=== PATIENT | male | born 1940 | race Asian ===

== ENCOUNTER 2017-01-04 17:59 | Inpatient (IN) | payer MEDICARE ==
[~2017-01-04] VITALS: Ht 162.6 cm; Wt 53.1 kg
[~2017-01-04 17:59] MED LIST: AMLODIPINE-ATO1 EAC8 ORAL; BACITRACIN1 APPLIC TOPIC; BYSTOLIC2.5 MG ORAL; DONEPEZIL HCL5 MG ORAL
[2017-01-04 18:20] VITALS: BP 171/88
[2017-01-04 18:35] LABS: ABG ALLEN TEST POSITIVE; ABG PCO2 127.7 mmHg (35.0-45.0)
[2017-01-04 18:59] LABS: ALANINE AMINOTRANSFERASE 10 U/L (3-41); ANION GAP 10 (5-15); ASPARTATE AMINO TRANSFERASE 18 U/L (5-40); CALCIUM 8.6 mg/dL (8.6-10.2); CARBON DIOXIDE 32 mEQ/L (20-30); CHLORIDE 108 mEQ/L (98-107); HEMOLYSIS 4; POTASSIUM 3.6 mEQ/L (3.4-4.9); SODIUM 150 mEQ/L (135-145); TOTAL PROTEIN 6.5 g/dL (6.6-8.7); TROPONIN I < 0.30 ng/mL (<=0.30)
[2017-01-04 19:23] LABS: APPEARANCE,URINE CLEAR; KETONES,URINE NEGATIVE (NEGATIVE); LEUKOCYTE ESTERASE ,URINE NEGATIVE (NEGATIVE); NITRITE,URINE NEGATIVE (NEGATIVE); PH,URINE 5 (4.5-8.0); PROTEIN,URINE 3+ (NEGATIVE); UROBILINOGEN,URINE 1 MG/DL (0.0-1.0)
[2017-01-04 19:23] LABS: BASOPHILS % (AUTO) 0.7 % (0.0-2.0); EOSINOPHILS % (AUTO) 1.2 % (0.0-3.0); LYMPHOCYTES % (AUTO) 31.4 % (20.0-45.0); MEAN CORPUSCULAR HEMOGLOBIN 33.9 PG (27.0-31.0); MEAN CORPUSCULAR HGB CONC 32.8 G/DL (32.0-36.0); MEAN CORPUSCULAR VOLUME 103 FL (80-99); MEAN PLATELET VOLUME 7.8 FL (6.5-10.1); NEUTROPHILS % (AUTO) 59.6 % (45.0-75.0); PLATELET COUNT 244 K/UL (150-450); RED BLOOD COUNT 3.66 M/UL (4.70-6.10); RED CELL DISTRIBUTION WIDTH 12.7 % (11.6-14.8); WHITE BLOOD COUNT 14.2 K/UL (4.8-10.8)
[2017-01-04 19:32] LABS: AMORPHOUS SEDIMENT,UR FEW /LPF; BACTERIA,URINE FEW /HPF; WBC,URINE 0-2 /HPF (0 - 0)
[2017-01-04] MEDS ORDERED: Zosyn 3.375gm inj ONE ×2 (19:40→23:23)
[2017-01-04 19:45] LABS: CKMB 2.5 ng/mL (< 6.7)
[2017-01-04] MEDS ORDERED: Piperacillin/Tazobactam 3.375 GM in NS 110 ML IV ONE (19:45)
[2017-01-04] MEDS ORDERED: Azithromycin 500 MG in NS 275 ML IV ONE (19:45)
[2017-01-04 19:56] VITALS: BP 135/91
[2017-01-04] MEDS ORDERED: NAMENDA10 MG ORAL (20:12)
[2017-01-04] MEDS ORDERED: Azithromycin Inj IV ONE (20:35)
[2017-01-04 20:41] LABS: ABG BASE EXCESS 3.4; ABG PCO2 37.9 mmHg (35.0-45.0)
[2017-01-04 20:42] LABS: ABG ALLEN TEST POSITIVE
[2017-01-04] MEDS ORDERED: Morphine Sulfate 4mg/ml Inj IVP PRN (21:00)
[2017-01-04] MEDS ORDERED: Nitroglycerin Subl 0.4mg tab (Bottle Of 25) SL PRN (21:00)
[2017-01-04] MEDS ORDERED: Miralax 17gm pkt ORAL PRN (21:00)
[2017-01-04] MEDS ORDERED: DuoNeb 0.5-3(2.5)mg/3ml neb HHN PRN (21:00)
[2017-01-04] MEDS ORDERED: LORazepam Inj 2mg/ml 1ml IV PRN (21:00)
[2017-01-04 21:30] VITALS: BP 105/59
[2017-01-04 22:00] VITALS: BP 126/72
[2017-01-04] MEDS ORDERED: Vancomycin 1 GM in D5W 275 ML IVPB SCH (22:00)
--- NOTE | 2017-01-04 22:13 | Emergency Room Report ---
History of Present Illness General Chief Complaint: Dyspnea/Respdistress Source: Patient, EMS Present Illness HPI 76-year-old male presents to ED for respiratory distress. Altered. at bedside states that today he while he was eating and he started choking. She attempted to clear the airway but saw no visible food. Since then patient has been altered more than usual and having trouble breathing. Patient has dementia. Patient is unable to provide any additional history at this time. No reported fevers or chills. No reported chest pain. No aggravating or relieving factors. No other associated symptoms Allergies: Coded Allergies: No Known Allergies (Verified , 01/26/12) Patient History Past Medical History: HTN, dementia Past Surgical History: none Pertinent Family History: none Social History: Denies: alcohol use, drug use, smoking Immunizations: UTD Reviewed Nursing Documentation: PMH: Agreed, PSxH: Agreed Nursing Documentation-PMH Past Medical History: No History, Except For Hx Cardiac Problems: Yes - high cholesterol Hx Hypertension: Yes Hx Cancer: No Hx Gastrointestinal Problems: No History Of Psychiatric Problem: Yes - alzheimers, dementia Hx Neurological Problems: No Review of Systems All Other Systems: negative except mentioned in HPI Physical Exam Vital Signs Date Time Temp Pulse Resp B/P Pulse Ox O2 Delivery O2 Flow Rate FiO2 01/04/17 17:53 81 20 171/88 98 Ambu-Bag 01/04/17 18:20 99.1 15.0 01/04/17 19:14 100 Sp02 EP Interpretation: abnormal General Appearance: mild distress, thin Head: normocephalic Eyes: bilateral eye PERRL, bilateral eye normal inspection ENT: normal ENT inspection Neck: normal inspection Respiratory: accessory muscle use, crackles Cardiovascular #1: regular rate, rhythm, no edema Gastrointestinal: normal inspection Rectal: deferred Genitourinary: no CVA tenderness Musculoskeletal: normal inspection Neurologic: other - altered Psychiatric: other Skin: normal inspection Lymphatic: normal inspection Procedures Critical Care Time Critical Care Time i. I feel this is a highly complex case requiring extensive working including EKG/Rhythm strip, Xray/CT/US, Blood/urine lab work, repeat exams while in ED, and administration of strong opiates/narcotics for pain control, admission to hospital or close patient follow up. Total time: 30 min bedside evaluation and treatment excludes procedures (EKG). Reason for critical care: Respiratory distress, acidotic, aspiration Possible complications: hypotension, hypertension, [place], shock, arrhythmias, metabolic acidosis, end organ damage, respiratory failure. Interventions: Labs, IV fluids, EKG, chest x-ray. ABG. Intubation. Antibiotics. Course: Patient brought in for respiratory distress, likely aspirated. Patient with agonal breathing. O2 saturations low. ABG shows acidosis with hypercapnia. Patient protecting airway. Patient intubated. Antibiotic given. Consultations: nursing staff, EMS, family Performed by: Dr Arboleda Tolerated well condition = critical j. because of unstable vital signs this patient had a condition that could potentially threaten life or limb. I feel this is a critical patient who required my full attention while patient was considered critical. Total Critical Care Time excluding procedures was greater than 35 minutes Intubation Intubation : Consent: Emergent Intubation Method: orotracheal Tube Size (cm): 7.5 Medications: Etomidate, Rocuronium Breath Sounds after Intubation: equal Intubation Complications: no complications Post Intubation Xray: Yes Attempts: One Patient Tolerated: Well Complications: None Medical Decision Making Diagnostic Impression: Primary Impression: Aspiration pneumonia Qualified Codes: J69.0 - Pneumonitis due to inhalation of food and vomit Additional Impression: Respiratory distress ER Course Hospital Course 76-year-old M presenting to ED with respiratory distress, hypoxic after choking episode Differential diagnoses include: Pneumonia, CHF exacerbation, pneumothorax, fluid overload Clinical course Patient placed on stretcher. On threat monitoring analyst with hypoxia on room air. After initial history and physical, I ordered labs, IV fluids, EKG, chest x-ray , blood cultures, UA. Patient placed on NRB Labs -leukocytosis noted, hemoglobin/hematocrit stable, electrolytes ok okay, lactate okay troponins negative CXR - ? infiltrate EKG - NSR, no acute ischemic changes ABG shows significant acidosis with hypercapnia. Patient protecting airway. Family agrees that patient requires intubation Patient intubated. Chest x-ray shows ET tube placement. Abx given. IVFs given. Case discussed with Dr. Johnson and he agreed to the patient to his service for further care and support I feel this is a highly complex case requiring extensive working including EKG/ Rhythm strip, Xray/CT/US, Blood/urine lab work, repeat exams while in ED, and administration of strong opiates/narcotics for pain control, admission to hospital or close patient follow up. Diagnosis - aspiration pneumonia, respiratory distress Patient admitted to ICU in critical condition Labs Test 01/04/17 18:00 01/04/17 18:22 01/04/17 18:25 01/04/17 19:31 White Blood Count 14.2 K/UL (4.8-10.8) Red Blood Count 3.66 M/UL (4.70-6.10) Hemoglobin 12.4 G/DL (14.2-18.0) Hematocrit 37.8 % (42.0-52.0) Mean Corpuscular Volume 103 FL (80-99) Mean Corpuscular Hemoglobin 33.9 PG (27.0-31.0) Mean Corpuscular Hemoglobin Concent 32.8 G/DL (32.0-36.0) Red Cell Distribution Width 12.7 % (11.6-14.8) Platelet Count 244 K/UL (150-450) Mean Platelet Volume 7.8 FL (6.5-10.1) Neutrophils (%) (Auto) 59.6 % (45.0-75.0) Lymphocytes (%) (Auto) 31.4 % (20.0-45.0) Monocytes (%) (Auto) 7.0 % (1.0-10.0) Eosinophils (%) (Auto) 1.2 % (0.0-3.0) Basophils (%) (Auto) 0.7 % (0.0-2.0) Sodium Level 150 mEQ/L (135-145) Potassium Level 3.6 mEQ/L (3.4-4.9) Chloride Level 108 mEQ/L (98-107) Carbon Dioxide Level 32 mEQ/L (20-30) Anion Gap 10 (5-15) Blood Urea Nitrogen 38 mg/dL (7-23) Creatinine 1.0 mg/dL (0.7-1.2) Estimat Glomerular Filtration Rate mL/min (>60) Glucose Level 133 mg/dL (74-106) Lactic Acid Level 1.10 mmol/L (0.66-2.22) Calcium Level 8.6 mg/dL (8.6-10.2) Total Bilirubin 0.2 mg/dL (0.0-1.2) Aspartate Amino Transf (AST/SGOT) 18 U/L (5-40) Alanine Aminotransferase (ALT/SGPT) 10 U/L (3-41) Alkaline Phosphatase 88 U/L (40-129) Total Creatine Kinase 137 U/L (38-174) Creatine Kinase MB 2.5 ng/mL (< 6.7) Creatine Kinase MB Relative Index 1.8 Troponin I < 0.30 ng/mL (<=0.30) Pro-B-Type Natriuretic Peptide 353 pg/mL (0-450) Total Protein 6.5 g/dL (6.6-8.7) Albumin 3.4 g/dL (3.5-5.2) Globulin 3.1 g/dL Albumin/Globulin Ratio 1.0 (1.0-2.7) Arterial Blood pH 7.101 (7.350-7.450) 7.472 (7.350-7.450) Arterial Blood Partial Pressure CO2 127.7 mmHg (35.0-45.0) 37.9 mmHg (35.0-45.0) Arterial Blood Partial Pressure O2 138.1 mmHg (75.0-100.0) 261.7 mmHg (75.0-100.0) Arterial Blood HCO3 38.8 mmol/L (22.0-26.0) 27.1 mmol/L (22.0-26.0) Arterial Blood Oxygen Saturation 97.6 % (92.0-98.0) 99.1 % (92.0-98.0) Arterial Blood Base Excess 5.0 3.4 Leo Test Positive Positive Urine Color Yellow Urine Appearance Clear Urine pH 5 (4.5-8.0) Urine Specific [place] 1.025 (1.005-1.035) Urine Protein 3+ (NEGATIVE) Urine Glucose (UA) Negative (NEGATIVE) Urine Ketones Negative (NEGATIVE) Urine Occult Blood 2+ (NEGATIVE) Urine Nitrite Negative (NEGATIVE) Urine Bilirubin Negative (NEGATIVE) Urine Urobilinogen 1 MG/DL (0.0-1.0) Urine Leukocyte Esterase Negative (NEGATIVE) Urine RBC 2-4 /HPF (0 - 0) Urine WBC 0-2 /HPF (0 - 0) Urine Squamous Epithelial Cells None /LPF (NONE/OCC) Urine Amorphous Sediment Few /LPF (NONE) Urine Bacteria Few /HPF (NONE) EKG Diagnostic Results Rate: normal Rhythm: NSR ST Segments: no acute changes ASA given to the pt in ED: No Rhythm Strip Diag. Results EP Interpretation: yes Rhythm: NSR, no PVC's, no ectopy Chest X-Ray Diagnostic Results EP Interpretation: Yes Findings: no pneumothorax, no acute cardiopulmonary disease, other - intubated. Number of Views: 1 Last Vital Signs Date Time Temp Pulse Resp B/P Pulse Ox O2 Delivery O2 Flow Rate FiO2 01/04/17 20:47 75 16 30 01/04/17 19:56 135/91 100 Endotracheal Tube 15.0 01/04/17 18:20 99.1 Status: improved Disposition: ADMITTED INPATIENT Condition: Critical Referrals: SANGEETHA JOHNSON (PCP) ALE ARBOLEDA M.D. Jan 04, 2017 22:13
[2017-01-04 23:00] VITALS: BP 91/56
[2017-01-04] MEDS ORDERED: Vancomycin 1gm inj IVPB ONE (23:22)
[2017-01-04] MEDS: Heparin 5000 units/ml inj SUBQ SCH (23:41)
[2017-01-04] MEDS: Vancomycin 1gm in D5W 275ml IVPB SCH (23:44)
[2017-01-05] VITALS (24 sets, daily range): BP systolic 96–152; BP diastolic 51–93
[2017-01-05] MEDS ORDERED: Vancomycin 1 GM in D5W 275 ML IV SCH (00:30)
[2017-01-05] MEDS: Piperacillin/Tazobactam 3.375 GM in D5W 110 ML IVPB SCH ×3 (04:38→20:26)
[2017-01-05 05:53] LABS: BASOPHILS % (AUTO) 0.8 % (0.0-2.0); EOSINOPHILS % (AUTO) 1.9 % (0.0-3.0); MEAN CORPUSCULAR HEMOGLOBIN 32.1 PG (27.0-31.0); MEAN CORPUSCULAR HGB CONC 31.7 G/DL (32.0-36.0); MEAN CORPUSCULAR VOLUME 101 FL (80-99); MEAN PLATELET VOLUME 9.3 FL (6.5-10.1); NEUTROPHILS % (AUTO) 72.3 % (45.0-75.0); PLATELET COUNT 196 K/UL (150-450); RED BLOOD COUNT 3.06 M/UL (4.70-6.10); RED CELL DISTRIBUTION WIDTH 12.5 % (11.6-14.8); WHITE BLOOD COUNT 9.7 K/UL (4.8-10.8)
[2017-01-05] MEDS: NovoLOG Insulin Flexpen SUBQ SCH ×4 (06:18→20:33)
[2017-01-05 06:21] LABS: ANION GAP 12 (5-15); CARBON DIOXIDE 26 mEQ/L (20-30); CHLORIDE 108 mEQ/L (98-107); CREATININE 0.8 mg/dL (0.7-1.2); HEMOLYSIS 5; POTASSIUM 3.2 mEQ/L (3.4-4.9); SODIUM 146 mEQ/L (135-145)
[2017-01-05] MEDS ORDERED: Etomidate 40mg/20ml Inj IV ONE (09:01)
[2017-01-05] MEDS ORDERED: Zemuron 50mg/5ml Inj IV ONE (09:03)
[2017-01-05 09:51] LABS: ABG BASE EXCESS 4.3; ABG PCO2 35.9 mmHg (35.0-45.0)
[2017-01-05 09:52] LABS: ABG ALLEN TEST POSITIVE
[2017-01-05] MEDS: Pantoprazole Inj IV SCH (09:54)
[2017-01-05] MEDS: Heparin 5000 units/ml inj SUBQ SCH ×2 (09:55→20:27)
--- NOTE | 2017-01-05 10:23 | Pulmonolgy Critical Care Note ---
Critical Care - Asmt/Plan Problems: (1) Respiratory distress (2) Aspiration pneumonia (3) Dementia Cardiac: continue to monitor HR/BP Renal: F/U I&O Infectious Disease: check cultures Gastrointestinal: continue feedings/current rate Endocrine: monitor blood sugar, continue sliding scale insulin Hematologic: monitor H/H, transfuse if hgb<8.5 Neurologic: PRN Ativan, PRN Morphine, keep patient comfortable Affect: PRN ativan Disposition: keep in ICU Discussed with: home health care case managermarket relationship manager - Objective Last 24 Hour Vital Signs Date Time Temp Pulse Resp B/P Pulse Ox O2 Delivery O2 Flow Rate FiO2 01/05/17 09:29 71 16 30 01/05/17 08:03 69 01/05/17 08:03 30 01/05/17 08:00 98.5 68 16 118/64 100 Mechanical Ventilator 30 01/05/17 07:29 72 16 30 01/05/17 07:00 68 16 117/64 100 Mechanical Ventilator 30 01/05/17 06:00 68 16 123/68 100 Mechanical Ventilator 30 01/05/17 05:00 69 16 110/63 100 Mechanical Ventilator 30 01/05/17 04:35 71 16 30 01/05/17 04:00 30 01/05/17 04:00 71 01/05/17 04:00 98.0 74 16 96/54 100 Mechanical Ventilator 30 01/05/17 03:25 62 18 30 01/05/17 03:00 70 16 112/62 100 Mechanical Ventilator 30 01/05/17 02:00 60 16 150/51 100 Mechanical Ventilator 30 01/05/17 01:05 67 17 30 01/05/17 01:00 60 16 152/51 100 Mechanical Ventilator 30 01/05/17 00:00 30 01/05/17 00:00 70 01/05/17 00:00 69 16 97/58 100 Mechanical Ventilator 30 01/04/17 23:09 66 16 30 01/04/17 23:00 67 16 91/56 100 Mechanical Ventilator 30 01/04/17 22:32 30 01/04/17 22:18 65 01/04/17 22:00 98.0 65 16 126/72 100 Mechanical Ventilator 30 01/04/17 21:49 99.1 94 16 105/59 100 Endotracheal Tube 15.0 30 01/04/17 21:30 99.1 94 105/59 Endotracheal Tube 15.0 30 01/04/17 20:47 75 16 30 01/04/17 20:47 30 01/04/17 19:56 90 17 135/91 100 Endotracheal Tube 15.0 100 01/04/17 19:32 100 01/04/17 19:14 106 16 100 01/04/17 18:20 81 20 Non-Rebreather 01/04/17 18:20 99.1 81 20 171/88 98 Non-Rebreather 15.0 01/04/17 17:53 81 20 171/88 98 Ambu-Bag Status: awake Condition: critical, grave HEENT: atraumatic Neck: full ROM Lungs: clear Heart: HR/BP stable, HR/BP unstable Abdomen: soft, non-tender, active bowel sounds Extremities: no C/C/E, edema Accucheck: 100 Critical Care - Subjective ROS Limited/Unobtainable: Yes ICU Day: 1 Intubation Day: 1 Interval Events: 76-year-old male with hx of Dementia, presented to ED for respiratory distress. Apparently he was eating and then he started choking. Pt's attempted to clear the airway but saw no visible food. Since then patient has been altered more than usual and having trouble breathing. He was intubated in ER and transferred to ICU. FI02: 30 Vent Support Breath Rate: 16 Vent Support Mode: AC Vent Tidal Volume: 600 Sputum Amount: Moderate PEEP: 5.0 PIP: 18 Fluids: d5w 75 cc.hour I&O: Intake and Output 01/04/17 01/05/17 19:00 07:00 Intake Total 1447.416 ml Output Total 100 ml 300 ml Balance -100 ml 1147.416 ml Intake Oral 0 ml IV Total 1447.416 ml Output Urine Total 100 ml 300 ml CXR: NAD ET-Tube: 7.5 ET Position: 23 Labs: Laboratory Tests Test 01/04/17 18:00 01/04/17 18:22 01/04/17 18:25 01/04/17 19:31 White Blood Count 14.2 K/UL (4.8-10.8) H Red Blood Count 3.66 M/UL (4.70-6.10) L Hemoglobin 12.4 G/DL (14.2-18.0) L Hematocrit 37.8 % (42.0-52.0) L Mean Corpuscular Volume 103 FL (80-99) H Mean Corpuscular Hemoglobin 33.9 PG (27.0-31.0) H Mean Corpuscular Hemoglobin Concent 32.8 G/DL (32.0-36.0) Red Cell Distribution Width 12.7 % (11.6-14.8) Platelet Count 244 K/UL (150-450) Mean Platelet Volume 7.8 FL (6.5-10.1) Neutrophils (%) (Auto) 59.6 % (45.0-75.0) Lymphocytes (%) (Auto) 31.4 % (20.0-45.0) Monocytes (%) (Auto) 7.0 % (1.0-10.0) Eosinophils (%) (Auto) 1.2 % (0.0-3.0) Basophils (%) (Auto) 0.7 % (0.0-2.0) Sodium Level 150 mEQ/L (135-145) H Potassium Level 3.6 mEQ/L (3.4-4.9) Chloride Level 108 mEQ/L (98-107) H Carbon Dioxide Level 32 mEQ/L (20-30) H Anion Gap 10 (5-15) Blood Urea Nitrogen 38 mg/dL (7-23) H Creatinine 1.0 mg/dL (0.7-1.2) Estimat Glomerular Filtration Rate mL/min (>60) Glucose Level 133 mg/dL (74-106) H Lactic Acid Level 1.10 mmol/L (0.66-2.22) Calcium Level 8.6 mg/dL (8.6-10.2) Total Bilirubin 0.2 mg/dL (0.0-1.2) Aspartate Amino Transf (AST/SGOT) 18 U/L (5-40) Alanine Aminotransferase (ALT/SGPT) 10 U/L (3-41) Alkaline Phosphatase 88 U/L (40-129) Total Creatine Kinase 137 U/L (38-174) Creatine Kinase MB 2.5 ng/mL (< 6.7) Creatine Kinase MB Relative Index 1.8 Troponin I < 0.30 ng/mL (<=0.30) Pro-B-Type Natriuretic Peptide 353 pg/mL (0-450) Total Protein 6.5 g/dL (6.6-8.7) L Albumin 3.4 g/dL (3.5-5.2) L Globulin 3.1 g/dL Albumin/Globulin Ratio 1.0 (1.0-2.7) Arterial Blood pH 7.101 (7.350-7.450) 7.472 (7.350-7.450) Arterial Blood Partial Pressure CO2 127.7 mmHg (35.0-45.0) *H 37.9 mmHg (35.0-45.0) Arterial Blood Partial Pressure O2 138.1 mmHg (75.0-100.0) H 261.7 mmHg (75.0-100.0) H Arterial Blood HCO3 38.8 mmol/L (22.0-26.0) H 27.1 mmol/L (22.0-26.0) H Arterial Blood Oxygen Saturation 97.6 % (92.0-98.0) 99.1 % (92.0-98.0) H Arterial Blood Base Excess 5.0 3.4 Leo Test Positive Positive Urine Color Yellow Urine Appearance Clear Urine pH 5 (4.5-8.0) Urine Specific [place] 1.025 (1.005-1.035) Urine Protein 3+ (NEGATIVE) H Urine Glucose (UA) Negative (NEGATIVE) Urine Ketones Negative (NEGATIVE) Urine Occult Blood 2+ (NEGATIVE) H Urine Nitrite Negative (NEGATIVE) Urine Bilirubin Negative (NEGATIVE) Urine Urobilinogen 1 MG/DL (0.0-1.0) H Urine Leukocyte Esterase Negative (NEGATIVE) Urine RBC 2-4 /HPF (0 - 0) H Urine WBC 0-2 /HPF (0 - 0) Urine Squamous Epithelial Cells None /LPF (NONE/OCC) Urine Amorphous Sediment Few /LPF (NONE) H Urine Bacteria Few /HPF (NONE) Test 01/05/17 05:13 01/05/17 09:00 White Blood Count 9.7 K/UL (4.8-10.8) Red Blood Count 3.06 M/UL (4.70-6.10) L Hemoglobin 9.8 G/DL (14.2-18.0) L Hematocrit 31.0 % (42.0-52.0) L Mean Corpuscular Volume 101 FL (80-99) H Mean Corpuscular Hemoglobin 32.1 PG (27.0-31.0) H Mean Corpuscular Hemoglobin Concent 31.7 G/DL (32.0-36.0) L Red Cell Distribution Width 12.5 % (11.6-14.8) Platelet Count 196 K/UL (150-450) Mean Platelet Volume 9.3 FL (6.5-10.1) Neutrophils (%) (Auto) 72.3 % (45.0-75.0) Lymphocytes (%) (Auto) 18.0 % (20.0-45.0) L Monocytes (%) (Auto) 7.0 % (1.0-10.0) Eosinophils (%) (Auto) 1.9 % (0.0-3.0) Basophils (%) (Auto) 0.8 % (0.0-2.0) Sodium Level 146 mEQ/L (135-145) H Potassium Level 3.2 mEQ/L (3.4-4.9) L Chloride Level 108 mEQ/L (98-107) H Carbon Dioxide Level 26 mEQ/L (20-30) Anion Gap 12 (5-15) Blood Urea Nitrogen 31 mg/dL (7-23) H Creatinine 0.8 mg/dL (0.7-1.2) Estimat Glomerular Filtration Rate mL/min (>60) Glucose Level 106 mg/dL (74-106) Calcium Level 8.0 mg/dL (8.6-10.2) L Arterial Blood pH 7.501 (7.350-7.450) Arterial Blood Partial Pressure CO2 35.9 mmHg (35.0-45.0) Arterial Blood Partial Pressure O2 89.1 mmHg (75.0-100.0) Arterial Blood HCO3 27.4 mmol/L (22.0-26.0) H Arterial Blood Oxygen Saturation 96.9 % (92.0-98.0) Arterial Blood Base Excess 4.3 Leo Test Positive RABIA BANGURA Jan 05, 2017 10:23
[2017-01-05] MEDS ORDERED: D5W 275ml ONE (10:25)
[2017-01-05] MEDS ORDERED: D5 1/2NS 1000ml IV ONE (10:25)
[2017-01-05] MEDS ORDERED: NS 275ml ONE (10:25)
[2017-01-05] MEDS ORDERED: Tubing IV Secondary IV ONE (10:25)
[2017-01-05 11:11] LABS: PROTHROMBIN TIME 10.2 SEC (9.30-11.50)
[2017-01-05 11:35] LABS: BAND NEUTROPHILS % (MANUAL) 0 % (0-8); BASOPHILS % (MANUAL) 0 % (0-2); EOSINOPHILS % (MANUAL) 1 % (0-3); HYPOCHROMASIA 1+; LYMPHOCYTES % (MANUAL) 19 % (20-45); MACROCYTES 1+; NEUTROPHILS % (MANUAL) 75 % (45-75); PLATELET ESTIMATE ADEQUATE; PLATELET MORPHOLOGY NORMAL; TOTAL CELLS COUNTED 100
[2017-01-05 11:56] LABS: PATH BLOOD SMEAR/OMC SENT TO PATHOLOGIST
[2017-01-05 11:57] LABS: RETICULOCYTE COUNT 0.4 % (0.0-2.0)
[2017-01-05 12:04] LABS: ERYTHROCYTE SEDIMENTATION RATE 33 MM/HR (0-20)
--- NOTE | 2017-01-05 12:34 | Consultation ---
Consult Note Consult Note ID Dic# [id number] HORACIO JOHN M.D. Jan 05, 2017 12:34
--- NOTE | 2017-01-05 13:52 | Diagnostic Imaging Report ---
Indication: TUBE PLCNJ Technique: One view of the chest Comparison: One hour earlier Findings: Interim endotracheal intubation, endotracheal tube tip projecting just beyond the thoracic inlet, approximately 7 cm above the deysi. Satisfactory nasogastric intubation, tip projected at the level gastric fundus. The lungs and pleural spaces remain largely clear, with calcified granulomata seen in the right lung apex. There is also calcified right hilar node The heart size is normal. Aorta is tortuous and calcified. Impression: Satisfactory endotracheal and nasogastric intubation No acute process Evidence of old granulomatous disease
--- NOTE | 2017-01-05 13:52 | Diagnostic Imaging Report ---
Indication: SOB Technique: One view of the chest Comparison: 09/05/2014 Findings: The heart is enlarged. Lungs and pleural spaces are clear. Aorta is tortuous and calcified. No significant interim change Impression: Cardiomegaly. No acute process
[2017-01-05] MEDS ORDERED: KCl 10% 20 mEq/15ml liquid NG ONE (16:00)
--- NOTE | 2017-01-05 16:05 | History & Physical ---
History and Physical History & Physicial Dictated Int Med no. [id number]. SANGEETHA JOHNSON Jan 05, 2017 16:05
--- NOTE | 2017-01-05 20:58 | Consultation ---
DATE OF CONSULTATION: 01/05/2017 INFECTIOUS DISEASE CONSULTATION CONSULTING PHYSICIAN: Kwasi Jo M.D REFERRING PHYSICIAN: Harriet Carballo M.D. REASON FOR CONSULTATION: Evaluation of the patient for possible aspiration pneumonia. HISTORY OF PRESENT ILLNESS: This is a 76-year-old male who was brought to the hospital due to respiratory distress after the patient was eating and started to choke. The patient had to be intubated and was found some food material. The patient has been started on IV antibiotics for possible aspiration pneumonia. Infectious Disease consultation has been requested for further evaluation and the patient's antibiotic management. PAST MEDICAL HISTORY: 1. History of fracture of femoral neck. 2. Dementia. 3. Hypertension. ALLERGIES: No known drug allergies. SOCIAL HISTORY: Unavailable. REVIEW OF SYSTEMS: Unobtainable. FAMILY HISTORY: Unavailable. MEDICATIONS: Zosyn and vancomycin. PHYSICAL EXAMINATION: VITAL SIGNS: Temperature 98.6, blood pressure 115/68, pulse 86, and respiratory rate 18. HEENT: Mild pale conjunctivae. No icterus. NECK: No lymphadenopathy. CHEST: Coarse breathing sounds. HEART: S1 and S2. ABDOMEN: Soft. EXTREMITIES: No cyanosis. sedated. LABORATORY DATA: White blood cell count on admission 14, platelets 196,000, and hemoglobin 9.8. UA unremarkable. BUN 31 and creatinine 0.8. ALT, AST, and alkaline phosphatase are unremarkable. ASSESSMENT: The patient is a 76-year-old male with multiple medical problems, who has been admitted to this medical center after the patient had aspiration. The patient will benefit from treatment of aspiration pneumonia. PLAN: 1. We will continue the patient on IV vancomycin and Zosyn. 2. Monitor CBC. 3. Monitor BMP. 4. Monitor cultures (blood and sputum). 5. Monitor the patient's clinical course. 6. Monitor chest x-ray. 7. Based on the patient's clinical course and labs, we will do further recommendations. Thank you, Dr. Carballo, for allowing me to participate in the care of this patient. I will follow the patient with you during this hospitalization. Kwasi Jo M.D. DR: MARK JOB#: [id number] CC:
[2017-01-05] MEDS ORDERED: Donepezil 10mg tab ORAL SCH (21:00)
--- NOTE | 2017-01-05 22:58 | History and Physical Report ---
DATE OF ADMISSION: 01/04/2017 CHIEF COMPLAINT: The patient is a 76-year-old male presents with complaint of respiratory failure. HISTORY OF PRESENT ILLNESS: The patient has a history of end-stage Alzheimer's dementia. According to the patient's , the patient was eating lunch yesterday afternoon. The patient began to choke. 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 The patient's extracted fluid from the patient's throat. The patient was started on mouth to mouth. The patient did not lose his pulse. The patient was transported to [facility] emergency room via EMS. The patient was intubated for airway protection. The patient is admitted for aspiration pneumonia and respiratory failure. PAST MEDICAL HISTORY: Significant for, 1. Alzheimer's dementia, end stage. 2. Hypertension. 3. Hypercholesterolemia. 4. Benign prostatic hypertrophy. 5. History of cataracts. PAST SURGICAL HISTORY: Significant for, 1. Cataract surgery of the left eye in 1999. 2. Cataract surgery of the left eye in 2011. 3. Right hip hemiarthroplasty secondary to femoral neck fracture in August 2014. CURRENT MEDICATIONS: 1. Aricept 10 mg one tablet p.o. at nightly. 2. Namenda 10 mg one tablet p.o. twice daily. 3. Aspirin 81 mg one tablet p.o. daily. 4. Vitamin D. ALLERGIES: No known drug allergies. SOCIAL HISTORY: The patient is . The patient is retired. The patient denies tobacco or alcohol use. REVIEW OF SYSTEMS: Constitutional: Unable to assess, secondary to the patient's mental status. PHYSICAL EXAMINATION: VITAL SIGNS: Temperature 98.6 degrees, respirations 16, pulse 72, and blood pressure 115/68. GENERAL: The patient is a well-developed and well-nourished male who is currently intubated and sedated. HEENT: Eyes, pupils are equal and responsive to light and accommodation. Extraocular movements are intact. NECK: Supple without lymphadenopathy. CHEST: Lungs are clear to auscultation bilaterally without wheezes or rales with coarse breath sounds bilaterally. The patient is currently intubated. ABDOMEN: Soft, nontender, and nondistended. Positive bowel sounds. No evidence of hepatosplenomegaly. Currently, no rebound or guarding. CARDIOVASCULAR: Regular rate. S1, S2. No murmurs, rubs, or gallops. EXTREMITIES: Negative for clubbing, cyanosis, or edema. RECTAL/GENITAL: Refused. NEUROLOGIC: The patient does open his eyes to verbal stimulation. LABORATORY STUDIES: WBC 14.2, hemoglobin 12.4, hematocrit 37.8, and platelets 244,000. Sodium 150, potassium 3.6, chloride 108, CO2 32, BUN 38, creatinine 1.0, and glucose 133. Arterial blood gas, pH 7.101, pCO2 127.7, pO2 138.1, bicarb positive 38.8, O2 saturation 97.6, and base excess positive 5.0. Chest x-ray was reported as no acute disease. ASSESSMENT: This is a 76-year-old male, 1. Respiratory failure. 2. Aspiration pneumonitis. 3. Aspiration pneumonia. 4. Hypertension. 5. Hypercholesterolemia. 6. Benign prostatic hypertrophy. 7. Alzheimer's dementia. TREATMENT: 1. Respiratory failure. Pulmonary consultation has been obtained with Dr. Carballo. The patient is currently intubated and sedated. We will follow recommendation of Pulmonary. 2. Aspiration pneumonitis/aspiration pneumonia. An Infectious Disease consultation obtained with Dr. Jo. The patient has been placed empirically on vancomycin and Zosyn. 3. Hypertension. The patient is currently hypotensive. 4. Hypercholesterolemia. 5. Benign prostatic hypertrophy. 6. Alzheimer's dementia. Continue Namenda and Aricept as above. Rosas Morris M.D. DR: Sarah JOB#: [id number] CC:
[2017-01-05] MEDS: Vancomycin 1gm in D5W 275ml IVPB SCH (23:37)
[2017-01-06] VITALS (24 sets, daily range): BP systolic 108–170; BP diastolic 60–83
[2017-01-06] MEDS: Piperacillin/Tazobactam 3.375 GM in D5W 110 ML IVPB SCH ×3 (04:58→20:02)
[2017-01-06 05:23] LABS: BASOPHILS % (AUTO) 0.9 % (0.0-2.0); EOSINOPHILS % (AUTO) 2.5 % (0.0-3.0); LYMPHOCYTES % (AUTO) 23.7 % (20.0-45.0); MEAN CORPUSCULAR HEMOGLOBIN 33.8 PG (27.0-31.0); MEAN CORPUSCULAR HGB CONC 33.5 G/DL (32.0-36.0); MEAN CORPUSCULAR VOLUME 101 FL (80-99); MEAN PLATELET VOLUME 8.1 FL (6.5-10.1); MONOCYTES % (AUTO) 6.4 % (1.0-10.0); NEUTROPHILS % (AUTO) 66.6 % (45.0-75.0); PLATELET COUNT 184 K/UL (150-450); RED BLOOD COUNT 2.83 M/UL (4.70-6.10); RED CELL DISTRIBUTION WIDTH 12.5 % (11.6-14.8); WHITE BLOOD COUNT 9.1 K/UL (4.8-10.8)
[2017-01-06] MEDS: NovoLOG Insulin Flexpen SUBQ SCH (05:36)
[2017-01-06 05:52] LABS: ALANINE AMINOTRANSFERASE 8 U/L (3-41); ALBUMIN/GLOBULIN RATIO 0.9 (1.0-2.7); ANION GAP 18 (5-15); ASPARTATE AMINO TRANSFERASE 14 U/L (5-40); CALCIUM 7.8 mg/dL (8.6-10.2); CARBON DIOXIDE 21 mEQ/L (20-30); CHLORIDE 106 mEQ/L (98-107); CREATININE 0.8 mg/dL (0.7-1.2); HEMOLYSIS 11; PHOSPHORUS 2.5 mg/dL (2.5-4.8); POTASSIUM 3.5 mEQ/L (3.4-4.9); SODIUM 145 mEQ/L (135-145); TOTAL PROTEIN 4.9 g/dL (6.6-8.7)
[2017-01-06] MEDS: Pantoprazole Inj IV SCH (08:38)
[2017-01-06] MEDS: Heparin 5000 units/ml inj SUBQ SCH ×2 (08:45→20:32)
[2017-01-06] MEDS ORDERED: NS 275ml ONE (08:51)
[2017-01-06] MEDS ORDERED: Memantine 10mg tab ORAL SCH (09:00)
[2017-01-06 09:42] LABS: ABG ALLEN TEST POSITIVE; ABG BASE EXCESS 3.2; ABG PCO2 38.5 mmHg (35.0-45.0)
--- NOTE | 2017-01-06 09:57 | Pulmonolgy Critical Care Note ---
Critical Care - Asmt/Plan Problems: (1) Respiratory distress (2) Aspiration pneumonia (3) Dementia Respiratory: monitor respiratory rate, adjust FIO2, CXR Cardiac: continue pressors, stop pressors Renal: F/U I&O Infectious Disease: check cultures Gastrointestinal: continue feedings/current rate Endocrine: monitor blood sugar, continue sliding scale insulin Hematologic: monitor H/H, transfuse if hgb<8.5 Neurologic: keep patient comfortable Prophylaxis: Protonix Notes Reviewed: cardio Discussed with: nurses, consultants, outpatient case managerflight operations manager - Objective Last 24 Hour Vital Signs Date Time Temp Pulse Resp B/P Pulse Ox O2 Delivery O2 Flow Rate FiO2 01/06/17 09:22 64 17 30 01/06/17 09:19 99 01/06/17 09:00 62 20 134/67 97 Mechanical Ventilator 30 01/06/17 08:00 97.4 60 20 127/76 99 Mechanical Ventilator 30 01/06/17 07:08 63 10 30 01/06/17 07:00 60 18 138/68 99 Mechanical Ventilator 30 01/06/17 06:00 60 18 118/71 99 Mechanical Ventilator 30 01/06/17 05:10 60 13 30 01/06/17 05:00 62 18 114/70 99 Mechanical Ventilator 30 01/06/17 04:00 30 01/06/17 04:00 98.0 60 18 115/77 99 Mechanical Ventilator 30 01/06/17 04:00 66 01/06/17 03:22 95 14 30 01/06/17 03:00 60 18 108/65 99 Mechanical Ventilator 30 01/06/17 02:00 61 18 117/67 99 Mechanical Ventilator 30 01/06/17 01:04 63 14 30 01/06/17 01:00 64 18 110/68 99 Mechanical Ventilator 30 01/06/17 00:00 30 01/06/17 00:00 63 01/06/17 00:00 98.7 62 18 137/68 99 Mechanical Ventilator 30 01/06/17 00:00 62 18 137/68 99 Mechanical Ventilator 30 01/05/17 23:08 62 19 30 01/05/17 23:00 65 18 148/93 99 Mechanical Ventilator 30 01/05/17 22:00 67 18 120/65 99 Mechanical Ventilator 30 01/05/17 21:00 67 18 147/81 99 Mechanical Ventilator 30 01/05/17 20:52 67 14 30 01/05/17 20:00 67 01/05/17 20:00 98.6 66 18 118/66 99 Mechanical Ventilator 30 01/05/17 20:00 30 01/05/17 19:18 69 18 30 01/05/17 19:00 68 18 132/75 99 Mechanical Ventilator 30 01/05/17 18:00 68 18 144/75 99 Mechanical Ventilator 30 01/05/17 17:10 70 19 30 01/05/17 17:00 71 19 130/80 100 Mechanical Ventilator 30 01/05/17 16:00 98.7 70 18 100/68 98 Mechanical Ventilator 30 01/05/17 16:00 70 01/05/17 15:29 70 15 30 01/05/17 15:00 88 18 131/68 100 Mechanical Ventilator 30 01/05/17 14:09 88 18 113/64 100 Mechanical Ventilator 30 01/05/17 13:20 30 01/05/17 13:10 68 18 30 01/05/17 13:00 70 19 116/65 100 Mechanical Ventilator 30 01/05/17 12:09 30 01/05/17 12:00 72 01/05/17 12:00 98.6 72 16 115/68 100 Mechanical Ventilator 30 01/05/17 11:00 69 19 113/64 100 Mechanical Ventilator 30 01/05/17 10:48 70 12 30 01/05/17 10:00 68 16 112/62 100 Mechanical Ventilator 30 01/05/17 10:00 30 Status: awake Condition: critical Neck: full ROM Lungs: clear Heart: HR/BP stable, HR/BP unstable Abdomen: soft, non-tender, active bowel sounds, feeding tube Extremities: no C/C/E, edema Decubiti: location Micro: Microbiology Date/Time Source Procedure Growth Status 01/04/17 18:05 Blood Blood Culture - Preliminary NO GROWTH AFTER 24 HOURS Resulted 01/04/17 18:00 Blood Blood Culture - Preliminary NO GROWTH AFTER 24 HOURS Resulted Accucheck: 120 Critical Care - Subjective ROS Limited/Unobtainable: No ICU Day: 2 Intubation Day: 2 Condition: critical EKG Rhythm: Sinus Rhythm FI02: 30 Vent Support Breath Rate: 4 Vent Support Mode: CPAP Vent Tidal Volume: 600 Sputum Amount: Moderate PEEP: 5.0 PIP: 25 Fluids: d5w 75 cc.hour I&O: Intake and Output 01/05/17 01/06/17 19:00 07:00 Intake Total 1037.5 ml 1367.500 ml Output Total 270 ml 150 ml Balance 767.5 ml 1217.500 ml IV Total 1037.5 ml 1367.500 ml Output Urine Total 270 ml 150 ml CXR: clear ET-Tube: 7.5 ET Position: 23 Labs: Laboratory Tests Test 01/05/17 10:30 01/06/17 04:20 01/06/17 09:30 Erythrocyte Sedimentation Rate 33 MM/HR (0-20) H Reticulocyte Count 0.4 % (0.0-2.0) Prothrombin Time 10.2 SEC (9.30-11.50) Prothromb Time International Ratio 1.0 (0.9-1.1) Activated Partial Thromboplast Time 33 SEC (23-33) Iron Level 39 ug/dL (59-158) L Total Iron Binding Capacity 198 ug/dL (250-400) L Percent Iron Saturation 20 % (15-50) Unsaturated Iron Binding 159 ug/dL (112-346) Lactate Dehydrogenase 164 U/L (135-230) Carcinoembryonic Antigen 2.7 ng/mL Vitamin B12 Level 742 pg/mL (211-946) Folate Pending White Blood Count 9.1 K/UL (4.8-10.8) Red Blood Count 2.83 M/UL (4.70-6.10) L Hemoglobin 9.6 G/DL (14.2-18.0) L Hematocrit 28.6 % (42.0-52.0) L Mean Corpuscular Volume 101 FL (80-99) H Mean Corpuscular Hemoglobin 33.8 PG (27.0-31.0) H Mean Corpuscular Hemoglobin Concent 33.5 G/DL (32.0-36.0) Red Cell Distribution Width 12.5 % (11.6-14.8) Platelet Count 184 K/UL (150-450) Mean Platelet Volume 8.1 FL (6.5-10.1) Neutrophils (%) (Auto) 66.6 % (45.0-75.0) Lymphocytes (%) (Auto) 23.7 % (20.0-45.0) Monocytes (%) (Auto) 6.4 % (1.0-10.0) Eosinophils (%) (Auto) 2.5 % (0.0-3.0) Basophils (%) (Auto) 0.9 % (0.0-2.0) Sodium Level 145 mEQ/L (135-145) Potassium Level 3.5 mEQ/L (3.4-4.9) Chloride Level 106 mEQ/L (98-107) Carbon Dioxide Level 21 mEQ/L (20-30) Anion Gap 18 (5-15) H Blood Urea Nitrogen 26 mg/dL (7-23) H Creatinine 0.8 mg/dL (0.7-1.2) Estimat Glomerular Filtration Rate mL/min (>60) Glucose Level 91 mg/dL (74-106) Calcium Level 7.8 mg/dL (8.6-10.2) L Phosphorus Level 2.5 mg/dL (2.5-4.8) Magnesium Level 2.0 mg/dL (1.7-2.5) Total Bilirubin 0.5 mg/dL (0.0-1.2) Aspartate Amino Transf (AST/SGOT) 14 U/L (5-40) Alanine Aminotransferase (ALT/SGPT) 8 U/L (3-41) Alkaline Phosphatase 58 U/L (40-129) Total Protein 4.9 g/dL (6.6-8.7) L Albumin 2.4 g/dL (3.5-5.2) L Globulin 2.5 g/dL Albumin/Globulin Ratio 0.9 (1.0-2.7) L Arterial Blood pH 7.465 (7.350-7.450) Arterial Blood Partial Pressure CO2 38.5 mmHg (35.0-45.0) Arterial Blood Partial Pressure O2 63.5 mmHg (75.0-100.0) L Arterial Blood HCO3 27.1 mmol/L (22.0-26.0) H Arterial Blood Oxygen Saturation 91.9 % (92.0-98.0) L Arterial Blood Base Excess 3.2 Leo Test Positive RABIA BANGURA Jan 06, 2017 09:57
--- NOTE | 2017-01-06 11:35 | Diagnostic Imaging Report ---
Indication: DYSPNEA Technique: One view of the chest Comparison: 01/04/2017 Findings: Nasogastric and endotracheal tubes are again demonstrated. Lungs and pleural spaces remain clear. Heart size is normal. The aorta is tortuous calcified and somewhat ectatic Impression: Unchanged, over 2 days, findings as above.
[2017-01-06] MEDS ORDERED: NovoLOG Insulin Flexpen SUBQ SCH (12:00)
[2017-01-06] MEDS ORDERED: NS 250 ML IVPB ONE (13:00)
--- NOTE | 2017-01-06 13:07 | Internal Med Progress Note ---
Subjective Date of Service: Jan 06, 2017 Physician Name Rosas Johnson Attending Physician Rosas Johnson Current Medications Medications (Trade) Dose Ordered Sig/Daina Route PRN Reason Start Time Stop Time Status Last Admin Dose Admin Acetaminophen (Tylenol) 650 mg Q4H PRN ORAL fever 01/04/17 21:00 02/03/17 20:59 Albuterol/ Ipratropium (DuoNeb 0.5-3(2.5)mg/3ml) 3 ml Q4H PRN HHN Shortness of Breath 01/04/17 21:00 01/09/17 20:59 Dextrose (D5W 1000ml) 1,000 ml @ 75 mls/hr [id number] IV 01/04/17 23:45 02/03/17 23:44 01/06/17 02:06 Dextrose STAT PRN IV Hypoglycemia 01/04/17 21:00 02/03/17 20:59 Donepezil HCl (Aricept) 10 mg QHS ORAL 01/05/17 21:00 02/04/17 20:59 01/05/17 20:32 Heparin Sodium (Porcine) (Heparin 5000 units/ml) 5,000 units EVERY 12 HOURS SUBQ 01/04/17 22:00 02/03/17 21:59 01/06/17 08:45 Insulin Aspart (NovoLOG) EVERY 6 HOURS SUBQ 01/06/17 12:00 02/05/17 11:59 01/06/17 12:12 Lorazepam (Ativan 2mg/ml 1ml) 2 mg Q4H PRN IV For Anxiety 01/04/17 21:00 01/11/17 20:59 Memantine (Namenda) 10 mg DAILY ORAL 01/06/17 09:00 02/05/17 08:59 01/06/17 08:52 Morphine Sulfate (Morphine Sulfate) 4 mg Q4H PRN IVP PAIN SCALE 4-10 01/04/17 21:00 01/11/17 20:59 Nitroglycerin (Ntg) 0.4 mg Every 5 Minutes PRN SL Prn Chest Pain 01/04/17 21:00 02/03/17 20:59 Ondansetron HCl (Zofran) 4 mg Q6H PRN IVP Nausea & Vomiting 01/04/17 21:00 02/03/17 20:59 Pantoprazole (Protonix) 40 mg DAILY IV 01/05/17 09:00 02/04/17 08:59 01/06/17 08:38 Piperacillin Sod/ Tazobactam Sod/ Dextrose (Zosyn/D5W) 110 ml @ 27.5 mls/hr Q8HR@0400,1200,2000 IVPB 01/05/17 04:00 01/12/17 03:59 01/06/17 12:08 Polyethylene Glycol (Miralax) 17 gm DAILYPRN PRN ORAL Constipation 01/04/17 21:00 02/03/17 20:59 Vancomycin HCl 1 ea 1 ea DAILY PRN MISC PRN RX PROTOCOL 01/04/17 21:30 02/03/17 21:29 Vancomycin HCl 1 gm/Dextrose 275 ml @ 183.708 mls/hr Q24H IVPB 01/04/17 23:00 01/09/17 22:59 01/05/17 23:37 Allergies: Coded Allergies: No Known Allergies (Verified , 01/06/17) ROS Limited/Unobtainable: Yes Subjective 76 YO M admitted with aspiration and respiratory failure. Extubated @ 10:30 am. Tolerating nasal canula. ICU. Objective Last Vital Signs Date Time Temp Pulse Resp B/P Pulse Ox O2 Delivery O2 Flow Rate FiO2 01/06/17 11:00 68 22 152/71 100 Nasal Cannula 4.0 01/06/17 10:00 30 01/06/17 08:00 97.4 General Appearance: WD/WN, moderate distress EENT: PERRL/EOMI, normal ENT inspection Neck: non-tender, normal alignment, supple Cardiovascular: normal peripheral pulses, normal rate, regular rhythm, no gallop/murmur, no JVD Respiratory/Chest: respiratory distress, crackles/rales, rhonchi - bilaterally , expiratory wheezing Abdomen: normal bowel sounds, non tender, soft, no organomegaly, no mass Extremities: normal range of motion, non-tender Neurologic: seam stayer II-XII grossly normal, no motor/sensory deficits Laboratory Tests Test 01/06/17 04:20 01/06/17 09:30 White Blood Count 9.1 K/UL (4.8-10.8) Red Blood Count 2.83 M/UL (4.70-6.10) L Hemoglobin 9.6 G/DL (14.2-18.0) L Hematocrit 28.6 % (42.0-52.0) L Mean Corpuscular Volume 101 FL (80-99) H Mean Corpuscular Hemoglobin 33.8 PG (27.0-31.0) H Mean Corpuscular Hemoglobin Concent 33.5 G/DL (32.0-36.0) Red Cell Distribution Width 12.5 % (11.6-14.8) Platelet Count 184 K/UL (150-450) Mean Platelet Volume 8.1 FL (6.5-10.1) Neutrophils (%) (Auto) 66.6 % (45.0-75.0) Lymphocytes (%) (Auto) 23.7 % (20.0-45.0) Monocytes (%) (Auto) 6.4 % (1.0-10.0) Eosinophils (%) (Auto) 2.5 % (0.0-3.0) Basophils (%) (Auto) 0.9 % (0.0-2.0) Sodium Level 145 mEQ/L (135-145) Potassium Level 3.5 mEQ/L (3.4-4.9) Chloride Level 106 mEQ/L (98-107) Carbon Dioxide Level 21 mEQ/L (20-30) Anion Gap 18 (5-15) H Blood Urea Nitrogen 26 mg/dL (7-23) H Creatinine 0.8 mg/dL (0.7-1.2) Estimat Glomerular Filtration Rate mL/min (>60) Glucose Level 91 mg/dL (74-106) Calcium Level 7.8 mg/dL (8.6-10.2) L Phosphorus Level 2.5 mg/dL (2.5-4.8) Magnesium Level 2.0 mg/dL (1.7-2.5) Total Bilirubin 0.5 mg/dL (0.0-1.2) Aspartate Amino Transf (AST/SGOT) 14 U/L (5-40) Alanine Aminotransferase (ALT/SGPT) 8 U/L (3-41) Alkaline Phosphatase 58 U/L (40-129) Total Protein 4.9 g/dL (6.6-8.7) L Albumin 2.4 g/dL (3.5-5.2) L Globulin 2.5 g/dL Albumin/Globulin Ratio 0.9 (1.0-2.7) L Arterial Blood pH 7.465 (7.350-7.450) Arterial Blood Partial Pressure CO2 38.5 mmHg (35.0-45.0) Arterial Blood Partial Pressure O2 63.5 mmHg (75.0-100.0) L Arterial Blood HCO3 27.1 mmol/L (22.0-26.0) H Arterial Blood Oxygen Saturation 91.9 % (92.0-98.0) L Arterial Blood Base Excess 3.2 Leo Test Positive Microbiology Date/Time Source Procedure Growth Status 01/04/17 18:05 Blood Blood Culture - Preliminary NO GROWTH AFTER 24 HOURS Resulted 01/04/17 18:00 Blood Blood Culture - Preliminary NO GROWTH AFTER 24 HOURS Resulted Intake and Output 01/05/17 01/06/17 19:00 07:00 Intake Total 1037.5 ml 1367.500 ml Output Total 270 ml 150 ml Balance 767.5 ml 1217.500 ml IV Total 1037.5 ml 1367.500 ml Output Urine Total 270 ml 150 ml Assessment/Plan Problem List: (1) Respiratory failure Assessment & Plan: S/P extubtion. See pulmonary note. (2) Hypertension Assessment & Plan: Uncontrolled. Await cardiology consult. (3) Hypercholesteremia (4) BPH (benign prostatic hyperplasia) (5) Alzheimer's dementia (6) Aspiration pneumonia Assessment & Plan: Continue vanco and zosyn. See pulmonary and ID note. (7) Hematuria Assessment & Plan: Send urine for cult and sens. D/C heparin if hemoglobin continues to decrease. Status: not improved ROSAS JOHNSON Jan 06, 2017 13:07
[2017-01-06 15:27] LABS: APPEARANCE,URINE CLEAR; KETONES,URINE NEGATIVE (NEGATIVE); LEUKOCYTE ESTERASE ,URINE 1+ (NEGATIVE); NITRITE,URINE NEGATIVE (NEGATIVE); PH,URINE 7 (4.5-8.0); PROTEIN,URINE 2+ (NEGATIVE); UROBILINOGEN,URINE NORMAL MG/DL (0.0-1.0)
[2017-01-06 15:42] LABS: RBC,URINE 20-30 /HPF (0 - 0)
[2017-01-06 15:43] LABS: BACTERIA,URINE MODERATE /HPF
--- NOTE | 2017-01-06 15:49 | Cardiac Electrophysiology PN ---
Subjective Subjective [id number] Objective Last 24 Hour Vital Signs Date Time Temp Pulse Resp B/P Pulse Ox O2 Delivery O2 Flow Rate FiO2 01/06/17 15:00 62 20 152/71 100 Nasal Cannula 3.0 01/06/17 14:00 64 18 152/74 98 Nasal Cannula 3.0 01/06/17 13:00 71 20 131/68 97 Nasal Cannula 3.0 01/06/17 12:00 68 01/06/17 12:00 97.6 60 21 152/71 100 Nasal Cannula 3.0 01/06/17 11:00 68 22 152/71 100 Nasal Cannula 4.0 01/06/17 10:30 100 Nasal Cannula 4.0 01/06/17 10:29 Nasal Cannula 4.0 01/06/17 10:15 Nasal Cannula 4.0 01/06/17 10:00 64 20 170/82 100 Mechanical Ventilator 30 01/06/17 09:22 64 17 30 01/06/17 09:19 99 01/06/17 09:00 62 20 134/67 97 Mechanical Ventilator 30 01/06/17 08:00 97.4 60 20 127/76 99 Mechanical Ventilator 30 01/06/17 07:08 63 10 30 01/06/17 07:00 60 18 138/68 99 Mechanical Ventilator 30 01/06/17 06:00 60 18 118/71 99 Mechanical Ventilator 30 01/06/17 05:10 60 13 30 01/06/17 05:00 62 18 114/70 99 Mechanical Ventilator 30 01/06/17 04:00 30 01/06/17 04:00 98.0 60 18 115/77 99 Mechanical Ventilator 30 01/06/17 04:00 66 01/06/17 03:22 95 14 30 01/06/17 03:00 60 18 108/65 99 Mechanical Ventilator 30 01/06/17 02:00 61 18 117/67 99 Mechanical Ventilator 30 01/06/17 01:04 63 14 30 01/06/17 01:00 64 18 110/68 99 Mechanical Ventilator 30 01/06/17 00:00 30 01/06/17 00:00 63 01/06/17 00:00 98.7 62 18 137/68 99 Mechanical Ventilator 30 01/06/17 00:00 62 18 137/68 99 Mechanical Ventilator 30 01/05/17 23:08 62 19 30 01/05/17 23:00 65 18 148/93 99 Mechanical Ventilator 30 01/05/17 22:00 67 18 120/65 99 Mechanical Ventilator 30 01/05/17 21:00 67 18 147/81 99 Mechanical Ventilator 30 01/05/17 20:52 67 14 30 01/05/17 20:00 67 01/05/17 20:00 98.6 66 18 118/66 99 Mechanical Ventilator 30 01/05/17 20:00 30 01/05/17 19:18 69 18 30 01/05/17 19:00 68 18 132/75 99 Mechanical Ventilator 30 01/05/17 18:00 68 18 144/75 99 Mechanical Ventilator 30 01/05/17 17:10 70 19 30 01/05/17 17:00 71 19 130/80 100 Mechanical Ventilator 30 01/05/17 16:00 98.7 70 18 100/68 98 Mechanical Ventilator 30 01/05/17 16:00 70 Intake and Output 01/05/17 01/06/17 19:00 07:00 Intake Total 1037.5 ml 1367.500 ml Output Total 270 ml 150 ml Balance 767.5 ml 1217.500 ml IV Total 1037.5 ml 1367.500 ml Output Urine Total 270 ml 150 ml Laboratory Tests Test 01/06/17 04:20 01/06/17 09:30 01/06/17 15:00 White Blood Count 9.1 K/UL (4.8-10.8) Red Blood Count 2.83 M/UL (4.70-6.10) L Hemoglobin 9.6 G/DL (14.2-18.0) L Hematocrit 28.6 % (42.0-52.0) L Mean Corpuscular Volume 101 FL (80-99) H Mean Corpuscular Hemoglobin 33.8 PG (27.0-31.0) H Mean Corpuscular Hemoglobin Concent 33.5 G/DL (32.0-36.0) Red Cell Distribution Width 12.5 % (11.6-14.8) Platelet Count 184 K/UL (150-450) Mean Platelet Volume 8.1 FL (6.5-10.1) Neutrophils (%) (Auto) 66.6 % (45.0-75.0) Lymphocytes (%) (Auto) 23.7 % (20.0-45.0) Monocytes (%) (Auto) 6.4 % (1.0-10.0) Eosinophils (%) (Auto) 2.5 % (0.0-3.0) Basophils (%) (Auto) 0.9 % (0.0-2.0) Sodium Level 145 mEQ/L (135-145) Potassium Level 3.5 mEQ/L (3.4-4.9) Chloride Level 106 mEQ/L (98-107) Carbon Dioxide Level 21 mEQ/L (20-30) Anion Gap 18 (5-15) H Blood Urea Nitrogen 26 mg/dL (7-23) H Creatinine 0.8 mg/dL (0.7-1.2) Estimat Glomerular Filtration Rate mL/min (>60) Glucose Level 91 mg/dL (74-106) Calcium Level 7.8 mg/dL (8.6-10.2) L Phosphorus Level 2.5 mg/dL (2.5-4.8) Magnesium Level 2.0 mg/dL (1.7-2.5) Total Bilirubin 0.5 mg/dL (0.0-1.2) Aspartate Amino Transf (AST/SGOT) 14 U/L (5-40) Alanine Aminotransferase (ALT/SGPT) 8 U/L (3-41) Alkaline Phosphatase 58 U/L (40-129) Total Protein 4.9 g/dL (6.6-8.7) L Albumin 2.4 g/dL (3.5-5.2) L Globulin 2.5 g/dL Albumin/Globulin Ratio 0.9 (1.0-2.7) L Arterial Blood pH 7.465 (7.350-7.450) Arterial Blood Partial Pressure CO2 38.5 mmHg (35.0-45.0) Arterial Blood Partial Pressure O2 63.5 mmHg (75.0-100.0) L Arterial Blood HCO3 27.1 mmol/L (22.0-26.0) H Arterial Blood Oxygen Saturation 91.9 % (92.0-98.0) L Arterial Blood Base Excess 3.2 Leo Test Positive Urine Color Pale yellow Urine Appearance Clear Urine pH 7 (4.5-8.0) Urine Specific [place] 1.010 (1.005-1.035) Urine Protein 2+ (NEGATIVE) H Urine Glucose (UA) Negative (NEGATIVE) Urine Ketones Negative (NEGATIVE) Urine Occult Blood 5+ (NEGATIVE) H Urine Nitrite Negative (NEGATIVE) Urine Bilirubin Negative (NEGATIVE) Urine Urobilinogen Normal MG/DL (0.0-1.0) Urine Leukocyte Esterase 1+ (NEGATIVE) H Urine RBC 20-30 /HPF (0 - 0) H Urine WBC 5-10 /HPF (0 - 0) H Urine Squamous Epithelial Cells None /LPF (NONE/OCC) Urine Bacteria Moderate /HPF (NONE) H Microbiology Date/Time Source Procedure Growth Status 01/04/17 18:05 Blood Blood Culture - Preliminary NO GROWTH AFTER 24 HOURS Resulted 01/04/17 18:00 Blood Blood Culture - Preliminary NO GROWTH AFTER 24 HOURS Resulted ARGELIA DUONG Jan 06, 2017 15:49
[2017-01-06 16:28] LABS: BASOPHILS % (AUTO) 1.5 % (0.0-2.0); EOSINOPHILS % (AUTO) 4.2 % (0.0-3.0); LYMPHOCYTES % (AUTO) 20.5 % (20.0-45.0); MEAN CORPUSCULAR HEMOGLOBIN 34.2 PG (27.0-31.0); MEAN CORPUSCULAR HGB CONC 35.5 G/DL (32.0-36.0); MEAN CORPUSCULAR VOLUME 96 FL (80-99); MEAN PLATELET VOLUME 7.8 FL (6.5-10.1); MONOCYTES % (AUTO) 6.3 % (1.0-10.0); NEUTROPHILS % (AUTO) 67.6 % (45.0-75.0); PLATELET COUNT 151 K/UL (150-450); RED BLOOD COUNT 3.28 M/UL (4.70-6.10); RED CELL DISTRIBUTION WIDTH 11.7 % (11.6-14.8)
--- NOTE | 2017-01-06 17:51 | Infectious Diseases Prog Note ---
Assessment/Plan Assessment/Plan A: This is a 76-year-old male Possible aspiration pneumonia ( Despite neg cxray ) pt has sign amount of [employer] SP Extubation 01/06 History of fracture of femoral neck. Dementia. Hypertension PLAN: continue the patient on IV vancomycin and Zosyn d# 2 Monitor CBC. Monitor BMP. Monitor cultures (blood and sputum). Monitor chest x-ray Subjective Allergies: Coded Allergies: No Known Allergies (Verified , 01/06/17) Subjective extubated Objective Vital Signs Last 24 Hour Vital Signs Date Time Temp Pulse Resp B/P Pulse Ox O2 Delivery O2 Flow Rate FiO2 01/06/17 17:00 65 22 150/73 100 Nasal Cannula 3.0 01/06/17 16:00 68 01/06/17 16:00 97.4 64 21 138/73 99 Nasal Cannula 3.0 01/06/17 15:00 62 20 152/71 100 Nasal Cannula 3.0 01/06/17 14:00 64 18 152/74 98 Nasal Cannula 3.0 01/06/17 13:00 71 20 131/68 97 Nasal Cannula 3.0 01/06/17 12:00 68 01/06/17 12:00 97.6 60 21 152/71 100 Nasal Cannula 3.0 01/06/17 11:00 68 22 152/71 100 Nasal Cannula 4.0 01/06/17 10:30 100 Nasal Cannula 4.0 01/06/17 10:29 Nasal Cannula 4.0 01/06/17 10:15 Nasal Cannula 4.0 01/06/17 10:00 64 20 170/82 100 Mechanical Ventilator 30 01/06/17 09:22 64 17 30 01/06/17 09:19 99 01/06/17 09:00 62 20 134/67 97 Mechanical Ventilator 30 01/06/17 08:00 97.4 60 20 127/76 99 Mechanical Ventilator 30 01/06/17 07:08 63 10 30 01/06/17 07:00 60 18 138/68 99 Mechanical Ventilator 30 01/06/17 06:00 60 18 118/71 99 Mechanical Ventilator 30 01/06/17 05:10 60 13 30 01/06/17 05:00 62 18 114/70 99 Mechanical Ventilator 30 01/06/17 04:00 30 01/06/17 04:00 98.0 60 18 115/77 99 Mechanical Ventilator 30 01/06/17 04:00 66 01/06/17 03:22 95 14 30 01/06/17 03:00 60 18 108/65 99 Mechanical Ventilator 30 01/06/17 02:00 61 18 117/67 99 Mechanical Ventilator 30 01/06/17 01:04 63 14 30 01/06/17 01:00 64 18 110/68 99 Mechanical Ventilator 30 01/06/17 00:00 30 01/06/17 00:00 63 01/06/17 00:00 98.7 62 18 137/68 99 Mechanical Ventilator 30 01/06/17 00:00 62 18 137/68 99 Mechanical Ventilator 30 01/05/17 23:08 62 19 30 01/05/17 23:00 65 18 148/93 99 Mechanical Ventilator 30 01/05/17 22:00 67 18 120/65 99 Mechanical Ventilator 30 01/05/17 21:00 67 18 147/81 99 Mechanical Ventilator 30 01/05/17 20:52 67 14 30 01/05/17 20:00 67 01/05/17 20:00 98.6 66 18 118/66 99 Mechanical Ventilator 30 01/05/17 20:00 30 01/05/17 19:18 69 18 30 01/05/17 19:00 68 18 132/75 99 Mechanical Ventilator 30 01/05/17 18:00 68 18 144/75 99 Mechanical Ventilator 30 Height (Feet): 5 Height (Inches): 5.00 Weight (Pounds): 120 HEENT: atraumatic Respiratory/Chest: no accessory muscle use Cardiovascular: no gallop/murmur Abdomen: no organomegaly Microbiology Date/Time Source Procedure Growth Status 01/04/17 18:05 Blood Blood Culture - Preliminary NO GROWTH AFTER 24 HOURS Resulted 01/04/17 18:00 Blood Blood Culture - Preliminary NO GROWTH AFTER 24 HOURS Resulted Laboratory Tests Test 01/06/17 04:20 01/06/17 09:30 01/06/17 14:17 01/06/17 15:00 White Blood Count 9.1 K/UL (4.8-10.8) 9.0 K/UL (4.8-10.8) Red Blood Count 2.83 M/UL (4.70-6.10) L 3.28 M/UL (4.70-6.10) L Hemoglobin 9.6 G/DL (14.2-18.0) L 11.2 G/DL (14.2-18.0) L Hematocrit 28.6 % (42.0-52.0) L 31.6 % (42.0-52.0) L Mean Corpuscular Volume 101 FL (80-99) H 96 FL (80-99) Mean Corpuscular Hemoglobin 33.8 PG (27.0-31.0) H 34.2 PG (27.0-31.0) H Mean Corpuscular Hemoglobin Concent 33.5 G/DL (32.0-36.0) 35.5 G/DL (32.0-36.0) Red Cell Distribution Width 12.5 % (11.6-14.8) 11.7 % (11.6-14.8) Platelet Count 184 K/UL (150-450) 151 K/UL (150-450) Mean Platelet Volume 8.1 FL (6.5-10.1) 7.8 FL (6.5-10.1) Neutrophils (%) (Auto) 66.6 % (45.0-75.0) 67.6 % (45.0-75.0) Lymphocytes (%) (Auto) 23.7 % (20.0-45.0) 20.5 % (20.0-45.0) Monocytes (%) (Auto) 6.4 % (1.0-10.0) 6.3 % (1.0-10.0) Eosinophils (%) (Auto) 2.5 % (0.0-3.0) 4.2 % (0.0-3.0) H Basophils (%) (Auto) 0.9 % (0.0-2.0) 1.5 % (0.0-2.0) Sodium Level 145 mEQ/L (135-145) Potassium Level 3.5 mEQ/L (3.4-4.9) Chloride Level 106 mEQ/L (98-107) Carbon Dioxide Level 21 mEQ/L (20-30) Anion Gap 18 (5-15) H Blood Urea Nitrogen 26 mg/dL (7-23) H Creatinine 0.8 mg/dL (0.7-1.2) Estimat Glomerular Filtration Rate mL/min (>60) Glucose Level 91 mg/dL (74-106) Calcium Level 7.8 mg/dL (8.6-10.2) L Phosphorus Level 2.5 mg/dL (2.5-4.8) Magnesium Level 2.0 mg/dL (1.7-2.5) Total Bilirubin 0.5 mg/dL (0.0-1.2) Aspartate Amino Transf (AST/SGOT) 14 U/L (5-40) Alanine Aminotransferase (ALT/SGPT) 8 U/L (3-41) Alkaline Phosphatase 58 U/L (40-129) Total Protein 4.9 g/dL (6.6-8.7) L Albumin 2.4 g/dL (3.5-5.2) L Globulin 2.5 g/dL Albumin/Globulin Ratio 0.9 (1.0-2.7) L Arterial Blood pH 7.465 (7.350-7.450) Arterial Blood Partial Pressure CO2 38.5 mmHg (35.0-45.0) Arterial Blood Partial Pressure O2 63.5 mmHg (75.0-100.0) L Arterial Blood HCO3 27.1 mmol/L (22.0-26.0) H Arterial Blood Oxygen Saturation 91.9 % (92.0-98.0) L Arterial Blood Base Excess 3.2 Leo Test Positive Urine Color Pale yellow Urine Appearance Clear Urine pH 7 (4.5-8.0) Urine Specific Dietrich 1.010 (1.005-1.035) Urine Protein 2+ (NEGATIVE) H Urine Glucose (UA) Negative (NEGATIVE) Urine Ketones Negative (NEGATIVE) Urine Occult Blood 5+ (NEGATIVE) H Urine Nitrite Negative (NEGATIVE) Urine Bilirubin Negative (NEGATIVE) Urine Urobilinogen Normal MG/DL (0.0-1.0) Urine Leukocyte Esterase 1+ (NEGATIVE) H Urine RBC 20-30 /HPF (0 - 0) H Urine WBC 5-10 /HPF (0 - 0) H Urine Squamous Epithelial Cells None /LPF (NONE/OCC) Urine Bacteria Moderate /HPF (NONE) H Current Medications Medications (Trade) Dose Ordered Sig/Daina Route PRN Reason Start Time Stop Time Status Last Admin Dose Admin Acetaminophen (Tylenol) 650 mg Q4H PRN ORAL fever 01/04/17 21:00 02/03/17 20:59 Albuterol/ Ipratropium (DuoNeb 0.5-3(2.5)mg/3ml) 3 ml Q4H PRN HHN Shortness of Breath 01/04/17 21:00 01/09/17 20:59 Clonidine HCl (Catapres) 0.1 mg Q6H PRN GT SBP > 170 01/06/17 16:00 02/05/17 15:59 Dextrose STAT PRN IV Hypoglycemia 01/04/17 21:00 02/03/17 20:59 Donepezil HCl (Aricept) 10 mg QHS GT 01/06/17 15:55 02/04/17 20:59 Heparin Sodium (Porcine) (Heparin 5000 units/ml) 5,000 units EVERY 12 HOURS SUBQ 01/04/17 22:00 02/03/17 21:59 01/06/17 08:45 Lorazepam (Ativan 2mg/ml 1ml) 2 mg Q4H PRN IV For Anxiety 01/04/17 21:00 01/11/17 20:59 Memantine (Namenda) 10 mg DAILY GT 01/06/17 15:55 02/05/17 08:59 Morphine Sulfate (Morphine Sulfate) 4 mg Q4H PRN IVP PAIN SCALE 4-10 01/04/17 21:00 01/11/17 20:59 Nitroglycerin (Ntg) 0.4 mg Every 5 Minutes PRN SL Prn Chest Pain 01/04/17 21:00 02/03/17 20:59 Ondansetron HCl (Zofran) 4 mg Q6H PRN IVP Nausea & Vomiting 01/04/17 21:00 02/03/17 20:59 Pantoprazole (Protonix) 40 mg DAILY IV 01/05/17 09:00 02/04/17 08:59 01/06/17 08:38 Piperacillin Sod/ Tazobactam Sod/ Dextrose (Zosyn/D5W) 110 ml @ 27.5 mls/hr Q8HR@0400,1200,2000 IVPB 01/05/17 04:00 01/12/17 03:59 01/06/17 12:08 Polyethylene Glycol (Miralax) 17 gm DAILYPRN PRN GT Constipation 01/06/17 15:55 02/03/17 20:59 Vancomycin HCl 1 ea 1 ea DAILY PRN MISC PRN RX PROTOCOL 01/04/17 21:30 02/03/17 21:29 Vancomycin HCl/ Dextrose (Vancomycin/D5W) 275 ml @ 183.708 mls/hr Q24H IVPB 01/04/17 23:00 01/09/17 22:59 01/05/17 23:37 HORACIO JOHN M.D. Jan 06, 2017 17:51
[2017-01-06] MEDS: Donepezil 10mg tab GT SCH (20:30)
--- NOTE | 2017-01-06 21:50 | Consultation ---
DATE OF CONSULTATION: 01/06/2017 CARDIOLOGY CONSULTATION REFERRING PHYSICIAN: Rosas Morris M.D. REASON FOR CONSULTATION: Management of hypertension. HISTORY OF PRESENT ILLNESS: The patient is a 76-year-old gentleman with a history of hypertension, hyperlipidemia, and dementia as well as gastritis with history of right due to femoral neck fracture in 2013 as well as bilateral cataract surgery, who was brought to the emergency room as she felt that he was choking. 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 The patient's was able to extract some food particles from his throat and did mouth to mouth breaths. The patient did not lose his pulse and was brought by paramedics to [facility]. The patient was intubated for airway protection. After two days of being in the intensive care unit, today the patient was extubated. At the time of my evaluation, the patient is , however, he is lethargic and is unable to provide any meaningful information with the at the bedside. Report still cannot be obtained. PAST MEDICAL HISTORY: 1. Hypertension. 2. Hyperlipidemia. 3. Benign prostatic hypertrophy. 4. Mild dementia. 5. History of bilateral cataract surgery. 6. Right arthroplasty in 2013. MEDICATIONS: At home include Aricept, Namenda and aspirin. He used to be taking Norvasc 10 mg and Bystolic 10 mg daily after he had weight loss that was stopped a few months ago. ALLERGIES: He has no known drug allergies. SOCIAL HISTORY: He is . He is retired. He does not smoke or drink alcohol. REVIEW OF SYSTEMS: Cannot be obtained. PHYSICAL EXAMINATION: VITAL SIGNS: Blood pressure is 152/71, pulse 62, and respirations 20. NECK: No JVD. He has an NG tube. LUNGS: Coarse rhonchi. CARDIOVASCULAR: Regular S1 and S2 with no gallop or murmur. ABDOMEN: Soft. EXTREMITIES: No pitting edema. LABORATORY AND DIAGNOSTIC DATA: His EKG showed normal sinus rhythm with nonspecific T-wave abnormality. His echocardiogram showed ejection fraction 60% to 65% with no evidence of pericardial effusion or left ventricular hypertrophy. He had moderate tricuspid regurgitation and pulmonary hypertension with PA pressure of 55. His laboratories show white count 9.1, hemoglobin 9.6, hematocrit 28.6, and platelet of 184,000. Sodium 144, potassium 3.5, BUN of 26 and creatinine 0.8, and glucose of 91. INR is 1. His troponin was negative. His INR is 1. ASSESSMENT AND PLAN: 1. Hypertension. Blood pressure has been running in the 150s. He used to be taking amlodipine 10 mg and Bystolic 10 mg. I discussed options with the patient's at the bedside. At this time, the patient prefers to keep him off of his antihypertensives. We will add p.r.n. clonidine to his medical regimen. Please see that the patient gets frequent p.r.n. clonidine, with a standing dose of antihypertensives. 2. Severe pulmonary hypertension, pressure 55, likely due to history of obstructive sleep apnea, that is there for many years. 3. Status post respiratory failure due to aspiration. The patient is on vancomycin and Zosyn. The patient already was extubated. 4. Dementia on Namenda and Aricept. Thank very much, Dr. Morris, for allowing me to participate in the care of this patient. Please do not hesitate to contact me for any questions regarding my evaluation. The case was discussed with the ICU nurse as well as the patient's at the bedside extensively. Mazin Nolen M.D. DR: BERNA JOB#: [id number] CC:
[2017-01-06] MEDS: Vancomycin 1gm in D5W 275ml IVPB SCH (22:56)
[2017-01-07] VITALS (24 sets, daily range): BP systolic 113–154; BP diastolic 60–78
[2017-01-07] MEDS: Piperacillin/Tazobactam 3.375 GM in D5W 110 ML IVPB SCH ×3 (03:55→22:04)
[2017-01-07 04:06] LABS: BASOPHILS % (AUTO) 0.8 % (0.0-2.0); EOSINOPHILS % (AUTO) 3.8 % (0.0-3.0); LYMPHOCYTES % (AUTO) 19.7 % (20.0-45.0); MEAN CORPUSCULAR HEMOGLOBIN 32.1 PG (27.0-31.0); MEAN CORPUSCULAR HGB CONC 32.6 G/DL (32.0-36.0); MEAN CORPUSCULAR VOLUME 98 FL (80-99); MONOCYTES % (AUTO) 6.6 % (1.0-10.0); NEUTROPHILS % (AUTO) 69.1 % (45.0-75.0); PLATELET COUNT 241 K/UL (150-450); RED BLOOD COUNT 3.43 M/UL (4.70-6.10); RED CELL DISTRIBUTION WIDTH 11.8 % (11.6-14.8)
[2017-01-07 04:19] LABS: TROPONIN I < 0.30 ng/mL (<=0.30)
[2017-01-07 04:27] LABS: ALANINE AMINOTRANSFERASE 7 U/L (3-41); ALBUMIN/GLOBULIN RATIO 0.7 (1.0-2.7); ANION GAP 9 (5-15); ASPARTATE AMINO TRANSFERASE 11 U/L (5-40); CALCIUM 8.2 mg/dL (8.6-10.2); CARBON DIOXIDE 28 mEQ/L (20-30); CHLORIDE 100 mEQ/L (98-107); CREATININE 0.6 mg/dL (0.7-1.2); HEMOLYSIS 4; MAGNESIUM 1.9 mg/dL (1.7-2.5); PHOSPHORUS 3.9 mg/dL (2.5-4.8); POTASSIUM 3.5 mEQ/L (3.4-4.9); SODIUM 137 mEQ/L (135-145); TOTAL PROTEIN 5.6 g/dL (6.6-8.7)
[2017-01-07] MEDS: Heparin 5000 units/ml inj SUBQ SCH ×2 (09:04→21:08)
[2017-01-07] MEDS: Memantine 10mg tab GT SCH (09:04)
[2017-01-07] MEDS: Pantoprazole Inj IV SCH (09:04)
[2017-01-07 09:34] LABS: ABG ALLEN TEST POSITIVE; ABG BASE EXCESS 3
[2017-01-07] MEDS ORDERED: Sterile Water Irrig 1000ml IRRIG ONE (09:38)
[2017-01-07] MEDS ORDERED: NS 275ml ONE (09:38)
--- NOTE | 2017-01-07 09:46 | Cardiology Report ---
APPROVED REPORT EXAM: Two-dimensional and M-mode echocardiogram with Doppler and color Doppler. INDICATION Hypertension M-Mode DIMENSIONS IVSd1.0 (0.7-1.1cm)Left Atrium (MM)3.7 (1.6-4.0cm) LVDd4.4 (3.5-5.6cm)Aortic Root3.0 (2.0-3.7cm) PWd0.8 (0.7-1.1cm)Aortic Cusp Exc.1.7 (1.5-2.0cm) LVDs3.0 (2.5-4.0cm) PWs1.1 cm Technically difficult study due to poor acoustic windows. Normal left ventricular chamber size, systolic function and wall motion. Left ventricular ejection fraction estimated to be 60-65%. No evidence of left ventricular hypertrophy. No evidence of pericardial fat or effusion. Mild bi-atrial enlargement by 2D. Focal aortic valve sclerosis with adequate cusp excursion Thickened mitral valve leaflets with normal excursion. Mitral annulus and aortic root calcification. Pulmonic valve not well visualized. Normal tricuspid valve structure. IVC is normal in size with physiologic collapse. A color flow and spectral Doppler study was performed and revealed: No aortic regurgitation. No mitral regurgitation. Left ventricular diastolic dysfunction grade 1. Moderate tricuspid regurgitation. Tricuspid systolic velocities suggests peak right ventricular systolic pressure of 55 mmHg Consistent with severe pulmonary hypertension. Pulmonic regurgitation present.
--- NOTE | 2017-01-07 10:09 | Pulmonolgy Critical Care Note ---
Critical Care - Asmt/Plan Problems: (1) Respiratory distress (2) Aspiration pneumonia (3) Dementia Respiratory: monitor respiratory rate, adjust FIO2 Renal: F/U I&O, check electrolytes Infectious Disease: check cultures, continue antibiotics Gastrointestinal: continue feedings/current rate, other - swallow study Endocrine: monitor blood sugar, continue sliding scale insulin Hematologic: monitor H/H, transfuse if hgb<8.5 Neurologic: PRN Ativan, PRN Morphine, keep patient comfortable Affect: PRN ativan Prophylaxis: Protonix Disposition: keep in ICU Notes Reviewed: watch electrician, cardio Discussed with: nurses, consultants, lead case managersports centre manager - Objective Last 24 Hour Vital Signs Date Time Temp Pulse Resp B/P Pulse Ox O2 Delivery O2 Flow Rate FiO2 01/07/17 09:23 100 Nasal Cannula 3.0 32 01/07/17 09:23 Nasal Cannula 3.0 32 01/07/17 09:00 62 18 120/62 96 Nasal Cannula 3.0 01/07/17 08:00 64 01/07/17 08:00 97.7 61 16 127/66 99 Simple Mask 6.0 01/07/17 07:00 63 18 118/68 100 Simple Mask 6.0 01/07/17 06:00 65 20 148/71 98 Simple Mask 6.0 01/07/17 05:00 63 20 140/65 94 Nasal Cannula 3.0 01/07/17 04:00 97.8 67 18 113/61 96 Nasal Cannula 3.0 01/07/17 04:00 68 01/07/17 03:00 67 22 152/70 98 Nasal Cannula 3.0 01/07/17 02:00 75 24 148/78 97 Nasal Cannula 3.0 01/07/17 01:00 63 21 131/68 100 Nasal Cannula 3.0 01/07/17 00:00 59 01/07/17 00:00 97.7 68 19 149/73 98 Nasal Cannula 3.0 01/06/17 23:00 64 18 136/72 94 Nasal Cannula 3.0 01/06/17 22:00 70 18 145/71 96 Nasal Cannula 3.0 01/06/17 21:00 64 18 143/70 97 Nasal Cannula 3.0 01/06/17 20:00 97.6 66 21 143/83 99 Nasal Cannula 3.0 01/06/17 20:00 72 01/06/17 19:00 69 20 128/74 100 Nasal Cannula 3.0 01/06/17 18:46 Nasal Cannula 4.0 01/06/17 18:45 100 Nasal Cannula 4.0 01/06/17 18:00 66 21 151/83 100 Nasal Cannula 3.0 01/06/17 17:00 65 22 150/73 100 Nasal Cannula 3.0 01/06/17 16:00 68 01/06/17 16:00 97.4 64 21 138/73 99 Nasal Cannula 3.0 01/06/17 15:00 62 20 152/71 100 Nasal Cannula 3.0 01/06/17 14:00 64 18 152/74 98 Nasal Cannula 3.0 01/06/17 13:00 71 20 131/68 97 Nasal Cannula 3.0 01/06/17 12:00 68 01/06/17 12:00 97.6 60 21 152/71 100 Nasal Cannula 3.0 01/06/17 11:00 68 22 152/71 100 Nasal Cannula 4.0 01/06/17 10:30 100 Nasal Cannula 4.0 01/06/17 10:29 Nasal Cannula 4.0 01/06/17 10:15 Nasal Cannula 4.0 Status: awake Condition: critical, grave HEENT: atraumatic Lungs: clear, chest wall tender Heart: HR/BP stable, regular Abdomen: soft Extremities: no C/C/E, edema Decubiti: location Micro: Microbiology Date/Time Source Procedure Growth Status 01/04/17 18:05 Blood Blood Culture - Preliminary NO GROWTH AFTER 48 HOURS Resulted 01/04/17 18:00 Blood Blood Culture - Preliminary NO GROWTH AFTER 48 HOURS Resulted 01/06/17 06:00 Sputum Gram Stain - Final Resulted 01/06/17 06:00 Sputum Sputum Culture Pending Resulted 01/04/17 20:10 Nasal Nares MRSA Culture - Final Staphylococcus Aureus - Mrsa Complete 01/06/17 15:00 Indwelling Cath Urine Culture - Preliminary NO GROWTH Resulted 01/04/17 20:10 Rectum VRE Culture - Final NO VANCOMYCIN RESISTANT ENTEROCOCCUS ... Complete Accucheck: 115 Critical Care - Subjective ROS Limited/Unobtainable: Yes ICU Day: 3 Intubation Day: extubated Condition: critical EKG Rhythm: Sinus Rhythm FI02: 32 Vent Support Breath Rate: 4 Vent Support Mode: CPAP Vent Tidal Volume: 600 Sputum Amount: Moderate PEEP: 5.0 PIP: 25 Fluids: KVO Tube Feeding Amount: 55 I&O: Intake and Output 01/06/17 01/07/17 19:00 07:00 Intake Total 620.0 ml 657.5 ml Output Total 385 ml 1135 ml Balance 235.0 ml -477.5 ml Free Water 120 ml IV Total 410.0 ml 192.5 ml Tube Feeding 90 ml 415 ml Other 50 ml Output Urine Total 385 ml 1135 ml CXR: no change ET-Tube: 7.5 ET Position: 23 Labs: Laboratory Tests Test 01/06/17 14:17 01/06/17 15:00 01/06/17 22:02 01/07/17 03:40 White Blood Count 9.0 K/UL (4.8-10.8) 8.0 K/UL (4.8-10.8) Red Blood Count 3.28 M/UL (4.70-6.10) L 3.43 M/UL (4.70-6.10) L Hemoglobin 11.2 G/DL (14.2-18.0) L 11.0 G/DL (14.2-18.0) L Hematocrit 31.6 % (42.0-52.0) L 33.8 % (42.0-52.0) L Mean Corpuscular Volume 96 FL (80-99) 98 FL (80-99) Mean Corpuscular Hemoglobin 34.2 PG (27.0-31.0) H 32.1 PG (27.0-31.0) H Mean Corpuscular Hemoglobin Concent 35.5 G/DL (32.0-36.0) 32.6 G/DL (32.0-36.0) Red Cell Distribution Width 11.7 % (11.6-14.8) 11.8 % (11.6-14.8) Platelet Count 151 K/UL (150-450) 241 K/UL (150-450) # Mean Platelet Volume 7.8 FL (6.5-10.1) 9.0 FL (6.5-10.1) Neutrophils (%) (Auto) 67.6 % (45.0-75.0) 69.1 % (45.0-75.0) Lymphocytes (%) (Auto) 20.5 % (20.0-45.0) 19.7 % (20.0-45.0) L Monocytes (%) (Auto) 6.3 % (1.0-10.0) 6.6 % (1.0-10.0) Eosinophils (%) (Auto) 4.2 % (0.0-3.0) H 3.8 % (0.0-3.0) H Basophils (%) (Auto) 1.5 % (0.0-2.0) 0.8 % (0.0-2.0) Urine Color Pale yellow Urine Appearance Clear Urine pH 7 (4.5-8.0) Urine Specific [place] 1.010 (1.005-1.035) Urine Protein 2+ (NEGATIVE) H Urine Glucose (UA) Negative (NEGATIVE) Urine Ketones Negative (NEGATIVE) Urine Occult Blood 5+ (NEGATIVE) H Urine Nitrite Negative (NEGATIVE) Urine Bilirubin Negative (NEGATIVE) Urine Urobilinogen Normal MG/DL (0.0-1.0) Urine Leukocyte Esterase 1+ (NEGATIVE) H Urine RBC 20-30 /HPF (0 - 0) H Urine WBC 5-10 /HPF (0 - 0) H Urine Squamous Epithelial Cells None /LPF (NONE/OCC) Urine Bacteria Moderate /HPF (NONE) H Vancomycin Level Trough 6.0 ug/mL (5.0-12.0) Sodium Level 137 mEQ/L (135-145) Potassium Level 3.5 mEQ/L (3.4-4.9) Chloride Level 100 mEQ/L (98-107) Carbon Dioxide Level 28 mEQ/L (20-30) Anion Gap 9 (5-15) Blood Urea Nitrogen 11 mg/dL (7-23) Creatinine 0.6 mg/dL (0.7-1.2) L Estimat Glomerular Filtration Rate mL/min (>60) Glucose Level 150 mg/dL (74-106) H Calcium Level 8.2 mg/dL (8.6-10.2) L Phosphorus Level 3.9 mg/dL (2.5-4.8) Magnesium Level 1.9 mg/dL (1.7-2.5) Total Bilirubin 0.4 mg/dL (0.0-1.2) Aspartate Amino Transf (AST/SGOT) 11 U/L (5-40) Alanine Aminotransferase (ALT/SGPT) 7 U/L (3-41) Alkaline Phosphatase 69 U/L (40-129) Troponin I < 0.30 ng/mL (<=0.30) Total Protein 5.6 g/dL (6.6-8.7) L Albumin 2.4 g/dL (3.5-5.2) L Globulin 3.2 g/dL Albumin/Globulin Ratio 0.7 (1.0-2.7) L Test 01/07/17 09:20 Arterial Blood pH 7.350 (7.350-7.450) Arterial Blood Partial Pressure CO2 55.0 mmHg (35.0-45.0) H Arterial Blood Partial Pressure O2 78.0 mmHg (75.0-100.0) Arterial Blood HCO3 30.0 mmol/L (22.0-26.0) H Arterial Blood Oxygen Saturation 95.0 % (92.0-98.0) Arterial Blood Base Excess 3 Leo Test Positive RABIA BANGURA Jan 07, 2017 10:09
[2017-01-07] MEDS: Vancomycin 750mg/D5W 275ml IVPB SCH ×2 (11:34)
--- NOTE | 2017-01-07 11:38 | Diagnostic Imaging Report ---
Indications: DYSPNEA Technique: Portable AP chest Findings: Comparison: 01/06/17 Endotracheal tube has been removed. Nasogastric tube remains in place within the stomach. Heart size, pulmonary vasculature remain within normal limits. Pulmonary inflation is mildly decreased. Linear densities have developed in the right lung base. Left lung remains clear. Slight blunting of the right costophrenic angle has developed; left remain sharp. Small calcified nodule again noted in right upper lobe. IMPRESSION: Endotracheal extubation Development of subsegmental atelectasis right lung base Small right pleural effusion not excludable
--- NOTE | 2017-01-07 11:40 | Infectious Diseases Prog Note ---
Assessment/Plan Assessment/Plan A: This is a 76-year-old male Possible aspiration pneumonia ( Despite neg cxray ) pt has sign amount of [employer] SP Extubation 01/06 History of fracture of femoral neck. Dementia. Hypertension PLAN: continue the patient on IV vancomycin and Zosyn d# 3 , january DC Vanco soon Monitor CBC. Monitor BMP. Monitor cultures (blood and sputum). Monitor chest x-ray Subjective Constitutional: Denies: anorexia, chills, drenching sweats, fatigue, fever, no symptoms, other Allergies: Coded Allergies: No Known Allergies (Verified , 01/06/17) Subjective lethargic Objective Vital Signs Last 24 Hour Vital Signs Date Time Temp Pulse Resp B/P Pulse Ox O2 Delivery O2 Flow Rate FiO2 01/07/17 11:00 76 17 142/60 100 Nasal Cannula 3.0 01/07/17 10:00 60 18 127/62 100 Nasal Cannula 3.0 01/07/17 09:23 100 Nasal Cannula 3.0 32 01/07/17 09:23 Nasal Cannula 3.0 32 01/07/17 09:00 62 18 120/62 96 Nasal Cannula 3.0 01/07/17 08:00 64 01/07/17 08:00 97.7 61 16 127/66 99 Simple Mask 6.0 01/07/17 07:00 63 18 118/68 100 Simple Mask 6.0 01/07/17 06:00 65 20 148/71 98 Simple Mask 6.0 01/07/17 05:00 63 20 140/65 94 Nasal Cannula 3.0 01/07/17 04:00 97.8 67 18 113/61 96 Nasal Cannula 3.0 01/07/17 04:00 68 01/07/17 03:00 67 22 152/70 98 Nasal Cannula 3.0 01/07/17 02:00 75 24 148/78 97 Nasal Cannula 3.0 01/07/17 01:00 63 21 131/68 100 Nasal Cannula 3.0 01/07/17 00:00 59 01/07/17 00:00 97.7 68 19 149/73 98 Nasal Cannula 3.0 01/06/17 23:00 64 18 136/72 94 Nasal Cannula 3.0 01/06/17 22:00 70 18 145/71 96 Nasal Cannula 3.0 01/06/17 21:00 64 18 143/70 97 Nasal Cannula 3.0 01/06/17 20:00 97.6 66 21 143/83 99 Nasal Cannula 3.0 01/06/17 20:00 72 01/06/17 19:00 69 20 128/74 100 Nasal Cannula 3.0 01/06/17 18:46 Nasal Cannula 4.0 01/06/17 18:45 100 Nasal Cannula 4.0 01/06/17 18:00 66 21 151/83 100 Nasal Cannula 3.0 01/06/17 17:00 65 22 150/73 100 Nasal Cannula 3.0 01/06/17 16:00 68 01/06/17 16:00 97.4 64 21 138/73 99 Nasal Cannula 3.0 01/06/17 15:00 62 20 152/71 100 Nasal Cannula 3.0 01/06/17 14:00 64 18 152/74 98 Nasal Cannula 3.0 01/06/17 13:00 71 20 131/68 97 Nasal Cannula 3.0 01/06/17 12:00 68 01/06/17 12:00 97.6 60 21 152/71 100 Nasal Cannula 3.0 Height (Feet): 5 Height (Inches): 5.00 Weight (Pounds): 120 HEENT: anicteric Respiratory/Chest: no respiratory distress Cardiovascular: regularly irregular Abdomen: non distended Microbiology Date/Time Source Procedure Growth Status 01/04/17 18:05 Blood Blood Culture - Preliminary NO GROWTH AFTER 48 HOURS Resulted 01/04/17 18:00 Blood Blood Culture - Preliminary NO GROWTH AFTER 48 HOURS Resulted 01/06/17 06:00 Sputum Gram Stain - Final Resulted 01/06/17 06:00 Sputum Sputum Culture Pending Resulted 01/04/17 20:10 Nasal Nares MRSA Culture - Final Staphylococcus Aureus - Mrsa Complete 01/06/17 15:00 Indwelling Cath Urine Culture - Preliminary NO GROWTH Resulted 01/04/17 20:10 Rectum VRE Culture - Final NO VANCOMYCIN RESISTANT ENTEROCOCCUS ... Complete Laboratory Tests Test 01/06/17 14:17 01/06/17 15:00 01/06/17 22:02 01/07/17 03:40 White Blood Count 9.0 K/UL (4.8-10.8) 8.0 K/UL (4.8-10.8) Red Blood Count 3.28 M/UL (4.70-6.10) L 3.43 M/UL (4.70-6.10) L Hemoglobin 11.2 G/DL (14.2-18.0) L 11.0 G/DL (14.2-18.0) L Hematocrit 31.6 % (42.0-52.0) L 33.8 % (42.0-52.0) L Mean Corpuscular Volume 96 FL (80-99) 98 FL (80-99) Mean Corpuscular Hemoglobin 34.2 PG (27.0-31.0) H 32.1 PG (27.0-31.0) H Mean Corpuscular Hemoglobin Concent 35.5 G/DL (32.0-36.0) 32.6 G/DL (32.0-36.0) Red Cell Distribution Width 11.7 % (11.6-14.8) 11.8 % (11.6-14.8) Platelet Count 151 K/UL (150-450) 241 K/UL (150-450) # Mean Platelet Volume 7.8 FL (6.5-10.1) 9.0 FL (6.5-10.1) Neutrophils (%) (Auto) 67.6 % (45.0-75.0) 69.1 % (45.0-75.0) Lymphocytes (%) (Auto) 20.5 % (20.0-45.0) 19.7 % (20.0-45.0) L Monocytes (%) (Auto) 6.3 % (1.0-10.0) 6.6 % (1.0-10.0) Eosinophils (%) (Auto) 4.2 % (0.0-3.0) H 3.8 % (0.0-3.0) H Basophils (%) (Auto) 1.5 % (0.0-2.0) 0.8 % (0.0-2.0) Urine Color Pale yellow Urine Appearance Clear Urine pH 7 (4.5-8.0) Urine Specific [place] 1.010 (1.005-1.035) Urine Protein 2+ (NEGATIVE) H Urine Glucose (UA) Negative (NEGATIVE) Urine Ketones Negative (NEGATIVE) Urine Occult Blood 5+ (NEGATIVE) H Urine Nitrite Negative (NEGATIVE) Urine Bilirubin Negative (NEGATIVE) Urine Urobilinogen Normal MG/DL (0.0-1.0) Urine Leukocyte Esterase 1+ (NEGATIVE) H Urine RBC 20-30 /HPF (0 - 0) H Urine WBC 5-10 /HPF (0 - 0) H Urine Squamous Epithelial Cells None /LPF (NONE/OCC) Urine Bacteria Moderate /HPF (NONE) H Vancomycin Level Trough 6.0 ug/mL (5.0-12.0) Sodium Level 137 mEQ/L (135-145) Potassium Level 3.5 mEQ/L (3.4-4.9) Chloride Level 100 mEQ/L (98-107) Carbon Dioxide Level 28 mEQ/L (20-30) Anion Gap 9 (5-15) Blood Urea Nitrogen 11 mg/dL (7-23) Creatinine 0.6 mg/dL (0.7-1.2) L Estimat Glomerular Filtration Rate mL/min (>60) Glucose Level 150 mg/dL (74-106) H Calcium Level 8.2 mg/dL (8.6-10.2) L Phosphorus Level 3.9 mg/dL (2.5-4.8) Magnesium Level 1.9 mg/dL (1.7-2.5) Total Bilirubin 0.4 mg/dL (0.0-1.2) Aspartate Amino Transf (AST/SGOT) 11 U/L (5-40) Alanine Aminotransferase (ALT/SGPT) 7 U/L (3-41) Alkaline Phosphatase 69 U/L (40-129) Troponin I < 0.30 ng/mL (<=0.30) Total Protein 5.6 g/dL (6.6-8.7) L Albumin 2.4 g/dL (3.5-5.2) L Globulin 3.2 g/dL Albumin/Globulin Ratio 0.7 (1.0-2.7) L Test 01/07/17 09:20 Arterial Blood pH 7.350 (7.350-7.450) Arterial Blood Partial Pressure CO2 55.0 mmHg (35.0-45.0) H Arterial Blood Partial Pressure O2 78.0 mmHg (75.0-100.0) Arterial Blood HCO3 30.0 mmol/L (22.0-26.0) H Arterial Blood Oxygen Saturation 95.0 % (92.0-98.0) Arterial Blood Base Excess 3 Leo Test Positive Current Medications Medications (Trade) Dose Ordered Sig/Daina Route PRN Reason Start Time Stop Time Status Last Admin Dose Admin Acetaminophen (Tylenol) 650 mg Q4H PRN ORAL fever 01/04/17 21:00 02/03/17 20:59 Albuterol/ Ipratropium (DuoNeb 0.5-3(2.5)mg/3ml) 3 ml Q4H PRN HHN Shortness of Breath 01/04/17 21:00 01/09/17 20:59 Clonidine HCl (Catapres) 0.1 mg Q6H PRN GT SBP > 170 01/06/17 16:00 02/05/17 15:59 Dextrose (Dextrose 50%) STAT PRN IV Hypoglycemia 01/04/17 21:00 02/03/17 20:59 Donepezil HCl (Aricept) 10 mg QHS GT 01/06/17 15:55 02/04/17 20:59 01/06/17 20:30 Heparin Sodium (Porcine) (Heparin 5000 units/ml) 5,000 units EVERY 12 HOURS SUBQ 01/04/17 22:00 02/03/17 21:59 01/07/17 09:04 Lorazepam (Ativan 2mg/ml 1ml) 2 mg Q4H PRN IV For Anxiety 01/04/17 21:00 01/11/17 20:59 Memantine (Namenda) 10 mg DAILY GT 01/06/17 15:55 02/05/17 08:59 01/07/17 09:04 Morphine Sulfate (Morphine Sulfate) 4 mg Q4H PRN IVP PAIN SCALE 4-10 01/04/17 21:00 01/11/17 20:59 Nitroglycerin (Ntg) 0.4 mg Every 5 Minutes PRN SL Prn Chest Pain 01/04/17 21:00 02/03/17 20:59 Ondansetron HCl (Zofran) 4 mg Q6H PRN IVP Nausea & Vomiting 01/04/17 21:00 02/03/17 20:59 Pantoprazole 40 mg 40 mg DAILY GT 01/08/17 09:00 02/07/17 08:59 Piperacillin Sod/ Tazobactam Sod/ Dextrose (Zosyn/D5W) 110 ml @ 27.5 mls/hr Q8HR IVPB 01/07/17 14:00 01/14/17 13:59 Polyethylene Glycol 17 gm 17 gm DAILYPRN PRN GT Constipation 01/06/17 15:55 02/03/17 20:59 Vancomycin HCl (Vanco rx to dose) 1 ea DAILY PRN MISC PRN RX PROTOCOL 01/04/17 21:30 02/03/17 21:29 Vancomycin HCl/ Dextrose (Vancomycin/D5W) 275 ml @ 183.708 mls/hr Q12H IVPB 01/07/17 12:00 01/12/17 11:59 HORACIO JOHN M.D. Jan 07, 2017 11:40
--- NOTE | 2017-01-07 15:24 | Cardiac Electrophysiology PN ---
Assessment/Plan Assessment/Plan 1. Hypertension. Blood pressure has been running in the 150s. He used to be taking amlodipine 10 mg and Bystolic 10 mg.Continue p.r.n. clonidine for now 2. Severe pulmonary hypertension, pressure 55, likely due to history of obstructive sleep apnea, that is there for many years. 3. Status post respiratory failure due to aspiration. On vancomycin and Zosyn. The patient already was extubated. 4. Dementia on Namenda and Aricept. 5. Dysphagia. Likely would need PEG DW and RN Subjective Subjective In ICU. Failed swallow eval. Did not need Clonidine prn over night. BP in 150s. and RN at bedside. Objective Last 24 Hour Vital Signs Date Time Temp Pulse Resp B/P Pulse Ox O2 Delivery O2 Flow Rate FiO2 01/07/17 14:00 68 18 154/64 100 Simple Mask 6.0 01/07/17 13:00 66 18 148/66 100 Nasal Cannula 3.0 01/07/17 12:00 98.0 67 16 131/69 100 Nasal Cannula 3.0 01/07/17 12:00 69 01/07/17 11:00 76 17 142/60 100 Nasal Cannula 3.0 01/07/17 10:00 60 18 127/62 100 Nasal Cannula 3.0 01/07/17 09:23 100 Nasal Cannula 3.0 32 01/07/17 09:23 Nasal Cannula 3.0 32 01/07/17 09:00 62 18 120/62 96 Nasal Cannula 3.0 01/07/17 08:00 64 01/07/17 08:00 97.7 61 16 127/66 99 Simple Mask 6.0 01/07/17 07:00 63 18 118/68 100 Simple Mask 6.0 01/07/17 06:00 65 20 148/71 98 Simple Mask 6.0 01/07/17 05:00 63 20 140/65 94 Nasal Cannula 3.0 01/07/17 04:00 97.8 67 18 113/61 96 Nasal Cannula 3.0 01/07/17 04:00 68 01/07/17 03:00 67 22 152/70 98 Nasal Cannula 3.0 01/07/17 02:00 75 24 148/78 97 Nasal Cannula 3.0 01/07/17 01:00 63 21 131/68 100 Nasal Cannula 3.0 01/07/17 00:00 59 01/07/17 00:00 97.7 68 19 149/73 98 Nasal Cannula 3.0 01/06/17 23:00 64 18 136/72 94 Nasal Cannula 3.0 01/06/17 22:00 70 18 145/71 96 Nasal Cannula 3.0 01/06/17 21:00 64 18 143/70 97 Nasal Cannula 3.0 01/06/17 20:00 97.6 66 21 143/83 99 Nasal Cannula 3.0 01/06/17 20:00 72 01/06/17 19:00 69 20 128/74 100 Nasal Cannula 3.0 01/06/17 18:46 Nasal Cannula 4.0 01/06/17 18:45 100 Nasal Cannula 4.0 01/06/17 18:00 66 21 151/83 100 Nasal Cannula 3.0 01/06/17 17:00 65 22 150/73 100 Nasal Cannula 3.0 01/06/17 16:00 68 01/06/17 16:00 97.4 64 21 138/73 99 Nasal Cannula 3.0 Intake and Output 01/06/17 01/07/17 19:00 07:00 Intake Total 620.0 ml 657.5 ml Output Total 385 ml 1135 ml Balance 235.0 ml -477.5 ml Free Water 120 ml IV Total 410.0 ml 192.5 ml Tube Feeding 90 ml 415 ml Other 50 ml Output Urine Total 385 ml 1135 ml Laboratory Tests Test 01/06/17 22:02 01/07/17 03:40 01/07/17 09:20 Vancomycin Level Trough 6.0 ug/mL (5.0-12.0) White Blood Count 8.0 K/UL (4.8-10.8) Red Blood Count 3.43 M/UL (4.70-6.10) L Hemoglobin 11.0 G/DL (14.2-18.0) L Hematocrit 33.8 % (42.0-52.0) L Mean Corpuscular Volume 98 FL (80-99) Mean Corpuscular Hemoglobin 32.1 PG (27.0-31.0) H Mean Corpuscular Hemoglobin Concent 32.6 G/DL (32.0-36.0) Red Cell Distribution Width 11.8 % (11.6-14.8) Platelet Count 241 K/UL (150-450) # Mean Platelet Volume 9.0 FL (6.5-10.1) Neutrophils (%) (Auto) 69.1 % (45.0-75.0) Lymphocytes (%) (Auto) 19.7 % (20.0-45.0) L Monocytes (%) (Auto) 6.6 % (1.0-10.0) Eosinophils (%) (Auto) 3.8 % (0.0-3.0) H Basophils (%) (Auto) 0.8 % (0.0-2.0) Sodium Level 137 mEQ/L (135-145) Potassium Level 3.5 mEQ/L (3.4-4.9) Chloride Level 100 mEQ/L (98-107) Carbon Dioxide Level 28 mEQ/L (20-30) Anion Gap 9 (5-15) Blood Urea Nitrogen 11 mg/dL (7-23) Creatinine 0.6 mg/dL (0.7-1.2) L Estimat Glomerular Filtration Rate mL/min (>60) Glucose Level 150 mg/dL (74-106) H Calcium Level 8.2 mg/dL (8.6-10.2) L Phosphorus Level 3.9 mg/dL (2.5-4.8) Magnesium Level 1.9 mg/dL (1.7-2.5) Total Bilirubin 0.4 mg/dL (0.0-1.2) Aspartate Amino Transf (AST/SGOT) 11 U/L (5-40) Alanine Aminotransferase (ALT/SGPT) 7 U/L (3-41) Alkaline Phosphatase 69 U/L (40-129) Troponin I < 0.30 ng/mL (<=0.30) Total Protein 5.6 g/dL (6.6-8.7) L Albumin 2.4 g/dL (3.5-5.2) L Globulin 3.2 g/dL Albumin/Globulin Ratio 0.7 (1.0-2.7) L Arterial Blood pH 7.350 (7.350-7.450) Arterial Blood Partial Pressure CO2 55.0 mmHg (35.0-45.0) H Arterial Blood Partial Pressure O2 78.0 mmHg (75.0-100.0) Arterial Blood HCO3 30.0 mmol/L (22.0-26.0) H Arterial Blood Oxygen Saturation 95.0 % (92.0-98.0) Arterial Blood Base Excess 3 Leo Test Positive Microbiology Date/Time Source Procedure Growth Status 01/04/17 18:05 Blood Blood Culture - Preliminary NO GROWTH AFTER 48 HOURS Resulted 01/04/17 18:00 Blood Blood Culture - Preliminary NO GROWTH AFTER 48 HOURS Resulted 01/06/17 06:00 Sputum Gram Stain - Final Resulted 01/06/17 06:00 Sputum Sputum Culture Pending Resulted 01/04/17 20:10 Nasal Nares MRSA Culture - Final Staphylococcus Aureus - Mrsa Complete 01/06/17 15:00 Indwelling Cath Urine Culture - Preliminary NO GROWTH Resulted 01/04/17 20:10 Rectum VRE Culture - Final NO VANCOMYCIN RESISTANT ENTEROCOCCUS ... Complete Objective NECK: No JVD. He has an NG tube. LUNGS: Coarse rhonchi. CARDIOVASCULAR: Regular S1 and S2 with no gallop or murmur. ABDOMEN: Soft. EXTREMITIES: No pitting edema. ARGELIA DUONG Jan 07, 2017 15:24
--- NOTE | 2017-01-07 18:08 | Internal Med Progress Note ---
Subjective Date of Service: Jan 07, 2017 Physician Name Rosas Johnson Attending Physician Rosas Johnson Current Medications Medications (Trade) Dose Ordered Sig/Daina Route PRN Reason Start Time Stop Time Status Last Admin Dose Admin Acetaminophen (Tylenol) 650 mg Q4H PRN ORAL fever 01/04/17 21:00 02/03/17 20:59 Albuterol/ Ipratropium (DuoNeb 0.5-3(2.5)mg/3ml) 3 ml Q4H PRN HHN Shortness of Breath 01/04/17 21:00 01/09/17 20:59 Clonidine HCl (Catapres) 0.1 mg Q6H PRN GT SBP > 170 01/06/17 16:00 02/05/17 15:59 Dextrose (Dextrose 50%) STAT PRN IV Hypoglycemia 01/04/17 21:00 02/03/17 20:59 Donepezil HCl (Aricept) 10 mg QHS GT 01/06/17 15:55 02/04/17 20:59 01/06/17 20:30 Heparin Sodium (Porcine) (Heparin 5000 units/ml) 5,000 units EVERY 12 HOURS SUBQ 01/04/17 22:00 02/03/17 21:59 01/07/17 09:04 Lorazepam (Ativan 2mg/ml 1ml) 2 mg Q4H PRN IV For Anxiety 01/04/17 21:00 01/11/17 20:59 Memantine (Namenda) 10 mg DAILY GT 01/06/17 15:55 02/05/17 08:59 01/07/17 09:04 Morphine Sulfate (Morphine Sulfate) 4 mg Q4H PRN IVP PAIN SCALE 4-10 01/04/17 21:00 01/11/17 20:59 Nitroglycerin (Ntg) 0.4 mg Every 5 Minutes PRN SL Prn Chest Pain 01/04/17 21:00 02/03/17 20:59 Ondansetron HCl (Zofran) 4 mg Q6H PRN IVP Nausea & Vomiting 01/04/17 21:00 02/03/17 20:59 Pantoprazole 40 mg 40 mg DAILY GT 01/08/17 09:00 02/07/17 08:59 Piperacillin Sod/ Tazobactam Sod/ Dextrose (Zosyn/D5W) 110 ml @ 27.5 mls/hr Q8HR IVPB 01/07/17 14:00 01/14/17 13:59 01/07/17 13:15 Polyethylene Glycol 17 gm 17 gm DAILYPRN PRN GT Constipation 01/06/17 15:55 02/03/17 20:59 Vancomycin HCl (Vanco rx to dose) 1 ea DAILY PRN MISC PRN RX PROTOCOL 01/04/17 21:30 02/03/17 21:29 Vancomycin HCl/ Dextrose (Vancomycin/D5W) 275 ml @ 183.708 mls/hr Q12H IVPB 01/07/17 12:00 01/12/17 11:59 01/07/17 11:34 Allergies: Coded Allergies: No Known Allergies (Verified , 01/06/17) ROS Limited/Unobtainable: No Constitutional: Reports: no symptoms HEENT: Reports: no symptoms Cardiovascular: Reports: no symptoms Respiratory: Reports: cough, shortness of breath Gastrointestinal/Abdominal: Reports: no symptoms Genitourinary: Reports: no symptoms Neurologic/Psychiatric: Reports: no symptoms Subjective 76 YO M admitted with aspiration and respiratory failure. Extubated 01/06/17. Tolerating simple mask. ICU. Objective Last Vital Signs Date Time Temp Pulse Resp B/P Pulse Ox O2 Delivery O2 Flow Rate FiO2 01/07/17 17:00 62 18 152/72 96 Simple Mask 6.0 01/07/17 16:00 98.1 01/07/17 09:23 32 Laboratory Tests Test 01/06/17 22:02 01/07/17 03:40 01/07/17 09:20 Vancomycin Level Trough 6.0 ug/mL (5.0-12.0) White Blood Count 8.0 K/UL (4.8-10.8) Red Blood Count 3.43 M/UL (4.70-6.10) L Hemoglobin 11.0 G/DL (14.2-18.0) L Hematocrit 33.8 % (42.0-52.0) L Mean Corpuscular Volume 98 FL (80-99) Mean Corpuscular Hemoglobin 32.1 PG (27.0-31.0) H Mean Corpuscular Hemoglobin Concent 32.6 G/DL (32.0-36.0) Red Cell Distribution Width 11.8 % (11.6-14.8) Platelet Count 241 K/UL (150-450) # Mean Platelet Volume 9.0 FL (6.5-10.1) Neutrophils (%) (Auto) 69.1 % (45.0-75.0) Lymphocytes (%) (Auto) 19.7 % (20.0-45.0) L Monocytes (%) (Auto) 6.6 % (1.0-10.0) Eosinophils (%) (Auto) 3.8 % (0.0-3.0) H Basophils (%) (Auto) 0.8 % (0.0-2.0) Sodium Level 137 mEQ/L (135-145) Potassium Level 3.5 mEQ/L (3.4-4.9) Chloride Level 100 mEQ/L (98-107) Carbon Dioxide Level 28 mEQ/L (20-30) Anion Gap 9 (5-15) Blood Urea Nitrogen 11 mg/dL (7-23) Creatinine 0.6 mg/dL (0.7-1.2) L Estimat Glomerular Filtration Rate mL/min (>60) Glucose Level 150 mg/dL (74-106) H Calcium Level 8.2 mg/dL (8.6-10.2) L Phosphorus Level 3.9 mg/dL (2.5-4.8) Magnesium Level 1.9 mg/dL (1.7-2.5) Total Bilirubin 0.4 mg/dL (0.0-1.2) Aspartate Amino Transf (AST/SGOT) 11 U/L (5-40) Alanine Aminotransferase (ALT/SGPT) 7 U/L (3-41) Alkaline Phosphatase 69 U/L (40-129) Troponin I < 0.30 ng/mL (<=0.30) Total Protein 5.6 g/dL (6.6-8.7) L Albumin 2.4 g/dL (3.5-5.2) L Globulin 3.2 g/dL Albumin/Globulin Ratio 0.7 (1.0-2.7) L Arterial Blood pH 7.350 (7.350-7.450) Arterial Blood Partial Pressure CO2 55.0 mmHg (35.0-45.0) H Arterial Blood Partial Pressure O2 78.0 mmHg (75.0-100.0) Arterial Blood HCO3 30.0 mmol/L (22.0-26.0) H Arterial Blood Oxygen Saturation 95.0 % (92.0-98.0) Arterial Blood Base Excess 3 Leo Test Positive Microbiology Date/Time Source Procedure Growth Status 01/06/17 06:00 Sputum Gram Stain - Final Resulted 01/06/17 06:00 Sputum Sputum Culture Pending Resulted 01/04/17 20:10 Nasal Nares MRSA Culture - Final Staphylococcus Aureus - Mrsa Complete 01/06/17 15:00 Indwelling Cath Urine Culture - Preliminary NO GROWTH Resulted 01/04/17 20:10 Rectum VRE Culture - Final NO VANCOMYCIN RESISTANT ENTEROCOCCUS ... Complete Intake and Output 01/06/17 01/07/17 19:00 07:00 Intake Total 620.0 ml 657.5 ml Output Total 385 ml 1135 ml Balance 235.0 ml -477.5 ml Free Water 120 ml IV Total 410.0 ml 192.5 ml Tube Feeding 90 ml 415 ml Other 50 ml Output Urine Total 385 ml 1135 ml Objective General Appearance: WD/WN, moderate distress EENT: PERRL/EOMI, normal ENT inspection Neck: non-tender, normal alignment, supple Cardiovascular: normal peripheral pulses, normal rate, regular rhythm, no gallop/murmur, no JVD Respiratory/Chest: Simple mask; respiratory distress, crackles/rales, rhonchi - bilaterally, expiratory wheezing Abdomen: normal bowel sounds, non tender, soft, no organomegaly, no mass Extremities: normal range of motion, non-tender Neurologic: case monitor II-XII grossly normal, no motor/sensory deficits Assessment/Plan Problem List: (1) Respiratory failure Assessment & Plan: S/P extubtion. See pulmonary note. (2) Hypertension Assessment & Plan: Uncontrolled. Await cardiology consult. (3) Hypercholesteremia (4) BPH (benign prostatic hyperplasia) (5) Alzheimer's dementia (6) Aspiration pneumonia Assessment & Plan: Continue vanco and zosyn. See pulmonary and ID note. (7) Hematuria Assessment & Plan: Send urine for cult and sens. D/C heparin if hemoglobin continues to decrease. Status: not improved ROSAS JOHNSON Jan 07, 2017 18:08
[2017-01-07] MEDS: Donepezil 10mg tab GT SCH (21:08)
[2017-01-08] VITALS (24 sets, daily range): BP systolic 101–159; BP diastolic 40–83
[2017-01-08] MEDS: Vancomycin 750mg/D5W 275ml IVPB SCH ×4 (00:10→12:30)
[2017-01-08] MEDS: DuoNeb 0.5-3(2.5)mg/3ml neb HHN SCH ×4 (01:14→19:10)
[2017-01-08 05:22] LABS: BASOPHILS % (AUTO) 0.6 % (0.0-2.0); EOSINOPHILS % (AUTO) 2.9 % (0.0-3.0); LYMPHOCYTES % (AUTO) 13.8 % (20.0-45.0); MEAN CORPUSCULAR HEMOGLOBIN 32.6 PG (27.0-31.0); MEAN CORPUSCULAR HGB CONC 32.7 G/DL (32.0-36.0); MEAN CORPUSCULAR VOLUME 100 FL (80-99); MEAN PLATELET VOLUME 8.7 FL (6.5-10.1); MONOCYTES % (AUTO) 6.4 % (1.0-10.0); NEUTROPHILS % (AUTO) 76.3 % (45.0-75.0); PLATELET COUNT 219 K/UL (150-450); RED BLOOD COUNT 3.52 M/UL (4.70-6.10); RED CELL DISTRIBUTION WIDTH 12.2 % (11.6-14.8)
[2017-01-08] MEDS: Piperacillin/Tazobactam 3.375 GM in D5W 110 ML IVPB SCH ×3 (05:25→21:53)
[2017-01-08 06:18] LABS: ALANINE AMINOTRANSFERASE 7 U/L (3-41); ALBUMIN/GLOBULIN RATIO 0.6 (1.0-2.7); ANION GAP 7 (5-15); ASPARTATE AMINO TRANSFERASE 11 U/L (5-40); CALCIUM 8.2 mg/dL (8.6-10.2); CARBON DIOXIDE 31 mEQ/L (20-30); CHLORIDE 99 mEQ/L (98-107); CREATININE 0.6 mg/dL (0.7-1.2); HEMOLYSIS 4; POTASSIUM 3.8 mEQ/L (3.4-4.9); SODIUM 137 mEQ/L (135-145); TOTAL PROTEIN 5.5 g/dL (6.6-8.7)
[2017-01-08] MEDS: Pantoprazole 40mg pkt GT SCH (08:02)
[2017-01-08] MEDS: Heparin 5000 units/ml inj SUBQ SCH ×2 (08:03→21:07)
[2017-01-08] MEDS: Memantine 10mg tab GT SCH (08:05)
--- NOTE | 2017-01-08 10:07 | Pulmonolgy Critical Care Note ---
Critical Care - Asmt/Plan Problems: (1) Respiratory distress (2) Aspiration pneumonia (3) Dementia Respiratory: monitor respiratory rate, adjust FIO2, CXR Cardiac: continue to monitor HR/BP Renal: F/U I&O, keep IV fluid Infectious Disease: continue antibiotics Gastrointestinal: continue feedings/current rate Endocrine: monitor blood sugar, check TSH Neurologic: PRN Ativan, PRN Morphine Affect: PRN ativan Prophylaxis: Heparin Notes Reviewed: supervisor malted milk, cardio, renal Discussed with: nurses, consultants, shelter case managerairfield manager - Objective Last 24 Hour Vital Signs Date Time Temp Pulse Resp B/P Pulse Ox O2 Delivery O2 Flow Rate FiO2 01/08/17 09:00 69 16 117/52 98 Simple Mask 6.0 01/08/17 08:00 64 01/08/17 08:00 98.1 68 15 158/67 94 Simple Mask 6.0 01/08/17 07:13 72 18 97 Venturi Mask 6.0 35 01/08/17 07:03 74 17 73 Venturi Mask 6.0 35 01/08/17 07:02 Venturi Mask 6.0 35 01/08/17 07:01 97 Venturi Mask 6.0 35 01/08/17 07:00 64 15 120/58 98 Simple Mask 6.0 01/08/17 06:00 63 16 129/66 98 Simple Mask 6.0 01/08/17 05:00 64 16 142/61 97 Simple Mask 6.0 01/08/17 04:00 67 01/08/17 04:00 98.3 65 17 111/49 99 Simple Mask 6.0 01/08/17 03:00 68 16 112/40 96 Simple Mask 6.0 01/08/17 02:00 63 16 110/50 96 Simple Mask 6.0 01/08/17 01:22 62 20 98 Venturi Mask 6.0 35 01/08/17 01:13 72 19 96 Venturi Mask 6.0 35 01/08/17 01:00 62 15 141/64 96 Simple Mask 6.0 01/08/17 00:00 98.6 70 17 116/62 99 Simple Mask 6.0 01/08/17 00:00 77 01/07/17 23:00 64 19 130/63 97 Simple Mask 6.0 01/07/17 22:00 66 18 122/63 97 Simple Mask 6.0 01/07/17 21:00 67 17 139/67 99 Simple Mask 6.0 01/07/17 20:00 64 01/07/17 20:00 98.6 65 17 150/69 99 Simple Mask 6.0 01/07/17 19:31 65 16 100 Simple Mask 6.0 01/07/17 19:22 60 18 100 Simple Mask 6.0 01/07/17 19:20 60 18 Simple Mask 6.0 01/07/17 19:19 100 Simple Mask 6.0 01/07/17 19:19 Simple Mask 6.0 01/07/17 19:00 62 18 138/64 100 Simple Mask 6.0 01/07/17 18:00 66 18 131/64 100 Simple Mask 6.0 01/07/17 17:00 62 18 152/72 96 Simple Mask 6.0 01/07/17 16:00 63 01/07/17 16:00 98.1 64 16 115/65 95 Simple Mask 6.0 01/07/17 15:00 66 18 129/63 99 Simple Mask 6.0 01/07/17 14:00 68 18 154/64 100 Simple Mask 6.0 01/07/17 13:00 66 18 148/66 100 Nasal Cannula 3.0 01/07/17 12:00 98.0 67 16 131/69 100 Nasal Cannula 3.0 01/07/17 12:00 69 01/07/17 11:00 76 17 142/60 100 Nasal Cannula 3.0 Status: awake Condition: critical, grave HEENT: atraumatic Neck: full ROM Lungs: clear Heart: HR/BP stable, HR/BP unstable Abdomen: soft, non-tender, active bowel sounds Extremities: no C/C/E, edema Micro: Microbiology Date/Time Source Procedure Growth Status 01/06/17 06:00 Sputum Gram Stain - Final Complete 01/06/17 06:00 Sputum Sputum Culture - Final NORMAL UPPER RESPIRATORY MINAL PRESENT Complete 01/06/17 15:00 Indwelling Cath Urine Culture - Preliminary NO GROWTH Resulted Accucheck: 115 Critical Care - Subjective ROS Limited/Unobtainable: Yes - 4 ICU Day: 4 Interval Events: not much improvement in mental status Condition: critical EKG Rhythm: Sinus Rhythm FI02: 35 Vent Support Breath Rate: 4 Vent Support Mode: CPAP Vent Tidal Volume: 600 Sputum Amount: Moderate PEEP: 5.0 PIP: 25 Fluids: none Tube Feeding Amount: 60 I&O: Intake and Output 01/07/17 01/08/17 19:00 07:00 Intake Total 1177.5 ml 1071.2 ml Output Total 635 ml 550 ml Balance 542.5 ml 521.2 ml Free Water 60 ml IV Total 412.5 ml 321.2 ml Tube Feeding 705 ml 720 ml Other 30 ml Output Urine Total 635 ml 550 ml CXR: volume loss at left lung ET-Tube: 7.5 ET Position: 23 Labs: Laboratory Tests Test 01/08/17 03:50 White Blood Count 8.0 K/UL (4.8-10.8) Red Blood Count 3.52 M/UL (4.70-6.10) L Hemoglobin 11.5 G/DL (14.2-18.0) L Hematocrit 35.1 % (42.0-52.0) L Mean Corpuscular Volume 100 FL (80-99) H Mean Corpuscular Hemoglobin 32.6 PG (27.0-31.0) H Mean Corpuscular Hemoglobin Concent 32.7 G/DL (32.0-36.0) Red Cell Distribution Width 12.2 % (11.6-14.8) Platelet Count 219 K/UL (150-450) Mean Platelet Volume 8.7 FL (6.5-10.1) Neutrophils (%) (Auto) 76.3 % (45.0-75.0) H Lymphocytes (%) (Auto) 13.8 % (20.0-45.0) L Monocytes (%) (Auto) 6.4 % (1.0-10.0) Eosinophils (%) (Auto) 2.9 % (0.0-3.0) Basophils (%) (Auto) 0.6 % (0.0-2.0) Sodium Level 137 mEQ/L (135-145) Potassium Level 3.8 mEQ/L (3.4-4.9) Chloride Level 99 mEQ/L (98-107) Carbon Dioxide Level 31 mEQ/L (20-30) H Anion Gap 7 (5-15) Blood Urea Nitrogen 9 mg/dL (7-23) Creatinine 0.6 mg/dL (0.7-1.2) L Estimat Glomerular Filtration Rate mL/min (>60) Glucose Level 188 mg/dL (74-106) H Calcium Level 8.2 mg/dL (8.6-10.2) L Total Bilirubin 0.2 mg/dL (0.0-1.2) Aspartate Amino Transf (AST/SGOT) 11 U/L (5-40) Alanine Aminotransferase (ALT/SGPT) 7 U/L (3-41) Alkaline Phosphatase 76 U/L (40-129) Total Protein 5.5 g/dL (6.6-8.7) L Albumin 2.2 g/dL (3.5-5.2) L Globulin 3.3 g/dL Albumin/Globulin Ratio 0.6 (1.0-2.7) L RABIA BANGURA Jan 08, 2017 10:06
--- NOTE | 2017-01-08 11:02 | Diagnostic Imaging Report ---
Indication: DYSPNEA Technique: One view of the chest Comparison: 01/10/17 Findings: Stable satisfactory position of nasogastric tube. The heart is borderline enlarged. There is increased infiltrate and possible pleural fluid at the left lung base. There is suggestion of increased leftward mediastinal shift which may indicate a significant component of volume loss There is decreased infiltrate at the right lung base. Impression: New or increased pleural fluid and parenchymal consolidation and likely atelectasis at the left lung base, over one day Improved right basilar parenchymal disease Other stable findings as described
--- NOTE | 2017-01-08 14:37 | Cardiac Electrophysiology PN ---
Assessment/Plan Assessment/Plan 1. Hypertension. Blood pressure better off BP meds.. He used to be taking amlodipine 10 mg and Bystolic 10 mg.Continue p.r.n. clonidine. 2. Severe pulmonary hypertension, pressure 55, likely due to history of obstructive sleep apnea. 3. Status post respiratory failure due to aspiration. On vancomycin and Zosyn. Already extubated. 4. Dementia on Namenda and Aricept. 5. Dysphagia. May need PEG DW and RN Subjective Subjective In ICU. Was able to stand up with assistance at bedside.Failed swallow eval. Did not need Clonidine prn over night. BP now 100s. RN and at bedside. Objective Last 24 Hour Vital Signs Date Time Temp Pulse Resp B/P Pulse Ox O2 Delivery O2 Flow Rate FiO2 01/08/17 14:00 71 18 101/51 100 Nasal Cannula 2.0 01/08/17 13:52 76 16 100 Nasal Cannula 3.0 01/08/17 13:37 71 18 98 Nasal Cannula 3.0 01/08/17 13:00 98.3 70 15 128/56 100 Nasal Cannula 2.0 01/08/17 12:00 70 01/08/17 12:00 71 18 122/50 100 Nasal Cannula 2.0 01/08/17 11:00 69 18 142/66 95 Simple Mask 6.0 01/08/17 10:00 70 17 106/74 95 Simple Mask 6.0 01/08/17 09:00 69 16 117/52 98 Simple Mask 6.0 01/08/17 08:00 64 01/08/17 08:00 98.1 68 15 158/67 94 Simple Mask 6.0 01/08/17 07:13 72 18 97 Venturi Mask 6.0 35 01/08/17 07:03 74 17 73 Venturi Mask 6.0 35 01/08/17 07:02 Venturi Mask 6.0 35 01/08/17 07:01 97 Venturi Mask 6.0 35 01/08/17 07:00 64 15 120/58 98 Simple Mask 6.0 01/08/17 06:00 63 16 129/66 98 Simple Mask 6.0 01/08/17 05:00 64 16 142/61 97 Simple Mask 6.0 01/08/17 04:00 67 01/08/17 04:00 98.3 65 17 111/49 99 Simple Mask 6.0 01/08/17 03:00 68 16 112/40 96 Simple Mask 6.0 01/08/17 02:00 63 16 110/50 96 Simple Mask 6.0 01/08/17 01:22 62 20 98 Venturi Mask 6.0 35 01/08/17 01:13 72 19 96 Venturi Mask 6.0 35 01/08/17 01:00 62 15 141/64 96 Simple Mask 6.0 01/08/17 00:00 98.6 70 17 116/62 99 Simple Mask 6.0 01/08/17 00:00 77 01/07/17 23:00 64 19 130/63 97 Simple Mask 6.0 01/07/17 22:00 66 18 122/63 97 Simple Mask 6.0 01/07/17 21:00 67 17 139/67 99 Simple Mask 6.0 01/07/17 20:00 64 01/07/17 20:00 98.6 65 17 150/69 99 Simple Mask 6.0 01/07/17 19:31 65 16 100 Simple Mask 6.0 01/07/17 19:22 60 18 100 Simple Mask 6.0 01/07/17 19:20 60 18 Simple Mask 6.0 01/07/17 19:19 100 Simple Mask 6.0 01/07/17 19:19 Simple Mask 6.0 01/07/17 19:00 62 18 138/64 100 Simple Mask 6.0 01/07/17 18:00 66 18 131/64 100 Simple Mask 6.0 01/07/17 17:00 62 18 152/72 96 Simple Mask 6.0 01/07/17 16:00 63 01/07/17 16:00 98.1 64 16 115/65 95 Simple Mask 6.0 01/07/17 15:00 66 18 129/63 99 Simple Mask 6.0 Intake and Output 01/07/17 01/08/17 19:00 07:00 Intake Total 1177.5 ml 1071.2 ml Output Total 635 ml 550 ml Balance 542.5 ml 521.2 ml Free Water 60 ml IV Total 412.5 ml 321.2 ml Tube Feeding 705 ml 720 ml Other 30 ml Output Urine Total 635 ml 550 ml Laboratory Tests Test 01/08/17 03:50 4/21/17 11:00 White Blood Count 8.0 K/UL (4.8-10.8) Red Blood Count 3.52 M/UL (4.70-6.10) L Hemoglobin 11.5 G/DL (14.2-18.0) L Hematocrit 35.1 % (42.0-52.0) L Mean Corpuscular Volume 100 FL (80-99) H Mean Corpuscular Hemoglobin 32.6 PG (27.0-31.0) H Mean Corpuscular Hemoglobin Concent 32.7 G/DL (32.0-36.0) Red Cell Distribution Width 12.2 % (11.6-14.8) Platelet Count 219 K/UL (150-450) Mean Platelet Volume 8.7 FL (6.5-10.1) Neutrophils (%) (Auto) 76.3 % (45.0-75.0) H Lymphocytes (%) (Auto) 13.8 % (20.0-45.0) L Monocytes (%) (Auto) 6.4 % (1.0-10.0) Eosinophils (%) (Auto) 2.9 % (0.0-3.0) Basophils (%) (Auto) 0.6 % (0.0-2.0) Sodium Level 137 mEQ/L (135-145) Potassium Level 3.8 mEQ/L (3.4-4.9) Chloride Level 99 mEQ/L (98-107) Carbon Dioxide Level 31 mEQ/L (20-30) H Anion Gap 7 (5-15) Blood Urea Nitrogen 9 mg/dL (7-23) Creatinine 0.6 mg/dL (0.7-1.2) L Estimat Glomerular Filtration Rate mL/min (>60) Glucose Level 188 mg/dL (74-106) H Calcium Level 8.2 mg/dL (8.6-10.2) L Total Bilirubin 0.2 mg/dL (0.0-1.2) Aspartate Amino Transf (AST/SGOT) 11 U/L (5-40) Alanine Aminotransferase (ALT/SGPT) 7 U/L (3-41) Alkaline Phosphatase 76 U/L (40-129) Total Protein 5.5 g/dL (6.6-8.7) L Albumin 2.2 g/dL (3.5-5.2) L Globulin 3.3 g/dL Albumin/Globulin Ratio 0.6 (1.0-2.7) L Vancomycin Level Trough 13.1 ug/mL (5.0-12.0) H Microbiology Date/Time Source Procedure Growth Status 01/06/17 06:00 Sputum Gram Stain - Final Complete 01/06/17 06:00 Sputum Sputum Culture - Final NORMAL UPPER RESPIRATORY MINAL PRESENT Complete 01/06/17 15:00 Indwelling Cath Urine Culture - Final NO GROWTH AFTER 48 HOURS Complete Objective NECK: No JVD. LUNGS: Coarse rhonchi. CARDIOVASCULAR: Regular S1 and S2 with no gallop or murmur. ABDOMEN: Soft. EXTREMITIES: No pitting edema. ARGELIA DUONG Jan 08, 2017 14:37
--- NOTE | 2017-01-08 19:00 | Internal Med Progress Note ---
Subjective Date of Service: Jan 08, 2017 Physician Name Sanegetha Johnson Attending Physician Sangeetha Johnson Current Medications Medications (Trade) Dose Ordered Sig/Daina Route PRN Reason Start Time Stop Time Status Last Admin Dose Admin Acetaminophen (Tylenol) 650 mg Q4H PRN ORAL fever 01/04/17 21:00 02/03/17 20:59 Albuterol/ Ipratropium (DuoNeb 0.5-3(2.5)mg/3ml) 3 ml Q4H PRN HHN Shortness of Breath 01/04/17 21:00 01/09/17 20:59 01/07/17 19:20 Albuterol/ Ipratropium (DuoNeb 0.5-3(2.5)mg/3ml) 3 ml Q6HRT HHN 01/08/17 01:00 01/13/17 00:59 01/08/17 13:43 Clonidine HCl (Catapres) 0.1 mg Q6H PRN GT SBP > 170 01/06/17 16:00 02/05/17 15:59 Dextrose (Dextrose 50%) STAT PRN IV Hypoglycemia 01/04/17 21:00 02/03/17 20:59 Donepezil HCl (Aricept) 10 mg QHS GT 01/06/17 15:55 02/04/17 20:59 01/07/17 21:08 Heparin Sodium (Porcine) (Heparin 5000 units/ml) 5,000 units EVERY 12 HOURS SUBQ 01/04/17 22:00 02/03/17 21:59 01/08/17 08:03 Lorazepam (Ativan 2mg/ml 1ml) 2 mg Q4H PRN IV For Anxiety 01/04/17 21:00 01/11/17 20:59 Memantine (Namenda) 10 mg DAILY GT 01/06/17 15:55 02/05/17 08:59 01/07/17 09:04 Morphine Sulfate (Morphine Sulfate) 4 mg Q4H PRN IVP PAIN SCALE 4-10 01/04/17 21:00 01/11/17 20:59 Nitroglycerin (Ntg) 0.4 mg Every 5 Minutes PRN SL Prn Chest Pain 01/04/17 21:00 02/03/17 20:59 Ondansetron HCl (Zofran) 4 mg Q6H PRN IVP Nausea & Vomiting 01/04/17 21:00 02/03/17 20:59 Pantoprazole 40 mg 40 mg DAILY GT 01/08/17 09:00 02/07/17 08:59 01/08/17 08:02 Piperacillin Sod/ Tazobactam Sod/ Dextrose (Zosyn/D5W) 110 ml @ 27.5 mls/hr Q8HR IVPB 01/07/17 14:00 01/14/17 13:59 01/08/17 14:20 Polyethylene Glycol 17 gm 17 gm DAILYPRN PRN GT Constipation 01/06/17 15:55 02/03/17 20:59 Vancomycin HCl (Vanco rx to dose) 1 ea DAILY PRN MISC PRN RX PROTOCOL 01/04/17 21:30 02/03/17 21:29 Vancomycin HCl/ Dextrose (Vancomycin/D5W) 275 ml @ 183.708 mls/hr Q12H IVPB 01/07/17 12:00 01/12/17 11:59 01/08/17 12:30 Allergies: Coded Allergies: No Known Allergies (Verified , 01/06/17) ROS Limited/Unobtainable: Yes Subjective 76 YO M admitted with aspiration and respiratory failure. Extubated 01/06/17. Tolerating venturi mask. ICU. Objective Last Vital Signs Date Time Temp Pulse Resp B/P Pulse Ox O2 Delivery O2 Flow Rate FiO2 01/08/17 18:00 72 19 142/68 100 Simple Mask 15.0 01/08/17 16:00 98.0 Laboratory Tests Test 01/08/17 03:50 01/08/17 11:00 White Blood Count 8.0 K/UL (4.8-10.8) Red Blood Count 3.52 M/UL (4.70-6.10) L Hemoglobin 11.5 G/DL (14.2-18.0) L Hematocrit 35.1 % (42.0-52.0) L Mean Corpuscular Volume 100 FL (80-99) H Mean Corpuscular Hemoglobin 32.6 PG (27.0-31.0) H Mean Corpuscular Hemoglobin Concent 32.7 G/DL (32.0-36.0) Red Cell Distribution Width 12.2 % (11.6-14.8) Platelet Count 219 K/UL (150-450) Mean Platelet Volume 8.7 FL (6.5-10.1) Neutrophils (%) (Auto) 76.3 % (45.0-75.0) H Lymphocytes (%) (Auto) 13.8 % (20.0-45.0) L Monocytes (%) (Auto) 6.4 % (1.0-10.0) Eosinophils (%) (Auto) 2.9 % (0.0-3.0) Basophils (%) (Auto) 0.6 % (0.0-2.0) Sodium Level 137 mEQ/L (135-145) Potassium Level 3.8 mEQ/L (3.4-4.9) Chloride Level 99 mEQ/L (98-107) Carbon Dioxide Level 31 mEQ/L (20-30) H Anion Gap 7 (5-15) Blood Urea Nitrogen 9 mg/dL (7-23) Creatinine 0.6 mg/dL (0.7-1.2) L Estimat Glomerular Filtration Rate mL/min (>60) Glucose Level 188 mg/dL (74-106) H Calcium Level 8.2 mg/dL (8.6-10.2) L Total Bilirubin 0.2 mg/dL (0.0-1.2) Aspartate Amino Transf (AST/SGOT) 11 U/L (5-40) Alanine Aminotransferase (ALT/SGPT) 7 U/L (3-41) Alkaline Phosphatase 76 U/L (40-129) Total Protein 5.5 g/dL (6.6-8.7) L Albumin 2.2 g/dL (3.5-5.2) L Globulin 3.3 g/dL Albumin/Globulin Ratio 0.6 (1.0-2.7) L Vancomycin Level Trough 13.1 ug/mL (5.0-12.0) H Microbiology Date/Time Source Procedure Growth Status 01/06/17 06:00 Sputum Gram Stain - Final Complete 01/06/17 06:00 Sputum Sputum Culture - Final NORMAL UPPER RESPIRATORY MINAL PRESENT Complete 01/06/17 15:00 Indwelling Cath Urine Culture - Final NO GROWTH AFTER 48 HOURS Complete Intake and Output 01/07/17 01/08/17 19:00 07:00 Intake Total 1177.5 ml 1071.2 ml Output Total 635 ml 550 ml Balance 542.5 ml 521.2 ml Free Water 60 ml IV Total 412.5 ml 321.2 ml Tube Feeding 705 ml 720 ml Other 30 ml Output Urine Total 635 ml 550 ml Objective General Appearance: WD/WN, moderate distress EENT: PERRL/EOMI, normal ENT inspection Neck: non-tender, normal alignment, supple Cardiovascular: normal peripheral pulses, normal rate, regular rhythm, no gallop/murmur, no JVD Respiratory/Chest: venturi mask; respiratory distress, crackles/rales, rhonchi - bilaterally, expiratory wheezing Abdomen: normal bowel sounds, non tender, soft, no organomegaly, no mass Extremities: normal range of motion, non-tender 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 See pulmonary note. (2) Hypertension Assessment & Plan: Better control-see cardiology consult. (3) Hypercholesteremia (4) BPH (benign prostatic hyperplasia) (5) Alzheimer's dementia (6) Aspiration pneumonia Assessment & Plan: Continue vanco and zosyn. See pulmonary and ID note. (7) Hematuria Assessment & Plan: Send urine for cult and sens. D/C heparin if hemoglobin continues to decrease. Status: not improved SANGEETHA JOHNSON Jan 08, 2017 19:00
--- NOTE | 2017-01-08 19:43 | Infectious Diseases Prog Note ---
Assessment/Plan Assessment/Plan A: This is a 76-year-old male Possible aspiration pneumonia ( Despite neg cxray ) SCx: neg pt has sign amount of Reps Secretions 01/05 Cxray : New or increased pleural fluid and parenchymal consolidation and likely atelectasis at the left lung base, SP Extubation 01/06 History of fracture of femoral neck. Dementia. Hypertension PLAN: continue the patient on Zosyn d# 4 / 7 , DC Vanco d# 4 Monitor CBC. Monitor BMP. Monitor cultures (blood Monitor chest x-ray Subjective Constitutional: Denies: anorexia, chills, drenching sweats, fatigue, fever, no symptoms, other Allergies: Coded Allergies: No Known Allergies (Verified , 01/06/17) Subjective lethargic Objective Vital Signs Last 24 Hour Vital Signs Date Time Temp Pulse Resp B/P Pulse Ox O2 Delivery O2 Flow Rate FiO2 01/08/17 19:20 79 19 97 Simple Mask 10.0 60 01/08/17 19:11 77 18 100 Simple Mask 10.0 60 01/08/17 19:10 Simple Mask 10.0 60 01/08/17 19:09 100 Simple Mask 10.0 60 01/08/17 19:00 80 20 159/68 100 Simple Mask 15.0 01/08/17 18:00 72 19 142/68 100 Simple Mask 15.0 01/08/17 17:00 77 20 153/71 100 Simple Mask 15.0 01/08/17 16:00 77 01/08/17 16:00 98.0 74 20 145/68 100 Nasal Cannula 2.0 01/08/17 15:00 80 19 138/61 100 Nasal Cannula 2.0 01/08/17 14:00 71 18 101/51 100 Nasal Cannula 2.0 01/08/17 13:52 76 16 100 Nasal Cannula 3.0 01/08/17 13:37 71 18 98 Nasal Cannula 3.0 01/08/17 13:00 98.3 70 15 128/56 100 Nasal Cannula 2.0 01/08/17 12:00 70 01/08/17 12:00 71 18 122/50 100 Nasal Cannula 2.0 01/08/17 11:00 69 18 142/66 95 Simple Mask 6.0 01/08/17 10:00 70 17 106/74 95 Simple Mask 6.0 01/08/17 09:00 69 16 117/52 98 Simple Mask 6.0 01/08/17 08:00 64 01/08/17 08:00 98.1 68 15 158/67 94 Simple Mask 6.0 01/08/17 07:13 72 18 97 Venturi Mask 6.0 35 01/08/17 07:03 74 17 73 Venturi Mask 6.0 35 01/08/17 07:02 Venturi Mask 6.0 35 01/08/17 07:01 97 Venturi Mask 6.0 35 01/08/17 07:00 64 15 120/58 98 Simple Mask 6.0 01/08/17 06:00 63 16 129/66 98 Simple Mask 6.0 01/08/17 05:00 64 16 142/61 97 Simple Mask 6.0 01/08/17 04:00 67 01/08/17 04:00 98.3 65 17 111/49 99 Simple Mask 6.0 01/08/17 03:00 68 16 112/40 96 Simple Mask 6.0 01/08/17 02:00 63 16 110/50 96 Simple Mask 6.0 01/08/17 01:22 62 20 98 Venturi Mask 6.0 35 01/08/17 01:13 72 19 96 Venturi Mask 6.0 35 01/08/17 01:00 62 15 141/64 96 Simple Mask 6.0 01/08/17 00:00 98.6 70 17 116/62 99 Simple Mask 6.0 01/08/17 00:00 77 01/07/17 23:00 64 19 130/63 97 Simple Mask 6.0 01/07/17 22:00 66 18 122/63 97 Simple Mask 6.0 01/07/17 21:00 67 17 139/67 99 Simple Mask 6.0 01/07/17 20:00 64 01/07/17 20:00 98.6 65 17 150/69 99 Simple Mask 6.0 Height (Feet): 5 Height (Inches): 5.00 Weight (Pounds): 120 HEENT: mucous membranes moist Breasts: no masses Cardiovascular: no gallop/murmur Abdomen: no scars Microbiology Date/Time Source Procedure Growth Status 01/06/17 06:00 Sputum Gram Stain - Final Complete 01/06/17 06:00 Sputum Sputum Culture - Final NORMAL UPPER RESPIRATORY MINAL PRESENT Complete 01/06/17 15:00 Indwelling Cath Urine Culture - Final NO GROWTH AFTER 48 HOURS Complete Laboratory Tests Test 01/08/17 03:50 01/08/17 11:00 White Blood Count 8.0 K/UL (4.8-10.8) Red Blood Count 3.52 M/UL (4.70-6.10) L Hemoglobin 11.5 G/DL (14.2-18.0) L Hematocrit 35.1 % (42.0-52.0) L Mean Corpuscular Volume 100 FL (80-99) H Mean Corpuscular Hemoglobin 32.6 PG (27.0-31.0) H Mean Corpuscular Hemoglobin Concent 32.7 G/DL (32.0-36.0) Red Cell Distribution Width 12.2 % (11.6-14.8) Platelet Count 219 K/UL (150-450) Mean Platelet Volume 8.7 FL (6.5-10.1) Neutrophils (%) (Auto) 76.3 % (45.0-75.0) H Lymphocytes (%) (Auto) 13.8 % (20.0-45.0) L Monocytes (%) (Auto) 6.4 % (1.0-10.0) Eosinophils (%) (Auto) 2.9 % (0.0-3.0) Basophils (%) (Auto) 0.6 % (0.0-2.0) Sodium Level 137 mEQ/L (135-145) Potassium Level 3.8 mEQ/L (3.4-4.9) Chloride Level 99 mEQ/L (98-107) Carbon Dioxide Level 31 mEQ/L (20-30) H Anion Gap 7 (5-15) Blood Urea Nitrogen 9 mg/dL (7-23) Creatinine 0.6 mg/dL (0.7-1.2) L Estimat Glomerular Filtration Rate mL/min (>60) Glucose Level 188 mg/dL (74-106) H Calcium Level 8.2 mg/dL (8.6-10.2) L Total Bilirubin 0.2 mg/dL (0.0-1.2) Aspartate Amino Transf (AST/SGOT) 11 U/L (5-40) Alanine Aminotransferase (ALT/SGPT) 7 U/L (3-41) Alkaline Phosphatase 76 U/L (40-129) Total Protein 5.5 g/dL (6.6-8.7) L Albumin 2.2 g/dL (3.5-5.2) L Globulin 3.3 g/dL Albumin/Globulin Ratio 0.6 (1.0-2.7) L Vancomycin Level Trough 13.1 ug/mL (5.0-12.0) H Current Medications Medications (Trade) Dose Ordered Sig/Daina Route PRN Reason Start Time Stop Time Status Last Admin Dose Admin Acetaminophen (Tylenol) 650 mg Q4H PRN ORAL fever 01/04/17 21:00 02/03/17 20:59 Albuterol/ Ipratropium (DuoNeb 0.5-3(2.5)mg/3ml) 3 ml Q4H PRN HHN Shortness of Breath 01/04/17 21:00 01/09/17 20:59 01/07/17 19:20 Albuterol/ Ipratropium (DuoNeb 0.5-3(2.5)mg/3ml) 3 ml Q6HRT HHN 01/08/17 01:00 01/13/17 00:59 01/08/17 19:10 Clonidine HCl (Catapres) 0.1 mg Q6H PRN GT SBP > 170 01/06/17 16:00 02/05/17 15:59 Dextrose (Dextrose 50%) STAT PRN IV Hypoglycemia 01/04/17 21:00 02/03/17 20:59 Donepezil HCl (Aricept) 10 mg QHS GT 01/06/17 15:55 02/04/17 20:59 01/07/17 21:08 Heparin Sodium (Porcine) (Heparin 5000 units/ml) 5,000 units EVERY 12 HOURS SUBQ 01/04/17 22:00 02/03/17 21:59 01/08/17 08:03 Lorazepam (Ativan 2mg/ml 1ml) 2 mg Q4H PRN IV For Anxiety 01/04/17 21:00 01/11/17 20:59 Memantine (Namenda) 10 mg DAILY GT 01/06/17 15:55 02/05/17 08:59 01/07/17 09:04 Morphine Sulfate (Morphine Sulfate) 4 mg Q4H PRN IVP PAIN SCALE 4-10 01/04/17 21:00 01/11/17 20:59 Nitroglycerin (Ntg) 0.4 mg Every 5 Minutes PRN SL Prn Chest Pain 01/04/17 21:00 02/03/17 20:59 Ondansetron HCl (Zofran) 4 mg Q6H PRN IVP Nausea & Vomiting 01/04/17 21:00 02/03/17 20:59 Pantoprazole 40 mg 40 mg DAILY GT 01/08/17 09:00 02/07/17 08:59 01/08/17 08:02 Piperacillin Sod/ Tazobactam Sod/ Dextrose (Zosyn/D5W) 110 ml @ 27.5 mls/hr Q8HR IVPB 01/07/17 14:00 01/14/17 13:59 01/08/17 14:20 Polyethylene Glycol 17 gm 17 gm DAILYPRN PRN GT Constipation 01/06/17 15:55 02/03/17 20:59 Vancomycin HCl (Vanco rx to dose) 1 ea DAILY PRN MISC PRN RX PROTOCOL 01/04/17 21:30 02/03/17 21:29 Vancomycin HCl/ Dextrose (Vancomycin/D5W) 275 ml @ 183.708 mls/hr Q12H IVPB 01/07/17 12:00 01/12/17 11:59 01/08/17 12:30 HORACIO JOHN M.D. Jan 08, 2017 19:43
[2017-01-08] MEDS: Donepezil 10mg tab GT SCH (21:06)
[2017-01-09] VITALS (28 sets, daily range): BP systolic 66–133; BP diastolic 40–78
[2017-01-09 00:53] LABS: ABG ALLEN TEST POSITIVE; ABG BASE EXCESS 7.8; ABG PCO2 173.9 mmHg (35.0-45.0)
[2017-01-09] MEDS: DuoNeb 0.5-3(2.5)mg/3ml neb HHN SCH ×4 (01:30→18:57)
[2017-01-09 02:16] LABS: ABG ALLEN TEST POSITIVE; ABG BASE EXCESS 6.1; ABG PCO2 58.1 mmHg (35.0-45.0)
[2017-01-09 05:42] LABS: BASOPHILS % (AUTO) 0.4 % (0.0-2.0); EOSINOPHILS % (AUTO) 0.3 % (0.0-3.0); LYMPHOCYTES % (AUTO) 9.5 % (20.0-45.0); MEAN CORPUSCULAR HEMOGLOBIN 32.4 PG (27.0-31.0); MEAN CORPUSCULAR HGB CONC 32.1 G/DL (32.0-36.0); MEAN CORPUSCULAR VOLUME 101 FL (80-99); MEAN PLATELET VOLUME 9.2 FL (6.5-10.1); MONOCYTES % (AUTO) 6.2 % (1.0-10.0); NEUTROPHILS % (AUTO) 83.6 % (45.0-75.0); PLATELET COUNT 273 K/UL (150-450); RED BLOOD COUNT 3.55 M/UL (4.70-6.10); RED CELL DISTRIBUTION WIDTH 12.3 % (11.6-14.8); WHITE BLOOD COUNT 13.5 K/UL (4.8-10.8)
[2017-01-09 06:29] LABS: ALANINE AMINOTRANSFERASE 8 U/L (3-41); ANION GAP 13 (5-15); ASPARTATE AMINO TRANSFERASE 12 U/L (5-40); CALCIUM 8.8 mg/dL (8.6-10.2); CARBON DIOXIDE 32 mEQ/L (20-30); CHLORIDE 99 mEQ/L (98-107); CREATININE 0.9 mg/dL (0.7-1.2); HEMOLYSIS 3; POTASSIUM 4.2 mEQ/L (3.4-4.9); SODIUM 144 mEQ/L (135-145); TOTAL PROTEIN 5.6 g/dL (6.6-8.7)
[2017-01-09] MEDS: Piperacillin/Tazobactam 3.375 GM in D5W 110 ML IVPB SCH ×3 (07:00→21:47)
--- NOTE | 2017-01-09 08:17 | Pulmonolgy Critical Care Note ---
Critical Care - Asmt/Plan Problems: (1) Respiratory distress (2) Aspiration pneumonia (3) Dementia Respiratory: adjust tidal volume, adjust FIO2, other - developed respiratory failure last night, needed to be intubated by ER physician Cardiac: continue to monitor HR/BP Renal: F/U I&O, keep IV fluid, check electrolytes Infectious Disease: check cultures Gastrointestinal: continue feedings/current rate Endocrine: monitor blood sugar, continue sliding scale insulin Hematologic: monitor H/H, transfuse if hgb<8.5 Neurologic: PRN Ativan, PRN Morphine, keep patient comfortable Prophylaxis: Protonix, Heparin Disposition: keep in ICU 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, 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 Discussed with: nurses, consultants, 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 hardware - Objective Last 24 Hour Vital Signs Date Time Temp Pulse Resp B/P Pulse Ox O2 Delivery O2 Flow Rate FiO2 01/09/17 08:00 95 01/09/17 08:00 90 01/09/17 08:00 98.0 104 18 81/41 100 Endotracheal Tube 90 01/09/17 07:32 85 16 100 Mechanical Ventilator 90 01/09/17 07:20 87 16 100 Mechanical Ventilator 90 01/09/17 07:00 86 16 90 01/09/17 07:00 80 21 79/51 100 Endotracheal Tube 100 01/09/17 06:00 80 21 73/41 100 Endotracheal Tube 100 01/09/17 05:30 88 21 73/48 100 Endotracheal Tube 100 01/09/17 05:00 85 21 66/42 100 Endotracheal Tube 100 01/09/17 04:50 97 16 100 01/09/17 04:30 89 21 74/40 100 Endotracheal Tube 100 01/09/17 04:00 89 01/09/17 04:00 98.0 97 21 90/51 100 Endotracheal Tube 100 01/09/17 03:30 97 21 90/51 100 Endotracheal Tube 100 01/09/17 03:13 92 16 100 01/09/17 03:13 102 16 Mechanical Ventilator 100 01/09/17 03:00 103 21 92/54 95 Endotracheal Tube 01/09/17 02:30 108 21 68/55 100 Endotracheal Tube 100 01/09/17 02:00 113 21 79/47 95 Endotracheal Tube 01/09/17 01:43 143 133/67 01/09/17 01:30 Mechanical Ventilator 01/09/17 01:30 Mechanical Ventilator 01/09/17 01:25 100 01/09/17 01:00 131 16 133/67 95 Simple Mask 15.0 01/09/17 00:00 124 01/09/17 00:00 98.5 130 20 130/65 97 Simple Mask 15.0 01/08/17 23:00 112 16 131/83 95 Simple Mask 15.0 01/08/17 22:00 75 16 125/54 95 Simple Mask 15.0 01/08/17 21:00 74 17 125/54 98 Simple Mask 15.0 01/08/17 20:00 74 01/08/17 20:00 98.1 74 16 133/62 96 Simple Mask 15.0 01/08/17 19:20 79 19 97 Simple Mask 10.0 60 01/08/17 19:11 77 18 100 Simple Mask 10.0 60 01/08/17 19:10 Simple Mask 10.0 60 01/08/17 19:09 100 Simple Mask 10.0 60 01/08/17 19:00 80 20 159/68 100 Simple Mask 15.0 01/08/17 18:00 72 19 142/68 100 Simple Mask 15.0 01/08/17 17:00 77 20 153/71 100 Simple Mask 15.0 01/08/17 16:00 77 01/08/17 16:00 98.0 74 20 145/68 100 Nasal Cannula 2.0 01/08/17 15:00 80 19 138/61 100 Nasal Cannula 2.0 01/08/17 14:00 71 18 101/51 100 Nasal Cannula 2.0 01/08/17 13:52 76 16 100 Nasal Cannula 3.0 01/08/17 13:37 71 18 98 Nasal Cannula 3.0 01/08/17 13:00 98.3 70 15 128/56 100 Nasal Cannula 2.0 01/08/17 12:00 70 01/08/17 12:00 71 18 122/50 100 Nasal Cannula 2.0 01/08/17 11:00 69 18 142/66 95 Simple Mask 6.0 01/08/17 10:00 70 17 106/74 95 Simple Mask 6.0 01/08/17 09:00 69 16 117/52 98 Simple Mask 6.0 Status: sedated Condition: critical HEENT: atraumatic Neck: full ROM Lungs: clear Heart: HR/BP stable, HR/BP unstable Abdomen: non-tender, active bowel sounds, feeding tube Extremities: edema Decubiti: location Micro: Microbiology Date/Time Source Procedure Growth Status 01/06/17 15:00 Indwelling Cath Urine Culture - Final NO GROWTH AFTER 48 HOURS Complete Accucheck: 115 Critical Care - Subjective ROS Limited/Unobtainable: No ICU Day: 5 Intubation Day: 5 Condition: critical EKG Rhythm: Sinus Rhythm FI02: 90 Vent Support Breath Rate: 16 Vent Support Mode: AC Vent Tidal Volume: 600 Sputum Amount: Moderate PEEP: 5.0 PIP: 24 Secretions: small I&O: Intake and Output 01/08/17 01/09/17 19:00 07:00 Intake Total 1230.000 ml 490.0 ml Output Total 440 ml 230 ml Balance 790.000 ml 260.0 ml Free Water 90 ml IV Total 440.000 ml 130.0 ml Tube Feeding 720 ml 240 ml Other 70 ml 30 ml Output Urine Total 440 ml 230 ml CXR: left lung volume loss ET-Tube: 7.5 ET Position: 24 Labs: Laboratory Tests Test 01/08/17 11:00 01/09/17 00:42 01/09/17 02:10 01/09/17 04:55 Vancomycin Level Trough 13.1 ug/mL (5.0-12.0) H Arterial Blood pH 7.020 (7.350-7.450) 7.371 (7.350-7.450) Arterial Blood Partial Pressure CO2 173.9 mmHg (35.0-45.0) *H 58.1 mmHg (35.0-45.0) *H Arterial Blood Partial Pressure O2 89.8 mmHg (75.0-100.0) 58.1 mmHg (75.0-100.0) L Arterial Blood HCO3 44.5 mmol/L (22.0-26.0) H 32.9 mmol/L (22.0-26.0) H Arterial Blood Oxygen Saturation 91.9 % (92.0-98.0) L 88.5 % (92.0-98.0) L Arterial Blood Base Excess 7.8 6.1 Leo Test Positive Positive White Blood Count 13.5 K/UL (4.8-10.8) #H Red Blood Count 3.55 M/UL (4.70-6.10) L Hemoglobin 11.5 G/DL (14.2-18.0) L Hematocrit 35.8 % (42.0-52.0) L Mean Corpuscular Volume 101 FL (80-99) H Mean Corpuscular Hemoglobin 32.4 PG (27.0-31.0) H Mean Corpuscular Hemoglobin Concent 32.1 G/DL (32.0-36.0) Red Cell Distribution Width 12.3 % (11.6-14.8) Platelet Count 273 K/UL (150-450) Mean Platelet Volume 9.2 FL (6.5-10.1) Neutrophils (%) (Auto) 83.6 % (45.0-75.0) H Lymphocytes (%) (Auto) 9.5 % (20.0-45.0) L Monocytes (%) (Auto) 6.2 % (1.0-10.0) Eosinophils (%) (Auto) 0.3 % (0.0-3.0) Basophils (%) (Auto) 0.4 % (0.0-2.0) Sodium Level 144 mEQ/L (135-145) Potassium Level 4.2 mEQ/L (3.4-4.9) Chloride Level 99 mEQ/L (98-107) Carbon Dioxide Level 32 mEQ/L (20-30) H Anion Gap 13 (5-15) Blood Urea Nitrogen 14 mg/dL (7-23) Creatinine 0.9 mg/dL (0.7-1.2) Estimat Glomerular Filtration Rate mL/min (>60) Glucose Level 149 mg/dL (74-106) H Calcium Level 8.8 mg/dL (8.6-10.2) Total Bilirubin 0.2 mg/dL (0.0-1.2) Aspartate Amino Transf (AST/SGOT) 12 U/L (5-40) Alanine Aminotransferase (ALT/SGPT) 8 U/L (3-41) Alkaline Phosphatase 71 U/L (40-129) Pro-B-Type Natriuretic Peptide 1152 pg/mL (0-450) H Total Protein 5.6 g/dL (6.6-8.7) L Albumin 2.8 g/dL (3.5-5.2) L Globulin 2.8 g/dL Albumin/Globulin Ratio 1.0 (1.0-2.7) RABIA BANGURA Jan 09, 2017 08:17
[2017-01-09] MEDS: Pantoprazole 40mg pkt GT SCH (09:19)
[2017-01-09] MEDS: Memantine 10mg tab GT SCH (09:19)
[2017-01-09] MEDS: Heparin 5000 units/ml inj SUBQ SCH ×2 (09:20→20:55)
[2017-01-09 10:34] LABS: ABG BASE EXCESS 7.8; ABG PCO2 40.5 mmHg (35.0-45.0)
[2017-01-09 10:35] LABS: ABG ALLEN TEST POSITIVE
--- NOTE | 2017-01-09 16:51 | Cardiac Electrophysiology PN ---
Assessment/Plan Assessment/Plan 1. Atrial fib with RVR could be due to respiratory acidosis. Happened before he was intubated. Will change Cardizem drip to NG 30 q 6 hors. Hold off on heparin drip unless atrial fib recurs. 2. Hypertension.On Cardizem now. 3. Severe pulmonary hypertension, pressure 55, likely due to history of obstructive sleep apnea. 4. Respiratory failure due to aspiration. Was Reintubated again. On vancomycin and Zosyn. 5. Dementia on Namenda and Aricept. 6. Dysphagia. May need PEG DW and RN Subjective Subjective In ICU, coded last night for respiratory failure and was intubated. Also I started him on Cardizem drip for atrial fib with RVR. RN and at bedside.Converted to SR an hour ago. Objective Last 24 Hour Vital Signs Date Time Temp Pulse Resp B/P Pulse Ox O2 Delivery O2 Flow Rate FiO2 01/09/17 16:00 98.2 91 19 125/58 100 Endotracheal Tube 90 01/09/17 16:00 90 01/09/17 16:00 91 01/09/17 15:48 92 99/52 01/09/17 15:34 92 16 90 01/09/17 15:00 93 20 99/52 100 Endotracheal Tube 90 01/09/17 14:00 99 19 97/48 98 Endotracheal Tube 90 01/09/17 13:40 103 17 90 01/09/17 13:32 95 16 98 Mechanical Ventilator 60 01/09/17 13:27 90 16 100 Mechanical Ventilator 60 01/09/17 13:00 95 19 118/78 99 Endotracheal Tube 90 01/09/17 12:11 90 01/09/17 12:00 106 01/09/17 12:00 98.4 103 20 101/50 100 Endotracheal Tube 90 01/09/17 11:07 107 16 90 01/09/17 11:00 104 20 98/51 100 Endotracheal Tube 90 01/09/17 10:00 113 19 99/51 97 Endotracheal Tube 90 01/09/17 09:03 88 16 80 01/09/17 09:00 91 25 102/58 91 Endotracheal Tube 90 01/09/17 08:00 95 01/09/17 08:00 90 01/09/17 08:00 98.0 104 18 81/41 100 Endotracheal Tube 90 01/09/17 07:32 85 16 100 Mechanical Ventilator 90 01/09/17 07:20 87 16 100 Mechanical Ventilator 90 01/09/17 07:00 86 16 90 01/09/17 07:00 80 21 79/51 100 Endotracheal Tube 100 01/09/17 06:00 80 21 73/41 100 Endotracheal Tube 100 01/09/17 05:30 88 21 73/48 100 Endotracheal Tube 100 01/09/17 05:00 85 21 66/42 100 Endotracheal Tube 100 01/09/17 04:50 97 16 100 01/09/17 04:30 89 21 74/40 100 Endotracheal Tube 100 01/09/17 04:00 89 01/09/17 04:00 98.0 97 21 90/51 100 Endotracheal Tube 100 01/09/17 03:30 97 21 90/51 100 Endotracheal Tube 100 01/09/17 03:13 92 16 100 01/09/17 03:13 102 16 Mechanical Ventilator 100 01/09/17 03:00 103 21 92/54 95 Endotracheal Tube 01/09/17 02:30 108 21 68/55 100 Endotracheal Tube 100 01/09/17 02:00 113 21 79/47 95 Endotracheal Tube 01/09/17 01:43 143 133/67 01/09/17 01:30 Mechanical Ventilator 01/09/17 01:30 Mechanical Ventilator 01/09/17 01:25 100 01/09/17 01:00 131 16 133/67 95 Simple Mask 15.0 01/09/17 00:00 124 01/09/17 00:00 98.5 130 20 130/65 97 Simple Mask 15.0 01/08/17 23:00 112 16 131/83 95 Simple Mask 15.0 01/08/17 22:00 75 16 125/54 95 Simple Mask 15.0 01/08/17 21:00 74 17 125/54 98 Simple Mask 15.0 01/08/17 20:00 74 01/08/17 20:00 98.1 74 16 133/62 96 Simple Mask 15.0 01/08/17 19:20 79 19 97 Simple Mask 10.0 60 01/08/17 19:11 77 18 100 Simple Mask 10.0 60 01/08/17 19:10 Simple Mask 10.0 60 01/08/17 19:09 100 Simple Mask 10.0 60 01/08/17 19:00 80 20 159/68 100 Simple Mask 15.0 01/08/17 18:00 72 19 142/68 100 Simple Mask 15.0 01/08/17 17:00 77 20 153/71 100 Simple Mask 15.0 Intake and Output 01/08/17 01/09/17 19:00 07:00 Intake Total 1230.000 ml 490.0 ml Output Total 440 ml 230 ml Balance 790.000 ml 260.0 ml Free Water 90 ml IV Total 440.000 ml 130.0 ml Tube Feeding 720 ml 240 ml Other 70 ml 30 ml Output Urine Total 440 ml 230 ml Laboratory Tests Test 01/09/17 00:42 01/09/17 02:10 01/09/17 04:55 01/09/17 10:30 Arterial Blood pH 7.020 (7.350-7.450) 7.371 (7.350-7.450) 7.500 (7.350-7.450) Arterial Blood Partial Pressure CO2 173.9 mmHg (35.0-45.0) *H 58.1 mmHg (35.0-45.0) *H 40.5 mmHg (35.0-45.0) Arterial Blood Partial Pressure O2 89.8 mmHg (75.0-100.0) 58.1 mmHg (75.0-100.0) L 73.1 mmHg (75.0-100.0) L Arterial Blood HCO3 44.5 mmol/L (22.0-26.0) H 32.9 mmol/L (22.0-26.0) H 31.4 mmol/L (22.0-26.0) H Arterial Blood Oxygen Saturation 91.9 % (92.0-98.0) L 88.5 % (92.0-98.0) L 94.9 % (92.0-98.0) Arterial Blood Base Excess 7.8 6.1 7.8 Leo Test Positive Positive Positive White Blood Count 13.5 K/UL (4.8-10.8) #H Red Blood Count 3.55 M/UL (4.70-6.10) L Hemoglobin 11.5 G/DL (14.2-18.0) L Hematocrit 35.8 % (42.0-52.0) L Mean Corpuscular Volume 101 FL (80-99) H Mean Corpuscular Hemoglobin 32.4 PG (27.0-31.0) H Mean Corpuscular Hemoglobin Concent 32.1 G/DL (32.0-36.0) Red Cell Distribution Width 12.3 % (11.6-14.8) Platelet Count 273 K/UL (150-450) Mean Platelet Volume 9.2 FL (6.5-10.1) Neutrophils (%) (Auto) 83.6 % (45.0-75.0) H Lymphocytes (%) (Auto) 9.5 % (20.0-45.0) L Monocytes (%) (Auto) 6.2 % (1.0-10.0) Eosinophils (%) (Auto) 0.3 % (0.0-3.0) Basophils (%) (Auto) 0.4 % (0.0-2.0) Sodium Level 144 mEQ/L (135-145) Potassium Level 4.2 mEQ/L (3.4-4.9) Chloride Level 99 mEQ/L (98-107) Carbon Dioxide Level 32 mEQ/L (20-30) H Anion Gap 13 (5-15) Blood Urea Nitrogen 14 mg/dL (7-23) Creatinine 0.9 mg/dL (0.7-1.2) Estimat Glomerular Filtration Rate mL/min (>60) Glucose Level 149 mg/dL (74-106) H Calcium Level 8.8 mg/dL (8.6-10.2) Total Bilirubin 0.2 mg/dL (0.0-1.2) Aspartate Amino Transf (AST/SGOT) 12 U/L (5-40) Alanine Aminotransferase (ALT/SGPT) 8 U/L (3-41) Alkaline Phosphatase 71 U/L (40-129) Pro-B-Type Natriuretic Peptide 1152 pg/mL (0-450) H Total Protein 5.6 g/dL (6.6-8.7) L Albumin 2.8 g/dL (3.5-5.2) L Globulin 2.8 g/dL Albumin/Globulin Ratio 1.0 (1.0-2.7) Objective NECK: No JVD. Orally intubated with NG tube in. LUNGS: Coarse rhonchi. CARDIOVASCULAR: Regular S1 and S2 with no gallop or murmur. ABDOMEN: Soft. EXTREMITIES: No pitting edema. ARGELIA DUONG Jan 09, 2017 16:51
--- NOTE | 2017-01-09 18:36 | Internal Med Progress Note ---
Subjective Date of Service: Jan 09, 2017 Physician Name Rosas Johnson Attending Physician Rosas Johnson Current Medications Medications (Trade) Dose Ordered Sig/Daina Route PRN Reason Start Time Stop Time Status Last Admin Dose Admin Acetaminophen (Tylenol) 650 mg Q4H PRN ORAL fever 01/04/17 21:00 02/03/17 20:59 Albuterol/ Ipratropium (DuoNeb 0.5-3(2.5)mg/3ml) 3 ml Q4H PRN HHN Shortness of Breath 01/04/17 21:00 01/09/17 20:59 01/07/17 19:20 Albuterol/ Ipratropium 3 ml 3 ml Q6HRT HHN 01/08/17 01:00 01/13/17 00:59 01/09/17 13:26 Clonidine HCl (Catapres) 0.1 mg Q6H PRN GT SBP > 170 01/06/17 16:00 02/05/17 15:59 Dextrose (Dextrose 50%) STAT PRN IV Hypoglycemia 01/04/17 21:00 02/03/17 20:59 Diltiazem HCl (Cardizem) 30 mg EVERY 6 HOURS NG 01/09/17 18:00 02/08/17 17:59 01/09/17 17:42 Donepezil HCl (Aricept) 10 mg QHS GT 01/06/17 15:55 02/04/17 20:59 01/08/17 21:06 Heparin Sodium (Porcine) (Heparin 5000 units/ml) 5,000 units EVERY 12 HOURS SUBQ 01/04/17 22:00 02/03/17 21:59 01/09/17 09:20 Lorazepam (Ativan 2mg/ml 1ml) 2 mg Q4H PRN IV For Anxiety 01/04/17 21:00 01/11/17 20:59 Memantine (Namenda) 10 mg DAILY GT 01/06/17 15:55 02/05/17 08:59 01/09/17 09:19 Morphine Sulfate (Morphine Sulfate) 4 mg Q4H PRN IVP PAIN SCALE 4-10 01/04/17 21:00 01/11/17 20:59 Nitroglycerin (Ntg) 0.4 mg Every 5 Minutes PRN SL Prn Chest Pain 01/04/17 21:00 02/03/17 20:59 Ondansetron HCl (Zofran) 4 mg Q6H PRN IVP Nausea & Vomiting 01/04/17 21:00 02/03/17 20:59 Pantoprazole 40 mg 40 mg DAILY GT 01/08/17 09:00 02/07/17 08:59 01/09/17 09:19 Piperacillin Sod/ Tazobactam Sod/ Dextrose (Zosyn/D5W) 110 ml @ 27.5 mls/hr Q8HR IVPB 01/07/17 14:00 01/14/17 13:59 01/09/17 14:14 Polyethylene Glycol (Miralax) 17 gm DAILYPRN PRN GT Constipation 01/06/17 15:55 02/03/17 20:59 Sodium Chloride (Sodium Chloride 1000ml bag) 1,000 ml @ 60 mls/hr [id number] IV 01/09/17 04:00 02/08/17 03:59 01/09/17 03:46 Allergies: Coded Allergies: No Known Allergies (Verified , 01/06/17) ROS Limited/Unobtainable: Yes Subjective 76 YO M admitted with aspiration and respiratory failure. Atrial fibrillation overnight and respiratory failure. Reintubated 01/09/17. Intubated and sedated. ICU. Objective Last Vital Signs Date Time Temp Pulse Resp B/P Pulse Ox O2 Delivery O2 Flow Rate FiO2 01/09/17 18:00 87 18 99/49 100 Endotracheal Tube 90 01/09/17 16:00 98.2 01/09/17 01:00 15.0 Laboratory Tests Test 01/09/17 00:42 01/09/17 02:10 01/09/17 04:55 01/09/17 10:30 Arterial Blood pH 7.020 (7.350-7.450) 7.371 (7.350-7.450) 7.500 (7.350-7.450) Arterial Blood Partial Pressure CO2 173.9 mmHg (35.0-45.0) *H 58.1 mmHg (35.0-45.0) *H 40.5 mmHg (35.0-45.0) Arterial Blood Partial Pressure O2 89.8 mmHg (75.0-100.0) 58.1 mmHg (75.0-100.0) L 73.1 mmHg (75.0-100.0) L Arterial Blood HCO3 44.5 mmol/L (22.0-26.0) H 32.9 mmol/L (22.0-26.0) H 31.4 mmol/L (22.0-26.0) H Arterial Blood Oxygen Saturation 91.9 % (92.0-98.0) L 88.5 % (92.0-98.0) L 94.9 % (92.0-98.0) Arterial Blood Base Excess 7.8 6.1 7.8 Leo Test Positive Positive Positive White Blood Count 13.5 K/UL (4.8-10.8) #H Red Blood Count 3.55 M/UL (4.70-6.10) L Hemoglobin 11.5 G/DL (14.2-18.0) L Hematocrit 35.8 % (42.0-52.0) L Mean Corpuscular Volume 101 FL (80-99) H Mean Corpuscular Hemoglobin 32.4 PG (27.0-31.0) H Mean Corpuscular Hemoglobin Concent 32.1 G/DL (32.0-36.0) Red Cell Distribution Width 12.3 % (11.6-14.8) Platelet Count 273 K/UL (150-450) Mean Platelet Volume 9.2 FL (6.5-10.1) Neutrophils (%) (Auto) 83.6 % (45.0-75.0) H Lymphocytes (%) (Auto) 9.5 % (20.0-45.0) L Monocytes (%) (Auto) 6.2 % (1.0-10.0) Eosinophils (%) (Auto) 0.3 % (0.0-3.0) Basophils (%) (Auto) 0.4 % (0.0-2.0) Sodium Level 144 mEQ/L (135-145) Potassium Level 4.2 mEQ/L (3.4-4.9) Chloride Level 99 mEQ/L (98-107) Carbon Dioxide Level 32 mEQ/L (20-30) H Anion Gap 13 (5-15) Blood Urea Nitrogen 14 mg/dL (7-23) Creatinine 0.9 mg/dL (0.7-1.2) Estimat Glomerular Filtration Rate mL/min (>60) Glucose Level 149 mg/dL (74-106) H Calcium Level 8.8 mg/dL (8.6-10.2) Total Bilirubin 0.2 mg/dL (0.0-1.2) Aspartate Amino Transf (AST/SGOT) 12 U/L (5-40) Alanine Aminotransferase (ALT/SGPT) 8 U/L (3-41) Alkaline Phosphatase 71 U/L (40-129) Pro-B-Type Natriuretic Peptide 1152 pg/mL (0-450) H Total Protein 5.6 g/dL (6.6-8.7) L Albumin 2.8 g/dL (3.5-5.2) L Globulin 2.8 g/dL Albumin/Globulin Ratio 1.0 (1.0-2.7) Intake and Output 01/08/17 01/09/17 18:59 06:59 Intake Total 1257.500 ml 550.0 ml Output Total 430 ml 260 ml Balance 827.500 ml 290.0 ml Free Water 90 ml IV Total 467.500 ml 130.0 ml Tube Feeding 720 ml 300 ml Other 70 ml 30 ml Output Urine Total 430 ml 260 ml Objective General Appearance: WD/WN, moderate distress EENT: PERRL/EOMI, normal ENT inspection Neck: non-tender, normal alignment, supple Cardiovascular: normal peripheral pulses, normal rate, regular rhythm, no gallop/murmur, no JVD Respiratory/Chest: Intubated and sedated; respiratory distress, crackles/rales , rhonchi - bilaterally, expiratory wheezing Abdomen: normal bowel sounds, non tender, soft, no organomegaly, no mass Extremities: normal range of motion, non-tender 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 See pulmonary note. (2) Hypertension Assessment & Plan: Better control-see cardiology consult. (3) Hypercholesteremia (4) BPH (benign prostatic hyperplasia) (5) Alzheimer's dementia (6) Aspiration pneumonia Assessment & Plan: Continue vanco and zosyn. See pulmonary and ID note. (7) Hematuria Assessment & Plan: Send urine for cult and sens. D/C heparin if hemoglobin continues to decrease. (8) Atrial fibrillation with RVR Assessment & Plan: S/P Cardizem drip; see cardiology note. Status: deteriorating ROSAS JOHNSON Jan 09, 2017 18:36
[2017-01-09] MEDS ORDERED: Sodium Polystyrene Sulfonate 15gm Powder NG ONE (20:15)
[2017-01-09] MEDS: Donepezil 10mg tab GT SCH (20:54)
[2017-01-10] VITALS (24 sets, daily range): BP systolic 114–156; BP diastolic 49–86
[2017-01-10] MEDS: DuoNeb 0.5-3(2.5)mg/3ml neb HHN SCH ×4 (00:53→19:03)
[2017-01-10 05:23] LABS: BASOPHILS % (AUTO) 0.5 % (0.0-2.0); EOSINOPHILS % (AUTO) 0.8 % (0.0-3.0); LYMPHOCYTES % (AUTO) 16.8 % (20.0-45.0); MEAN CORPUSCULAR HEMOGLOBIN 32.5 PG (27.0-31.0); MEAN CORPUSCULAR VOLUME 99 FL (80-99); MEAN PLATELET VOLUME 9.9 FL (6.5-10.1); MONOCYTES % (AUTO) 7.7 % (1.0-10.0); NEUTROPHILS % (AUTO) 74.3 % (45.0-75.0); PLATELET COUNT 222 K/UL (150-450); RED BLOOD COUNT 2.94 M/UL (4.70-6.10); RED CELL DISTRIBUTION WIDTH 12.8 % (11.6-14.8); WHITE BLOOD COUNT 11.4 K/UL (4.8-10.8)
[2017-01-10 05:40] LABS: ALANINE AMINOTRANSFERASE 9 U/L (3-41); ANION GAP 11 (5-15); ASPARTATE AMINO TRANSFERASE 18 U/L (5-40); CALCIUM 7.8 mg/dL (8.6-10.2); CARBON DIOXIDE 28 mEQ/L (20-30); CHLORIDE 101 mEQ/L (98-107); CREATININE 0.8 mg/dL (0.7-1.2); HEMOLYSIS 1; MAGNESIUM 2.1 mg/dL (1.7-2.5); POTASSIUM 3.4 mEQ/L (3.4-4.9); SODIUM 140 mEQ/L (135-145); TOTAL PROTEIN 4.8 g/dL (6.6-8.7)
[2017-01-10] MEDS: Piperacillin/Tazobactam 3.375 GM in D5W 110 ML IVPB SCH ×3 (05:52→21:54)
--- NOTE | 2017-01-10 07:59 | Diagnostic Imaging Report ---
Indications: Intubation Technique: Portable AP chest Findings: Comparison: 01/08/2017 Endotracheal tube has been placed, tip 4 cm above deysi. Nasogastric tube remains in place, tip in the region of the proximal aspect of stomach, proximal port in the region of esophagogastric junction. Left lung volume loss and basal consolidation have increased. Increased interstitial markings persist in the non-consolidated portions of left lung. Left costophrenic angle remains indistinct. Right lung and pleura remain relatively clear aside from small calcified nodule right upper lobe. Cardiac silhouette obscured. Left pulmonary vasculature largely obscured. Right pulmonary vasculature within normal limits. IMPRESSION: Endotracheal tube in good position Persistent proximal position of nasogastric tube, recommend advancement 5 to 10 cm Increased consolidation and volume loss left lower lung, most likely atelectasis. Consider central bronchial obstruction. Underlying pneumonia or other pathology not excludable. Nonspecific increased interstitial markings left upper lung Calcified granuloma right upper lung
[2017-01-10 08:44] LABS: ABG ALLEN TEST POSITIVE; ABG BASE EXCESS 7.2
[2017-01-10] MEDS: Memantine 10mg tab GT SCH (08:54)
[2017-01-10] MEDS: Pantoprazole 40mg pkt GT SCH (08:54)
[2017-01-10] MEDS: Heparin 5000 units/ml inj SUBQ SCH ×2 (08:55→21:02)
--- NOTE | 2017-01-10 10:57 | Pulmonolgy Critical Care Note ---
Critical Care - Asmt/Plan Problems: (1) Respiratory distress (2) Aspiration pneumonia (3) Dementia Respiratory: monitor respiratory rate, adjust FIO2, CXR, ABG, other - change vent setting to SIMV becasue of the respiratory alkalosis Cardiac: continue to monitor HR/BP Renal: F/U I&O, decrease IV fluid, check electrolytes Infectious Disease: check cultures, continue antibiotics Gastrointestinal: continue feedings/current rate Endocrine: monitor blood sugar, check HgA1C, continue sliding scale insulin Hematologic: transfuse if hgb<8.5 Neurologic: PRN Ativan, PRN Morphine, keep patient comfortable Affect: PRN ativan Prophylaxis: Protonix Disposition: keep in ICU Time Spent (Minutes): 40 Notes Reviewed: shoe cleaner, cardio, renal Discussed with: nurses, consultants, bilingual patient support caseworkeradvertising traffic manager - Objective Last 24 Hour Vital Signs Date Time Temp Pulse Resp B/P Pulse Ox O2 Delivery O2 Flow Rate FiO2 01/10/17 09:00 72 21 119/67 100 Endotracheal Tube 40 01/10/17 09:00 40 01/10/17 08:55 100 19 40 01/10/17 08:00 60 01/10/17 08:00 98.4 76 20 119/56 100 Endotracheal Tube 60 01/10/17 08:00 76 01/10/17 07:00 77 21 130/51 100 Endotracheal Tube 60 01/10/17 06:58 79 16 98 Mechanical Ventilator 60 01/10/17 06:49 73 21 60 01/10/17 06:40 73 21 100 Mechanical Ventilator 60 01/10/17 06:00 73 20 134/63 100 Endotracheal Tube 60 01/10/17 05:52 76 115/54 01/10/17 05:00 76 26 115/54 100 Endotracheal Tube 60 01/10/17 04:41 76 16 60 01/10/17 04:00 98.3 77 17 124/59 100 Endotracheal Tube 70 01/10/17 04:00 77 01/10/17 04:00 100 01/10/17 03:00 75 14 114/49 100 Endotracheal Tube 70 01/10/17 02:44 78 19 80 01/10/17 02:00 78 15 123/66 100 Endotracheal Tube 80 01/10/17 01:05 80 17 98 Mechanical Ventilator 80 01/10/17 01:00 76 16 124/81 100 Endotracheal Tube 80 01/10/17 00:54 75 17 80 01/10/17 00:53 75 18 100 Mechanical Ventilator 80 01/10/17 00:00 100 01/10/17 00:00 78 01/10/17 00:00 98.8 76 16 122/73 100 Endotracheal Tube 100 01/09/17 23:50 87 108/53 01/09/17 23:00 87 14 108/53 99 Endotracheal Tube 100 01/09/17 22:53 80 16 100 01/09/17 22:00 82 18 122/61 94 Endotracheal Tube 60 01/09/17 21:00 84 16 98/47 100 Endotracheal Tube 60 01/09/17 20:49 87 16 60 01/09/17 20:00 98.5 88 19 98/52 96 Endotracheal Tube 60 01/09/17 20:00 87 01/09/17 20:00 60 01/09/17 19:20 92 16 98 Mechanical Ventilator 60 01/09/17 19:00 87 20 98/52 100 Endotracheal Tube 90 01/09/17 18:57 86 16 98 Mechanical Ventilator 60 01/09/17 18:52 86 16 60 01/09/17 18:00 87 18 99/49 100 Endotracheal Tube 90 01/09/17 17:42 88 98/47 01/09/17 17:33 89 16 90 01/09/17 17:00 90 18 89/47 100 Endotracheal Tube 90 01/09/17 16:00 98.2 91 19 125/58 100 Endotracheal Tube 90 01/09/17 16:00 90 01/09/17 16:00 91 01/09/17 15:48 92 99/52 01/09/17 15:34 92 16 90 01/09/17 15:00 93 20 99/52 100 Endotracheal Tube 90 01/09/17 14:00 99 19 97/48 98 Endotracheal Tube 90 01/09/17 13:40 103 17 90 01/09/17 13:32 95 16 98 Mechanical Ventilator 60 01/09/17 13:27 90 16 100 Mechanical Ventilator 60 01/09/17 13:00 95 19 118/78 99 Endotracheal Tube 90 01/09/17 12:11 90 01/09/17 12:00 106 01/09/17 12:00 98.4 103 20 101/50 100 Endotracheal Tube 90 01/09/17 11:07 107 16 90 01/09/17 11:00 104 20 98/51 100 Endotracheal Tube 90 Status: sedated Condition: grave HEENT: atraumatic Neck: full ROM Lungs: chest wall tender Heart: HR/BP stable, HR/BP unstable, regular Abdomen: soft, active bowel sounds, feeding tube Extremities: no C/C/E, edema Decubiti: location, stage Accucheck: 115 Critical Care - Subjective ROS Limited/Unobtainable: No ICU Day: 4 Intubation Day: 4 EKG Rhythm: Sinus Rhythm FI02: 40 Vent Support Breath Rate: 16 Vent Support Mode: AC Vent Tidal Volume: 600 Sputum Amount: Large PEEP: 5.0 PIP: 25 Tube Feeding Amount: 50 I&O: Intake and Output 01/09/17 01/10/17 19:00 07:00 Intake Total 975.0 ml 1487.5 ml Output Total 135 ml 238 ml Balance 840.0 ml 1249.5 ml IV Total 795.0 ml 857.5 ml Tube Feeding 120 ml 480 ml Other 60 ml 150 ml Output Urine Total 135 ml 238 ml # Bowel Movements 3 CXR: LLL infiltrate improved ET-Tube: 7.5 ET Position: 24 Labs: Laboratory Tests Test 01/10/17 04:30 01/10/17 08:15 White Blood Count 11.4 K/UL (4.8-10.8) H Red Blood Count 2.94 M/UL (4.70-6.10) L Hemoglobin 9.6 G/DL (14.2-18.0) L Hematocrit 29.0 % (42.0-52.0) L Mean Corpuscular Volume 99 FL (80-99) Mean Corpuscular Hemoglobin 32.5 PG (27.0-31.0) H Mean Corpuscular Hemoglobin Concent 33.0 G/DL (32.0-36.0) Red Cell Distribution Width 12.8 % (11.6-14.8) Platelet Count 222 K/UL (150-450) Mean Platelet Volume 9.9 FL (6.5-10.1) Neutrophils (%) (Auto) 74.3 % (45.0-75.0) Lymphocytes (%) (Auto) 16.8 % (20.0-45.0) L Monocytes (%) (Auto) 7.7 % (1.0-10.0) Eosinophils (%) (Auto) 0.8 % (0.0-3.0) Basophils (%) (Auto) 0.5 % (0.0-2.0) Sodium Level 140 mEQ/L (135-145) Potassium Level 3.4 mEQ/L (3.4-4.9) Chloride Level 101 mEQ/L (98-107) Carbon Dioxide Level 28 mEQ/L (20-30) Anion Gap 11 (5-15) Blood Urea Nitrogen 19 mg/dL (7-23) Creatinine 0.8 mg/dL (0.7-1.2) Estimat Glomerular Filtration Rate mL/min (>60) Glucose Level 143 mg/dL (74-106) H Calcium Level 7.8 mg/dL (8.6-10.2) L Phosphorus Level 2.0 mg/dL (2.5-4.8) L Magnesium Level 2.1 mg/dL (1.7-2.5) Total Bilirubin 0.3 mg/dL (0.0-1.2) Aspartate Amino Transf (AST/SGOT) 18 U/L (5-40) Alanine Aminotransferase (ALT/SGPT) 9 U/L (3-41) Alkaline Phosphatase 59 U/L (40-129) Total Protein 4.8 g/dL (6.6-8.7) L Albumin 2.4 g/dL (3.5-5.2) L Globulin 2.4 g/dL Albumin/Globulin Ratio 1.0 (1.0-2.7) Arterial Blood pH 7.531 (7.350-7.450) Arterial Blood Partial Pressure CO2 37.0 mmHg (35.0-45.0) Arterial Blood Partial Pressure O2 130.9 mmHg (75.0-100.0) H Arterial Blood HCO3 30.3 mmol/L (22.0-26.0) H Arterial Blood Oxygen Saturation 97.8 % (92.0-98.0) Arterial Blood Base Excess 7.2 Leo Test Positive RABIA BANGURA Jan 10, 2017 10:56
[2017-01-10] MEDS ORDERED: LORazepam Inj 2mg/ml 1ml IV PRN (13:00)
[2017-01-10] MEDS ORDERED: NS 275ml ONE (13:55)
[2017-01-10] MEDS ORDERED: Tubing IV Secondary IV ONE (13:55)
[2017-01-10] MEDS ORDERED: Sterile Water Irrig 1000ml IRRIG ONE (14:01)
--- NOTE | 2017-01-10 17:30 | Internal Med Progress Note ---
Subjective Date of Service: Jan 10, 2017 Physician Name Rosas Johnson Attending Physician Rosas Johnson Current Medications Medications (Trade) Dose Ordered Sig/Daina Route PRN Reason Start Time Stop Time Status Last Admin Dose Admin Acetaminophen (Tylenol) 650 mg Q4H PRN ORAL fever 01/04/17 21:00 02/03/17 20:59 Albuterol/ Ipratropium (DuoNeb 0.5-3(2.5)mg/3ml) 3 ml Q6HRT HHN 01/08/17 01:00 01/13/17 00:59 01/10/17 12:45 Clonidine HCl (Catapres) 0.1 mg Q6H PRN GT SBP > 170 01/06/17 16:00 02/05/17 15:59 Dextrose (Dextrose 50%) STAT PRN IV Hypoglycemia 01/04/17 21:00 02/03/17 20:59 Diltiazem HCl (Cardizem) 30 mg EVERY 6 HOURS NG 01/09/17 18:00 02/08/17 17:59 01/10/17 12:12 Donepezil HCl (Aricept) 10 mg QHS GT 01/06/17 15:55 02/04/17 20:59 01/09/17 20:54 Heparin Sodium (Porcine) (Heparin 5000 units/ml) 5,000 units EVERY 12 HOURS SUBQ 01/04/17 22:00 02/03/17 21:59 01/10/17 08:55 Lorazepam (Ativan 2mg/ml 1ml) 1 mg Q4H PRN IV For Anxiety 01/10/17 13:00 01/17/17 12:59 Memantine (Namenda) 10 mg DAILY GT 01/06/17 15:55 02/05/17 08:59 01/10/17 08:54 Morphine Sulfate (Morphine Sulfate) 4 mg Q4H PRN IVP PAIN SCALE 4-10 01/04/17 21:00 01/11/17 20:59 Nitroglycerin (Ntg) 0.4 mg Every 5 Minutes PRN SL Prn Chest Pain 01/04/17 21:00 02/03/17 20:59 Ondansetron HCl (Zofran) 4 mg Q6H PRN IVP Nausea & Vomiting 01/04/17 21:00 02/03/17 20:59 Pantoprazole 40 mg 40 mg DAILY GT 01/08/17 09:00 02/07/17 08:59 01/10/17 08:54 Piperacillin Sod/ Tazobactam Sod/ Dextrose (Zosyn/D5W) 110 ml @ 27.5 mls/hr Q8HR IVPB 01/07/17 14:00 01/14/17 13:59 01/10/17 14:15 Polyethylene Glycol (Miralax) 17 gm DAILYPRN PRN GT Constipation 01/06/17 15:55 02/03/17 20:59 Allergies: Coded Allergies: No Known Allergies (Verified , 01/06/17) ROS Limited/Unobtainable: Yes Subjective 76 YO M admitted with aspiration and respiratory failure. Reintubated 01/09/17. Intubated and sedated. ICU. Objective Last Vital Signs Date Time Temp Pulse Resp B/P Pulse Ox O2 Delivery O2 Flow Rate FiO2 01/10/17 17:00 72 20 130/72 99 Endotracheal Tube 35 01/10/17 16:00 98.1 01/09/17 01:00 15.0 Laboratory Tests Test 01/10/17 04:30 01/10/17 08:15 White Blood Count 11.4 K/UL (4.8-10.8) H Red Blood Count 2.94 M/UL (4.70-6.10) L Hemoglobin 9.6 G/DL (14.2-18.0) L Hematocrit 29.0 % (42.0-52.0) L Mean Corpuscular Volume 99 FL (80-99) Mean Corpuscular Hemoglobin 32.5 PG (27.0-31.0) H Mean Corpuscular Hemoglobin Concent 33.0 G/DL (32.0-36.0) Red Cell Distribution Width 12.8 % (11.6-14.8) Platelet Count 222 K/UL (150-450) Mean Platelet Volume 9.9 FL (6.5-10.1) Neutrophils (%) (Auto) 74.3 % (45.0-75.0) Lymphocytes (%) (Auto) 16.8 % (20.0-45.0) L Monocytes (%) (Auto) 7.7 % (1.0-10.0) Eosinophils (%) (Auto) 0.8 % (0.0-3.0) Basophils (%) (Auto) 0.5 % (0.0-2.0) Sodium Level 140 mEQ/L (135-145) Potassium Level 3.4 mEQ/L (3.4-4.9) Chloride Level 101 mEQ/L (98-107) Carbon Dioxide Level 28 mEQ/L (20-30) Anion Gap 11 (5-15) Blood Urea Nitrogen 19 mg/dL (7-23) Creatinine 0.8 mg/dL (0.7-1.2) Estimat Glomerular Filtration Rate mL/min (>60) Glucose Level 143 mg/dL (74-106) H Calcium Level 7.8 mg/dL (8.6-10.2) L Phosphorus Level 2.0 mg/dL (2.5-4.8) L Magnesium Level 2.1 mg/dL (1.7-2.5) Total Bilirubin 0.3 mg/dL (0.0-1.2) Aspartate Amino Transf (AST/SGOT) 18 U/L (5-40) Alanine Aminotransferase (ALT/SGPT) 9 U/L (3-41) Alkaline Phosphatase 59 U/L (40-129) Total Protein 4.8 g/dL (6.6-8.7) L Albumin 2.4 g/dL (3.5-5.2) L Globulin 2.4 g/dL Albumin/Globulin Ratio 1.0 (1.0-2.7) Arterial Blood pH 7.531 (7.350-7.450) Arterial Blood Partial Pressure CO2 37.0 mmHg (35.0-45.0) Arterial Blood Partial Pressure O2 130.9 mmHg (75.0-100.0) H Arterial Blood HCO3 30.3 mmol/L (22.0-26.0) H Arterial Blood Oxygen Saturation 97.8 % (92.0-98.0) Arterial Blood Base Excess 7.2 Leo Test Positive Intake and Output 01/09/17 01/10/17 19:00 07:00 Intake Total 975.0 ml 1487.5 ml Output Total 135 ml 238 ml Balance 840.0 ml 1249.5 ml IV Total 795.0 ml 857.5 ml Tube Feeding 120 ml 480 ml Other 60 ml 150 ml Output Urine Total 135 ml 238 ml # Bowel Movements 3 Objective General Appearance: WD/WN, moderate distress EENT: PERRL/EOMI, normal ENT inspection Neck: non-tender, normal alignment, supple Cardiovascular: normal peripheral pulses, normal rate, regular rhythm, no gallop/murmur, no JVD Respiratory/Chest: Mech vent; respiratory distress, crackles/rales, rhonchi - bilaterally, expiratory wheezing Abdomen: normal bowel sounds, non tender, soft, no organomegaly, no mass Extremities: normal range of motion, non-tender 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 See pulmonary note. (2) Hypertension Assessment & Plan: Better control-see cardiology consult. (3) Hypercholesteremia (4) BPH (benign prostatic hyperplasia) (5) Alzheimer's dementia (6) Aspiration pneumonia Assessment & Plan: Continue vanco and zosyn. See pulmonary and ID note. (7) Hematuria Assessment & Plan: Resolved (8) Atrial fibrillation with RVR Assessment & Plan: S/P Cardizem drip; see cardiology note. Status: not improved ROSAS JOHNSON Jan 10, 2017 17:30
[2017-01-10] MEDS: Donepezil 10mg tab GT SCH (21:00)
[2017-01-11] VITALS (24 sets, daily range): BP systolic 67–149; BP diastolic 56–83
[2017-01-11] MEDS: DuoNeb 0.5-3(2.5)mg/3ml neb HHN SCH ×4 (01:10→19:42)
[2017-01-11 05:50] LABS: BASOPHILS % (AUTO) 0.9 % (0.0-2.0); EOSINOPHILS % (AUTO) 4.5 % (0.0-3.0); LYMPHOCYTES % (AUTO) 19.7 % (20.0-45.0); MEAN CORPUSCULAR HEMOGLOBIN 32.3 PG (27.0-31.0); MEAN CORPUSCULAR HGB CONC 32.6 G/DL (32.0-36.0); MEAN CORPUSCULAR VOLUME 99 FL (80-99); MEAN PLATELET VOLUME 8.7 FL (6.5-10.1); MONOCYTES % (AUTO) 7.7 % (1.0-10.0); NEUTROPHILS % (AUTO) 67.3 % (45.0-75.0); PLATELET COUNT 234 K/UL (150-450); RED BLOOD COUNT 2.88 M/UL (4.70-6.10); RED CELL DISTRIBUTION WIDTH 12.6 % (11.6-14.8); WHITE BLOOD COUNT 9.1 K/UL (4.8-10.8)
[2017-01-11] MEDS: Piperacillin/Tazobactam 3.375 GM in D5W 110 ML IVPB SCH ×3 (05:52→21:29)
[2017-01-11 06:18] LABS: ALANINE AMINOTRANSFERASE 12 U/L (3-41); ALBUMIN/GLOBULIN RATIO 0.9 (1.0-2.7); ANION GAP 11 (5-15); ASPARTATE AMINO TRANSFERASE 19 U/L (5-40); CALCIUM 7.9 mg/dL (8.6-10.2); CARBON DIOXIDE 29 mEQ/L (20-30); CHLORIDE 101 mEQ/L (98-107); CREATININE 0.7 mg/dL (0.7-1.2); HEMOLYSIS 3; MAGNESIUM 2.1 mg/dL (1.7-2.5); POTASSIUM 3.3 mEQ/L (3.4-4.9); SODIUM 141 mEQ/L (135-145); TOTAL PROTEIN 4.9 g/dL (6.6-8.7)
[2017-01-11] MEDS: Pantoprazole 40mg pkt GT SCH (08:27)
[2017-01-11] MEDS: Heparin 5000 units/ml inj SUBQ SCH ×2 (08:29→21:17)
[2017-01-11] MEDS ORDERED: NS 275ml ONE (08:38)
[2017-01-11] MEDS ORDERED: Sterile Water Irrig 1000ml IRRIG ONE (08:38)
--- NOTE | 2017-01-11 09:42 | Diagnostic Imaging Report ---
Indications: DYSPNEA Technique: Portable AP chest Findings: Comparison: None There has been significant reexpansion of the left lung with marked decrease in interstitial and patchy consolidative opacities, Leopard cardiac region remaining opacified. Left costophrenic angle blunted. Right lung and pleura clear. Heart size, pulmonary vasculature within normal limits. Lines and tubes remain in place. IMPRESSION: Substantial, though incomplete reexpansion of left lung with residual left lower lobe atelectasis versus pneumonia Suggestion of small left pleural effusion No new abnormality
--- NOTE | 2017-01-11 10:39 | Pulmonolgy Critical Care Note ---
Critical Care - Asmt/Plan Problems: (1) Respiratory distress (2) Aspiration pneumonia (3) Dementia Respiratory: monitor respiratory rate, adjust FIO2, CXR Cardiac: continue to monitor HR/BP Renal: F/U I&O, keep IV fluid, increase IV fluid, check electrolytes Infectious Disease: check cultures, continue antibiotics, add antibiotics Gastrointestinal: continue feedings/current rate Endocrine: monitor blood sugar, check TSH, continue sliding scale insulin Hematologic: monitor H/H, transfuse if hgb<8.5 Neurologic: PRN Ativan, PRN Morphine, keep patient comfortable Prophylaxis: Protonix, Heparin Time Spent (Minutes): 40 Notes Reviewed: renal Discussed with: nurses, consultants, embedded case manageradmitting manager - Objective Last 24 Hour Vital Signs Date Time Temp Pulse Resp B/P Pulse Ox O2 Delivery O2 Flow Rate FiO2 01/11/17 10:00 65 24 67/60 100 Mechanical Ventilator 35 01/11/17 09:29 66 14 35 01/11/17 09:00 67 22 127/60 100 Mechanical Ventilator 35 01/11/17 08:00 35 01/11/17 08:00 68 01/11/17 08:00 98.3 70 18 130/83 100 Mechanical Ventilator 35 01/11/17 07:00 67 25 137/66 100 Endotracheal Tube 35 01/11/17 06:50 66 20 35 01/11/17 06:50 67 19 100 Mechanical Ventilator 35 01/11/17 06:50 70 23 100 Mechanical Ventilator 35 01/11/17 06:00 65 25 133/64 100 Endotracheal Tube 35 01/11/17 05:52 69 133/68 01/11/17 05:22 69 18 35 01/11/17 05:00 66 20 133/68 100 Endotracheal Tube 35 01/11/17 04:00 70 01/11/17 04:00 98.4 68 18 115/56 100 Endotracheal Tube 35 01/11/17 04:00 35 01/11/17 03:00 68 17 134/60 100 Endotracheal Tube 35 01/11/17 02:40 72 15 35 01/11/17 02:00 68 15 121/60 100 Endotracheal Tube 35 01/11/17 01:26 71 16 99 Mechanical Ventilator 35 01/11/17 01:08 70 27 100 Mechanical Ventilator 35 01/11/17 01:08 71 20 35 01/11/17 01:00 70 25 128/62 100 Endotracheal Tube 35 01/11/17 00:00 70 01/11/17 00:00 98.2 71 18 130/56 100 Endotracheal Tube 35 01/11/17 00:00 35 01/10/17 23:50 80 151/66 01/10/17 23:00 70 16 35 01/10/17 23:00 68 18 151/66 100 Endotracheal Tube 35 01/10/17 22:00 74 22 156/67 100 Endotracheal Tube 35 01/10/17 21:15 75 16 35 01/10/17 21:00 71 23 145/71 100 Endotracheal Tube 35 01/10/17 20:00 35 01/10/17 20:00 98.1 78 21 136/66 100 Endotracheal Tube 35 01/10/17 20:00 75 01/10/17 19:36 72 16 99 Mechanical Ventilator 35 01/10/17 19:03 73 16 100 Mechanical Ventilator 35 01/10/17 19:02 70 17 35 01/10/17 19:00 72 20 123/60 100 Endotracheal Tube 35 01/10/17 18:00 73 19 125/64 100 Endotracheal Tube 35 01/10/17 17:57 74 130/72 01/10/17 17:29 75 19 35 01/10/17 17:00 72 20 130/72 99 Endotracheal Tube 35 01/10/17 16:00 75 01/10/17 16:00 98.1 76 19 123/61 100 Endotracheal Tube 35 01/10/17 16:00 35 01/10/17 15:26 75 16 35 01/10/17 15:00 74 20 120/65 100 Endotracheal Tube 35 01/10/17 14:00 76 20 145/76 100 Endotracheal Tube 35 01/10/17 13:00 74 20 130/65 100 Endotracheal Tube 35 01/10/17 12:49 72 22 98 Mechanical Ventilator 35 01/10/17 12:47 72 12 35 01/10/17 12:40 72 12 100 Mechanical Ventilator 35 01/10/17 12:12 73 144/72 01/10/17 12:00 98.3 73 19 144/72 100 Endotracheal Tube 35 01/10/17 12:00 74 01/10/17 11:06 76 10 35 01/10/17 11:00 72 20 143/86 100 Endotracheal Tube 35 Status: awake Condition: critical HEENT: atraumatic, normocephalic Neck: full ROM Lungs: clear Heart: HR/BP stable, HR/BP unstable Abdomen: soft, non-tender, active bowel sounds Extremities: no C/C/E, edema Decubiti: location Accucheck: 115 Critical Care - Subjective ROS Limited/Unobtainable: Yes - 7 ICU Day: 7 Intubation Day: 7 Interval Events: awake, comfortable Condition: critical EKG Rhythm: Sinus Rhythm FI02: 35 Vent Support Breath Rate: 10 Vent Support Mode: IMV/SIMV Vent Tidal Volume: 600 Sputum Amount: Large PEEP: 5.0 PIP: 19 Tube Feeding Amount: 55 I&O: Intake and Output 01/10/17 01/11/17 19:00 07:00 Intake Total 1042.5 ml 772.5 ml Output Total 220 ml 700 ml Balance 822.5 ml 72.5 ml IV Total 312.5 ml 137.5 ml Tube Feeding 640 ml 605 ml Other 90 ml 30 ml Output Urine Total 220 ml 700 ml CXR: clear, et tube in good position ET-Tube: 7.5 ET Position: 25 Labs: Laboratory Tests Test 01/11/17 04:35 White Blood Count 9.1 K/UL (4.8-10.8) Red Blood Count 2.88 M/UL (4.70-6.10) L Hemoglobin 9.3 G/DL (14.2-18.0) L Hematocrit 28.6 % (42.0-52.0) L Mean Corpuscular Volume 99 FL (80-99) Mean Corpuscular Hemoglobin 32.3 PG (27.0-31.0) H Mean Corpuscular Hemoglobin Concent 32.6 G/DL (32.0-36.0) Red Cell Distribution Width 12.6 % (11.6-14.8) Platelet Count 234 K/UL (150-450) Mean Platelet Volume 8.7 FL (6.5-10.1) Neutrophils (%) (Auto) 67.3 % (45.0-75.0) Lymphocytes (%) (Auto) 19.7 % (20.0-45.0) L Monocytes (%) (Auto) 7.7 % (1.0-10.0) Eosinophils (%) (Auto) 4.5 % (0.0-3.0) H Basophils (%) (Auto) 0.9 % (0.0-2.0) Sodium Level 141 mEQ/L (135-145) Potassium Level 3.3 mEQ/L (3.4-4.9) L Chloride Level 101 mEQ/L (98-107) Carbon Dioxide Level 29 mEQ/L (20-30) Anion Gap 11 (5-15) Blood Urea Nitrogen 16 mg/dL (7-23) Creatinine 0.7 mg/dL (0.7-1.2) Estimat Glomerular Filtration Rate mL/min (>60) Glucose Level 140 mg/dL (74-106) H Calcium Level 7.9 mg/dL (8.6-10.2) L Phosphorus Level 3.0 mg/dL (2.5-4.8) Magnesium Level 2.1 mg/dL (1.7-2.5) Total Bilirubin 0.3 mg/dL (0.0-1.2) Aspartate Amino Transf (AST/SGOT) 19 U/L (5-40) Alanine Aminotransferase (ALT/SGPT) 12 U/L (3-41) Alkaline Phosphatase 65 U/L (40-129) Total Protein 4.9 g/dL (6.6-8.7) L Albumin 2.4 g/dL (3.5-5.2) L Globulin 2.5 g/dL Albumin/Globulin Ratio 0.9 (1.0-2.7) L RABIA BANGURA Jan 11, 2017 10:39
[2017-01-11] MEDS ORDERED: KCl 10% 40mEq/30ml liquid GT ONE (11:00)
--- NOTE | 2017-01-11 11:28 | Diagnostic Imaging Report ---
Indication: Dyspnea Technique: One view of the chest Comparison: 01/10/2017 Findings: Minimal residual patchy opacity persists in the retrocardiac region. Lungs pleural spaces are clear otherwise. Stable satisfactory positions of endotracheal and nasogastric tubes. Heart size is normal. Aorta is tortuous and calcified. Impression: Minimal retrocardiac opacity, improved since previous day. Otherwise clear lungs and pleural spaces Stable tube positions as described.
--- NOTE | 2017-01-11 11:53 | Diagnostic Imaging Report ---
Indication: Post NG tube placement Technique: One view of the chest Comparison: 12-1/2 hours earlier Findings: Stable position of nasogastric tube, tip in the gastric fundus, proximal port probably at the gastroesophageal the since earlier the same day junction. Retrocardiac consolidation persists. Chronic appearing interstitial changes bilaterally persists Impression: Somewhat high position of nasogastric tube, proximal port at the level gastroesophageal junction. Note that subsequent images indicate that this was corrected Other stable findings as described, since earlier the same day
--- NOTE | 2017-01-11 12:48 | Infectious Diseases Prog Note ---
Assessment/Plan Assessment/Plan A: This is a 76-year-old male Possible aspiration pneumonia ( Despite neg cxray ) SCx: neg pt has sign amount of [employer] Secret[employer] 01/08 Cxray : Minimal retrocardiac opacity, improved since previous day. SP Extubation 01/06 , reintubated 01/09 History of fracture of femoral neck. Dementia. Hypertension PLAN: cont Zosyn d# 7 / 10 ( 01/08 SP Vanco d# 4 ) Monitor CBC. Monitor BMP Monitor chest x-ray cont vent support Subjective Allergies: Coded Allergies: No Known Allergies (Verified , 01/06/17) Subjective intubated again on Wednesday Objective Vital Signs Last 24 Hour Vital Signs Date Time Temp Pulse Resp B/P Pulse Ox O2 Delivery O2 Flow Rate FiO2 01/11/17 12:00 35 01/11/17 12:00 97.8 66 20 134/72 100 Mechanical Ventilator 35 01/11/17 12:00 67 01/11/17 11:23 66 146/76 01/11/17 11:19 64 12 35 01/11/17 11:00 64 24 146/76 100 Mechanical Ventilator 35 01/11/17 10:00 65 24 149/60 100 Mechanical Ventilator 35 01/11/17 09:29 66 14 35 01/11/17 09:00 67 22 127/60 100 Mechanical Ventilator 35 01/11/17 08:00 35 01/11/17 08:00 68 01/11/17 08:00 98.3 70 18 130/83 100 Mechanical Ventilator 35 01/11/17 07:00 67 25 137/66 100 Endotracheal Tube 35 01/11/17 06:50 66 20 35 01/11/17 06:50 67 19 100 Mechanical Ventilator 35 01/11/17 06:50 70 23 100 Mechanical Ventilator 35 01/11/17 06:00 65 25 133/64 100 Endotracheal Tube 35 01/11/17 05:52 69 133/68 01/11/17 05:22 69 18 35 01/11/17 05:00 66 20 133/68 100 Endotracheal Tube 35 01/11/17 04:00 70 01/11/17 04:00 98.4 68 18 115/56 100 Endotracheal Tube 35 01/11/17 04:00 35 01/11/17 03:00 68 17 134/60 100 Endotracheal Tube 35 01/11/17 02:40 72 15 35 01/11/17 02:00 68 15 121/60 100 Endotracheal Tube 35 01/11/17 01:26 71 16 99 Mechanical Ventilator 35 01/11/17 01:08 70 27 100 Mechanical Ventilator 35 01/11/17 01:08 71 20 35 01/11/17 01:00 70 25 128/62 100 Endotracheal Tube 35 01/11/17 00:00 70 01/11/17 00:00 98.2 71 18 130/56 100 Endotracheal Tube 35 01/11/17 00:00 35 01/10/17 23:50 80 151/66 01/10/17 23:00 70 16 35 01/10/17 23:00 68 18 151/66 100 Endotracheal Tube 35 01/10/17 22:00 74 22 156/67 100 Endotracheal Tube 35 01/10/17 21:15 75 16 35 01/10/17 21:00 71 23 145/71 100 Endotracheal Tube 35 01/10/17 20:00 35 01/10/17 20:00 98.1 78 21 136/66 100 Endotracheal Tube 35 01/10/17 20:00 75 01/10/17 19:36 72 16 99 Mechanical Ventilator 35 01/10/17 19:03 73 16 100 Mechanical Ventilator 35 01/10/17 19:02 70 17 35 01/10/17 19:00 72 20 123/60 100 Endotracheal Tube 35 01/10/17 18:00 73 19 125/64 100 Endotracheal Tube 35 01/10/17 17:57 74 130/72 01/10/17 17:29 75 19 35 01/10/17 17:00 72 20 130/72 99 Endotracheal Tube 35 01/10/17 16:00 75 01/10/17 16:00 98.1 76 19 123/61 100 Endotracheal Tube 35 01/10/17 16:00 35 01/10/17 15:26 75 16 35 01/10/17 15:00 74 20 120/65 100 Endotracheal Tube 35 01/10/17 14:00 76 20 145/76 100 Endotracheal Tube 35 01/10/17 13:00 74 20 130/65 100 Endotracheal Tube 35 01/10/17 12:49 72 22 98 Mechanical Ventilator 35 01/10/17 12:47 72 12 35 Height (Feet): 5 Height (Inches): 5.00 Weight (Pounds): 120 HEENT: anicteric Respiratory/Chest: normal breath sounds Cardiovascular: normal rate Abdomen: no organomegaly Laboratory Tests Test 01/11/17 04:35 White Blood Count 9.1 K/UL (4.8-10.8) Red Blood Count 2.88 M/UL (4.70-6.10) L Hemoglobin 9.3 G/DL (14.2-18.0) L Hematocrit 28.6 % (42.0-52.0) L Mean Corpuscular Volume 99 FL (80-99) Mean Corpuscular Hemoglobin 32.3 PG (27.0-31.0) H Mean Corpuscular Hemoglobin Concent 32.6 G/DL (32.0-36.0) Red Cell Distribution Width 12.6 % (11.6-14.8) Platelet Count 234 K/UL (150-450) Mean Platelet Volume 8.7 FL (6.5-10.1) Neutrophils (%) (Auto) 67.3 % (45.0-75.0) Lymphocytes (%) (Auto) 19.7 % (20.0-45.0) L Monocytes (%) (Auto) 7.7 % (1.0-10.0) Eosinophils (%) (Auto) 4.5 % (0.0-3.0) H Basophils (%) (Auto) 0.9 % (0.0-2.0) Sodium Level 141 mEQ/L (135-145) Potassium Level 3.3 mEQ/L (3.4-4.9) L Chloride Level 101 mEQ/L (98-107) Carbon Dioxide Level 29 mEQ/L (20-30) Anion Gap 11 (5-15) Blood Urea Nitrogen 16 mg/dL (7-23) Creatinine 0.7 mg/dL (0.7-1.2) Estimat Glomerular Filtration Rate mL/min (>60) Glucose Level 140 mg/dL (74-106) H Calcium Level 7.9 mg/dL (8.6-10.2) L Phosphorus Level 3.0 mg/dL (2.5-4.8) Magnesium Level 2.1 mg/dL (1.7-2.5) Total Bilirubin 0.3 mg/dL (0.0-1.2) Aspartate Amino Transf (AST/SGOT) 19 U/L (5-40) Alanine Aminotransferase (ALT/SGPT) 12 U/L (3-41) Alkaline Phosphatase 65 U/L (40-129) Total Protein 4.9 g/dL (6.6-8.7) L Albumin 2.4 g/dL (3.5-5.2) L Globulin 2.5 g/dL Albumin/Globulin Ratio 0.9 (1.0-2.7) L Current Medications Medications (Trade) Dose Ordered Sig/Daina Route PRN Reason Start Time Stop Time Status Last Admin Dose Admin Acetaminophen (Tylenol) 650 mg Q4H PRN ORAL fever 01/04/17 21:00 02/03/17 20:59 Albuterol/ Ipratropium (DuoNeb 0.5-3(2.5)mg/3ml) 3 ml Q6HRT HHN 01/08/17 01:00 01/13/17 00:59 01/11/17 07:08 Clonidine HCl (Catapres) 0.1 mg Q6H PRN GT SBP > 170 01/06/17 16:00 02/05/17 15:59 Dextrose (Dextrose 50%) STAT PRN IV Hypoglycemia 01/04/17 21:00 02/03/17 20:59 Diltiazem HCl (Cardizem) 30 mg EVERY 6 HOURS NG 01/09/17 18:00 02/08/17 17:59 01/11/17 11:23 Heparin Sodium (Porcine) (Heparin 5000 units/ml) 5,000 units EVERY 12 HOURS SUBQ 01/04/17 22:00 02/03/17 21:59 01/11/17 08:29 Lorazepam (Ativan 2mg/ml 1ml) 1 mg Q4H PRN IV For Anxiety 01/10/17 13:00 01/17/17 12:59 Morphine Sulfate (Morphine Sulfate) 4 mg Q4H PRN IVP PAIN SCALE 4-10 01/04/17 21:00 01/11/17 20:59 Nitroglycerin (Ntg) 0.4 mg Every 5 Minutes PRN SL Prn Chest Pain 01/04/17 21:00 02/03/17 20:59 Ondansetron HCl (Zofran) 4 mg Q6H PRN IVP Nausea & Vomiting 01/04/17 21:00 02/03/17 20:59 Pantoprazole 40 mg 40 mg DAILY GT 4/21/17 09:00 02/07/17 08:59 01/11/17 08:27 Piperacillin Sod/ Tazobactam Sod/ Dextrose (Zosyn/D5W) 110 ml @ 27.5 mls/hr Q8HR IVPB 01/07/17 14:00 01/14/17 13:59 01/11/17 05:52 Polyethylene Glycol (Miralax) 17 gm DAILYPRN PRN GT Constipation 01/06/17 15:55 02/03/17 20:59 HORACIO JOHN M.D. Jan 11, 2017 12:48
--- NOTE | 2017-01-11 15:38 | Cardiac Electrophysiology PN ---
Assessment/Plan Assessment/Plan 1. Atrial fib with RVR could be due to respiratory acidosis. Happened before he was intubated. On Cardizem 30 q 6 hors. Hold off on heparin drip unless atrial fib recurs.Remained in SR. 2. Hypertension.Continue Cardizem now. 3. Severe pulmonary hypertension, pressure 55, likely due to history of obstructive sleep apnea. 4. Recurrent Respiratory failure due to aspiration. Was Reintubated 01/08/17. On vancomycin and Zosyn. 5. Dementia. DCed Namenda and Aricept. 6. Dysphagia. May need PEG DW and RN Subjective Subjective In ICU on vent. Remained in SR since conversion from atrial fib. RN and at bedside. More alert. Objective Last 24 Hour Vital Signs Date Time Temp Pulse Resp B/P Pulse Ox O2 Delivery O2 Flow Rate FiO2 01/11/17 15:00 70 13 129/66 100 Mechanical Ventilator 35 01/11/17 14:00 72 15 130/62 100 Mechanical Ventilator 35 01/11/17 13:25 68 14 100 Mechanical Ventilator 35 01/11/17 13:20 65 14 35 01/11/17 13:20 73 14 100 Mechanical Ventilator 35 01/11/17 13:00 66 22 138/69 100 Mechanical Ventilator 35 01/11/17 12:00 35 01/11/17 12:00 97.8 66 20 134/72 100 Mechanical Ventilator 35 01/11/17 12:00 67 01/11/17 11:23 66 146/76 01/11/17 11:19 64 12 35 01/11/17 11:00 64 24 146/76 100 Mechanical Ventilator 35 01/11/17 10:00 65 24 149/60 100 Mechanical Ventilator 35 01/11/17 09:29 66 14 35 01/11/17 09:00 67 22 127/60 100 Mechanical Ventilator 35 01/11/17 08:00 35 01/11/17 08:00 68 01/11/17 08:00 98.3 70 18 130/83 100 Mechanical Ventilator 35 01/11/17 07:00 67 25 137/66 100 Endotracheal Tube 35 01/11/17 06:50 66 20 35 01/11/17 06:50 67 19 100 Mechanical Ventilator 35 01/11/17 06:50 70 23 100 Mechanical Ventilator 35 01/11/17 06:00 65 25 133/64 100 Endotracheal Tube 35 01/11/17 05:52 69 133/68 01/11/17 05:22 69 18 35 01/11/17 05:00 66 20 133/68 100 Endotracheal Tube 35 01/11/17 04:00 70 01/11/17 04:00 98.4 68 18 115/56 100 Endotracheal Tube 35 01/11/17 04:00 35 01/11/17 03:00 68 17 134/60 100 Endotracheal Tube 35 01/11/17 02:40 72 15 35 01/11/17 02:00 68 15 121/60 100 Endotracheal Tube 35 01/11/17 01:26 71 16 99 Mechanical Ventilator 35 01/11/17 01:08 70 27 100 Mechanical Ventilator 35 01/11/17 01:08 71 20 35 01/11/17 01:00 70 25 128/62 100 Endotracheal Tube 35 01/11/17 00:00 70 01/11/17 00:00 98.2 71 18 130/56 100 Endotracheal Tube 35 01/11/17 00:00 35 01/10/17 23:50 80 151/66 01/10/17 23:00 70 16 35 01/10/17 23:00 68 18 151/66 100 Endotracheal Tube 35 01/10/17 22:00 74 22 156/67 100 Endotracheal Tube 35 01/10/17 21:15 75 16 35 01/10/17 21:00 71 23 145/71 100 Endotracheal Tube 35 01/10/17 20:00 35 01/10/17 20:00 98.1 78 21 136/66 100 Endotracheal Tube 35 01/10/17 20:00 75 01/10/17 19:36 72 16 99 Mechanical Ventilator 35 01/10/17 19:03 73 16 100 Mechanical Ventilator 35 01/10/17 19:02 70 17 35 01/10/17 19:00 72 20 123/60 100 Endotracheal Tube 35 01/10/17 18:00 73 19 125/64 100 Endotracheal Tube 35 01/10/17 17:57 74 130/72 01/10/17 17:29 75 19 35 01/10/17 17:00 72 20 130/72 99 Endotracheal Tube 35 01/10/17 16:00 75 01/10/17 16:00 98.1 76 19 123/61 100 Endotracheal Tube 35 01/10/17 16:00 35 Intake and Output 01/10/17 01/11/17 19:00 07:00 Intake Total 1042.5 ml 772.5 ml Output Total 220 ml 700 ml Balance 822.5 ml 72.5 ml IV Total 312.5 ml 137.5 ml Tube Feeding 640 ml 605 ml Other 90 ml 30 ml Output Urine Total 220 ml 700 ml Laboratory Tests Test 01/11/17 04:35 White Blood Count 9.1 K/UL (4.8-10.8) Red Blood Count 2.88 M/UL (4.70-6.10) L Hemoglobin 9.3 G/DL (14.2-18.0) L Hematocrit 28.6 % (42.0-52.0) L Mean Corpuscular Volume 99 FL (80-99) Mean Corpuscular Hemoglobin 32.3 PG (27.0-31.0) H Mean Corpuscular Hemoglobin Concent 32.6 G/DL (32.0-36.0) Red Cell Distribution Width 12.6 % (11.6-14.8) Platelet Count 234 K/UL (150-450) Mean Platelet Volume 8.7 FL (6.5-10.1) Neutrophils (%) (Auto) 67.3 % (45.0-75.0) Lymphocytes (%) (Auto) 19.7 % (20.0-45.0) L Monocytes (%) (Auto) 7.7 % (1.0-10.0) Eosinophils (%) (Auto) 4.5 % (0.0-3.0) H Basophils (%) (Auto) 0.9 % (0.0-2.0) Sodium Level 141 mEQ/L (135-145) Potassium Level 3.3 mEQ/L (3.4-4.9) L Chloride Level 101 mEQ/L (98-107) Carbon Dioxide Level 29 mEQ/L (20-30) Anion Gap 11 (5-15) Blood Urea Nitrogen 16 mg/dL (7-23) Creatinine 0.7 mg/dL (0.7-1.2) Estimat Glomerular Filtration Rate mL/min (>60) Glucose Level 140 mg/dL (74-106) H Calcium Level 7.9 mg/dL (8.6-10.2) L Phosphorus Level 3.0 mg/dL (2.5-4.8) Magnesium Level 2.1 mg/dL (1.7-2.5) Total Bilirubin 0.3 mg/dL (0.0-1.2) Aspartate Amino Transf (AST/SGOT) 19 U/L (5-40) Alanine Aminotransferase (ALT/SGPT) 12 U/L (3-41) Alkaline Phosphatase 65 U/L (40-129) Total Protein 4.9 g/dL (6.6-8.7) L Albumin 2.4 g/dL (3.5-5.2) L Globulin 2.5 g/dL Albumin/Globulin Ratio 0.9 (1.0-2.7) L Objective NECK: No JVD. Orally intubated with NG tube in. LUNGS: Coarse rhonchi. CARDIOVASCULAR: Regular S1 and S2 with no gallop or murmur. ABDOMEN: Soft. EXTREMITIES: No pitting edema. ARGELIA DUONG Jan 11, 2017 15:38
--- NOTE | 2017-01-11 19:36 | Internal Med Progress Note ---
Subjective Date of Service: Jan 11, 2017 Physician Name Rosas Johnson Attending Physician Rosas Johnson Current Medications Medications (Trade) Dose Ordered Sig/Daina Route PRN Reason Start Time Stop Time Status Last Admin Dose Admin Acetaminophen (Tylenol) 650 mg Q4H PRN ORAL fever 01/04/17 21:00 02/03/17 20:59 Albuterol/ Ipratropium (DuoNeb 0.5-3(2.5)mg/3ml) 3 ml Q6HRT HHN 01/08/17 01:00 01/13/17 00:59 01/11/17 13:33 Clonidine HCl (Catapres) 0.1 mg Q6H PRN GT SBP > 170 01/06/17 16:00 02/05/17 15:59 Dextrose (Dextrose 50%) STAT PRN IV Hypoglycemia 01/04/17 21:00 02/03/17 20:59 Diltiazem HCl (Cardizem) 30 mg EVERY 6 HOURS NG 01/09/17 18:00 02/08/17 17:59 01/11/17 18:04 Heparin Sodium (Porcine) (Heparin 5000 units/ml) 5,000 units EVERY 12 HOURS SUBQ 01/04/17 22:00 02/03/17 21:59 01/11/17 08:29 Lorazepam 1 mg 1 mg Q4H PRN IV For Anxiety 01/10/17 13:00 01/17/17 12:59 Morphine Sulfate (Morphine Sulfate) 4 mg Q4H PRN IVP PAIN SCALE 4-10 01/04/17 21:00 01/11/17 20:59 Nitroglycerin (Ntg) 0.4 mg Every 5 Minutes PRN SL Prn Chest Pain 01/04/17 21:00 02/03/17 20:59 Ondansetron HCl (Zofran) 4 mg Q6H PRN IVP Nausea & Vomiting 01/04/17 21:00 02/03/17 20:59 Pantoprazole (Protonix) 40 mg DAILY GT 01/08/17 09:00 02/07/17 08:59 01/11/17 08:27 Piperacillin Sod/ Tazobactam Sod/ Dextrose (Zosyn/D5W) 110 ml @ 27.5 mls/hr Q8HR IVPB 01/11/17 14:00 01/15/17 13:59 01/11/17 14:01 Polyethylene Glycol (Miralax) 17 gm DAILYPRN PRN GT Constipation 01/06/17 15:55 02/03/17 20:59 Allergies: Coded Allergies: No Known Allergies (Verified , 01/06/17) ROS Limited/Unobtainable: Yes Subjective 76 YO M admitted with aspiration and respiratory failure. Reintubated 01/09/17. Intubated and sedated. ICU. Objective Last Vital Signs Date Time Temp Pulse Resp B/P Pulse Ox O2 Delivery O2 Flow Rate FiO2 01/11/17 19:00 69 16 130/70 100 Mechanical Ventilator 35 01/11/17 16:00 98.3 01/09/17 01:00 15.0 Laboratory Tests Test 01/11/17 04:35 White Blood Count 9.1 K/UL (4.8-10.8) Red Blood Count 2.88 M/UL (4.70-6.10) L Hemoglobin 9.3 G/DL (14.2-18.0) L Hematocrit 28.6 % (42.0-52.0) L Mean Corpuscular Volume 99 FL (80-99) Mean Corpuscular Hemoglobin 32.3 PG (27.0-31.0) H Mean Corpuscular Hemoglobin Concent 32.6 G/DL (32.0-36.0) Red Cell Distribution Width 12.6 % (11.6-14.8) Platelet Count 234 K/UL (150-450) Mean Platelet Volume 8.7 FL (6.5-10.1) Neutrophils (%) (Auto) 67.3 % (45.0-75.0) Lymphocytes (%) (Auto) 19.7 % (20.0-45.0) L Monocytes (%) (Auto) 7.7 % (1.0-10.0) Eosinophils (%) (Auto) 4.5 % (0.0-3.0) H Basophils (%) (Auto) 0.9 % (0.0-2.0) Sodium Level 141 mEQ/L (135-145) Potassium Level 3.3 mEQ/L (3.4-4.9) L Chloride Level 101 mEQ/L (98-107) Carbon Dioxide Level 29 mEQ/L (20-30) Anion Gap 11 (5-15) Blood Urea Nitrogen 16 mg/dL (7-23) Creatinine 0.7 mg/dL (0.7-1.2) Estimat Glomerular Filtration Rate mL/min (>60) Glucose Level 140 mg/dL (74-106) H Calcium Level 7.9 mg/dL (8.6-10.2) L Phosphorus Level 3.0 mg/dL (2.5-4.8) Magnesium Level 2.1 mg/dL (1.7-2.5) Total Bilirubin 0.3 mg/dL (0.0-1.2) Aspartate Amino Transf (AST/SGOT) 19 U/L (5-40) Alanine Aminotransferase (ALT/SGPT) 12 U/L (3-41) Alkaline Phosphatase 65 U/L (40-129) Total Protein 4.9 g/dL (6.6-8.7) L Albumin 2.4 g/dL (3.5-5.2) L Globulin 2.5 g/dL Albumin/Globulin Ratio 0.9 (1.0-2.7) L Intake and Output 01/10/17 01/11/17 19:00 07:00 Intake Total 1042.5 ml 772.5 ml Output Total 220 ml 700 ml Balance 822.5 ml 72.5 ml IV Total 312.5 ml 137.5 ml Tube Feeding 640 ml 605 ml Other 90 ml 30 ml Output Urine Total 220 ml 700 ml Objective General Appearance: WD/WN, moderate distress EENT: PERRL/EOMI, normal ENT inspection Neck: non-tender, normal alignment, supple Cardiovascular: normal peripheral pulses, normal rate, regular rhythm, no gallop/murmur, no JVD Respiratory/Chest: Mech vent; respiratory distress, crackles/rales, rhonchi - bilaterally, expiratory wheezing Abdomen: normal bowel sounds, non tender, soft, no organomegaly, no mass Extremities: normal range of motion, non-tender 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 See pulmonary note. (2) Hypertension Assessment & Plan: Better control-see cardiology consult. (3) Hypercholesteremia (4) BPH (benign prostatic hyperplasia) (5) Alzheimer's dementia (6) Aspiration pneumonia Assessment & Plan: Continue vanco and zosyn. See pulmonary and ID note. (7) Hematuria Assessment & Plan: Resolved (8) Atrial fibrillation with RVR Assessment & Plan: S/P Cardizem drip; see cardiology note. Status: not improved Assessment/Plan Discussed with ROSAS JOHNSON Jan 11, 2017 19:36
[2017-01-12] VITALS (24 sets, daily range): BP systolic 111–167; BP diastolic 53–99
[2017-01-12] MEDS: DuoNeb 0.5-3(2.5)mg/3ml neb HHN SCH ×4 (01:28→19:05)
[2017-01-12 05:08] LABS: BASOPHILS % (AUTO) 1.3 % (0.0-2.0); EOSINOPHILS % (AUTO) 8.2 % (0.0-3.0); LYMPHOCYTES % (AUTO) 22.7 % (20.0-45.0); MEAN CORPUSCULAR HEMOGLOBIN 32.6 PG (27.0-31.0); MEAN CORPUSCULAR HGB CONC 32.5 G/DL (32.0-36.0); MEAN CORPUSCULAR VOLUME 100 FL (80-99); MEAN PLATELET VOLUME 8.5 FL (6.5-10.1); MONOCYTES % (AUTO) 8.2 % (1.0-10.0); NEUTROPHILS % (AUTO) 59.7 % (45.0-75.0); PLATELET COUNT 259 K/UL (150-450); RED BLOOD COUNT 2.91 M/UL (4.70-6.10); WHITE BLOOD COUNT 6.6 K/UL (4.8-10.8)
[2017-01-12 05:33] LABS: ALANINE AMINOTRANSFERASE 13 U/L (3-41); ALBUMIN/GLOBULIN RATIO 0.8 (1.0-2.7); ANION GAP 9 (5-15); ASPARTATE AMINO TRANSFERASE 16 U/L (5-40); CALCIUM 8.4 mg/dL (8.6-10.2); CARBON DIOXIDE 28 mEQ/L (20-30); CHLORIDE 105 mEQ/L (98-107); CREATININE 0.6 mg/dL (0.7-1.2); HEMOLYSIS 18; PHOSPHORUS 3.7 mg/dL (2.5-4.8); POTASSIUM 4.3 mEQ/L (3.4-4.9); SODIUM 142 mEQ/L (135-145); TOTAL PROTEIN 5.1 g/dL (6.6-8.7)
[2017-01-12] MEDS: Piperacillin/Tazobactam 3.375 GM in D5W 110 ML IVPB SCH ×3 (05:55→21:04)
[2017-01-12] MEDS: Pantoprazole 40mg pkt GT SCH (08:31)
[2017-01-12] MEDS: Heparin 5000 units/ml inj SUBQ SCH ×2 (08:35→21:07)
[2017-01-12 09:28] LABS: ABG PCO2 43.6 mmHg (35.0-45.0)
[2017-01-12 09:29] LABS: ABG ALLEN TEST POSITIVE
--- NOTE | 2017-01-12 11:06 | Pulmonolgy Critical Care Note ---
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 - Objective Last 24 Hour Vital Signs Date Time Temp Pulse Resp B/P Pulse Ox O2 Delivery O2 Flow Rate FiO2 01/12/17 10:00 65 18 125/68 100 Mechanical Ventilator 35 01/12/17 09:15 67 13 35 01/12/17 09:14 100 01/12/17 09:00 63 16 135/60 100 Mechanical Ventilator 35 01/12/17 08:00 67 01/12/17 08:00 97.7 65 20 115/60 100 Mechanical Ventilator 35 01/12/17 08:00 35 01/12/17 07:19 67 10 100 Mechanical Ventilator 35 01/12/17 07:17 74 16 35 01/12/17 07:10 73 20 100 Mechanical Ventilator 35 01/12/17 07:00 67 20 123/71 100 Mechanical Ventilator 35 01/12/17 06:00 65 17 148/66 100 Mechanical Ventilator 35 01/12/17 05:55 70 150/79 01/12/17 05:26 68 24 35 01/12/17 05:00 67 20 150/79 100 Mechanical Ventilator 35 01/12/17 04:00 68 01/12/17 04:00 35 01/12/17 04:00 97.2 68 16 155/88 100 Mechanical Ventilator 35 01/12/17 03:00 69 20 148/80 100 Mechanical Ventilator 35 01/12/17 03:00 69 19 35 01/12/17 02:00 71 18 133/79 100 Mechanical Ventilator 35 01/12/17 01:35 72 19 100 Mechanical Ventilator 35 01/12/17 01:27 71 22 100 Mechanical Ventilator 35 01/12/17 01:26 72 22 35 01/12/17 01:00 69 16 143/68 100 Mechanical Ventilator 35 01/12/17 00:06 69 149/73 01/12/17 00:00 98.5 69 20 149/73 100 Mechanical Ventilator 35 01/12/17 00:00 35 01/12/17 00:00 67 01/11/17 23:00 69 18 141/66 100 Mechanical Ventilator 35 01/11/17 22:43 71 19 35 01/11/17 22:00 70 22 135/67 100 Mechanical Ventilator 35 01/11/17 21:05 74 18 35 01/11/17 21:00 71 25 140/72 100 Mechanical Ventilator 35 01/11/17 20:00 73 01/11/17 20:00 98.1 74 20 128/67 100 Mechanical Ventilator 35 01/11/17 20:00 35 01/11/17 19:47 69 15 100 Mechanical Ventilator 35 01/11/17 19:37 70 16 100 Mechanical Ventilator 35 01/11/17 19:30 70 16 35 01/11/17 19:00 69 16 130/70 100 Mechanical Ventilator 35 01/11/17 18:04 69 131/72 01/11/17 18:00 71 16 131/72 100 Mechanical Ventilator 35 01/11/17 17:18 69 14 35 01/11/17 17:00 68 16 143/70 100 Mechanical Ventilator 35 01/11/17 16:00 98.3 68 14 139/72 100 Mechanical Ventilator 35 01/11/17 16:00 35 01/11/17 16:00 69 01/11/17 15:29 68 16 35 01/11/17 15:00 70 13 129/66 100 Mechanical Ventilator 35 01/11/17 14:00 72 15 130/62 100 Mechanical Ventilator 35 01/11/17 13:25 68 14 100 Mechanical Ventilator 35 01/11/17 13:20 65 14 35 01/11/17 13:20 73 14 100 Mechanical Ventilator 35 01/11/17 13:00 66 22 138/69 100 Mechanical Ventilator 35 01/11/17 12:00 35 01/11/17 12:00 97.8 66 20 134/72 100 Mechanical Ventilator 35 01/11/17 12:00 67 01/11/17 11:23 66 146/76 01/11/17 11:19 64 12 35 Status: awake Condition: critical HEENT: atraumatic Lungs: clear, chest wall tender Heart: HR/BP stable, regular Abdomen: soft, active bowel sounds, feeding tube Extremities: no C/C/E, edema Decubiti: location, stage Micro: Microbiology Date/Time Source Procedure Growth Status 01/11/17 13:15 Sputum Gram Stain Pending Resulted 01/11/17 13:15 Sputum Sputum Culture - Preliminary NO GROWTH AFTER 24 HOURS Resulted Accucheck: 115 Critical Care - Subjective ROS Limited/Unobtainable: No ICU Day: 8 Intubation Day: 8 Condition: critical EKG Rhythm: Sinus Rhythm FI02: 35 Vent Support Breath Rate: 10 Vent Support Mode: IMV/SIMV Vent Tidal Volume: 600 Sputum Amount: Large PEEP: 5.0 PIP: 20 Tube Feeding Amount: 55 I&O: Intake and Output 01/11/17 01/12/17 19:00 07:00 Intake Total 972.5 ml 777.5 ml Output Total 765 ml 400 ml Balance 207.5 ml 377.5 ml Free Water 30 ml IV Total 192.5 ml 27.5 ml Tube Feeding 660 ml 660 ml Other 90 ml 90 ml Output Urine Total 765 ml 400 ml CXR: clear, ET in good position ET-Tube: 7.5 ET Position: 25 Labs: Laboratory Tests Test 01/12/17 04:20 01/12/17 09:15 White Blood Count 6.6 K/UL (4.8-10.8) Red Blood Count 2.91 M/UL (4.70-6.10) L Hemoglobin 9.5 G/DL (14.2-18.0) L Hematocrit 29.2 % (42.0-52.0) L Mean Corpuscular Volume 100 FL (80-99) H Mean Corpuscular Hemoglobin 32.6 PG (27.0-31.0) H Mean Corpuscular Hemoglobin Concent 32.5 G/DL (32.0-36.0) Red Cell Distribution Width 13.0 % (11.6-14.8) Platelet Count 259 K/UL (150-450) Mean Platelet Volume 8.5 FL (6.5-10.1) Neutrophils (%) (Auto) 59.7 % (45.0-75.0) Lymphocytes (%) (Auto) 22.7 % (20.0-45.0) Monocytes (%) (Auto) 8.2 % (1.0-10.0) Eosinophils (%) (Auto) 8.2 % (0.0-3.0) H Basophils (%) (Auto) 1.3 % (0.0-2.0) Sodium Level 142 mEQ/L (135-145) Potassium Level 4.3 mEQ/L (3.4-4.9) Chloride Level 105 mEQ/L (98-107) Carbon Dioxide Level 28 mEQ/L (20-30) Anion Gap 9 (5-15) Blood Urea Nitrogen 16 mg/dL (7-23) Creatinine 0.6 mg/dL (0.7-1.2) L Estimat Glomerular Filtration Rate mL/min (>60) Glucose Level 130 mg/dL (74-106) H Calcium Level 8.4 mg/dL (8.6-10.2) L Phosphorus Level 3.7 mg/dL (2.5-4.8) Magnesium Level 2.0 mg/dL (1.7-2.5) Total Bilirubin 0.3 mg/dL (0.0-1.2) Aspartate Amino Transf (AST/SGOT) 16 U/L (5-40) Alanine Aminotransferase (ALT/SGPT) 13 U/L (3-41) Alkaline Phosphatase 63 U/L (40-129) Total Protein 5.1 g/dL (6.6-8.7) L Albumin 2.3 g/dL (3.5-5.2) L Globulin 2.8 g/dL Albumin/Globulin Ratio 0.8 (1.0-2.7) L Arterial Blood pH 7.474 (7.350-7.450) Arterial Blood Partial Pressure CO2 43.6 mmHg (35.0-45.0) Arterial Blood Partial Pressure O2 119.9 mmHg (75.0-100.0) H Arterial Blood HCO3 31.3 mmol/L (22.0-26.0) H Arterial Blood Oxygen Saturation 98.1 % (92.0-98.0) H Arterial Blood Base Excess 7.0 Leo Test Positive RABIA BANGURA Jan 12, 2017 11:06
--- NOTE | 2017-01-12 11:26 | Infectious Diseases Prog Note ---
Assessment/Plan Assessment/Plan A: This is a 76-year-old male Possible aspiration pneumonia ( Despite neg cxray ) SCx: neg pt has sign amount of [employer] Secretions 01/08 Cxray : Minimal retrocardiac opacity, improved since previous day. SP Extubation 01/06 , reintubated 01/09 History of fracture of femoral neck. Dementia. Hypertension PLAN: cont Zosyn d# 8 / 10 ( 01/08 SP Vanco d# 4 ) Monitor CBC. Monitor BMP Monitor chest x-ray cont vent support sputum CX Subjective Allergies: Coded Allergies: No Known Allergies (Verified , 01/06/17) Subjective intubated on vent Objective Vital Signs Last 24 Hour Vital Signs Date Time Temp Pulse Resp B/P Pulse Ox O2 Delivery O2 Flow Rate FiO2 01/12/17 11:13 72 17 30 01/12/17 11:00 72 16 163/85 98 Mechanical Ventilator 35 01/12/17 10:00 65 18 125/68 100 Mechanical Ventilator 35 01/12/17 09:15 67 13 35 01/12/17 09:14 100 01/12/17 09:00 63 16 135/60 100 Mechanical Ventilator 35 01/12/17 08:00 67 01/12/17 08:00 97.7 65 20 115/60 100 Mechanical Ventilator 35 01/12/17 08:00 35 01/12/17 07:19 67 10 100 Mechanical Ventilator 35 01/12/17 07:17 74 16 35 01/12/17 07:10 73 20 100 Mechanical Ventilator 35 01/12/17 07:00 67 20 123/71 100 Mechanical Ventilator 35 01/12/17 06:00 65 17 148/66 100 Mechanical Ventilator 35 01/12/17 05:55 70 150/79 01/12/17 05:26 68 24 35 01/12/17 05:00 67 20 150/79 100 Mechanical Ventilator 35 01/12/17 04:00 68 01/12/17 04:00 35 01/12/17 04:00 97.2 68 16 155/88 100 Mechanical Ventilator 35 01/12/17 03:00 69 20 148/80 100 Mechanical Ventilator 35 01/12/17 03:00 69 19 35 01/12/17 02:00 71 18 133/79 100 Mechanical Ventilator 35 01/12/17 01:35 72 19 100 Mechanical Ventilator 35 4/25/17 01:27 71 22 100 Mechanical Ventilator 35 01/12/17 01:26 72 22 35 01/12/17 01:00 69 16 143/68 100 Mechanical Ventilator 35 01/12/17 00:06 69 149/73 01/12/17 00:00 98.5 69 20 149/73 100 Mechanical Ventilator 35 01/12/17 00:00 35 01/12/17 00:00 67 01/11/17 23:00 69 18 141/66 100 Mechanical Ventilator 35 01/11/17 22:43 71 19 35 01/11/17 22:00 70 22 135/67 100 Mechanical Ventilator 35 01/11/17 21:05 74 18 35 01/11/17 21:00 71 25 140/72 100 Mechanical Ventilator 35 01/11/17 20:00 73 01/11/17 20:00 98.1 74 20 128/67 100 Mechanical Ventilator 35 01/11/17 20:00 35 01/11/17 19:47 69 15 100 Mechanical Ventilator 35 01/11/17 19:37 70 16 100 Mechanical Ventilator 35 01/11/17 19:30 70 16 35 01/11/17 19:00 69 16 130/70 100 Mechanical Ventilator 35 01/11/17 18:04 69 131/72 01/11/17 18:00 71 16 131/72 100 Mechanical Ventilator 35 01/11/17 17:18 69 14 35 01/11/17 17:00 68 16 143/70 100 Mechanical Ventilator 35 01/11/17 16:00 98.3 68 14 139/72 100 Mechanical Ventilator 35 01/11/17 16:00 35 01/11/17 16:00 69 01/11/17 15:29 68 16 35 01/11/17 15:00 70 13 129/66 100 Mechanical Ventilator 35 01/11/17 14:00 72 15 130/62 100 Mechanical Ventilator 35 01/11/17 13:25 68 14 100 Mechanical Ventilator 35 01/11/17 13:20 65 14 35 01/11/17 13:20 73 14 100 Mechanical Ventilator 35 01/11/17 13:00 66 22 138/69 100 Mechanical Ventilator 35 01/11/17 12:00 35 01/11/17 12:00 97.8 66 20 134/72 100 Mechanical Ventilator 35 01/11/17 12:00 67 Height (Feet): 5 Height (Inches): 5.00 Weight (Pounds): 120 HEENT: mucous membranes moist Respiratory/Chest: respiratory distress Cardiovascular: no gallop/murmur Abdomen: soft, non tender Microbiology Date/Time Source Procedure Growth Status 01/11/17 13:15 Sputum Gram Stain Pending Resulted 01/11/17 13:15 Sputum Sputum Culture - Preliminary NO GROWTH AFTER 24 HOURS Resulted Laboratory Tests Test 01/12/17 04:20 01/12/17 09:15 White Blood Count 6.6 K/UL (4.8-10.8) Red Blood Count 2.91 M/UL (4.70-6.10) L Hemoglobin 9.5 G/DL (14.2-18.0) L Hematocrit 29.2 % (42.0-52.0) L Mean Corpuscular Volume 100 FL (80-99) H Mean Corpuscular Hemoglobin 32.6 PG (27.0-31.0) H Mean Corpuscular Hemoglobin Concent 32.5 G/DL (32.0-36.0) Red Cell Distribution Width 13.0 % (11.6-14.8) Platelet Count 259 K/UL (150-450) Mean Platelet Volume 8.5 FL (6.5-10.1) Neutrophils (%) (Auto) 59.7 % (45.0-75.0) Lymphocytes (%) (Auto) 22.7 % (20.0-45.0) Monocytes (%) (Auto) 8.2 % (1.0-10.0) Eosinophils (%) (Auto) 8.2 % (0.0-3.0) H Basophils (%) (Auto) 1.3 % (0.0-2.0) Sodium Level 142 mEQ/L (135-145) Potassium Level 4.3 mEQ/L (3.4-4.9) Chloride Level 105 mEQ/L (98-107) Carbon Dioxide Level 28 mEQ/L (20-30) Anion Gap 9 (5-15) Blood Urea Nitrogen 16 mg/dL (7-23) Creatinine 0.6 mg/dL (0.7-1.2) L Estimat Glomerular Filtration Rate mL/min (>60) Glucose Level 130 mg/dL (74-106) H Calcium Level 8.4 mg/dL (8.6-10.2) L Phosphorus Level 3.7 mg/dL (2.5-4.8) Magnesium Level 2.0 mg/dL (1.7-2.5) Total Bilirubin 0.3 mg/dL (0.0-1.2) Aspartate Amino Transf (AST/SGOT) 16 U/L (5-40) Alanine Aminotransferase (ALT/SGPT) 13 U/L (3-41) Alkaline Phosphatase 63 U/L (40-129) Total Protein 5.1 g/dL (6.6-8.7) L Albumin 2.3 g/dL (3.5-5.2) L Globulin 2.8 g/dL Albumin/Globulin Ratio 0.8 (1.0-2.7) L Arterial Blood pH 7.474 (7.350-7.450) Arterial Blood Partial Pressure CO2 43.6 mmHg (35.0-45.0) Arterial Blood Partial Pressure O2 119.9 mmHg (75.0-100.0) H Arterial Blood HCO3 31.3 mmol/L (22.0-26.0) H Arterial Blood Oxygen Saturation 98.1 % (92.0-98.0) H Arterial Blood Base Excess 7.0 Leo Test Positive Current Medications Medications (Trade) Dose Ordered Sig/Daina Route PRN Reason Start Time Stop Time Status Last Admin Dose Admin Acetaminophen (Tylenol) 650 mg Q4H PRN ORAL fever 01/04/17 21:00 02/03/17 20:59 Albuterol/ Ipratropium (DuoNeb 0.5-3(2.5)mg/3ml) 3 ml Q6HRT HHN 01/08/17 01:00 01/13/17 00:59 01/12/17 07:13 Betamethasone/ Clotrimazole (Lotrisone) 1 applic TWICE A DAY TOPIC 01/12/17 12:30 02/11/17 12:29 Clonidine HCl (Catapres) 0.1 mg Q6H PRN GT SBP > 170 01/06/17 16:00 02/05/17 15:59 Dextrose (Dextrose 50%) STAT PRN IV Hypoglycemia 01/04/17 21:00 02/03/17 20:59 Diltiazem HCl (Cardizem) 30 mg EVERY 6 HOURS NG 01/09/17 18:00 02/08/17 17:59 01/12/17 05:55 Docusate Sodium (Colace) 100 mg DAILY ORAL 01/12/17 11:15 02/11/17 11:14 Heparin Sodium (Porcine) (Heparin 5000 units/ml) 5,000 units EVERY 12 HOURS SUBQ 01/04/17 22:00 02/03/17 21:59 01/12/17 08:35 Lorazepam 1 mg 1 mg Q4H PRN IV For Anxiety 01/10/17 13:00 01/17/17 12:59 01/11/17 22:08 Nitroglycerin (Ntg) 0.4 mg Every 5 Minutes PRN SL Prn Chest Pain 01/04/17 21:00 02/03/17 20:59 Ondansetron HCl (Zofran) 4 mg Q6H PRN IVP Nausea & Vomiting 01/04/17 21:00 02/03/17 20:59 Pantoprazole (Protonix) 40 mg DAILY GT 01/08/17 09:00 02/07/17 08:59 01/12/17 08:31 Piperacillin Sod/ Tazobactam Sod/ Dextrose (Zosyn/D5W) 110 ml @ 27.5 mls/hr Q8HR IVPB 01/11/17 14:00 01/15/17 13:59 01/12/17 05:55 Polyethylene Glycol (Miralax) 17 gm DAILYPRN PRN GT Constipation 01/06/17 15:55 02/03/17 20:59 HORACIO JOHN M.D. Jan 12, 2017 11:26
[2017-01-12] MEDS: Docusate 100mg tablet ORAL SCH (12:02)
[2017-01-12] MEDS: Lotrisone Cream 15gm TOPIC SCH ×2 (12:02→17:58)
--- NOTE | 2017-01-12 16:06 | Diagnostic Imaging Report ---
Indications: DYSPNEA Technique: Portable AP chest Findings: Comparison: 01/11/17 1 cm nodular density has appeared over the right lung base. 3 mm calcified nodule again noted in right upper lobe. Linear density persists in left lower lung. Air bronchograms are again suggested in the left retrocardiac region. Mild blunting of both costophrenic angles persists. Heart size, pulmonary vasculature remain within normal limits. Lines and tubes remain in place. IMPRESSION: Appearance of small nodular density over right lung base in one day likely represents summation artifact, overlying nipple shadow or costochondral calcification No other change from one day prior
--- NOTE | 2017-01-12 16:41 | Cardiac Electrophysiology PN ---
Assessment/Plan Assessment/Plan 1. Atrial fib with RVR could be due to respiratory acidosis. Happened before he was intubated. On Cardizem 30mg NG q 6 hrs. Hold off on heparin drip unless atrial fib recurs. Remained in SR. 2. Hypertension.Continue Cardizem. 3. Severe pulmonary hypertension, pressure 55, likely due to history of obstructive sleep apnea. 4. Recurrent Respiratory failure due to aspiration, Reintubated 01/08/17. On Zosyn. 5. Dementia. 6. Dysphagia. May need PEG DW and RN Subjective Subjective In ICU on vent. Remained in SR. RN and at bedside. On 30% Fio2 Objective Last 24 Hour Vital Signs Date Time Temp Pulse Resp B/P Pulse Ox O2 Delivery O2 Flow Rate FiO2 01/12/17 16:00 97.5 69 22 148/62 99 Mechanical Ventilator 30 01/12/17 16:00 30 01/12/17 16:00 66 01/12/17 15:00 70 23 149/99 100 Mechanical Ventilator 30 01/12/17 14:46 77 19 30 01/12/17 14:00 69 20 136/63 100 Mechanical Ventilator 30 01/12/17 13:00 66 22 150/74 100 Mechanical Ventilator 30 01/12/17 12:31 71 18 30 01/12/17 12:26 67 21 100 Mechanical Ventilator 30 01/12/17 12:17 66 15 100 Mechanical Ventilator 30 01/12/17 12:05 73 181/78 01/12/17 12:00 97.7 69 15 167/78 100 Mechanical Ventilator 35 01/12/17 12:00 63 01/12/17 12:00 30 01/12/17 11:13 72 17 30 01/12/17 11:00 72 16 163/85 98 Mechanical Ventilator 35 01/12/17 10:00 65 18 125/68 100 Mechanical Ventilator 35 01/12/17 09:15 67 13 35 01/12/17 09:14 100 01/12/17 09:00 63 16 135/60 100 Mechanical Ventilator 35 01/12/17 08:00 67 01/12/17 08:00 97.7 65 20 115/60 100 Mechanical Ventilator 35 01/12/17 08:00 35 01/12/17 07:19 67 10 100 Mechanical Ventilator 35 01/12/17 07:17 74 16 35 01/12/17 07:10 73 20 100 Mechanical Ventilator 35 01/12/17 07:00 67 20 123/71 100 Mechanical Ventilator 35 01/12/17 06:00 65 17 148/66 100 Mechanical Ventilator 35 01/12/17 05:55 70 150/79 01/12/17 05:26 68 24 35 01/12/17 05:00 67 20 150/79 100 Mechanical Ventilator 35 01/12/17 04:00 68 01/12/17 04:00 35 01/12/17 04:00 97.2 68 16 155/88 100 Mechanical Ventilator 35 01/12/17 03:00 69 20 148/80 100 Mechanical Ventilator 35 01/12/17 03:00 69 19 35 01/12/17 02:00 71 18 133/79 100 Mechanical Ventilator 35 01/12/17 01:35 72 19 100 Mechanical Ventilator 35 01/12/17 01:27 71 22 100 Mechanical Ventilator 35 01/12/17 01:26 72 22 35 01/12/17 01:00 69 16 143/68 100 Mechanical Ventilator 35 01/12/17 00:06 69 149/73 01/12/17 00:00 98.5 69 20 149/73 100 Mechanical Ventilator 35 01/12/17 00:00 35 01/12/17 00:00 67 01/11/17 23:00 69 18 141/66 100 Mechanical Ventilator 35 01/11/17 22:43 71 19 35 01/11/17 22:00 70 22 135/67 100 Mechanical Ventilator 35 01/11/17 21:05 74 18 35 01/11/17 21:00 71 25 140/72 100 Mechanical Ventilator 35 01/11/17 20:00 73 01/11/17 20:00 98.1 74 20 128/67 100 Mechanical Ventilator 35 01/11/17 20:00 35 01/11/17 19:47 69 15 100 Mechanical Ventilator 35 01/11/17 19:37 70 16 100 Mechanical Ventilator 35 01/11/17 19:30 70 16 35 01/11/17 19:00 69 16 130/70 100 Mechanical Ventilator 35 01/11/17 18:04 69 131/72 01/11/17 18:00 71 16 131/72 100 Mechanical Ventilator 35 01/11/17 17:18 69 14 35 01/11/17 17:00 68 16 143/70 100 Mechanical Ventilator 35 Intake and Output 01/11/17 01/12/17 19:00 07:00 Intake Total 972.5 ml 777.5 ml Output Total 765 ml 400 ml Balance 207.5 ml 377.5 ml Free Water 30 ml IV Total 192.5 ml 27.5 ml Tube Feeding 660 ml 660 ml Other 90 ml 90 ml Output Urine Total 765 ml 400 ml Laboratory Tests Test 01/12/17 04:20 01/12/17 09:15 White Blood Count 6.6 K/UL (4.8-10.8) Red Blood Count 2.91 M/UL (4.70-6.10) L Hemoglobin 9.5 G/DL (14.2-18.0) L Hematocrit 29.2 % (42.0-52.0) L Mean Corpuscular Volume 100 FL (80-99) H Mean Corpuscular Hemoglobin 32.6 PG (27.0-31.0) H Mean Corpuscular Hemoglobin Concent 32.5 G/DL (32.0-36.0) Red Cell Distribution Width 13.0 % (11.6-14.8) Platelet Count 259 K/UL (150-450) Mean Platelet Volume 8.5 FL (6.5-10.1) Neutrophils (%) (Auto) 59.7 % (45.0-75.0) Lymphocytes (%) (Auto) 22.7 % (20.0-45.0) Monocytes (%) (Auto) 8.2 % (1.0-10.0) Eosinophils (%) (Auto) 8.2 % (0.0-3.0) H Basophils (%) (Auto) 1.3 % (0.0-2.0) Sodium Level 142 mEQ/L (135-145) Potassium Level 4.3 mEQ/L (3.4-4.9) Chloride Level 105 mEQ/L (98-107) Carbon Dioxide Level 28 mEQ/L (20-30) Anion Gap 9 (5-15) Blood Urea Nitrogen 16 mg/dL (7-23) Creatinine 0.6 mg/dL (0.7-1.2) L Estimat Glomerular Filtration Rate mL/min (>60) Glucose Level 130 mg/dL (74-106) H Calcium Level 8.4 mg/dL (8.6-10.2) L Phosphorus Level 3.7 mg/dL (2.5-4.8) Magnesium Level 2.0 mg/dL (1.7-2.5) Total Bilirubin 0.3 mg/dL (0.0-1.2) Aspartate Amino Transf (AST/SGOT) 16 U/L (5-40) Alanine Aminotransferase (ALT/SGPT) 13 U/L (3-41) Alkaline Phosphatase 63 U/L (40-129) Total Protein 5.1 g/dL (6.6-8.7) L Albumin 2.3 g/dL (3.5-5.2) L Globulin 2.8 g/dL Albumin/Globulin Ratio 0.8 (1.0-2.7) L Arterial Blood pH 7.474 (7.350-7.450) Arterial Blood Partial Pressure CO2 43.6 mmHg (35.0-45.0) Arterial Blood Partial Pressure O2 119.9 mmHg (75.0-100.0) H Arterial Blood HCO3 31.3 mmol/L (22.0-26.0) H Arterial Blood Oxygen Saturation 98.1 % (92.0-98.0) H Arterial Blood Base Excess 7.0 Leo Test Positive Microbiology Date/Time Source Procedure Growth Status 01/11/17 13:15 Sputum Gram Stain - Final Resulted 01/11/17 13:15 Sputum Sputum Culture - Preliminary NO GROWTH AFTER 24 HOURS Resulted Objective NECK: No JVD. Orally intubated with NG tube in. LUNGS: Coarse rhonchi. CARDIOVASCULAR: Regular S1 and S2 with no gallop or murmur. ABDOMEN: Soft. EXTREMITIES: No pitting edema. ARGELIA DUONG Jan 12, 2017 16:41
--- NOTE | 2017-01-12 20:07 | Internal Med Progress Note ---
Subjective Date of Service: Jan 12, 2017 Physician Name Rosas Johnson Attending Physician Rosas Johnson Current Medications Medications (Trade) Dose Ordered Sig/Daina Route PRN Reason Start Time Stop Time Status Last Admin Dose Admin Acetaminophen (Tylenol) 650 mg Q4H PRN ORAL fever 01/04/17 21:00 02/03/17 20:59 Albuterol/ Ipratropium (DuoNeb 0.5-3(2.5)mg/3ml) 3 ml Q6HRT HHN 01/08/17 01:00 01/13/17 00:59 01/12/17 19:05 Betamethasone/ Clotrimazole (Lotrisone) 1 applic TWICE A DAY TOPIC 01/12/17 12:30 02/11/17 12:29 01/12/17 17:58 Clonidine HCl (Catapres) 0.1 mg Q6H PRN GT SBP > 170 01/06/17 16:00 02/05/17 15:59 Dextrose (Dextrose 50%) STAT PRN IV Hypoglycemia 01/04/17 21:00 02/03/17 20:59 Diltiazem HCl (Cardizem) 30 mg EVERY 6 HOURS NG 01/09/17 18:00 02/08/17 17:59 01/12/17 17:58 Docusate Sodium (Colace) 100 mg DAILY ORAL 01/12/17 11:15 02/11/17 11:14 01/12/17 12:02 Heparin Sodium (Porcine) (Heparin 5000 units/ml) 5,000 units EVERY 12 HOURS SUBQ 01/04/17 22:00 02/03/17 21:59 01/12/17 08:35 Lansoprazole (Prevacid) 30 mg DAILY GT 01/13/17 09:00 02/12/17 08:59 Lorazepam 1 mg 1 mg Q4H PRN IV For Anxiety 01/10/17 13:00 01/17/17 12:59 01/11/17 22:08 Nitroglycerin (Ntg) 0.4 mg Every 5 Minutes PRN SL Prn Chest Pain 01/04/17 21:00 02/03/17 20:59 Ondansetron HCl (Zofran) 4 mg Q6H PRN IVP Nausea & Vomiting 01/04/17 21:00 02/03/17 20:59 Piperacillin Sod/ Tazobactam Sod/ Dextrose (Zosyn/D5W) 110 ml @ 27.5 mls/hr Q8HR IVPB 01/11/17 14:00 01/15/17 13:59 01/12/17 13:43 Polyethylene Glycol (Miralax) 17 gm DAILYPRN PRN GT Constipation 01/06/17 15:55 02/03/17 20:59 Allergies: Coded Allergies: No Known Allergies (Verified , 01/06/17) ROS Limited/Unobtainable: Yes Subjective 76 YO M admitted with aspiration and respiratory failure. Reintubated 01/09/17. Intubated and sedated. ICU. Objective Last Vital Signs Date Time Temp Pulse Resp B/P Pulse Ox O2 Delivery O2 Flow Rate FiO2 01/12/17 19:18 70 15 100 Mechanical Ventilator 30 01/12/17 19:00 111/65 01/12/17 16:00 97.5 01/09/17 01:00 15.0 Laboratory Tests Test 01/12/17 04:20 01/12/17 09:15 White Blood Count 6.6 K/UL (4.8-10.8) Red Blood Count 2.91 M/UL (4.70-6.10) L Hemoglobin 9.5 G/DL (14.2-18.0) L Hematocrit 29.2 % (42.0-52.0) L Mean Corpuscular Volume 100 FL (80-99) H Mean Corpuscular Hemoglobin 32.6 PG (27.0-31.0) H Mean Corpuscular Hemoglobin Concent 32.5 G/DL (32.0-36.0) Red Cell Distribution Width 13.0 % (11.6-14.8) Platelet Count 259 K/UL (150-450) Mean Platelet Volume 8.5 FL (6.5-10.1) Neutrophils (%) (Auto) 59.7 % (45.0-75.0) Lymphocytes (%) (Auto) 22.7 % (20.0-45.0) Monocytes (%) (Auto) 8.2 % (1.0-10.0) Eosinophils (%) (Auto) 8.2 % (0.0-3.0) H Basophils (%) (Auto) 1.3 % (0.0-2.0) Sodium Level 142 mEQ/L (135-145) Potassium Level 4.3 mEQ/L (3.4-4.9) Chloride Level 105 mEQ/L (98-107) Carbon Dioxide Level 28 mEQ/L (20-30) Anion Gap 9 (5-15) Blood Urea Nitrogen 16 mg/dL (7-23) Creatinine 0.6 mg/dL (0.7-1.2) L Estimat Glomerular Filtration Rate mL/min (>60) Glucose Level 130 mg/dL (74-106) H Calcium Level 8.4 mg/dL (8.6-10.2) L Phosphorus Level 3.7 mg/dL (2.5-4.8) Magnesium Level 2.0 mg/dL (1.7-2.5) Total Bilirubin 0.3 mg/dL (0.0-1.2) Aspartate Amino Transf (AST/SGOT) 16 U/L (5-40) Alanine Aminotransferase (ALT/SGPT) 13 U/L (3-41) Alkaline Phosphatase 63 U/L (40-129) Total Protein 5.1 g/dL (6.6-8.7) L Albumin 2.3 g/dL (3.5-5.2) L Globulin 2.8 g/dL Albumin/Globulin Ratio 0.8 (1.0-2.7) L Arterial Blood pH 7.474 (7.350-7.450) Arterial Blood Partial Pressure CO2 43.6 mmHg (35.0-45.0) Arterial Blood Partial Pressure O2 119.9 mmHg (75.0-100.0) H Arterial Blood HCO3 31.3 mmol/L (22.0-26.0) H Arterial Blood Oxygen Saturation 98.1 % (92.0-98.0) H Arterial Blood Base Excess 7.0 Leo Test Positive Microbiology Date/Time Source Procedure Growth Status 01/11/17 13:15 Sputum Gram Stain - Final Resulted 01/11/17 13:15 Sputum Sputum Culture - Preliminary NO GROWTH AFTER 24 HOURS Resulted Intake and Output 01/11/17 01/12/17 19:00 07:00 Intake Total 972.5 ml 777.5 ml Output Total 765 ml 400 ml Balance 207.5 ml 377.5 ml Free Water 30 ml IV Total 192.5 ml 27.5 ml Tube Feeding 660 ml 660 ml Other 90 ml 90 ml Output Urine Total 765 ml 400 ml Objective General Appearance: WD/WN, moderate distress EENT: PERRL/EOMI, normal ENT inspection Neck: non-tender, normal alignment, supple Cardiovascular: normal peripheral pulses, normal rate, regular rhythm, no gallop/murmur, no JVD Respiratory/Chest: Mech vent; respiratory distress, crackles/rales, rhonchi - bilaterally, expiratory wheezing Abdomen: normal bowel sounds, non tender, soft, no organomegaly, no mass Extremities: normal range of motion, non-tender 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 Weaning protocol. See pulmonary note. (2) Hypertension Assessment & Plan: Better control-see cardiology consult. (3) Hypercholesteremia (4) BPH (benign prostatic hyperplasia) (5) Alzheimer's dementia (6) Aspiration pneumonia Assessment & Plan: Continue vanco and zosyn. See pulmonary and ID note. (7) Hematuria Assessment & Plan: Resolved (8) Atrial fibrillation with RVR Assessment & Plan: S/P Cardizem drip; see cardiology note. Status: not improved Assessment/Plan Discussed with ROSAS JOHNSON Jan 12, 2017 20:07
[2017-01-13] VITALS (24 sets, daily range): BP systolic 59–159; BP diastolic 52–96
[2017-01-13] MEDS: DuoNeb 0.5-3(2.5)mg/3ml neb HHN SCH ×4 (01:51→19:23)
[2017-01-13 05:27] LABS: BASOPHILS % (AUTO) 1.2 % (0.0-2.0); EOSINOPHILS % (AUTO) 6.9 % (0.0-3.0); LYMPHOCYTES % (AUTO) 25.2 % (20.0-45.0); MEAN CORPUSCULAR HEMOGLOBIN 32.1 PG (27.0-31.0); MEAN CORPUSCULAR HGB CONC 32.3 G/DL (32.0-36.0); MEAN CORPUSCULAR VOLUME 99 FL (80-99); MEAN PLATELET VOLUME 8.1 FL (6.5-10.1); MONOCYTES % (AUTO) 8.1 % (1.0-10.0); NEUTROPHILS % (AUTO) 58.6 % (45.0-75.0); PLATELET COUNT 286 K/UL (150-450); RED BLOOD COUNT 2.93 M/UL (4.70-6.10); RED CELL DISTRIBUTION WIDTH 13.4 % (11.6-14.8); WHITE BLOOD COUNT 7.2 K/UL (4.8-10.8)
[2017-01-13] MEDS: Piperacillin/Tazobactam 3.375 GM in D5W 110 ML IVPB SCH ×3 (05:35→22:02)
[2017-01-13 05:45] LABS: ALANINE AMINOTRANSFERASE 10 U/L (3-41); ALBUMIN/GLOBULIN RATIO 0.8 (1.0-2.7); ANION GAP 8 (5-15); ASPARTATE AMINO TRANSFERASE 9 U/L (5-40); CALCIUM 8.3 mg/dL (8.6-10.2); CARBON DIOXIDE 30 mEQ/L (20-30); CHLORIDE 102 mEQ/L (98-107); CREATININE 0.7 mg/dL (0.7-1.2); HEMOLYSIS 0; MAGNESIUM 1.9 mg/dL (1.7-2.5); PHOSPHORUS 3.8 mg/dL (2.5-4.8); SODIUM 140 mEQ/L (135-145); TOTAL PROTEIN 5.1 g/dL (6.6-8.7)
[2017-01-13 08:26] LABS: ABG ALLEN TEST POSITIVE; ABG BASE EXCESS 5.8; ABG PCO2 41.8 mmHg (35.0-45.0)
[2017-01-13] MEDS: Docusate 100mg tablet ORAL SCH (09:13)
[2017-01-13] MEDS: Lotrisone Cream 15gm TOPIC SCH ×2 (09:13→17:35)
[2017-01-13] MEDS: Heparin 5000 units/ml inj SUBQ SCH ×2 (09:14→21:01)
--- NOTE | 2017-01-13 09:56 | Pulmonolgy Critical Care Note ---
Critical Care - Asmt/Plan Problems: (1) Respiratory distress (2) Aspiration pneumonia (3) Dementia Respiratory: monitor respiratory rate, adjust FIO2, CXR Cardiac: continue to monitor HR/BP Renal: F/U I&O, check electrolytes Infectious Disease: check cultures, continue antibiotics Gastrointestinal: continue feedings/current rate Endocrine: monitor blood sugar, check TSH, continue sliding scale insulin Hematologic: monitor H/H, transfuse if hgb<8.5 Neurologic: keep patient comfortable Affect: PRN ativan Disposition: keep in ICU Notes Reviewed: preschool adviser, renal Discussed with: nurses, consultants, behavioral health case managerbiofuels product development manager - Objective Last 24 Hour Vital Signs Date Time Temp Pulse Resp B/P Pulse Ox O2 Delivery O2 Flow Rate FiO2 01/13/17 09:12 30 01/13/17 09:06 68 18 30 01/13/17 09:06 100 01/13/17 08:00 80 01/13/17 08:00 98.1 71 18 123/77 100 Mechanical Ventilator 30 01/13/17 07:49 30 01/13/17 07:00 73 18 105/52 100 Mechanical Ventilator 30 01/13/17 06:50 71 15 100 Mechanical Ventilator 30 01/13/17 06:47 66 10 30 01/13/17 06:39 68 10 100 Mechanical Ventilator 30 01/13/17 06:00 65 18 119/69 100 Mechanical Ventilator 30 01/13/17 05:36 67 127/61 01/13/17 05:28 70 24 30 01/13/17 05:00 65 18 127/61 100 Mechanical Ventilator 30 01/13/17 04:00 30 01/13/17 04:00 67 01/13/17 04:00 98.6 68 17 119/55 100 Mechanical Ventilator 30 01/13/17 03:20 71 12 30 01/13/17 03:00 70 18 100/58 100 Mechanical Ventilator 30 01/13/17 02:00 89 17 121/60 100 Mechanical Ventilator 30 01/13/17 01:59 72 19 100 Mechanical Ventilator 30 01/13/17 01:50 70 16 100 Mechanical Ventilator 30 01/13/17 01:15 64 12 30 01/13/17 01:00 63 27 109/56 100 Mechanical Ventilator 30 01/13/17 00:00 98.5 65 20 109/56 100 Mechanical Ventilator 30 01/13/17 00:00 30 01/13/17 00:00 67 01/12/17 23:48 66 126/63 01/12/17 23:32 66 18 30 01/12/17 23:00 67 15 126/63 100 Mechanical Ventilator 30 01/12/17 22:00 66 13 119/61 100 Mechanical Ventilator 30 01/12/17 21:06 70 18 30 01/12/17 21:00 69 15 111/53 100 Mechanical Ventilator 30 01/12/17 20:00 98.0 72 22 131/60 100 Mechanical Ventilator 30 01/12/17 20:00 69 01/12/17 20:00 30 01/12/17 19:18 70 15 100 Mechanical Ventilator 30 01/12/17 19:07 66 13 100 Mechanical Ventilator 30 01/12/17 19:05 65 13 30 01/12/17 19:00 66 22 111/65 100 Mechanical Ventilator 30 01/12/17 18:00 69 26 141/81 100 Mechanical Ventilator 30 01/12/17 17:58 65 140/77 01/12/17 17:00 66 24 140/77 100 Mechanical Ventilator 30 01/12/17 16:43 67 19 30 01/12/17 16:00 97.5 69 22 148/62 99 Mechanical Ventilator 30 01/12/17 16:00 30 01/12/17 16:00 66 01/12/17 15:00 70 23 149/99 100 Mechanical Ventilator 30 01/12/17 14:46 77 19 30 01/12/17 14:00 69 20 136/63 100 Mechanical Ventilator 30 01/12/17 13:00 66 22 150/74 100 Mechanical Ventilator 30 01/12/17 12:31 71 18 30 01/12/17 12:26 67 21 100 Mechanical Ventilator 30 01/12/17 12:17 66 15 100 Mechanical Ventilator 30 01/12/17 12:05 73 181/78 01/12/17 12:00 97.7 69 15 167/78 100 Mechanical Ventilator 35 01/12/17 12:00 63 01/12/17 12:00 30 01/12/17 11:13 72 17 30 01/12/17 11:00 72 16 163/85 98 Mechanical Ventilator 35 01/12/17 10:00 65 18 125/68 100 Mechanical Ventilator 35 Status: awake Condition: critical HEENT: atraumatic, normocephalic Lungs: clear, chest wall tender Heart: HR/BP stable Abdomen: soft, active bowel sounds Extremities: no C/C/E, edema Decubiti: location Micro: Microbiology Date/Time Source Procedure Growth Status 01/11/17 13:15 Sputum Gram Stain - Final Complete 01/11/17 13:15 Sputum Culture - Final Ada Albicans Complete Accucheck: 115 Critical Care - Subjective ROS Limited/Unobtainable: No ICU Day: 9 Intubation Day: 9 Condition: critical EKG Rhythm: Sinus Rhythm FI02: 30 Vent Support Breath Rate: 6 Vent Support Mode: CPAP Vent Tidal Volume: 600 Sputum Amount: Large PEEP: 5.0 PIP: 16 Fluids: kvo Tube Feeding Amount: 55 I&O: Intake and Output 01/12/17 01/13/17 19:00 07:00 Intake Total 992.5 ml 880.0 ml Output Total 645 ml 535 ml Balance 347.5 ml 345.0 ml Free Water 30 ml 80 ml IV Total 192.5 ml 110.0 ml Tube Feeding 660 ml 660 ml Other 110 ml 30 ml Output Urine Total 645 ml 535 ml CXR: clear ET-Tube: 7.5 ET Position: 24 Labs: Laboratory Tests Test 01/13/17 04:40 01/13/17 08:10 White Blood Count 7.2 K/UL (4.8-10.8) Red Blood Count 2.93 M/UL (4.70-6.10) L Hemoglobin 9.4 G/DL (14.2-18.0) L Hematocrit 29.1 % (42.0-52.0) L Mean Corpuscular Volume 99 FL (80-99) Mean Corpuscular Hemoglobin 32.1 PG (27.0-31.0) H Mean Corpuscular Hemoglobin Concent 32.3 G/DL (32.0-36.0) Red Cell Distribution Width 13.4 % (11.6-14.8) Platelet Count 286 K/UL (150-450) Mean Platelet Volume 8.1 FL (6.5-10.1) Neutrophils (%) (Auto) 58.6 % (45.0-75.0) Lymphocytes (%) (Auto) 25.2 % (20.0-45.0) Monocytes (%) (Auto) 8.1 % (1.0-10.0) Eosinophils (%) (Auto) 6.9 % (0.0-3.0) H Basophils (%) (Auto) 1.2 % (0.0-2.0) Sodium Level 140 mEQ/L (135-145) Potassium Level 4.0 mEQ/L (3.4-4.9) Chloride Level 102 mEQ/L (98-107) Carbon Dioxide Level 30 mEQ/L (20-30) Anion Gap 8 (5-15) Blood Urea Nitrogen 17 mg/dL (7-23) Creatinine 0.7 mg/dL (0.7-1.2) Estimat Glomerular Filtration Rate mL/min (>60) Glucose Level 131 mg/dL (74-106) H Calcium Level 8.3 mg/dL (8.6-10.2) L Phosphorus Level 3.8 mg/dL (2.5-4.8) Magnesium Level 1.9 mg/dL (1.7-2.5) Total Bilirubin 0.3 mg/dL (0.0-1.2) Aspartate Amino Transf (AST/SGOT) 9 U/L (5-40) Alanine Aminotransferase (ALT/SGPT) 10 U/L (3-41) Alkaline Phosphatase 60 U/L (40-129) Total Protein 5.1 g/dL (6.6-8.7) L Albumin 2.4 g/dL (3.5-5.2) L Globulin 2.7 g/dL Albumin/Globulin Ratio 0.8 (1.0-2.7) L Arterial Blood pH 7.473 (7.350-7.450) Arterial Blood Partial Pressure CO2 41.8 mmHg (35.0-45.0) Arterial Blood Partial Pressure O2 95.5 mmHg (75.0-100.0) Arterial Blood HCO3 29.9 mmol/L (22.0-26.0) H Arterial Blood Oxygen Saturation 97.3 % (92.0-98.0) Arterial Blood Base Excess 5.8 Leo Test Positive RABIA BANGURA Jan 13, 2017 09:56
--- NOTE | 2017-01-13 10:54 | Diagnostic Imaging Report ---
Indication: DYSPNEA Technique: One view of the chest Comparison: 01/12/2017 Findings: Slightly better inspiration on the current exam. Interim clearing of previously demonstrated retrocardiac opacity. Previously demonstrated right basilar nodular opacity is no longer evident. Calcified upper lobe granuloma is again demonstrated Lungs and pleural spaces currently clear otherwise. Heart size is normal. Stable satisfactory positions of endotracheal and nasogastric tubes. There are degenerative changes of the thoracic spine Impression: Stable tube positions as described Interim resolution of previously demonstrated retrocardiac consolidation and right basilar opacity. Lungs are currently clear
[2017-01-13] MEDS: Theophylline 80mg/15ml ORAL SCH ×3 (11:49→23:45)
--- NOTE | 2017-01-13 14:22 | Cardiac Electrophysiology PN ---
Assessment/Plan Assessment/Plan 1. Atrial fib with RVR could be due to respiratory acidosis. Happened before he was intubated. On Cardizem 30mg NG q 6 hrs. Hold off on heparin drip unless atrial fib recurs. Remained in SR. 2. Hypertension.Continue Cardizem. 3. Severe pulmonary hypertension, pressure 55, likely due to history of obstructive sleep apnea. 4. Recurrent Respiratory failure due to aspiration, Reintubated 01/08/17. On Zosyn. Being weaned again.? extubation tomorrow. 5. Dementia. 6. Dysphagia. May need PEG DW and RN Subjective Subjective In ICU on vent in CPAP mode. Remained in SR. RN and at bedside. No recurrence of atrial fib. Objective Last 24 Hour Vital Signs Date Time Temp Pulse Resp B/P Pulse Ox O2 Delivery O2 Flow Rate FiO2 01/13/17 14:00 76 20 125/60 100 Mechanical Ventilator 30 01/13/17 13:00 79 19 133/53 100 Mechanical Ventilator 30 01/13/17 12:51 63 17 100 Mechanical Ventilator 30 01/13/17 12:50 61 15 30 01/13/17 12:40 61 16 100 Mechanical Ventilator 30 01/13/17 12:00 98.2 65 18 112/52 100 Mechanical Ventilator 30 01/13/17 12:00 66 01/13/17 11:49 69 121/58 01/13/17 11:07 30 01/13/17 11:00 67 20 121/58 100 Mechanical Ventilator 30 01/13/17 10:58 69 19 30 01/13/17 10:00 72 19 154/68 100 Mechanical Ventilator 30 01/13/17 09:12 30 01/13/17 09:06 68 18 30 01/13/17 09:06 100 01/13/17 09:00 70 18 131/52 100 Mechanical Ventilator 30 01/13/17 08:00 80 01/13/17 08:00 98.1 71 18 123/77 100 Mechanical Ventilator 30 01/13/17 07:49 30 01/13/17 07:00 73 18 105/52 100 Mechanical Ventilator 30 01/13/17 06:50 71 15 100 Mechanical Ventilator 30 01/13/17 06:47 66 10 30 01/13/17 06:39 68 10 100 Mechanical Ventilator 30 01/13/17 06:00 65 18 119/69 100 Mechanical Ventilator 30 01/13/17 05:36 67 127/61 01/13/17 05:28 70 24 30 01/13/17 05:00 65 18 127/61 100 Mechanical Ventilator 30 01/13/17 04:00 30 01/13/17 04:00 67 01/13/17 04:00 98.6 68 17 119/55 100 Mechanical Ventilator 30 01/13/17 03:20 71 12 30 01/13/17 03:00 70 18 100/58 100 Mechanical Ventilator 30 01/13/17 02:00 89 17 121/60 100 Mechanical Ventilator 30 01/13/17 01:59 72 19 100 Mechanical Ventilator 30 01/13/17 01:50 70 16 100 Mechanical Ventilator 30 01/13/17 01:15 64 12 30 01/13/17 01:00 63 27 109/56 100 Mechanical Ventilator 30 01/13/17 00:00 98.5 65 20 109/56 100 Mechanical Ventilator 30 01/13/17 00:00 30 01/13/17 00:00 67 01/12/17 23:48 66 126/63 01/12/17 23:32 66 18 30 01/12/17 23:00 67 15 126/63 100 Mechanical Ventilator 30 01/12/17 22:00 66 13 119/61 100 Mechanical Ventilator 30 01/12/17 21:06 70 18 30 01/12/17 21:00 69 15 111/53 100 Mechanical Ventilator 30 01/12/17 20:00 98.0 72 22 131/60 100 Mechanical Ventilator 30 01/12/17 20:00 69 01/12/17 20:00 30 01/12/17 19:18 70 15 100 Mechanical Ventilator 30 01/12/17 19:07 66 13 100 Mechanical Ventilator 30 01/12/17 19:05 65 13 30 01/12/17 19:00 66 22 111/65 100 Mechanical Ventilator 30 01/12/17 18:00 69 26 141/81 100 Mechanical Ventilator 30 01/12/17 17:58 65 140/77 01/12/17 17:00 66 24 140/77 100 Mechanical Ventilator 30 01/12/17 16:43 67 19 30 01/12/17 16:00 97.5 69 22 148/62 99 Mechanical Ventilator 30 01/12/17 16:00 30 01/12/17 16:00 66 01/12/17 15:00 70 23 149/99 100 Mechanical Ventilator 30 01/12/17 14:46 77 19 30 Intake and Output 01/12/17 01/13/17 19:00 07:00 Intake Total 992.5 ml 880.0 ml Output Total 645 ml 535 ml Balance 347.5 ml 345.0 ml Free Water 30 ml 80 ml IV Total 192.5 ml 110.0 ml Tube Feeding 660 ml 660 ml Other 110 ml 30 ml Output Urine Total 645 ml 535 ml Laboratory Tests Test 01/13/17 04:40 01/13/17 08:10 White Blood Count 7.2 K/UL (4.8-10.8) Red Blood Count 2.93 M/UL (4.70-6.10) L Hemoglobin 9.4 G/DL (14.2-18.0) L Hematocrit 29.1 % (42.0-52.0) L Mean Corpuscular Volume 99 FL (80-99) Mean Corpuscular Hemoglobin 32.1 PG (27.0-31.0) H Mean Corpuscular Hemoglobin Concent 32.3 G/DL (32.0-36.0) Red Cell Distribution Width 13.4 % (11.6-14.8) Platelet Count 286 K/UL (150-450) Mean Platelet Volume 8.1 FL (6.5-10.1) Neutrophils (%) (Auto) 58.6 % (45.0-75.0) Lymphocytes (%) (Auto) 25.2 % (20.0-45.0) Monocytes (%) (Auto) 8.1 % (1.0-10.0) Eosinophils (%) (Auto) 6.9 % (0.0-3.0) H Basophils (%) (Auto) 1.2 % (0.0-2.0) Sodium Level 140 mEQ/L (135-145) Potassium Level 4.0 mEQ/L (3.4-4.9) Chloride Level 102 mEQ/L (98-107) Carbon Dioxide Level 30 mEQ/L (20-30) Anion Gap 8 (5-15) Blood Urea Nitrogen 17 mg/dL (7-23) Creatinine 0.7 mg/dL (0.7-1.2) Estimat Glomerular Filtration Rate mL/min (>60) Glucose Level 131 mg/dL (74-106) H Calcium Level 8.3 mg/dL (8.6-10.2) L Phosphorus Level 3.8 mg/dL (2.5-4.8) Magnesium Level 1.9 mg/dL (1.7-2.5) Total Bilirubin 0.3 mg/dL (0.0-1.2) Aspartate Amino Transf (AST/SGOT) 9 U/L (5-40) Alanine Aminotransferase (ALT/SGPT) 10 U/L (3-41) Alkaline Phosphatase 60 U/L (40-129) Total Protein 5.1 g/dL (6.6-8.7) L Albumin 2.4 g/dL (3.5-5.2) L Globulin 2.7 g/dL Albumin/Globulin Ratio 0.8 (1.0-2.7) L Arterial Blood pH 7.473 (7.350-7.450) Arterial Blood Partial Pressure CO2 41.8 mmHg (35.0-45.0) Arterial Blood Partial Pressure O2 95.5 mmHg (75.0-100.0) Arterial Blood HCO3 29.9 mmol/L (22.0-26.0) H Arterial Blood Oxygen Saturation 97.3 % (92.0-98.0) Arterial Blood Base Excess 5.8 Leo Test Positive Microbiology Date/Time Source Procedure Growth Status 01/11/17 13:15 Sputum Gram Stain - Final Complete 01/11/17 13:15 Sputum Culture - Final Ada Albicans Complete Objective NECK: No JVD. Orally intubated with NG tube in. LUNGS: Coarse rhonchi. CARDIOVASCULAR: Regular S1 and S2 with no gallop or murmur. ABDOMEN: Soft. EXTREMITIES: No pitting edema. ARGELIA DUONG Jan 13, 2017 14:22
--- NOTE | 2017-01-13 15:14 | Infectious Diseases Prog Note ---
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 SP Extubation 01/06 , reintubated 01/09 History of fracture of femoral neck. Dementia. Hypertension PLAN: cont Zosyn d# 9 / 10 ( 01/08 SP Vanco d# 4 ) Monitor CBC. Monitor BMP Monitor chest x-ray cont vent support Subjective Allergies: Coded Allergies: No Known Allergies (Verified , 01/06/17) Subjective intubated on vent Objective Vital Signs Last 24 Hour Vital Signs Date Time Temp Pulse Resp B/P Pulse Ox O2 Delivery O2 Flow Rate FiO2 01/13/17 15:11 71 17 30 01/13/17 15:00 73 19 132/69 100 Mechanical Ventilator 30 01/13/17 14:00 76 20 125/60 100 Mechanical Ventilator 30 01/13/17 13:00 79 19 133/53 100 Mechanical Ventilator 30 01/13/17 12:51 63 17 100 Mechanical Ventilator 30 01/13/17 12:50 61 15 30 01/13/17 12:40 61 16 100 Mechanical Ventilator 30 01/13/17 12:00 98.2 65 18 112/52 100 Mechanical Ventilator 30 01/13/17 12:00 66 01/13/17 11:49 69 121/58 01/13/17 11:07 30 01/13/17 11:00 67 20 121/58 100 Mechanical Ventilator 30 01/13/17 10:58 69 19 30 01/13/17 10:00 72 19 154/68 100 Mechanical Ventilator 30 01/13/17 09:12 30 01/13/17 09:06 68 18 30 01/13/17 09:06 100 01/13/17 09:00 70 18 131/52 100 Mechanical Ventilator 30 01/13/17 08:00 80 01/13/17 08:00 98.1 71 18 123/77 100 Mechanical Ventilator 30 01/13/17 07:49 30 01/13/17 07:00 73 18 105/52 100 Mechanical Ventilator 30 01/13/17 06:50 71 15 100 Mechanical Ventilator 30 01/13/17 06:47 66 10 30 01/13/17 06:39 68 10 100 Mechanical Ventilator 30 01/13/17 06:00 65 18 119/69 100 Mechanical Ventilator 30 01/13/17 05:36 67 127/61 01/13/17 05:28 70 24 30 01/13/17 05:00 65 18 127/61 100 Mechanical Ventilator 30 01/13/17 04:00 30 01/13/17 04:00 67 01/13/17 04:00 98.6 68 17 119/55 100 Mechanical Ventilator 30 01/13/17 03:20 71 12 30 01/13/17 03:00 70 18 100/58 100 Mechanical Ventilator 30 01/13/17 02:00 89 17 121/60 100 Mechanical Ventilator 30 01/13/17 01:59 72 19 100 Mechanical Ventilator 30 01/13/17 01:50 70 16 100 Mechanical Ventilator 30 01/13/17 01:15 64 12 30 01/13/17 01:00 63 27 109/56 100 Mechanical Ventilator 30 01/13/17 00:00 98.5 65 20 109/56 100 Mechanical Ventilator 30 01/13/17 00:00 30 01/13/17 00:00 67 01/12/17 23:48 66 126/63 01/12/17 23:32 66 18 30 01/12/17 23:00 67 15 126/63 100 Mechanical Ventilator 30 01/12/17 22:00 66 13 119/61 100 Mechanical Ventilator 30 01/12/17 21:06 70 18 30 01/12/17 21:00 69 15 111/53 100 Mechanical Ventilator 30 01/12/17 20:00 98.0 72 22 131/60 100 Mechanical Ventilator 30 01/12/17 20:00 69 01/12/17 20:00 30 01/12/17 19:18 70 15 100 Mechanical Ventilator 30 01/12/17 19:07 66 13 100 Mechanical Ventilator 30 01/12/17 19:05 65 13 30 01/12/17 19:00 66 22 111/65 100 Mechanical Ventilator 30 01/12/17 18:00 69 26 141/81 100 Mechanical Ventilator 30 01/12/17 17:58 65 140/77 01/12/17 17:00 66 24 140/77 100 Mechanical Ventilator 30 01/12/17 16:43 67 19 30 01/12/17 16:00 97.5 69 22 148/62 99 Mechanical Ventilator 30 01/12/17 16:00 30 01/12/17 16:00 66 Height (Feet): 5 Height (Inches): 5.00 Weight (Pounds): 120 HEENT: anicteric Respiratory/Chest: decreased breath sounds Cardiovascular: normal peripheral pulses Abdomen: no mass Microbiology Date/Time Source Procedure Growth Status 01/11/17 13:15 Sputum Gram Stain - Final Complete 01/11/17 13:15 Sputum Culture - Final Gina Albicans Complete Laboratory Tests Test 01/13/17 04:40 01/13/17 08:10 White Blood Count 7.2 K/UL (4.8-10.8) Red Blood Count 2.93 M/UL (4.70-6.10) L Hemoglobin 9.4 G/DL (14.2-18.0) L Hematocrit 29.1 % (42.0-52.0) L Mean Corpuscular Volume 99 FL (80-99) Mean Corpuscular Hemoglobin 32.1 PG (27.0-31.0) H Mean Corpuscular Hemoglobin Concent 32.3 G/DL (32.0-36.0) Red Cell Distribution Width 13.4 % (11.6-14.8) Platelet Count 286 K/UL (150-450) Mean Platelet Volume 8.1 FL (6.5-10.1) Neutrophils (%) (Auto) 58.6 % (45.0-75.0) Lymphocytes (%) (Auto) 25.2 % (20.0-45.0) Monocytes (%) (Auto) 8.1 % (1.0-10.0) Eosinophils (%) (Auto) 6.9 % (0.0-3.0) H Basophils (%) (Auto) 1.2 % (0.0-2.0) Sodium Level 140 mEQ/L (135-145) Potassium Level 4.0 mEQ/L (3.4-4.9) Chloride Level 102 mEQ/L (98-107) Carbon Dioxide Level 30 mEQ/L (20-30) Anion Gap 8 (5-15) Blood Urea Nitrogen 17 mg/dL (7-23) Creatinine 0.7 mg/dL (0.7-1.2) Estimat Glomerular Filtration Rate mL/min (>60) Glucose Level 131 mg/dL (74-106) H Calcium Level 8.3 mg/dL (8.6-10.2) L Phosphorus Level 3.8 mg/dL (2.5-4.8) Magnesium Level 1.9 mg/dL (1.7-2.5) Total Bilirubin 0.3 mg/dL (0.0-1.2) Aspartate Amino Transf (AST/SGOT) 9 U/L (5-40) Alanine Aminotransferase (ALT/SGPT) 10 U/L (3-41) Alkaline Phosphatase 60 U/L (40-129) Total Protein 5.1 g/dL (6.6-8.7) L Albumin 2.4 g/dL (3.5-5.2) L Globulin 2.7 g/dL Albumin/Globulin Ratio 0.8 (1.0-2.7) L Arterial Blood pH 7.473 (7.350-7.450) Arterial Blood Partial Pressure CO2 41.8 mmHg (35.0-45.0) Arterial Blood Partial Pressure O2 95.5 mmHg (75.0-100.0) Arterial Blood HCO3 29.9 mmol/L (22.0-26.0) H Arterial Blood Oxygen Saturation 97.3 % (92.0-98.0) Arterial Blood Base Excess 5.8 Leo Test Positive Current Medications Medications (Trade) Dose Ordered Sig/Daina Route PRN Reason Start Time Stop Time Status Last Admin Dose Admin Acetaminophen (Tylenol) 650 mg Q4H PRN ORAL fever 01/04/17 21:00 02/03/17 20:59 Albuterol/ Ipratropium (DuoNeb 0.5-3(2.5)mg/3ml) 3 ml Q6HRT HHN 01/13/17 01:15 01/18/17 01:14 01/13/17 12:49 Betamethasone/ Clotrimazole (Lotrisone) 1 applic TWICE A DAY TOPIC 01/12/17 12:30 02/11/17 12:29 01/13/17 09:13 Clonidine HCl (Catapres) 0.1 mg Q6H PRN GT SBP > 170 01/06/17 16:00 02/05/17 15:59 Dextrose (Dextrose 50%) STAT PRN IV Hypoglycemia 01/04/17 21:00 02/03/17 20:59 Diltiazem HCl (Cardizem) 30 mg EVERY 6 HOURS NG 01/09/17 18:00 5/22/17 17:59 01/13/17 11:49 Docusate Sodium (Colace) 100 mg DAILY ORAL 01/12/17 11:15 02/11/17 11:14 01/13/17 09:13 Heparin Sodium (Porcine) (Heparin 5000 units/ml) 5,000 units EVERY 12 HOURS SUBQ 01/04/17 22:00 02/03/17 21:59 01/13/17 09:14 Lansoprazole (Prevacid) 30 mg DAILY GT 01/13/17 09:00 02/12/17 08:59 01/13/17 09:13 Lorazepam 1 mg 1 mg Q4H PRN IV For Anxiety 01/10/17 13:00 01/17/17 12:59 01/11/17 22:08 Nitroglycerin (Ntg) 0.4 mg Every 5 Minutes PRN SL Prn Chest Pain 01/04/17 21:00 02/03/17 20:59 Ondansetron HCl (Zofran) 4 mg Q6H PRN IVP Nausea & Vomiting 01/04/17 21:00 02/03/17 20:59 Piperacillin Sod/ Tazobactam Sod/ Dextrose (Zosyn/D5W) 110 ml @ 27.5 mls/hr Q8HR IVPB 01/11/17 14:00 01/15/17 13:59 01/13/17 14:07 Polyethylene Glycol (Miralax) 17 gm DAILYPRN PRN GT Constipation 01/06/17 15:55 02/03/17 20:59 Theophylline (Theophylline) 80 mg Q6HR ORAL 01/13/17 12:00 02/12/17 11:59 01/13/17 11:49 HORACIO JOHN M.D. Jan 13, 2017 15:14
[2017-01-13] MEDS ORDERED: Sterile Water Irrig 1000ml IRRIG ONE (16:31)
--- NOTE | 2017-01-13 19:54 | Internal Med Progress Note ---
Subjective Date of Service: Jan 13, 2017 Physician Name Sangeetha Johnson Attending Physician Sangeetha Johnson Current Medications Medications (Trade) Dose Ordered Sig/Daina Route PRN Reason Start Time Stop Time Status Last Admin Dose Admin Acetaminophen (Tylenol) 650 mg Q4H PRN ORAL fever 01/04/17 21:00 02/03/17 20:59 Albuterol/ Ipratropium (DuoNeb 0.5-3(2.5)mg/3ml) 3 ml Q6HRT HHN 01/13/17 01:15 01/18/17 01:14 01/13/17 19:23 Betamethasone/ Clotrimazole (Lotrisone) 1 applic TWICE A DAY TOPIC 01/12/17 12:30 02/11/17 12:29 01/13/17 17:35 Clonidine HCl (Catapres) 0.1 mg Q6H PRN GT SBP > 170 01/06/17 16:00 02/05/17 15:59 Dextrose (Dextrose 50%) STAT PRN IV Hypoglycemia 01/04/17 21:00 02/03/17 20:59 Diltiazem HCl (Cardizem) 30 mg EVERY 6 HOURS NG 01/09/17 18:00 02/08/17 17:59 01/13/17 17:35 Docusate Sodium (Colace) 100 mg DAILY ORAL 01/12/17 11:15 02/11/17 11:14 01/13/17 09:13 Heparin Sodium (Porcine) (Heparin 5000 units/ml) 5,000 units EVERY 12 HOURS SUBQ 01/04/17 22:00 02/03/17 21:59 01/13/17 09:14 Lansoprazole (Prevacid) 30 mg DAILY GT 01/13/17 09:00 02/12/17 08:59 01/13/17 09:13 Lorazepam 1 mg 1 mg Q4H PRN IV For Anxiety 01/10/17 13:00 01/17/17 12:59 01/11/17 22:08 Nitroglycerin (Ntg) 0.4 mg Every 5 Minutes PRN SL Prn Chest Pain 01/04/17 21:00 02/03/17 20:59 Ondansetron HCl (Zofran) 4 mg Q6H PRN IVP Nausea & Vomiting 01/04/17 21:00 02/03/17 20:59 Piperacillin Sod/ Tazobactam Sod/ Dextrose (Zosyn/D5W) 110 ml @ 27.5 mls/hr Q8HR IVPB 01/11/17 14:00 01/15/17 13:59 01/13/17 14:07 Polyethylene Glycol (Miralax) 17 gm DAILYPRN PRN GT Constipation 01/06/17 15:55 02/03/17 20:59 Theophylline (Theophylline) 80 mg Q6HR ORAL 01/13/17 12:00 02/12/17 11:59 01/13/17 17:36 Allergies: Coded Allergies: No Known Allergies (Verified , 01/06/17) ROS Limited/Unobtainable: Yes Subjective 76 YO M admitted with aspiration and respiratory failure. Reintubated 01/09/17. Intubated and sedated. ICU. Objective Last Vital Signs Date Time Temp Pulse Resp B/P Pulse Ox O2 Delivery O2 Flow Rate FiO2 01/13/17 19:23 69 16 100 Mechanical Ventilator 30 01/13/17 19:00 130/64 01/13/17 16:00 98.0 01/09/17 01:00 15.0 Laboratory Tests Test 01/13/17 04:40 01/13/17 08:10 White Blood Count 7.2 K/UL (4.8-10.8) Red Blood Count 2.93 M/UL (4.70-6.10) L Hemoglobin 9.4 G/DL (14.2-18.0) L Hematocrit 29.1 % (42.0-52.0) L Mean Corpuscular Volume 99 FL (80-99) Mean Corpuscular Hemoglobin 32.1 PG (27.0-31.0) H Mean Corpuscular Hemoglobin Concent 32.3 G/DL (32.0-36.0) Red Cell Distribution Width 13.4 % (11.6-14.8) Platelet Count 286 K/UL (150-450) Mean Platelet Volume 8.1 FL (6.5-10.1) Neutrophils (%) (Auto) 58.6 % (45.0-75.0) Lymphocytes (%) (Auto) 25.2 % (20.0-45.0) Monocytes (%) (Auto) 8.1 % (1.0-10.0) Eosinophils (%) (Auto) 6.9 % (0.0-3.0) H Basophils (%) (Auto) 1.2 % (0.0-2.0) Sodium Level 140 mEQ/L (135-145) Potassium Level 4.0 mEQ/L (3.4-4.9) Chloride Level 102 mEQ/L (98-107) Carbon Dioxide Level 30 mEQ/L (20-30) Anion Gap 8 (5-15) Blood Urea Nitrogen 17 mg/dL (7-23) Creatinine 0.7 mg/dL (0.7-1.2) Estimat Glomerular Filtration Rate mL/min (>60) Glucose Level 131 mg/dL (74-106) H Calcium Level 8.3 mg/dL (8.6-10.2) L Phosphorus Level 3.8 mg/dL (2.5-4.8) Magnesium Level 1.9 mg/dL (1.7-2.5) Total Bilirubin 0.3 mg/dL (0.0-1.2) Aspartate Amino Transf (AST/SGOT) 9 U/L (5-40) Alanine Aminotransferase (ALT/SGPT) 10 U/L (3-41) Alkaline Phosphatase 60 U/L (40-129) Total Protein 5.1 g/dL (6.6-8.7) L Albumin 2.4 g/dL (3.5-5.2) L Globulin 2.7 g/dL Albumin/Globulin Ratio 0.8 (1.0-2.7) L Arterial Blood pH 7.473 (7.350-7.450) Arterial Blood Partial Pressure CO2 41.8 mmHg (35.0-45.0) Arterial Blood Partial Pressure O2 95.5 mmHg (75.0-100.0) Arterial Blood HCO3 29.9 mmol/L (22.0-26.0) H Arterial Blood Oxygen Saturation 97.3 % (92.0-98.0) Arterial Blood Base Excess 5.8 Leo Test Positive Microbiology Date/Time Source Procedure Growth Status 01/11/17 13:15 Sputum Gram Stain - Final Complete 01/11/17 13:15 Sputum Culture - Final Ada Albicans Complete Intake and Output 01/12/17 01/13/17 19:00 07:00 Intake Total 992.5 ml 880.0 ml Output Total 645 ml 535 ml Balance 347.5 ml 345.0 ml Free Water 30 ml 80 ml IV Total 192.5 ml 110.0 ml Tube Feeding 660 ml 660 ml Other 110 ml 30 ml Output Urine Total 645 ml 535 ml Objective General Appearance: WD/WN, moderate distress EENT: PERRL/EOMI, normal ENT inspection Neck: non-tender, normal alignment, supple Cardiovascular: normal peripheral pulses, normal rate, regular rhythm, no gallop/murmur, no JVD Respiratory/Chest: Mech vent; respiratory distress, crackles/rales, rhonchi - bilaterally, expiratory wheezing Abdomen: normal bowel sounds, non tender, soft, no organomegaly, no mass Extremities: normal range of motion, non-tender Neurologic: smoking 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 Weaning protocol. See pulmonary note. (2) Hypertension Assessment & Plan: Better control-see cardiology consult. (3) Hypercholesteremia (4) BPH (benign prostatic hyperplasia) (5) Alzheimer's dementia (6) Aspiration pneumonia Assessment & Plan: Continue zosyn. See pulmonary and ID note. (7) Hematuria Assessment & Plan: Resolved (8) Atrial fibrillation with RVR Assessment & Plan: S/P Cardizem drip; see cardiology note. Status: not improved Assessment/Plan Discussed with SANGEETHA JOHNSON Jan 13, 2017 19:54
[2017-01-14] VITALS (24 sets, daily range): BP systolic 117–159; BP diastolic 52–87
[2017-01-14] MEDS: DuoNeb 0.5-3(2.5)mg/3ml neb HHN SCH ×4 (00:54→18:40)
[2017-01-14 05:37] LABS: BASOPHILS % (AUTO) 1.2 % (0.0-2.0); EOSINOPHILS % (AUTO) 3.3 % (0.0-3.0); LYMPHOCYTES % (AUTO) 18.1 % (20.0-45.0); MEAN CORPUSCULAR HEMOGLOBIN 32.2 PG (27.0-31.0); MEAN CORPUSCULAR HGB CONC 32.3 G/DL (32.0-36.0); MEAN CORPUSCULAR VOLUME 100 FL (80-99); MONOCYTES % (AUTO) 6.7 % (1.0-10.0); NEUTROPHILS % (AUTO) 70.7 % (45.0-75.0); PLATELET COUNT 282 K/UL (150-450); RED BLOOD COUNT 3.05 M/UL (4.70-6.10); WHITE BLOOD COUNT 7.1 K/UL (4.8-10.8)
[2017-01-14] MEDS: Theophylline 80mg/15ml ORAL SCH ×4 (05:50→23:34)
[2017-01-14] MEDS: Piperacillin/Tazobactam 3.375 GM in D5W 110 ML IVPB SCH (05:50)
[2017-01-14 06:03] LABS: ALANINE AMINOTRANSFERASE 10 U/L (3-41); ALBUMIN/GLOBULIN RATIO 0.8 (1.0-2.7); ANION GAP 11 (5-15); ASPARTATE AMINO TRANSFERASE 13 U/L (5-40); CALCIUM 8.6 mg/dL (8.6-10.2); CARBON DIOXIDE 27 mEQ/L (20-30); CHLORIDE 102 mEQ/L (98-107); CREATININE 0.7 mg/dL (0.7-1.2); HEMOLYSIS 7; MAGNESIUM 1.9 mg/dL (1.7-2.5); PHOSPHORUS 3.8 mg/dL (2.5-4.8); POTASSIUM 4.2 mEQ/L (3.4-4.9); SODIUM 140 mEQ/L (135-145); TOTAL PROTEIN 5.7 g/dL (6.6-8.7)
[2017-01-14] MEDS: Miralax 17gm pkt GT PRN (08:25)
[2017-01-14] MEDS: Docusate 100mg tablet ORAL SCH (08:26)
[2017-01-14] MEDS: Heparin 5000 units/ml inj SUBQ SCH ×2 (08:26→21:50)
[2017-01-14] MEDS: Lotrisone Cream 15gm TOPIC SCH ×2 (08:26→17:59)
[2017-01-14 09:01] LABS: ABG ALLEN TEST POSITIVE; ABG BASE EXCESS 5.1; ABG PCO2 41.4 mmHg (35.0-45.0)
--- NOTE | 2017-01-14 10:03 | Pulmonolgy Critical Care Note ---
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 Discussed with: nurses, consultants, family member Critical Care - Objective Last 24 Hour Vital Signs Date Time Temp Pulse Resp B/P Pulse Ox O2 Delivery O2 Flow Rate FiO2 01/14/17 09:47 100 01/14/17 09:00 75 20 128/73 100 Mechanical Ventilator 30 01/14/17 08:40 70 15 30 01/14/17 08:36 71 17 100 Mechanical Ventilator 30 01/14/17 08:00 98.0 72 19 130/65 100 Mechanical Ventilator 30 01/14/17 08:00 72 01/14/17 07:46 30 01/14/17 07:40 83 16 30 01/14/17 07:00 68 18 127/62 100 Mechanical Ventilator 30 01/14/17 06:00 73 20 124/87 100 Mechanical Ventilator 30 01/14/17 05:49 74 131/73 01/14/17 05:00 74 19 131/73 100 Mechanical Ventilator 30 01/14/17 04:36 85 19 30 01/14/17 04:00 98.1 82 19 131/73 100 Mechanical Ventilator 30 01/14/17 04:00 82 01/14/17 04:00 30 01/14/17 03:21 76 19 Mechanical Ventilator 01/14/17 03:00 82 18 127/74 99 Mechanical Ventilator 30 01/14/17 02:50 82 19 30 01/14/17 02:00 85 24 138/77 100 Mechanical Ventilator 30 01/14/17 01:00 83 17 143/71 100 Mechanical Ventilator 30 01/14/17 00:57 76 19 100 Mechanical Ventilator 30 01/14/17 00:57 77 19 100 Mechanical Ventilator 30 01/14/17 00:55 78 20 30 01/14/17 00:00 30 01/14/17 00:00 98.4 82 19 145/74 100 Mechanical Ventilator 30 01/14/17 00:00 80 01/13/17 23:45 80 131/63 01/13/17 23:00 80 17 131/63 100 Mechanical Ventilator 30 01/13/17 22:40 83 20 30 01/13/17 22:00 81 17 143/71 99 Mechanical Ventilator 30 01/13/17 21:00 81 22 125/65 99 Mechanical Ventilator 30 01/13/17 20:46 80 17 30 01/13/17 20:00 77 01/13/17 20:00 98.7 82 17 126/66 100 Mechanical Ventilator 30 01/13/17 20:00 30 01/13/17 19:23 69 16 100 Mechanical Ventilator 30 01/13/17 19:17 67 17 100 Mechanical Ventilator 30 01/13/17 19:15 68 15 30 01/13/17 19:00 70 22 130/64 100 Mechanical Ventilator 30 01/13/17 18:00 71 22 132/64 100 Mechanical Ventilator 30 01/13/17 17:35 71 134/59 01/13/17 17:18 73 20 30 01/13/17 17:00 71 22 159/69 100 Mechanical Ventilator 30 01/13/17 16:00 30 01/13/17 16:00 74 01/13/17 16:00 98.0 72 17 123/96 100 Mechanical Ventilator 30 01/13/17 15:11 71 17 30 01/13/17 15:00 73 19 132/69 100 Mechanical Ventilator 30 01/13/17 14:00 76 20 125/60 100 Mechanical Ventilator 30 01/13/17 13:00 79 19 133/53 100 Mechanical Ventilator 30 01/13/17 12:51 63 17 100 Mechanical Ventilator 30 01/13/17 12:50 61 15 30 01/13/17 12:40 61 16 100 Mechanical Ventilator 30 01/13/17 12:00 98.2 65 18 112/52 100 Mechanical Ventilator 30 01/13/17 12:00 66 01/13/17 11:49 69 121/58 01/13/17 11:07 30 01/13/17 11:00 67 20 121/58 100 Mechanical Ventilator 30 01/13/17 10:58 69 19 30 Status: awake Condition: critical, grave Neck: full ROM Lungs: clear Heart: HR/BP stable, HR/BP unstable Abdomen: soft, non-tender, active bowel sounds Extremities: no C/C/E, edema Decubiti: location, stage Micro: Microbiology Date/Time Source Procedure Growth Status 01/11/17 13:15 Sputum Gram Stain - Final Complete 01/11/17 13:15 Sputum Culture - Final Ada Albicans Complete Accucheck: 115 Critical Care - Subjective ROS Limited/Unobtainable: No ICU Day: 10 Intubation Day: 10 Condition: critical EKG Rhythm: Sinus Rhythm FI02: 30 Vent Support Breath Rate: 6 Vent Support Mode: CPAP Vent Tidal Volume: 600 Sputum Amount: Moderate PEEP: 5.0 PIP: 11 Tube Feeding Amount: 55 I&O: Intake and Output 01/13/17 01/14/17 19:00 07:00 Intake Total 1010.0 ml 827.5 ml Output Total 770 ml 990 ml Balance 240.0 ml -162.5 ml Free Water 40 ml IV Total 220.0 ml 137.5 ml Tube Feeding 660 ml 660 ml Other 90 ml 30 ml Output Urine Total 770 ml 990 ml CXR: clear, ET in good position ET-Tube: 7.5 ET Position: 25 Labs: Laboratory Tests Test 01/14/17 04:45 01/14/17 08:50 White Blood Count 7.1 K/UL (4.8-10.8) Red Blood Count 3.05 M/UL (4.70-6.10) L Hemoglobin 9.8 G/DL (14.2-18.0) L Hematocrit 30.4 % (42.0-52.0) L Mean Corpuscular Volume 100 FL (80-99) H Mean Corpuscular Hemoglobin 32.2 PG (27.0-31.0) H Mean Corpuscular Hemoglobin Concent 32.3 G/DL (32.0-36.0) Red Cell Distribution Width 13.0 % (11.6-14.8) Platelet Count 282 K/UL (150-450) Mean Platelet Volume 7.0 FL (6.5-10.1) Neutrophils (%) (Auto) 70.7 % (45.0-75.0) Lymphocytes (%) (Auto) 18.1 % (20.0-45.0) L Monocytes (%) (Auto) 6.7 % (1.0-10.0) Eosinophils (%) (Auto) 3.3 % (0.0-3.0) H Basophils (%) (Auto) 1.2 % (0.0-2.0) Sodium Level 140 mEQ/L (135-145) Potassium Level 4.2 mEQ/L (3.4-4.9) Chloride Level 102 mEQ/L (98-107) Carbon Dioxide Level 27 mEQ/L (20-30) Anion Gap 11 (5-15) Blood Urea Nitrogen 18 mg/dL (7-23) Creatinine 0.7 mg/dL (0.7-1.2) Estimat Glomerular Filtration Rate mL/min (>60) Glucose Level 135 mg/dL (74-106) H Calcium Level 8.6 mg/dL (8.6-10.2) Phosphorus Level 3.8 mg/dL (2.5-4.8) Magnesium Level 1.9 mg/dL (1.7-2.5) Total Bilirubin 0.3 mg/dL (0.0-1.2) Aspartate Amino Transf (AST/SGOT) 13 U/L (5-40) Alanine Aminotransferase (ALT/SGPT) 10 U/L (3-41) Alkaline Phosphatase 64 U/L (40-129) Total Protein 5.7 g/dL (6.6-8.7) L Albumin 2.6 g/dL (3.5-5.2) L Globulin 3.1 g/dL Albumin/Globulin Ratio 0.8 (1.0-2.7) L Arterial Blood pH 7.460 (7.350-7.450) Arterial Blood Partial Pressure CO2 41.4 mmHg (35.0-45.0) Arterial Blood Partial Pressure O2 112.6 mmHg (75.0-100.0) H Arterial Blood HCO3 29.3 mmol/L (22.0-26.0) H Arterial Blood Oxygen Saturation 97.6 % (92.0-98.0) Arterial Blood Base Excess 5.1 Leo Test Positive RABIA BANGURA Jan 14, 2017 10:03
--- NOTE | 2017-01-14 10:36 | Cardiac Electrophysiology PN ---
Assessment/Plan Assessment/Plan 1. Atrial fib with RVR could be due to respiratory acidosis. Change Cardizem to 60mg NG q 8 hrs. Hold off on heparin drip unless atrial fib recurs. Remained in SR. 2. Hypertension.Continue Cardizem. 3. Severe pulmonary hypertension, pressure 55, likely due to history of obstructive sleep apnea. 4. Recurrent Respiratory failure due to aspiration, Reintubated 01/08/17. On Zosyn. Plan is extubation today. 5. Dementia. 6. Dysphagia. May need PEG DW and RN Subjective Subjective In ICU on vent. Remained in SR. RN and at bedside. No recurrence of atrial fib. Expecting extubation today. Objective Last 24 Hour Vital Signs Date Time Temp Pulse Resp B/P Pulse Ox O2 Delivery O2 Flow Rate FiO2 01/14/17 10:00 72 19 159/72 100 Mechanical Ventilator 30 01/14/17 09:47 100 01/14/17 09:00 75 20 128/73 100 Mechanical Ventilator 30 01/14/17 08:40 70 15 30 01/14/17 08:36 71 17 100 Mechanical Ventilator 30 01/14/17 08:00 98.0 72 19 130/65 100 Mechanical Ventilator 30 01/14/17 08:00 72 01/14/17 07:46 30 01/14/17 07:40 83 16 30 01/14/17 07:00 68 18 127/62 100 Mechanical Ventilator 30 01/14/17 06:00 73 20 124/87 100 Mechanical Ventilator 30 01/14/17 05:49 74 131/73 01/14/17 05:00 74 19 131/73 100 Mechanical Ventilator 30 01/14/17 04:36 85 19 30 01/14/17 04:00 98.1 82 19 131/73 100 Mechanical Ventilator 30 01/14/17 04:00 82 01/14/17 04:00 30 01/14/17 03:21 76 19 Mechanical Ventilator 01/14/17 03:00 82 18 127/74 99 Mechanical Ventilator 30 01/14/17 02:50 82 19 30 01/14/17 02:00 85 24 138/77 100 Mechanical Ventilator 30 01/14/17 01:00 83 17 143/71 100 Mechanical Ventilator 30 01/14/17 00:57 76 19 100 Mechanical Ventilator 30 01/14/17 00:57 77 19 100 Mechanical Ventilator 30 01/14/17 00:55 78 20 30 4/27/17 00:00 30 01/14/17 00:00 98.4 82 19 145/74 100 Mechanical Ventilator 30 01/14/17 00:00 80 01/13/17 23:45 80 131/63 01/13/17 23:00 80 17 131/63 100 Mechanical Ventilator 30 01/13/17 22:40 83 20 30 01/13/17 22:00 81 17 143/71 99 Mechanical Ventilator 30 01/13/17 21:00 81 22 125/65 99 Mechanical Ventilator 30 01/13/17 20:46 80 17 30 01/13/17 20:00 77 01/13/17 20:00 98.7 82 17 126/66 100 Mechanical Ventilator 30 01/13/17 20:00 30 01/13/17 19:23 69 16 100 Mechanical Ventilator 30 01/13/17 19:17 67 17 100 Mechanical Ventilator 30 01/13/17 19:15 68 15 30 01/13/17 19:00 70 22 130/64 100 Mechanical Ventilator 30 01/13/17 18:00 71 22 132/64 100 Mechanical Ventilator 30 01/13/17 17:35 71 134/59 01/13/17 17:18 73 20 30 01/13/17 17:00 71 22 159/69 100 Mechanical Ventilator 30 01/13/17 16:00 30 01/13/17 16:00 74 01/13/17 16:00 98.0 72 17 123/96 100 Mechanical Ventilator 30 01/13/17 15:11 71 17 30 01/13/17 15:00 73 19 132/69 100 Mechanical Ventilator 30 01/13/17 14:00 76 20 125/60 100 Mechanical Ventilator 30 01/13/17 13:00 79 19 133/53 100 Mechanical Ventilator 30 01/13/17 12:51 63 17 100 Mechanical Ventilator 30 01/13/17 12:50 61 15 30 01/13/17 12:40 61 16 100 Mechanical Ventilator 30 01/13/17 12:00 98.2 65 18 112/52 100 Mechanical Ventilator 30 01/13/17 12:00 66 01/13/17 11:49 69 121/58 01/13/17 11:07 30 01/13/17 11:00 67 20 121/58 100 Mechanical Ventilator 30 01/13/17 10:58 69 19 30 Intake and Output 01/13/17 01/14/17 19:00 07:00 Intake Total 1010.0 ml 827.5 ml Output Total 770 ml 990 ml Balance 240.0 ml -162.5 ml Free Water 40 ml IV Total 220.0 ml 137.5 ml Tube Feeding 660 ml 660 ml Other 90 ml 30 ml Output Urine Total 770 ml 990 ml Laboratory Tests Test 01/14/17 04:45 01/14/17 08:50 White Blood Count 7.1 K/UL (4.8-10.8) Red Blood Count 3.05 M/UL (4.70-6.10) L Hemoglobin 9.8 G/DL (14.2-18.0) L Hematocrit 30.4 % (42.0-52.0) L Mean Corpuscular Volume 100 FL (80-99) H Mean Corpuscular Hemoglobin 32.2 PG (27.0-31.0) H Mean Corpuscular Hemoglobin Concent 32.3 G/DL (32.0-36.0) Red Cell Distribution Width 13.0 % (11.6-14.8) Platelet Count 282 K/UL (150-450) Mean Platelet Volume 7.0 FL (6.5-10.1) Neutrophils (%) (Auto) 70.7 % (45.0-75.0) Lymphocytes (%) (Auto) 18.1 % (20.0-45.0) L Monocytes (%) (Auto) 6.7 % (1.0-10.0) Eosinophils (%) (Auto) 3.3 % (0.0-3.0) H Basophils (%) (Auto) 1.2 % (0.0-2.0) Sodium Level 140 mEQ/L (135-145) Potassium Level 4.2 mEQ/L (3.4-4.9) Chloride Level 102 mEQ/L (98-107) Carbon Dioxide Level 27 mEQ/L (20-30) Anion Gap 11 (5-15) Blood Urea Nitrogen 18 mg/dL (7-23) Creatinine 0.7 mg/dL (0.7-1.2) Estimat Glomerular Filtration Rate mL/min (>60) Glucose Level 135 mg/dL (74-106) H Calcium Level 8.6 mg/dL (8.6-10.2) Phosphorus Level 3.8 mg/dL (2.5-4.8) Magnesium Level 1.9 mg/dL (1.7-2.5) Total Bilirubin 0.3 mg/dL (0.0-1.2) Aspartate Amino Transf (AST/SGOT) 13 U/L (5-40) Alanine Aminotransferase (ALT/SGPT) 10 U/L (3-41) Alkaline Phosphatase 64 U/L (40-129) Total Protein 5.7 g/dL (6.6-8.7) L Albumin 2.6 g/dL (3.5-5.2) L Globulin 3.1 g/dL Albumin/Globulin Ratio 0.8 (1.0-2.7) L Arterial Blood pH 7.460 (7.350-7.450) Arterial Blood Partial Pressure CO2 41.4 mmHg (35.0-45.0) Arterial Blood Partial Pressure O2 112.6 mmHg (75.0-100.0) H Arterial Blood HCO3 29.3 mmol/L (22.0-26.0) H Arterial Blood Oxygen Saturation 97.6 % (92.0-98.0) Arterial Blood Base Excess 5.1 Leo Test Positive Microbiology Date/Time Source Procedure Growth Status 01/11/17 13:15 Sputum Gram Stain - Final Complete 01/11/17 13:15 Sputum Culture - Final Ada Albicans Complete Objective NECK: No JVD. Orally intubated with NG tube in. LUNGS: Clear CARDIOVASCULAR: Regular S1 and S2 with no gallop or murmur. ABDOMEN: Soft. EXTREMITIES: No pitting edema. ARGELIA DUONG Jan 14, 2017 10:36
[2017-01-14] MEDS: Gentamicin 0.3% Opth Soln 5ml LEFT EYE SCH ×3 (12:06→21:45)
--- NOTE | 2017-01-14 12:45 | Infectious Diseases Prog Note ---
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 SP Extubation 01/06 , reintubated 01/09 , Extubation 01/14 History of fracture of femoral neck. Dementia. Hypertension PLAN: DC Zosyn d# 10 / 10 and monitor pt off of AB Rx ( 01/08 SP Vanco d# 4 ) Monitor CBC. Monitor BMP Monitor chest x-ray cont vent support Subjective Allergies: Coded Allergies: No Known Allergies (Verified , 01/06/17) Subjective extubated on vent Objective Vital Signs Last 24 Hour Vital Signs Date Time Temp Pulse Resp B/P Pulse Ox O2 Delivery O2 Flow Rate FiO2 01/14/17 12:00 98.1 77 20 159/85 97 Venturi Mask 55 01/14/17 12:00 78 01/14/17 11:06 80 17 01/14/17 11:00 84 26 149/75 98 Venturi Mask 55 01/14/17 10:00 72 19 159/72 100 Mechanical Ventilator 30 01/14/17 09:47 100 01/14/17 09:00 75 20 128/73 100 Mechanical Ventilator 30 01/14/17 08:40 70 15 30 01/14/17 08:36 71 17 100 Mechanical Ventilator 30 01/14/17 08:00 98.0 72 19 130/65 100 Mechanical Ventilator 30 01/14/17 08:00 72 01/14/17 07:46 30 01/14/17 07:40 83 16 30 01/14/17 07:00 68 18 127/62 100 Mechanical Ventilator 30 01/14/17 06:00 73 20 124/87 100 Mechanical Ventilator 30 01/14/17 05:49 74 131/73 01/14/17 05:00 74 19 131/73 100 Mechanical Ventilator 30 01/14/17 04:36 85 19 30 01/14/17 04:00 98.1 82 19 131/73 100 Mechanical Ventilator 30 01/14/17 04:00 82 01/14/17 04:00 30 01/14/17 03:21 76 19 Mechanical Ventilator 01/14/17 03:00 82 18 127/74 99 Mechanical Ventilator 30 01/14/17 02:50 82 19 30 01/14/17 02:00 85 24 138/77 100 Mechanical Ventilator 30 01/14/17 01:00 83 17 143/71 100 Mechanical Ventilator 30 01/14/17 00:57 76 19 100 Mechanical Ventilator 30 01/14/17 00:57 77 19 100 Mechanical Ventilator 30 01/14/17 00:55 78 20 30 01/14/17 00:00 30 01/14/17 00:00 98.4 82 19 145/74 100 Mechanical Ventilator 30 01/14/17 00:00 80 01/13/17 23:45 80 131/63 01/13/17 23:00 80 17 131/63 100 Mechanical Ventilator 30 01/13/17 22:40 83 20 30 01/13/17 22:00 81 17 143/71 99 Mechanical Ventilator 30 01/13/17 21:00 81 22 125/65 99 Mechanical Ventilator 30 01/13/17 20:46 80 17 30 01/13/17 20:00 77 01/13/17 20:00 98.7 82 17 126/66 100 Mechanical Ventilator 30 01/13/17 20:00 30 01/13/17 19:23 69 16 100 Mechanical Ventilator 30 01/13/17 19:17 67 17 100 Mechanical Ventilator 30 01/13/17 19:15 68 15 30 01/13/17 19:00 70 22 130/64 100 Mechanical Ventilator 30 01/13/17 18:00 71 22 132/64 100 Mechanical Ventilator 30 01/13/17 17:35 71 134/59 01/13/17 17:18 73 20 30 01/13/17 17:00 71 22 159/69 100 Mechanical Ventilator 30 01/13/17 16:00 30 01/13/17 16:00 74 01/13/17 16:00 98.0 72 17 123/96 100 Mechanical Ventilator 30 01/13/17 15:11 71 17 30 01/13/17 15:00 73 19 132/69 100 Mechanical Ventilator 30 01/13/17 14:00 76 20 125/60 100 Mechanical Ventilator 30 01/13/17 13:00 79 19 133/53 100 Mechanical Ventilator 30 01/13/17 12:51 63 17 100 Mechanical Ventilator 30 01/13/17 12:50 61 15 30 Height (Feet): 5 Height (Inches): 5.00 Weight (Pounds): 120 HEENT: anicteric Respiratory/Chest: lungs clear Cardiovascular: normal rate Abdomen: normal bowel sounds, non distended Microbiology Date/Time Source Procedure Growth Status 01/11/17 13:15 Sputum Gram Stain - Final Complete 01/11/17 13:15 Sputum Culture - Final Gina Albicans Complete Laboratory Tests Test 01/14/17 04:45 01/14/17 08:50 White Blood Count 7.1 K/UL (4.8-10.8) Red Blood Count 3.05 M/UL (4.70-6.10) L Hemoglobin 9.8 G/DL (14.2-18.0) L Hematocrit 30.4 % (42.0-52.0) L Mean Corpuscular Volume 100 FL (80-99) H Mean Corpuscular Hemoglobin 32.2 PG (27.0-31.0) H Mean Corpuscular Hemoglobin Concent 32.3 G/DL (32.0-36.0) Red Cell Distribution Width 13.0 % (11.6-14.8) Platelet Count 282 K/UL (150-450) Mean Platelet Volume 7.0 FL (6.5-10.1) Neutrophils (%) (Auto) 70.7 % (45.0-75.0) Lymphocytes (%) (Auto) 18.1 % (20.0-45.0) L Monocytes (%) (Auto) 6.7 % (1.0-10.0) Eosinophils (%) (Auto) 3.3 % (0.0-3.0) H Basophils (%) (Auto) 1.2 % (0.0-2.0) Sodium Level 140 mEQ/L (135-145) Potassium Level 4.2 mEQ/L (3.4-4.9) Chloride Level 102 mEQ/L (98-107) Carbon Dioxide Level 27 mEQ/L (20-30) Anion Gap 11 (5-15) Blood Urea Nitrogen 18 mg/dL (7-23) Creatinine 0.7 mg/dL (0.7-1.2) Estimat Glomerular Filtration Rate mL/min (>60) Glucose Level 135 mg/dL (74-106) H Calcium Level 8.6 mg/dL (8.6-10.2) Phosphorus Level 3.8 mg/dL (2.5-4.8) Magnesium Level 1.9 mg/dL (1.7-2.5) Total Bilirubin 0.3 mg/dL (0.0-1.2) Aspartate Amino Transf (AST/SGOT) 13 U/L (5-40) Alanine Aminotransferase (ALT/SGPT) 10 U/L (3-41) Alkaline Phosphatase 64 U/L (40-129) Total Protein 5.7 g/dL (6.6-8.7) L Albumin 2.6 g/dL (3.5-5.2) L Globulin 3.1 g/dL Albumin/Globulin Ratio 0.8 (1.0-2.7) L Arterial Blood pH 7.460 (7.350-7.450) Arterial Blood Partial Pressure CO2 41.4 mmHg (35.0-45.0) Arterial Blood Partial Pressure O2 112.6 mmHg (75.0-100.0) H Arterial Blood HCO3 29.3 mmol/L (22.0-26.0) H Arterial Blood Oxygen Saturation 97.6 % (92.0-98.0) Arterial Blood Base Excess 5.1 Leo Test Positive Current Medications Medications (Trade) Dose Ordered Sig/Daina Route PRN Reason Start Time Stop Time Status Last Admin Dose Admin Acetaminophen (Tylenol) 650 mg Q4H PRN ORAL fever 01/04/17 21:00 02/03/17 20:59 Albuterol/ Ipratropium (DuoNeb 0.5-3(2.5)mg/3ml) 3 ml Q6HRT HHN 01/13/17 01:15 01/18/17 01:14 01/14/17 08:37 Betamethasone/ Clotrimazole (Lotrisone) 1 applic TWICE A DAY TOPIC 01/12/17 12:30 02/11/17 12:29 01/14/17 08:26 Clonidine HCl (Catapres) 0.1 mg Q6H PRN GT SBP > 170 01/06/17 16:00 02/05/17 15:59 Dextrose (Dextrose 50%) STAT PRN IV Hypoglycemia 01/04/17 21:00 02/03/17 20:59 Diltiazem HCl (Cardizem) 60 mg EVERY 8 HOURS NG 01/14/17 14:00 02/13/17 13:59 Docusate Sodium (Colace) 100 mg DAILY ORAL 01/12/17 11:15 02/11/17 11:14 01/14/17 08:26 Gentamicin Sulfate (Garamycin 0.3% Opth Soln) 1 drop Q4HR LEFT EYE 01/14/17 12:00 01/21/17 11:59 01/14/17 12:06 Heparin Sodium (Porcine) (Heparin 5000 units/ml) 5,000 units EVERY 12 HOURS SUBQ 01/04/17 22:00 02/03/17 21:59 01/14/17 08:26 Lansoprazole (Prevacid) 30 mg DAILY GT 01/13/17 09:00 02/12/17 08:59 01/14/17 08:26 Lorazepam 1 mg 1 mg Q4H PRN IV For Anxiety 01/10/17 13:00 01/17/17 12:59 01/11/17 22:08 Nitroglycerin (Ntg) 0.4 mg Every 5 Minutes PRN SL Prn Chest Pain 01/04/17 21:00 02/03/17 20:59 Ondansetron HCl (Zofran) 4 mg Q6H PRN IVP Nausea & Vomiting 01/04/17 21:00 02/03/17 20:59 Piperacillin Sod/ Tazobactam Sod/ Dextrose (Zosyn/D5W) 110 ml @ 27.5 mls/hr Q8HR IVPB 01/11/17 14:00 01/15/17 13:59 01/14/17 05:50 Polyethylene Glycol (Miralax) 17 gm DAILYPRN PRN GT Constipation 01/06/17 15:55 02/03/17 20:59 01/14/17 08:25 Theophylline (Theophylline) 80 mg Q6HR ORAL 01/13/17 12:00 02/12/17 11:59 01/14/17 12:06 HORACIO JOHN M.D. Jan 14, 2017 12:45
--- NOTE | 2017-01-14 12:51 | Diagnostic Imaging Report ---
Indication: DYSPNEA Technique: One view of the chest Comparison: 01/13/2017 Findings: Lungs and pleural spaces are clear. Heart size is normal. Aorta is calcified. Endotracheal and nasogastric tubes remain. Impression: Unchanged, over one day, findings as above.
[2017-01-14] MEDS ORDERED: NS 275ml ONE (14:11)
[2017-01-14] MEDS ORDERED: Sterile Water Irrig 1000ml IRRIG ONE (14:11)
--- NOTE | 2017-01-14 15:06 | Internal Med Progress Note ---
Subjective Date of Service: Jan 14, 2017 Physician Name Rosas Johnson Attending Physician Rosas Johnson Current Medications Medications (Trade) Dose Ordered Sig/Daina Route PRN Reason Start Time Stop Time Status Last Admin Dose Admin Acetaminophen (Tylenol) 650 mg Q4H PRN ORAL fever 01/04/17 21:00 02/03/17 20:59 Albuterol/ Ipratropium (DuoNeb 0.5-3(2.5)mg/3ml) 3 ml Q6HRT HHN 01/13/17 01:15 01/18/17 01:14 01/14/17 14:08 Betamethasone/ Clotrimazole (Lotrisone) 1 applic TWICE A DAY TOPIC 01/12/17 12:30 02/11/17 12:29 01/14/17 08:26 Clonidine HCl (Catapres) 0.1 mg Q6H PRN GT SBP > 170 01/06/17 16:00 02/05/17 15:59 Dextrose (Dextrose 50%) STAT PRN IV Hypoglycemia 01/04/17 21:00 02/03/17 20:59 Diltiazem HCl (Cardizem) 60 mg EVERY 8 HOURS NG 01/14/17 14:00 02/13/17 13:59 01/14/17 14:29 Docusate Sodium (Colace) 100 mg DAILY ORAL 01/12/17 11:15 02/11/17 11:14 01/14/17 08:26 Gentamicin Sulfate (Garamycin 0.3% Opt Soln) 1 drop Q4HR LEFT EYE 01/14/17 12:00 01/21/17 11:59 01/14/17 12:06 Heparin Sodium (Porcine) (Heparin 5000 units/ml) 5,000 units EVERY 12 HOURS SUBQ 01/04/17 22:00 02/03/17 21:59 01/14/17 08:26 Lansoprazole (Prevacid) 30 mg DAILY GT 01/13/17 09:00 02/12/17 08:59 01/14/17 08:26 Lorazepam (Ativan 2mg/ml 1ml) 1 mg Q4H PRN IV For Anxiety 01/10/17 13:00 01/17/17 12:59 01/11/17 22:08 Nitroglycerin (Ntg) 0.4 mg Every 5 Minutes PRN SL Prn Chest Pain 01/04/17 21:00 02/03/17 20:59 Ondansetron HCl (Zofran) 4 mg Q6H PRN IVP Nausea & Vomiting 01/04/17 21:00 02/03/17 20:59 Polyethylene Glycol (Miralax) 17 gm DAILYPRN PRN GT Constipation 01/06/17 15:55 02/03/17 20:59 01/14/17 08:25 Theophylline (Theophylline) 80 mg Q6HR ORAL 01/13/17 12:00 02/12/17 11:59 01/14/17 12:06 Allergies: Coded Allergies: No Known Allergies (Verified , 01/06/17) ROS Limited/Unobtainable: Yes Subjective 76 YO M admitted with aspiration and respiratory failure. Reintubated 01/09/17; extubated 01/14/17. Sedated. ICU. Objective Last Vital Signs Date Time Temp Pulse Resp B/P Pulse Ox O2 Delivery O2 Flow Rate FiO2 01/14/17 14:29 86 156/86 01/14/17 14:20 16 99 Mechanical Ventilator 55 01/14/17 12:00 98.1 01/09/17 01:00 15.0 Laboratory Tests Test 01/14/17 04:45 01/14/17 08:50 White Blood Count 7.1 K/UL (4.8-10.8) Red Blood Count 3.05 M/UL (4.70-6.10) L Hemoglobin 9.8 G/DL (14.2-18.0) L Hematocrit 30.4 % (42.0-52.0) L Mean Corpuscular Volume 100 FL (80-99) H Mean Corpuscular Hemoglobin 32.2 PG (27.0-31.0) H Mean Corpuscular Hemoglobin Concent 32.3 G/DL (32.0-36.0) Red Cell Distribution Width 13.0 % (11.6-14.8) Platelet Count 282 K/UL (150-450) Mean Platelet Volume 7.0 FL (6.5-10.1) Neutrophils (%) (Auto) 70.7 % (45.0-75.0) Lymphocytes (%) (Auto) 18.1 % (20.0-45.0) L Monocytes (%) (Auto) 6.7 % (1.0-10.0) Eosinophils (%) (Auto) 3.3 % (0.0-3.0) H Basophils (%) (Auto) 1.2 % (0.0-2.0) Sodium Level 140 mEQ/L (135-145) Potassium Level 4.2 mEQ/L (3.4-4.9) Chloride Level 102 mEQ/L (98-107) Carbon Dioxide Level 27 mEQ/L (20-30) Anion Gap 11 (5-15) Blood Urea Nitrogen 18 mg/dL (7-23) Creatinine 0.7 mg/dL (0.7-1.2) Estimat Glomerular Filtration Rate mL/min (>60) Glucose Level 135 mg/dL (74-106) H Calcium Level 8.6 mg/dL (8.6-10.2) Phosphorus Level 3.8 mg/dL (2.5-4.8) Magnesium Level 1.9 mg/dL (1.7-2.5) Total Bilirubin 0.3 mg/dL (0.0-1.2) Aspartate Amino Transf (AST/SGOT) 13 U/L (5-40) Alanine Aminotransferase (ALT/SGPT) 10 U/L (3-41) Alkaline Phosphatase 64 U/L (40-129) Total Protein 5.7 g/dL (6.6-8.7) L Albumin 2.6 g/dL (3.5-5.2) L Globulin 3.1 g/dL Albumin/Globulin Ratio 0.8 (1.0-2.7) L Arterial Blood pH 7.460 (7.350-7.450) Arterial Blood Partial Pressure CO2 41.4 mmHg (35.0-45.0) Arterial Blood Partial Pressure O2 112.6 mmHg (75.0-100.0) H Arterial Blood HCO3 29.3 mmol/L (22.0-26.0) H Arterial Blood Oxygen Saturation 97.6 % (92.0-98.0) Arterial Blood Base Excess 5.1 Leo Test Positive Intake and Output 01/13/17 01/14/17 19:00 07:00 Intake Total 1010.0 ml 827.5 ml Output Total 770 ml 990 ml Balance 240.0 ml -162.5 ml Free Water 40 ml IV Total 220.0 ml 137.5 ml Tube Feeding 660 ml 660 ml Other 90 ml 30 ml Output Urine Total 770 ml 990 ml Objective General Appearance: WD/WN, moderate distress EENT: PERRL/EOMI, normal ENT inspection Neck: non-tender, normal alignment, supple Cardiovascular: normal peripheral pulses, normal rate, regular rhythm, no gallop/murmur, no JVD Respiratory/Chest: venturi mask; respiratory distress, crackles/rales, rhonchi - bilaterally, expiratory wheezing Abdomen: normal bowel sounds, non tender, soft, no organomegaly, no mass Extremities: normal range of motion, non-tender Neurologic: mechanical meter tester II-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 Weaning protocol. See pulmonary note. (2) Hypertension Assessment & Plan: Better control-see cardiology consult. (3) Hypercholesteremia (4) BPH (benign prostatic hyperplasia) (5) Alzheimer's dementia (6) Aspiration pneumonia Assessment & Plan: Continue zosyn. See pulmonary and ID note. (7) Hematuria Assessment & Plan: Resolved (8) Atrial fibrillation with RVR Assessment & Plan: S/P Cardizem drip; see cardiology note. Status: progressing Assessment/Plan Discussed with ROSAS JOHNSON Jan 14, 2017 15:06
[2017-01-15] VITALS (24 sets, daily range): BP systolic 103–160; BP diastolic 51–72
[2017-01-15] MEDS: DuoNeb 0.5-3(2.5)mg/3ml neb HHN SCH ×4 (00:55→19:16)
[2017-01-15] MEDS: Gentamicin 0.3% Opth Soln 5ml LEFT EYE SCH ×6 (01:00→20:45)
[2017-01-15] MEDS: Theophylline 80mg/15ml ORAL SCH ×3 (05:28→17:44)
[2017-01-15 05:30] LABS: BASOPHILS % (AUTO) 0.9 % (0.0-2.0); LYMPHOCYTES % (AUTO) 16.9 % (20.0-45.0); MEAN CORPUSCULAR HEMOGLOBIN 31.6 PG (27.0-31.0); MEAN CORPUSCULAR HGB CONC 31.9 G/DL (32.0-36.0); MEAN CORPUSCULAR VOLUME 99 FL (80-99); MEAN PLATELET VOLUME 6.8 FL (6.5-10.1); MONOCYTES % (AUTO) 6.5 % (1.0-10.0); NEUTROPHILS % (AUTO) 71.6 % (45.0-75.0); PLATELET COUNT 311 K/UL (150-450); RED BLOOD COUNT 3.08 M/UL (4.70-6.10); RED CELL DISTRIBUTION WIDTH 12.8 % (11.6-14.8); WHITE BLOOD COUNT 8.2 K/UL (4.8-10.8)
[2017-01-15 05:31] LABS: ALANINE AMINOTRANSFERASE 16 U/L (3-41); ANION GAP 8 (5-15); ASPARTATE AMINO TRANSFERASE 19 U/L (5-40); CALCIUM 8.8 mg/dL (8.6-10.2); CARBON DIOXIDE 33 mEQ/L (20-30); CHLORIDE 98 mEQ/L (98-107); CREATININE 0.6 mg/dL (0.7-1.2); HEMOLYSIS 2; MAGNESIUM 1.9 mg/dL (1.7-2.5); PHOSPHORUS 3.4 mg/dL (2.5-4.8); POTASSIUM 4.3 mEQ/L (3.4-4.9); SODIUM 139 mEQ/L (135-145); TOTAL PROTEIN 5.9 g/dL (6.6-8.7)
[2017-01-15] MEDS: Docusate 100mg tablet ORAL SCH (08:33)
[2017-01-15] MEDS: Lotrisone Cream 15gm TOPIC SCH ×2 (08:33→17:44)
[2017-01-15] MEDS: Heparin 5000 units/ml inj SUBQ SCH ×2 (08:38→20:47)
[2017-01-15 09:07] LABS: ABG ALLEN TEST POSITIVE; ABG BASE EXCESS 4.7; ABG PCO2 51.3 mmHg (35.0-45.0)
[2017-01-15] MEDS ORDERED: Glycopyrrolate 0.2mg/ml 1ml Vial IV PRN (10:15)
--- NOTE | 2017-01-15 10:15 | Pulmonolgy Critical Care Note ---
Critical Care - Asmt/Plan Problems: (1) Respiratory distress (2) Aspiration pneumonia (3) Dementia Respiratory: monitor respiratory rate Cardiac: continue to monitor HR/BP Renal: F/U I&O, keep IV fluid Infectious Disease: check cultures, other - add diflucan Gastrointestinal: continue feedings/current rate Endocrine: monitor blood sugar, continue sliding scale insulin Hematologic: monitor H/H, transfuse if hgb<8.5 Neurologic: PRN Morphine, keep patient comfortable Affect: PRN ativan Prophylaxis: Protonix Disposition: keep in ICU Notes Reviewed: automation technologist, cardio Discussed with: nurses, consultants, rifle case repairersocial science manager - Objective Last 24 Hour Vital Signs Date Time Temp Pulse Resp B/P Pulse Ox O2 Delivery O2 Flow Rate FiO2 01/15/17 09:00 73 21 134/57 100 Venturi Mask 45 01/15/17 08:00 98.1 77 21 137/62 100 Venturi Mask 45 01/15/17 08:00 77 01/15/17 07:25 76 20 100 Venturi Mask 45 01/15/17 07:20 72 22 100 Venturi Mask 45 01/15/17 07:00 71 22 129/69 100 Venturi Mask 45 01/15/17 06:00 68 23 137/64 100 Venturi Mask 45 01/15/17 05:28 69 149/67 01/15/17 05:00 69 23 149/67 100 Venturi Mask 55 01/15/17 04:00 68 01/15/17 04:00 97.9 75 25 130/60 100 Venturi Mask 55 01/15/17 03:00 76 25 127/56 100 Venturi Mask 55 01/15/17 02:00 76 24 152/67 100 Venturi Mask 55 01/15/17 01:00 82 25 128/60 100 Venturi Mask 55 01/15/17 00:57 69 18 100 Venturi Mask 55 01/15/17 00:56 70 18 100 Venturi Mask 55 01/15/17 00:00 70 01/15/17 00:00 98.3 70 22 131/60 100 Venturi Mask 55 01/14/17 23:00 69 24 134/62 100 Venturi Mask 55 01/14/17 22:00 78 24 123/56 100 Venturi Mask 55 01/14/17 21:45 81 157/75 01/14/17 21:00 80 23 157/75 100 Venturi Mask 55 01/14/17 20:00 84 01/14/17 20:00 98.4 81 22 136/65 99 Venturi Mask 55 01/14/17 19:00 80 20 136/52 100 Venturi Mask 55 01/14/17 18:42 80 24 100 Venturi Mask 55 01/14/17 18:40 77 18 100 Venturi Mask 55 01/14/17 18:00 78 21 142/75 100 Venturi Mask 55 01/14/17 17:00 77 23 117/73 99 Venturi Mask 55 01/14/17 16:00 82 01/14/17 16:00 98.0 86 25 129/59 99 Venturi Mask 55 01/14/17 15:00 82 24 145/57 99 Venturi Mask 55 01/14/17 14:29 86 156/86 01/14/17 14:20 74 16 99 Mechanical Ventilator 55 01/14/17 14:09 78 18 100 Venturi Mask 55 01/14/17 14:00 79 27 159/86 99 Venturi Mask 55 01/14/17 13:00 80 28 147/81 99 Venturi Mask 55 01/14/17 12:00 98.1 77 20 159/85 97 Venturi Mask 55 01/14/17 12:00 78 01/14/17 11:06 80 17 01/14/17 11:00 84 26 149/75 98 Venturi Mask 55 Status: somnolent Condition: critical HEENT: atraumatic, normocephalic Neck: full ROM Heart: HR/BP stable Abdomen: soft, non-tender Extremities: no C/C/E Decubiti: location Accucheck: 115 Critical Care - Subjective FI02: 45 Vent Support Breath Rate: 6 Vent Support Mode: CPAP Vent Tidal Volume: 600 Sputum Amount: Moderate PEEP: 5.0 PIP: 11 Secretions: lots, whitish Tube Feeding Amount: 55 I&O: Intake and Output 01/14/17 01/15/17 19:00 07:00 Intake Total 832.5 ml 810 ml Output Total 1120 ml 1570 ml Balance -287.5 ml -760 ml IV Total 82.5 ml Tube Feeding 660 ml 660 ml Other 90 ml 150 ml Output Urine Total 1120 ml 1570 ml # Bowel Movements 2 CXR: no new complains ET-Tube: 7.5 ET Position: 25 Labs: Laboratory Tests Test 01/15/17 04:00 01/15/17 08:59 White Blood Count 8.2 K/UL (4.8-10.8) Red Blood Count 3.08 M/UL (4.70-6.10) L Hemoglobin 9.7 G/DL (14.2-18.0) L Hematocrit 30.6 % (42.0-52.0) L Mean Corpuscular Volume 99 FL (80-99) Mean Corpuscular Hemoglobin 31.6 PG (27.0-31.0) H Mean Corpuscular Hemoglobin Concent 31.9 G/DL (32.0-36.0) L Red Cell Distribution Width 12.8 % (11.6-14.8) Platelet Count 311 K/UL (150-450) Mean Platelet Volume 6.8 FL (6.5-10.1) Neutrophils (%) (Auto) 71.6 % (45.0-75.0) Lymphocytes (%) (Auto) 16.9 % (20.0-45.0) L Monocytes (%) (Auto) 6.5 % (1.0-10.0) Eosinophils (%) (Auto) 4.0 % (0.0-3.0) H Basophils (%) (Auto) 0.9 % (0.0-2.0) Sodium Level 139 mEQ/L (135-145) Potassium Level 4.3 mEQ/L (3.4-4.9) Chloride Level 98 mEQ/L (98-107) Carbon Dioxide Level 33 mEQ/L (20-30) H Anion Gap 8 (5-15) Blood Urea Nitrogen 17 mg/dL (7-23) Creatinine 0.6 mg/dL (0.7-1.2) L Estimat Glomerular Filtration Rate mL/min (>60) Glucose Level 129 mg/dL (74-106) H Calcium Level 8.8 mg/dL (8.6-10.2) Phosphorus Level 3.4 mg/dL (2.5-4.8) Magnesium Level 1.9 mg/dL (1.7-2.5) Total Bilirubin 0.2 mg/dL (0.0-1.2) Aspartate Amino Transf (AST/SGOT) 19 U/L (5-40) Alanine Aminotransferase (ALT/SGPT) 16 U/L (3-41) Alkaline Phosphatase 61 U/L (40-129) Total Protein 5.9 g/dL (6.6-8.7) L Albumin 3.0 g/dL (3.5-5.2) L Globulin 2.9 g/dL Albumin/Globulin Ratio 1.0 (1.0-2.7) Arterial Blood pH 7.392 (7.350-7.450) Arterial Blood Partial Pressure CO2 51.3 mmHg (35.0-45.0) H Arterial Blood Partial Pressure O2 124.7 mmHg (75.0-100.0) H Arterial Blood HCO3 30.5 mmol/L (22.0-26.0) H Arterial Blood Oxygen Saturation 98.2 % (92.0-98.0) H Arterial Blood Base Excess 4.7 Leo Test Positive RABIA BANGURA Jan 15, 2017 10:15
--- NOTE | 2017-01-15 10:51 | Diagnostic Imaging Report ---
Indication: Dyspnea Comparison: 01/14/17 A single view chest radiograph was obtained. Findings: Heart is borderline enlarged but stable. NG tube is in good position. Minimal left basilar atelectasis demonstrated. Impression: No change from the prior day. Mild left basal atelectasis
--- NOTE | 2017-01-15 14:52 | Cardiac Electrophysiology PN ---
Assessment/Plan Assessment/Plan 1. Atrial fib with RVR could be due to respiratory acidosis. On Cardizem 60mg NG q 8 hrs. Hold off on anticoagulation. Remained in SR. 2. Hypertension.Continue Cardizem. 3. Severe pulmonary hypertension, pressure 55, likely due to history of obstructive sleep apnea. 4. Recurrent Respiratory failure due to aspiration,extubated for the second time 01/14/17 On Zosyn. 5. Dementia. 6. Dysphagia. May need PEG DW and RN Subjective Subjective In ICU on face mask. Remained in SR. at bedside. No recurrence of atrial fib.Extubated yesterday at around 10 AM. Objective Last 24 Hour Vital Signs Date Time Temp Pulse Resp B/P Pulse Ox O2 Delivery O2 Flow Rate FiO2 01/15/17 13:05 73 20 100 Venturi Mask 45 01/15/17 13:00 85 20 160/65 100 Venturi Mask 45 01/15/17 13:00 75 17 100 Venturi Mask 45 01/15/17 12:00 79.8 74 21 152/72 100 Bi-pap 45 01/15/17 12:00 75 17 100 Facial 45 01/15/17 12:00 85 01/15/17 11:00 73 21 132/68 100 Venturi Mask 45 01/15/17 10:00 75 21 134/67 100 Venturi Mask 45 01/15/17 09:00 73 21 134/57 100 Venturi Mask 45 01/15/17 08:00 98.1 77 21 137/62 100 Venturi Mask 45 01/15/17 08:00 77 01/15/17 07:25 76 20 100 Venturi Mask 45 01/15/17 07:20 72 22 100 Venturi Mask 45 01/15/17 07:00 71 22 129/69 100 Venturi Mask 45 01/15/17 06:00 68 23 137/64 100 Venturi Mask 45 01/15/17 05:28 69 149/67 01/15/17 05:00 69 23 149/67 100 Venturi Mask 55 01/15/17 04:00 68 01/15/17 04:00 97.9 75 25 130/60 100 Venturi Mask 55 01/15/17 03:00 76 25 127/56 100 Venturi Mask 55 01/15/17 02:00 76 24 152/67 100 Venturi Mask 55 01/15/17 01:00 82 25 128/60 100 Venturi Mask 55 01/15/17 00:57 69 18 100 Venturi Mask 55 01/15/17 00:56 70 18 100 Venturi Mask 55 01/15/17 00:00 70 01/15/17 00:00 98.3 70 22 131/60 100 Venturi Mask 55 01/14/17 23:00 69 24 134/62 100 Venturi Mask 55 01/14/17 22:00 78 24 123/56 100 Venturi Mask 55 01/14/17 21:45 81 157/75 01/14/17 21:00 80 23 157/75 100 Venturi Mask 55 01/14/17 20:00 84 01/14/17 20:00 98.4 81 22 136/65 99 Venturi Mask 55 01/14/17 19:00 80 20 136/52 100 Venturi Mask 55 01/14/17 18:42 80 24 100 Venturi Mask 55 01/14/17 18:40 77 18 100 Venturi Mask 55 01/14/17 18:00 78 21 142/75 100 Venturi Mask 55 01/14/17 17:00 77 23 117/73 99 Venturi Mask 55 01/14/17 16:00 82 01/14/17 16:00 98.0 86 25 129/59 99 Venturi Mask 55 01/14/17 15:00 82 24 145/57 99 Venturi Mask 55 Intake and Output 01/14/17 01/15/17 19:00 07:00 Intake Total 832.5 ml 810 ml Output Total 1120 ml 1570 ml Balance -287.5 ml -760 ml IV Total 82.5 ml Tube Feeding 660 ml 660 ml Other 90 ml 150 ml Output Urine Total 1120 ml 1570 ml # Bowel Movements 2 Laboratory Tests Test 01/15/17 04:00 01/15/17 08:59 White Blood Count 8.2 K/UL (4.8-10.8) Red Blood Count 3.08 M/UL (4.70-6.10) L Hemoglobin 9.7 G/DL (14.2-18.0) L Hematocrit 30.6 % (42.0-52.0) L Mean Corpuscular Volume 99 FL (80-99) Mean Corpuscular Hemoglobin 31.6 PG (27.0-31.0) H Mean Corpuscular Hemoglobin Concent 31.9 G/DL (32.0-36.0) L Red Cell Distribution Width 12.8 % (11.6-14.8) Platelet Count 311 K/UL (150-450) Mean Platelet Volume 6.8 FL (6.5-10.1) Neutrophils (%) (Auto) 71.6 % (45.0-75.0) Lymphocytes (%) (Auto) 16.9 % (20.0-45.0) L Monocytes (%) (Auto) 6.5 % (1.0-10.0) Eosinophils (%) (Auto) 4.0 % (0.0-3.0) H Basophils (%) (Auto) 0.9 % (0.0-2.0) Sodium Level 139 mEQ/L (135-145) Potassium Level 4.3 mEQ/L (3.4-4.9) Chloride Level 98 mEQ/L (98-107) Carbon Dioxide Level 33 mEQ/L (20-30) H Anion Gap 8 (5-15) Blood Urea Nitrogen 17 mg/dL (7-23) Creatinine 0.6 mg/dL (0.7-1.2) L Estimat Glomerular Filtration Rate mL/min (>60) Glucose Level 129 mg/dL (74-106) H Calcium Level 8.8 mg/dL (8.6-10.2) Phosphorus Level 3.4 mg/dL (2.5-4.8) Magnesium Level 1.9 mg/dL (1.7-2.5) Total Bilirubin 0.2 mg/dL (0.0-1.2) Aspartate Amino Transf (AST/SGOT) 19 U/L (5-40) Alanine Aminotransferase (ALT/SGPT) 16 U/L (3-41) Alkaline Phosphatase 61 U/L (40-129) Total Protein 5.9 g/dL (6.6-8.7) L Albumin 3.0 g/dL (3.5-5.2) L Globulin 2.9 g/dL Albumin/Globulin Ratio 1.0 (1.0-2.7) Arterial Blood pH 7.392 (7.350-7.450) Arterial Blood Partial Pressure CO2 51.3 mmHg (35.0-45.0) H Arterial Blood Partial Pressure O2 124.7 mmHg (75.0-100.0) H Arterial Blood HCO3 30.5 mmol/L (22.0-26.0) H Arterial Blood Oxygen Saturation 98.2 % (92.0-98.0) H Arterial Blood Base Excess 4.7 Leo Test Positive Objective NECK: No JVD. Face mask. LUNGS: Clear CARDIOVASCULAR: Regular S1 and S2 with no gallop or murmur. ABDOMEN: Soft. EXTREMITIES: No pitting edema. ARGELIA DUONG Jan 15, 2017 14:52
--- NOTE | 2017-01-15 15:16 | Infectious Diseases Prog Note ---
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 SP Extubation 01/06 , reintubated 01/09 , Extubation 01/14 History of fracture of femoral neck. Dementia. Hypertension PLAN: Diflucan was added d# 1 ( 01/14 SP Zosyn d# 10 / 10 ) ( 01/08 SP Vanco d# 4 ) Monitor CBC. Monitor BMP Monitor chest x-ray cont vent support Subjective Constitutional: Denies: anorexia, chills, drenching sweats, fatigue, fever, no symptoms, other Allergies: Coded Allergies: No Known Allergies (Verified , 01/06/17) Subjective extubated on vent Objective Vital Signs Last 24 Hour Vital Signs Date Time Temp Pulse Resp B/P Pulse Ox O2 Delivery O2 Flow Rate FiO2 01/15/17 15:02 91 152/65 01/15/17 13:05 73 20 100 Venturi Mask 45 01/15/17 13:00 85 20 160/65 100 Venturi Mask 45 01/15/17 13:00 75 17 100 Venturi Mask 45 01/15/17 12:00 79.8 74 21 152/72 100 Bi-pap 45 01/15/17 12:00 75 17 100 Facial 45 01/15/17 12:00 85 01/15/17 11:00 73 21 132/68 100 Venturi Mask 45 01/15/17 10:00 75 21 134/67 100 Venturi Mask 45 01/15/17 09:00 73 21 134/57 100 Venturi Mask 45 01/15/17 08:00 98.1 77 21 137/62 100 Venturi Mask 45 01/15/17 08:00 77 01/15/17 07:25 76 20 100 Venturi Mask 45 01/15/17 07:20 72 22 100 Venturi Mask 45 01/15/17 07:00 71 22 129/69 100 Venturi Mask 45 01/15/17 06:00 68 23 137/64 100 Venturi Mask 45 01/15/17 05:28 69 149/67 01/15/17 05:00 69 23 149/67 100 Venturi Mask 55 01/15/17 04:00 68 01/15/17 04:00 97.9 75 25 130/60 100 Venturi Mask 55 01/15/17 03:00 76 25 127/56 100 Venturi Mask 55 01/15/17 02:00 76 24 152/67 100 Venturi Mask 55 01/15/17 01:00 82 25 128/60 100 Venturi Mask 55 01/15/17 00:57 69 18 100 Venturi Mask 55 01/15/17 00:56 70 18 100 Venturi Mask 55 01/15/17 00:00 70 01/15/17 00:00 98.3 70 22 131/60 100 Venturi Mask 55 01/14/17 23:00 69 24 134/62 100 Venturi Mask 55 01/14/17 22:00 78 24 123/56 100 Venturi Mask 55 01/14/17 21:45 81 157/75 01/14/17 21:00 80 23 157/75 100 Venturi Mask 55 01/14/17 20:00 84 01/14/17 20:00 98.4 81 22 136/65 99 Venturi Mask 55 01/14/17 19:00 80 20 136/52 100 Venturi Mask 55 01/14/17 18:42 80 24 100 Venturi Mask 55 01/14/17 18:40 77 18 100 Venturi Mask 55 01/14/17 18:00 78 21 142/75 100 Venturi Mask 55 01/14/17 17:00 77 23 117/73 99 Venturi Mask 55 01/14/17 16:00 82 01/14/17 16:00 98.0 86 25 129/59 99 Venturi Mask 55 Height (Feet): 5 Height (Inches): 5.00 Weight (Pounds): 120 HEENT: atraumatic Respiratory/Chest: no respiratory distress Cardiovascular: regularly irregular Abdomen: non distended Laboratory Tests Test 01/15/17 04:00 01/15/17 08:59 White Blood Count 8.2 K/UL (4.8-10.8) Red Blood Count 3.08 M/UL (4.70-6.10) L Hemoglobin 9.7 G/DL (14.2-18.0) L Hematocrit 30.6 % (42.0-52.0) L Mean Corpuscular Volume 99 FL (80-99) Mean Corpuscular Hemoglobin 31.6 PG (27.0-31.0) H Mean Corpuscular Hemoglobin Concent 31.9 G/DL (32.0-36.0) L Red Cell Distribution Width 12.8 % (11.6-14.8) Platelet Count 311 K/UL (150-450) Mean Platelet Volume 6.8 FL (6.5-10.1) Neutrophils (%) (Auto) 71.6 % (45.0-75.0) Lymphocytes (%) (Auto) 16.9 % (20.0-45.0) L Monocytes (%) (Auto) 6.5 % (1.0-10.0) Eosinophils (%) (Auto) 4.0 % (0.0-3.0) H Basophils (%) (Auto) 0.9 % (0.0-2.0) Sodium Level 139 mEQ/L (135-145) Potassium Level 4.3 mEQ/L (3.4-4.9) Chloride Level 98 mEQ/L (98-107) Carbon Dioxide Level 33 mEQ/L (20-30) H Anion Gap 8 (5-15) Blood Urea Nitrogen 17 mg/dL (7-23) Creatinine 0.6 mg/dL (0.7-1.2) L Estimat Glomerular Filtration Rate mL/min (>60) Glucose Level 129 mg/dL (74-106) H Calcium Level 8.8 mg/dL (8.6-10.2) Phosphorus Level 3.4 mg/dL (2.5-4.8) Magnesium Level 1.9 mg/dL (1.7-2.5) Total Bilirubin 0.2 mg/dL (0.0-1.2) Aspartate Amino Transf (AST/SGOT) 19 U/L (5-40) Alanine Aminotransferase (ALT/SGPT) 16 U/L (3-41) Alkaline Phosphatase 61 U/L (40-129) Total Protein 5.9 g/dL (6.6-8.7) L Albumin 3.0 g/dL (3.5-5.2) L Globulin 2.9 g/dL Albumin/Globulin Ratio 1.0 (1.0-2.7) Arterial Blood pH 7.392 (7.350-7.450) Arterial Blood Partial Pressure CO2 51.3 mmHg (35.0-45.0) H Arterial Blood Partial Pressure O2 124.7 mmHg (75.0-100.0) H Arterial Blood HCO3 30.5 mmol/L (22.0-26.0) H Arterial Blood Oxygen Saturation 98.2 % (92.0-98.0) H Arterial Blood Base Excess 4.7 Leo Test Positive Current Medications Medications (Trade) Dose Ordered Sig/Daina Route PRN Reason Start Time Stop Time Status Last Admin Dose Admin Acetaminophen (Tylenol) 650 mg Q4H PRN ORAL fever 01/04/17 21:00 02/03/17 20:59 Albuterol/ Ipratropium (DuoNeb 0.5-3(2.5)mg/3ml) 3 ml Q6HRT HHN 01/13/17 01:15 01/18/17 01:14 01/15/17 13:16 Atropine Sulfate (Atropine Opth Analia) 1 drop Q2H PRN SL excessive secretions 01/15/17 10:15 02/14/17 10:14 01/15/17 12:26 Betamethasone/ Clotrimazole (Lotrisone) 1 applic TWICE A DAY TOPIC 01/12/17 12:30 02/11/17 12:29 01/15/17 08:33 Clonidine HCl (Catapres) 0.1 mg Q6H PRN GT SBP > 170 01/06/17 16:00 02/05/17 15:59 Dextrose (Dextrose 50%) STAT PRN IV Hypoglycemia 01/04/17 21:00 02/03/17 20:59 Diltiazem HCl (Cardizem) 60 mg EVERY 8 HOURS NG 01/14/17 14:00 02/13/17 13:59 01/15/17 15:02 Docusate Sodium (Colace) 100 mg DAILY ORAL 01/12/17 11:15 02/11/17 11:14 01/15/17 08:33 Fluconazole (Diflucan 100mg/ 50ml) 50 ml @ 50 mls/hr Q24H IV 01/15/17 12:00 01/22/17 11:59 01/15/17 12:26 Gentamicin Sulfate (Garamycin 0.3% Opth Soln) 1 drop Q4HR LEFT EYE 01/14/17 12:00 01/21/17 11:59 01/15/17 12:31 Glycopyrrolate 0.1 mg 0.1 mg Q6H PRN IV excessive secretions 01/15/17 10:15 02/14/17 10:14 01/15/17 15:02 Heparin Sodium (Porcine) (Heparin 5000 units/ml) 5,000 units EVERY 12 HOURS SUBQ 01/04/17 22:00 02/03/17 21:59 01/15/17 08:38 Lansoprazole (Prevacid) 30 mg DAILY GT 01/13/17 09:00 02/12/17 08:59 01/15/17 08:33 Lorazepam (Ativan 2mg/ml 1ml) 1 mg Q4H PRN IV For Anxiety 01/10/17 13:00 01/17/17 12:59 01/11/17 22:08 Nitroglycerin (Ntg) 0.4 mg Every 5 Minutes PRN SL Prn Chest Pain 01/04/17 21:00 02/03/17 20:59 Ondansetron HCl (Zofran) 4 mg Q6H PRN IVP Nausea & Vomiting 01/04/17 21:00 02/03/17 20:59 Polyethylene Glycol (Miralax) 17 gm DAILYPRN PRN GT Constipation 01/06/17 15:55 02/03/17 20:59 01/14/17 08:25 Theophylline (Theophylline) 80 mg Q6HR ORAL 01/13/17 12:00 02/12/17 11:59 01/15/17 12:26 HORACIO JOHN M.D. Jan 15, 2017 15:16
--- NOTE | 2017-01-15 16:53 | Internal Med Progress Note ---
Subjective Date of Service: Jan 15, 2017 Physician Name Sangeetha Johnson Attending Physician Sangeetha Johnson Current Medications Medications (Trade) Dose Ordered Sig/Daina Route PRN Reason Start Time Stop Time Status Last Admin Dose Admin Acetaminophen (Tylenol) 650 mg Q4H PRN ORAL fever 01/04/17 21:00 02/03/17 20:59 Albuterol/ Ipratropium (DuoNeb 0.5-3(2.5)mg/3ml) 3 ml Q6HRT HHN 01/13/17 01:15 01/18/17 01:14 01/15/17 13:16 Atropine Sulfate (Atropine Opth Analia) 1 drop Q2H PRN SL excessive secretions 01/15/17 10:15 02/14/17 10:14 01/15/17 12:26 Betamethasone/ Clotrimazole (Lotrisone) 1 applic TWICE A DAY TOPIC 01/12/17 12:30 02/11/17 12:29 01/15/17 08:33 Clonidine HCl (Catapres) 0.1 mg Q6H PRN GT SBP > 170 01/06/17 16:00 02/05/17 15:59 Dextrose (Dextrose 50%) STAT PRN IV Hypoglycemia 01/04/17 21:00 02/03/17 20:59 Diltiazem HCl (Cardizem) 60 mg EVERY 8 HOURS NG 01/14/17 14:00 02/13/17 13:59 01/15/17 15:02 Docusate Sodium (Colace) 100 mg DAILY ORAL 01/12/17 11:15 02/11/17 11:14 01/15/17 08:33 Fluconazole (Diflucan 100mg/ 50ml) 50 ml @ 50 mls/hr Q24H IV 01/15/17 12:00 01/22/17 11:59 01/15/17 12:26 Gentamicin Sulfate (Garamycin 0.3% Opth Soln) 1 drop Q4HR LEFT EYE 01/14/17 12:00 01/21/17 11:59 01/15/17 12:31 Glycopyrrolate 0.1 mg 0.1 mg Q6H PRN IV excessive secretions 01/15/17 10:15 02/14/17 10:14 01/15/17 15:02 Heparin Sodium (Porcine) (Heparin 5000 units/ml) 5,000 units EVERY 12 HOURS SUBQ 01/04/17 22:00 02/03/17 21:59 01/15/17 08:38 Lansoprazole (Prevacid) 30 mg DAILY GT 01/13/17 09:00 02/12/17 08:59 01/15/17 08:33 Lorazepam (Ativan 2mg/ml 1ml) 1 mg Q4H PRN IV For Anxiety 01/10/17 13:00 01/17/17 12:59 01/11/17 22:08 Nitroglycerin (Ntg) 0.4 mg Every 5 Minutes PRN SL Prn Chest Pain 01/04/17 21:00 02/03/17 20:59 Ondansetron HCl (Zofran) 4 mg Q6H PRN IVP Nausea & Vomiting 01/04/17 21:00 02/03/17 20:59 Polyethylene Glycol (Miralax) 17 gm DAILYPRN PRN GT Constipation 01/06/17 15:55 02/03/17 20:59 01/14/17 08:25 Theophylline (Theophylline) 80 mg Q6HR ORAL 01/13/17 12:00 02/12/17 11:59 01/15/17 12:26 Allergies: Coded Allergies: No Known Allergies (Verified , 01/06/17) ROS Limited/Unobtainable: Yes Subjective 76 YO M admitted with aspiration and respiratory failure. Reintubated 01/09/17; extubated 01/14/17. Tolerating venturi mask. Sedated. ICU. Objective Last Vital Signs Date Time Temp Pulse Resp B/P Pulse Ox O2 Delivery O2 Flow Rate FiO2 01/15/17 15:02 91 152/65 01/15/17 13:05 20 100 Venturi Mask 45 01/15/17 12:00 79.8 01/09/17 01:00 15.0 Laboratory Tests Test 01/15/17 04:00 01/15/17 08:59 White Blood Count 8.2 K/UL (4.8-10.8) Red Blood Count 3.08 M/UL (4.70-6.10) L Hemoglobin 9.7 G/DL (14.2-18.0) L Hematocrit 30.6 % (42.0-52.0) L Mean Corpuscular Volume 99 FL (80-99) Mean Corpuscular Hemoglobin 31.6 PG (27.0-31.0) H Mean Corpuscular Hemoglobin Concent 31.9 G/DL (32.0-36.0) L Red Cell Distribution Width 12.8 % (11.6-14.8) Platelet Count 311 K/UL (150-450) Mean Platelet Volume 6.8 FL (6.5-10.1) Neutrophils (%) (Auto) 71.6 % (45.0-75.0) Lymphocytes (%) (Auto) 16.9 % (20.0-45.0) L Monocytes (%) (Auto) 6.5 % (1.0-10.0) Eosinophils (%) (Auto) 4.0 % (0.0-3.0) H Basophils (%) (Auto) 0.9 % (0.0-2.0) Sodium Level 139 mEQ/L (135-145) Potassium Level 4.3 mEQ/L (3.4-4.9) Chloride Level 98 mEQ/L (98-107) Carbon Dioxide Level 33 mEQ/L (20-30) H Anion Gap 8 (5-15) Blood Urea Nitrogen 17 mg/dL (7-23) Creatinine 0.6 mg/dL (0.7-1.2) L Estimat Glomerular Filtration Rate mL/min (>60) Glucose Level 129 mg/dL (74-106) H Calcium Level 8.8 mg/dL (8.6-10.2) Phosphorus Level 3.4 mg/dL (2.5-4.8) Magnesium Level 1.9 mg/dL (1.7-2.5) Total Bilirubin 0.2 mg/dL (0.0-1.2) Aspartate Amino Transf (AST/SGOT) 19 U/L (5-40) Alanine Aminotransferase (ALT/SGPT) 16 U/L (3-41) Alkaline Phosphatase 61 U/L (40-129) Total Protein 5.9 g/dL (6.6-8.7) L Albumin 3.0 g/dL (3.5-5.2) L Globulin 2.9 g/dL Albumin/Globulin Ratio 1.0 (1.0-2.7) Arterial Blood pH 7.392 (7.350-7.450) Arterial Blood Partial Pressure CO2 51.3 mmHg (35.0-45.0) H Arterial Blood Partial Pressure O2 124.7 mmHg (75.0-100.0) H Arterial Blood HCO3 30.5 mmol/L (22.0-26.0) H Arterial Blood Oxygen Saturation 98.2 % (92.0-98.0) H Arterial Blood Base Excess 4.7 Leo Test Positive Intake and Output 01/14/17 01/15/17 19:00 07:00 Intake Total 832.5 ml 810 ml Output Total 1120 ml 1570 ml Balance -287.5 ml -760 ml IV Total 82.5 ml Tube Feeding 660 ml 660 ml Other 90 ml 150 ml Output Urine Total 1120 ml 1570 ml # Bowel Movements 2 Objective General Appearance: WD/WN, moderate distress EENT: PERRL/EOMI, normal ENT inspection Neck: non-tender, normal alignment, supple Cardiovascular: normal peripheral pulses, normal rate, regular rhythm, no gallop/murmur, no JVD Respiratory/Chest: venturi mask; respiratory distress, crackles/rales, rhonchi - bilaterally, expiratory wheezing Abdomen: normal bowel sounds, non tender, soft, no organomegaly, no mass Extremities: normal range of motion, non-tender 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 Tolerating venturi mask. See pulmonary note. (2) Hypertension Assessment & Plan: Better control-see cardiology consult. (3) Hypercholesteremia (4) BPH (benign prostatic hyperplasia) (5) Alzheimer's dementia (6) Aspiration pneumonia Assessment & Plan: Continue zosyn. See pulmonary and ID note. (7) Hematuria Assessment & Plan: Resolved (8) Atrial fibrillation with RVR Assessment & Plan: S/P Cardizem drip; see cardiology note. Status: not improved Assessment/Plan Discussed with SANGEETHA JOHNSON Jan 15, 2017 16:52
[2017-01-16] VITALS (24 sets, daily range): BP systolic 105–142; BP diastolic 53–91
[2017-01-16] MEDS: Theophylline 80mg/15ml ORAL SCH ×4 (00:15→18:00)
[2017-01-16] MEDS: DuoNeb 0.5-3(2.5)mg/3ml neb HHN SCH ×4 (00:52→19:08)
[2017-01-16] MEDS: Gentamicin 0.3% Opth Soln 5ml LEFT EYE SCH ×6 (01:03→21:01)
[2017-01-16 05:28] LABS: BASOPHILS % (AUTO) 0.6 % (0.0-2.0); EOSINOPHILS % (AUTO) 1.6 % (0.0-3.0); LYMPHOCYTES % (AUTO) 12.8 % (20.0-45.0); MEAN CORPUSCULAR HEMOGLOBIN 31.5 PG (27.0-31.0); MEAN CORPUSCULAR HGB CONC 31.3 G/DL (32.0-36.0); MEAN CORPUSCULAR VOLUME 101 FL (80-99); MEAN PLATELET VOLUME 7.3 FL (6.5-10.1); MONOCYTES % (AUTO) 6.3 % (1.0-10.0); NEUTROPHILS % (AUTO) 78.7 % (45.0-75.0); PLATELET COUNT 365 K/UL (150-450); RED BLOOD COUNT 3.24 M/UL (4.70-6.10)
[2017-01-16 05:34] LABS: ALANINE AMINOTRANSFERASE 19 U/L (3-41); ANION GAP 7 (5-15); ASPARTATE AMINO TRANSFERASE 19 U/L (5-40); CALCIUM 9.1 mg/dL (8.6-10.2); CARBON DIOXIDE 34 mEQ/L (20-30); CHLORIDE 97 mEQ/L (98-107); CREATININE 0.6 mg/dL (0.7-1.2); HEMOLYSIS 0; MAGNESIUM 1.9 mg/dL (1.7-2.5); PHOSPHORUS 3.4 mg/dL (2.5-4.8); POTASSIUM 4.3 mEQ/L (3.4-4.9); SODIUM 138 mEQ/L (135-145); TOTAL PROTEIN 6.1 g/dL (6.6-8.7)
[2017-01-16] MEDS: Docusate 100mg tablet ORAL SCH (08:13)
[2017-01-16] MEDS: Lotrisone Cream 15gm TOPIC SCH ×2 (08:14→18:00)
[2017-01-16] MEDS: Heparin 5000 units/ml inj SUBQ SCH ×2 (08:16→21:03)
--- NOTE | 2017-01-16 08:30 | Pulmonolgy Critical Care Note ---
Critical Care - Asmt/Plan Assessment/Plan: ASSESSMENT ACUTE RESPIRATORY FAILURE REQUIRING INTUBATION S/P EXTUBATION 01/06 S/P REINTUBATION 12/20 DUE TO ACUTE HYPOXEMIA S/P EXTUBATION 01/14 HYPERCAPNIA POSSIBLE ASPIRATION PNA AF WITH RVR HTN ANEMIA ALZHEIMER DEMENTIA SEVERE PULMONARY HTN MODERATE TR HX of EMILY DYSPHAGIA PLAN OF CARE ICU care on BiPAP Q 6 hrs x 1 hr will add BiPAP at night for EMILY and increase EPAP pulmonary toilet fup with CXR and ABG Atropine and Robinul to handle excess secretions remains in SR cardio follows hold Heparin gtt as per cardio on Cardizem rate controlled ECHO with EF 60-65% and RVSP of 55, moderate TR blood, urine, sputum cx all negative, last sputum cx + Ada, on Fluconazole, ID follows monitor HH peripheral blood smear review revealed macrocytic anemia, no blasts goal to keep Hgb above 7, HH remains at baseline, stool OB failed swallow eval due to ALOC NG TF now, strict aspiration precautions, monitor tolerance will repeat swallow eval when more awake DVT, GI prophylaxis case discussed and evaluated by supervising physician Critical Care - Objective Last 24 Hour Vital Signs Date Time Temp Pulse Resp B/P Pulse Ox O2 Delivery O2 Flow Rate FiO2 01/16/17 08:00 97.5 75 19 140/64 99 Bi-pap 45 01/16/17 07:10 45 01/16/17 07:00 73 21 140/64 99 Venturi Mask 55 01/16/17 06:00 75 24 133/67 100 Venturi Mask 55 01/16/17 05:56 76 130/57 01/16/17 05:00 76 19 130/57 96 Venturi Mask 55 01/16/17 04:00 98.1 76 20 130/57 96 Venturi Mask 45 01/16/17 04:00 76 01/16/17 03:00 77 19 118/55 100 Venturi Mask 35 01/16/17 02:30 77 20 100 10.0 45 01/16/17 02:00 78 21 108/57 98 Venturi Mask 35 01/16/17 01:22 77 18 100 Bi-pap 35 01/16/17 01:09 75 20 100 Bi-pap 35 01/16/17 01:07 74 20 100 Facial 35 01/16/17 01:00 78 18 135/68 100 Bi-pap 35 01/16/17 00:00 79 01/16/17 00:00 98.1 78 24 134/56 99 Venturi Mask 50 01/15/17 23:00 82 20 118/57 98 Venturi Mask 35 01/15/17 22:07 94 124/58 01/15/17 22:00 93 22 124/58 97 Venturi Mask 35 01/15/17 21:00 94 23 146/62 98 Venturi Mask 35 01/15/17 20:19 86 22 100 3.0 35 01/15/17 20:00 87 01/15/17 20:00 98.1 81 20 113/60 100 Bi-pap 45 01/15/17 19:26 79 15 100 Bi-pap 45 01/15/17 19:15 78 15 100 Bi-pap 45 01/15/17 19:15 78 20 100 45 01/15/17 19:00 76 20 114/60 100 Venturi Mask 45 01/15/17 18:00 73 20 103/51 100 Venturi Mask 45 01/15/17 17:00 79 20 129/64 100 Venturi Mask 45 01/15/17 16:00 78.0 83 22 132/64 100 Venturi Mask 45 01/15/17 16:00 81 01/15/17 15:02 91 152/65 01/15/17 15:00 89 20 125/61 100 Venturi Mask 45 01/15/17 14:00 88 20 152/65 100 Venturi Mask 45 01/15/17 13:05 73 20 100 Venturi Mask 45 01/15/17 13:00 85 20 160/65 100 Venturi Mask 45 01/15/17 13:00 75 17 100 Venturi Mask 45 01/15/17 12:00 79.8 74 21 152/72 100 Bi-pap 45 01/15/17 12:00 75 17 100 Facial 45 01/15/17 12:00 85 01/15/17 11:00 73 21 132/68 100 Venturi Mask 45 01/15/17 10:00 75 21 134/67 100 Venturi Mask 45 01/15/17 09:00 73 21 134/57 100 Venturi Mask 45 Status: sedated Condition: critical HEENT: atraumatic, normocephalic, other - VM 45%, NGT intact Neck: other - trachea midline Lungs: other - coarse BS in upper lobes Heart: HR/BP stable Abdomen: soft, non-tender, active bowel sounds Extremities: no C/C/E, other - atrophy BLE Accucheck: 115 Critical Care - Subjective ROS Limited/Unobtainable: Yes Interval Events: mild leukocytosis today afebrile ABG with hypercapnia hx of EMILY Condition: critical IV Access: peripheral EKG Rhythm: Sinus Rhythm Vent Support Mode: CPAP Sputum Amount: Copious Tube Feeding Amount: 55 I&O: Intake and Output 01/15/17 01/16/17 19:00 07:00 Intake Total 840 ml 810 ml Output Total 900 ml 700 ml Balance -60 ml 110 ml IV Total 50 ml Tube Feeding 660 ml 660 ml Other 130 ml 150 ml Output Urine Total 900 ml 700 ml # Bowel Movements 1 CXR: 01/15 Heart is borderline enlarged but stable. NG tube is in good position. Minimal left basilar atelectasis demonstrated. Nataliia Menon NP ([facility]) Jan 16, 2017 08:30
[2017-01-16] MEDS ORDERED: LORazepam Inj 2mg/ml 1ml IV PRN (09:00)
[2017-01-16 09:45] LABS: ABG BASE EXCESS 6.7; ABG PCO2 53.3 mmHg (35.0-45.0)
[2017-01-16 09:46] LABS: ABG ALLEN TEST POSITIVE
[2017-01-16] MEDS ORDERED: Sterile Water For Irrig 2000ml IRRIG ONE (14:40)
[2017-01-16] MEDS ORDERED: Tubing IV Secondary IV ONE (14:40)
--- NOTE | 2017-01-16 16:36 | Internal Med Progress Note ---
Subjective Date of Service: Jan 16, 2017 Physician Name Sangeetha Johnson Attending Physician Sangeetha Johnson Current Medications Medications (Trade) Dose Ordered Sig/Daina Route PRN Reason Start Time Stop Time Status Last Admin Dose Admin Acetaminophen (Tylenol) 650 mg Q4H PRN ORAL fever 01/04/17 21:00 02/03/17 20:59 Albuterol/ Ipratropium (DuoNeb 0.5-3(2.5)mg/3ml) 3 ml Q6HRT HHN 01/16/17 13:00 01/21/17 12:59 01/16/17 13:50 Atropine Sulfate (Atropine Opth Analia) 1 drop Q2H PRN SL excessive secretions 01/15/17 10:15 02/14/17 10:14 01/16/17 05:15 Betamethasone/ Clotrimazole (Lotrisone) 1 applic TWICE A DAY TOPIC 01/12/17 12:30 02/11/17 12:29 01/16/17 08:14 Clonidine HCl (Catapres) 0.1 mg Q6H PRN GT SBP > 170 01/06/17 16:00 02/05/17 15:59 Dextrose (Dextrose 50%) STAT PRN IV Hypoglycemia 01/04/17 21:00 02/03/17 20:59 Diltiazem HCl (Cardizem) 60 mg EVERY 8 HOURS NG 01/14/17 14:00 02/13/17 13:59 01/16/17 13:38 Docusate Sodium (Colace) 100 mg DAILY ORAL 01/12/17 11:15 02/11/17 11:14 01/16/17 08:13 Fluconazole (Diflucan 100mg/ 50ml) 50 ml @ 50 mls/hr Q24H IV 01/15/17 12:00 01/22/17 11:59 01/16/17 12:15 Gentamicin Sulfate (Garamycin 0.3% Opth Soln) 1 drop Q4HR LEFT EYE 01/14/17 12:00 01/21/17 11:59 01/16/17 12:14 Glycopyrrolate 0.1 mg 0.1 mg Q6H PRN IV excessive secretions 01/15/17 10:15 02/14/17 10:14 01/15/17 15:02 Heparin Sodium (Porcine) (Heparin 5000 units/ml) 5,000 units EVERY 12 HOURS SUBQ 01/04/17 22:00 02/03/17 21:59 01/16/17 08:16 Lansoprazole (Prevacid) 30 mg DAILY GT 01/13/17 09:00 02/12/17 08:59 01/16/17 08:14 Lorazepam (Ativan 2mg/ml 1ml) 1 mg Q4H PRN IV For Anxiety 01/16/17 09:00 01/23/17 08:59 Nitroglycerin (Ntg) 0.4 mg Every 5 Minutes PRN SL Prn Chest Pain 01/04/17 21:00 02/03/17 20:59 Ondansetron HCl (Zofran) 4 mg Q6H PRN IVP Nausea & Vomiting 01/04/17 21:00 02/03/17 20:59 Polyethylene Glycol (Miralax) 17 gm DAILYPRN PRN GT Constipation 01/06/17 15:55 02/03/17 20:59 01/14/17 08:25 Theophylline (Theophylline) 80 mg Q6HR ORAL 01/13/17 12:00 02/12/17 11:59 01/16/17 12:14 Allergies: Coded Allergies: No Known Allergies (Verified , 01/06/17) ROS Limited/Unobtainable: Yes Subjective 76 YO M admitted with aspiration and respiratory failure. Reintubated 01/09/17; extubated 01/14/17. Back on BIPAP.. Sedated. ICU. Objective Last Vital Signs Date Time Temp Pulse Resp B/P Pulse Ox O2 Delivery O2 Flow Rate FiO2 01/16/17 15:20 75 13 98 Facial 45 01/16/17 14:00 123/61 01/16/17 12:00 98.1 01/16/17 07:20 Laboratory Tests Test 01/16/17 04:05 01/16/17 09:38 White Blood Count 12.0 K/UL (4.8-10.8) H Red Blood Count 3.24 M/UL (4.70-6.10) L Hemoglobin 10.2 G/DL (14.2-18.0) L Hematocrit 32.7 % (42.0-52.0) L Mean Corpuscular Volume 101 FL (80-99) H Mean Corpuscular Hemoglobin 31.5 PG (27.0-31.0) H Mean Corpuscular Hemoglobin Concent 31.3 G/DL (32.0-36.0) L Red Cell Distribution Width 13.0 % (11.6-14.8) Platelet Count 365 K/UL (150-450) Mean Platelet Volume 7.3 FL (6.5-10.1) Neutrophils (%) (Auto) 78.7 % (45.0-75.0) H Lymphocytes (%) (Auto) 12.8 % (20.0-45.0) L Monocytes (%) (Auto) 6.3 % (1.0-10.0) Eosinophils (%) (Auto) 1.6 % (0.0-3.0) Basophils (%) (Auto) 0.6 % (0.0-2.0) Sodium Level 138 mEQ/L (135-145) Potassium Level 4.3 mEQ/L (3.4-4.9) Chloride Level 97 mEQ/L (98-107) L Carbon Dioxide Level 34 mEQ/L (20-30) H Anion Gap 7 (5-15) Blood Urea Nitrogen 19 mg/dL (7-23) Creatinine 0.6 mg/dL (0.7-1.2) L Estimat Glomerular Filtration Rate mL/min (>60) Glucose Level 121 mg/dL (74-106) H Calcium Level 9.1 mg/dL (8.6-10.2) Phosphorus Level 3.4 mg/dL (2.5-4.8) Magnesium Level 1.9 mg/dL (1.7-2.5) Total Bilirubin 0.3 mg/dL (0.0-1.2) Aspartate Amino Transf (AST/SGOT) 19 U/L (5-40) Alanine Aminotransferase (ALT/SGPT) 19 U/L (3-41) Alkaline Phosphatase 66 U/L (40-129) Total Protein 6.1 g/dL (6.6-8.7) L Albumin 3.1 g/dL (3.5-5.2) L Globulin 3.0 g/dL Albumin/Globulin Ratio 1.0 (1.0-2.7) Arterial Blood pH 7.404 (7.350-7.450) Arterial Blood Partial Pressure CO2 53.3 mmHg (35.0-45.0) H Arterial Blood Partial Pressure O2 92.7 mmHg (75.0-100.0) Arterial Blood HCO3 32.6 mmol/L (22.0-26.0) H Arterial Blood Oxygen Saturation 97.2 % (92.0-98.0) Arterial Blood Base Excess 6.7 Leo Test Positive Intake and Output 01/15/17 01/16/17 19:00 07:00 Intake Total 840 ml 810 ml Output Total 900 ml 700 ml Balance -60 ml 110 ml IV Total 50 ml Tube Feeding 660 ml 660 ml Other 130 ml 150 ml Output Urine Total 900 ml 700 ml # Bowel Movements 1 Objective General Appearance: WD/WN, moderate distress EENT: PERRL/EOMI, normal ENT inspection Neck: non-tender, normal alignment, supple Cardiovascular: normal peripheral pulses, normal rate, regular rhythm, no gallop/murmur, no JVD Respiratory/Chest: BIPAP; respiratory distress, crackles/rales, rhonchi - bilaterally, expiratory wheezing Abdomen: normal bowel sounds, non tender, soft, no organomegaly, no mass Extremities: normal range of motion, non-tender 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 Tolerating BIPAP. See pulmonary note. (2) Hypertension Assessment & Plan: Better control-see cardiology consult. (3) Hypercholesteremia (4) BPH (benign prostatic hyperplasia) (5) Alzheimer's dementia (6) Aspiration pneumonia Assessment & Plan: Continue zosyn. See pulmonary and ID note. (7) Hematuria Assessment & Plan: Resolved (8) Atrial fibrillation with RVR Assessment & Plan: S/P Cardizem drip; see cardiology note. Status: not improved Assessment/Plan Discussed with SANGEETHA JOHNSON Jan 16, 2017 16:36
--- NOTE | 2017-01-16 19:21 | Cardiac Electrophysiology PN ---
Assessment/Plan Assessment/Plan 1. Atrial fib with RVR . On Cardizem 60mg NG q 8 hrs. Off anticoagulation. Remained in SR. 2. Hypertension.Continue Cardizem. 3. Severe pulmonary hypertension, pressure 55, likely due to history of obstructive sleep apnea. 4. Recurrent Respiratory failure due to aspiration,extubated for the second time 01/14/17 . Now on BIPAP again. 5. Dementia. 6. Dysphagia. May need PEG DW and RN Subjective Subjective In ICU on BIPAP now. Remained in SR. at bedside. No recurrence of atrial fib. Objective Last 24 Hour Vital Signs Date Time Temp Pulse Resp B/P Pulse Ox O2 Delivery O2 Flow Rate FiO2 01/16/17 19:07 45 01/16/17 19:07 74 17 100 Bi-pap 45 01/16/17 19:05 74 17 100 45 01/16/17 19:00 76 20 118/72 99 Bi-pap 45 01/16/17 18:00 75 20 116/71 99 Bi-pap 45 01/16/17 17:20 73 13 100 Facial 45 01/16/17 17:00 98.0 76 20 129/91 99 Bi-pap 45 01/16/17 16:00 70 01/16/17 16:00 77 21 109/66 99 Bi-pap 45 01/16/17 15:20 75 13 98 Facial 45 01/16/17 15:00 73 20 109/67 99 Bi-pap 45 01/16/17 14:00 72 20 123/61 99 Bi-pap 45 01/16/17 13:38 73 140/81 01/16/17 13:25 74 17 100 Bi-pap 45 01/16/17 13:20 73 15 100 Facial 45 01/16/17 13:20 73 16 100 Bi-pap 45 01/16/17 13:00 70 21 140/81 99 Bi-pap 45 01/16/17 12:00 98.1 70 20 105/55 99 Bi-pap 45 01/16/17 12:00 71 01/16/17 11:44 45 01/16/17 11:20 73 18 100 Facial 45 01/16/17 11:00 73 20 115/53 99 Venturi Mask 45 01/16/17 10:00 72 21 127/65 99 Venturi Mask 45 01/16/17 09:00 72 21 120/53 99 Venturi Mask 35 01/16/17 08:30 01/16/17 08:10 35 01/16/17 08:00 78 01/16/17 08:00 97.5 75 19 140/64 99 Bi-pap 45 01/16/17 07:25 74 20 100 Bi-pap 45 01/16/17 07:20 77 20 100 Facial 45 01/16/17 07:20 72 20 100 Bi-pap 45 01/16/17 07:10 45 01/16/17 07:00 73 21 140/64 99 Venturi Mask 55 01/16/17 06:00 75 24 133/67 100 Venturi Mask 55 01/16/17 05:56 76 130/57 01/16/17 05:00 76 19 130/57 96 Venturi Mask 55 01/16/17 04:00 98.1 76 20 130/57 96 Venturi Mask 45 01/16/17 04:00 76 01/16/17 03:00 77 19 118/55 100 Venturi Mask 35 01/16/17 02:30 77 20 100 10.0 45 01/16/17 02:00 78 21 108/57 98 Venturi Mask 35 01/16/17 01:22 77 18 100 Bi-pap 35 01/16/17 01:09 75 20 100 Bi-pap 35 01/16/17 01:07 74 20 100 Facial 35 01/16/17 01:00 78 18 135/68 100 Bi-pap 35 01/16/17 00:00 79 01/16/17 00:00 98.1 78 24 134/56 99 Venturi Mask 50 01/15/17 23:00 82 20 118/57 98 Venturi Mask 35 01/15/17 22:07 94 124/58 01/15/17 22:00 93 22 124/58 97 Venturi Mask 35 01/15/17 21:00 94 23 146/62 98 Venturi Mask 35 01/15/17 20:19 86 22 100 3.0 35 01/15/17 20:00 87 01/15/17 20:00 98.1 81 20 113/60 100 Bi-pap 45 01/15/17 19:26 79 15 100 Bi-pap 45 Intake and Output 01/15/17 01/16/17 19:00 07:00 Intake Total 840 ml 810 ml Output Total 900 ml 700 ml Balance -60 ml 110 ml IV Total 50 ml Tube Feeding 660 ml 660 ml Other 130 ml 150 ml Output Urine Total 900 ml 700 ml # Bowel Movements 1 Laboratory Tests Test 01/16/17 04:05 01/16/17 09:38 White Blood Count 12.0 K/UL (4.8-10.8) H Red Blood Count 3.24 M/UL (4.70-6.10) L Hemoglobin 10.2 G/DL (14.2-18.0) L Hematocrit 32.7 % (42.0-52.0) L Mean Corpuscular Volume 101 FL (80-99) H Mean Corpuscular Hemoglobin 31.5 PG (27.0-31.0) H Mean Corpuscular Hemoglobin Concent 31.3 G/DL (32.0-36.0) L Red Cell Distribution Width 13.0 % (11.6-14.8) Platelet Count 365 K/UL (150-450) Mean Platelet Volume 7.3 FL (6.5-10.1) Neutrophils (%) (Auto) 78.7 % (45.0-75.0) H Lymphocytes (%) (Auto) 12.8 % (20.0-45.0) L Monocytes (%) (Auto) 6.3 % (1.0-10.0) Eosinophils (%) (Auto) 1.6 % (0.0-3.0) Basophils (%) (Auto) 0.6 % (0.0-2.0) Sodium Level 138 mEQ/L (135-145) Potassium Level 4.3 mEQ/L (3.4-4.9) Chloride Level 97 mEQ/L (98-107) L Carbon Dioxide Level 34 mEQ/L (20-30) H Anion Gap 7 (5-15) Blood Urea Nitrogen 19 mg/dL (7-23) Creatinine 0.6 mg/dL (0.7-1.2) L Estimat Glomerular Filtration Rate mL/min (>60) Glucose Level 121 mg/dL (74-106) H Calcium Level 9.1 mg/dL (8.6-10.2) Phosphorus Level 3.4 mg/dL (2.5-4.8) Magnesium Level 1.9 mg/dL (1.7-2.5) Total Bilirubin 0.3 mg/dL (0.0-1.2) Aspartate Amino Transf (AST/SGOT) 19 U/L (5-40) Alanine Aminotransferase (ALT/SGPT) 19 U/L (3-41) Alkaline Phosphatase 66 U/L (40-129) Total Protein 6.1 g/dL (6.6-8.7) L Albumin 3.1 g/dL (3.5-5.2) L Globulin 3.0 g/dL Albumin/Globulin Ratio 1.0 (1.0-2.7) Arterial Blood pH 7.404 (7.350-7.450) Arterial Blood Partial Pressure CO2 53.3 mmHg (35.0-45.0) H Arterial Blood Partial Pressure O2 92.7 mmHg (75.0-100.0) Arterial Blood HCO3 32.6 mmol/L (22.0-26.0) H Arterial Blood Oxygen Saturation 97.2 % (92.0-98.0) Arterial Blood Base Excess 6.7 Leo Test Positive Objective NECK: No JVD. On BIPAP with NG tube LUNGS: Coarse rhonchi CARDIOVASCULAR: Regular S1 and S2 with no gallop or murmur. ABDOMEN: Soft. EXTREMITIES: No pitting edema. ARGELIA DUONG Jan 16, 2017 19:21
[2017-01-17] VITALS (24 sets, daily range): BP systolic 111–153; BP diastolic 60–95
[2017-01-17] MEDS: Theophylline 80mg/15ml ORAL SCH ×4 (00:16→17:49)
[2017-01-17] MEDS: DuoNeb 0.5-3(2.5)mg/3ml neb HHN SCH ×4 (01:08→18:50)
[2017-01-17] MEDS: Gentamicin 0.3% Opth Soln 5ml LEFT EYE SCH ×6 (01:41→20:32)
[2017-01-17 05:30] LABS: BASOPHILS % (AUTO) 0.7 % (0.0-2.0); EOSINOPHILS % (AUTO) 1.6 % (0.0-3.0); LYMPHOCYTES % (AUTO) 15.2 % (20.0-45.0); MEAN CORPUSCULAR HEMOGLOBIN 33.3 PG (27.0-31.0); MEAN CORPUSCULAR HGB CONC 33.3 G/DL (32.0-36.0); MEAN CORPUSCULAR VOLUME 100 FL (80-99); MEAN PLATELET VOLUME 5.8 FL (6.5-10.1); MONOCYTES % (AUTO) 6.3 % (1.0-10.0); NEUTROPHILS % (AUTO) 76.3 % (45.0-75.0); PLATELET COUNT 268 K/UL (150-450); RED BLOOD COUNT 3.06 M/UL (4.70-6.10); RED CELL DISTRIBUTION WIDTH 12.9 % (11.6-14.8); WHITE BLOOD COUNT 11.6 K/UL (4.8-10.8)
[2017-01-17 05:59] LABS: ANION GAP 9 (5-15); CALCIUM 9.3 mg/dL (8.6-10.2); CARBON DIOXIDE 34 mEQ/L (20-30); CHLORIDE 98 mEQ/L (98-107); CREATININE 0.6 mg/dL (0.7-1.2); HEMOLYSIS 3; POTASSIUM 3.9 mEQ/L (3.4-4.9); SODIUM 141 mEQ/L (135-145)
[2017-01-17 07:46] LABS: ABG BASE EXCESS 7
[2017-01-17 07:47] LABS: ABG ALLEN TEST POSITIVE
[2017-01-17] MEDS: Docusate 100mg tablet ORAL SCH (09:25)
[2017-01-17] MEDS: Heparin 5000 units/ml inj SUBQ SCH ×2 (09:26→20:33)
[2017-01-17] MEDS: Lotrisone Cream 15gm TOPIC SCH ×2 (09:26→17:49)
--- NOTE | 2017-01-17 09:59 | Pulmonolgy Critical Care Note ---
Critical Care - Asmt/Plan Assessment/Plan: ASSESSMENT ACUTE RESPIRATORY FAILURE REQUIRING INTUBATION S/P EXTUBATION 01/06 S/P REINTUBATION 12/20 DUE TO ACUTE HYPOXEMIA S/P EXTUBATION 01/14 HYPERCAPNIA POSSIBLE ASPIRATION PNA AF WITH RVR HTN ANEMIA ALZHEIMER DEMENTIA SEVERE PULMONARY HTN MODERATE TR HX of EMILY DYSPHAGIA PLAN OF CARE ICU care on BiPAP , ABG imroped, will keep for 1 more day pulmonary toilet fup with CXR and ABG Atropine and Robinul to handle excess secretions remains in SR cardio follows hold Heparin gtt as per cardio on Cardizem, rate controlled ECHO with EF 60-65% and RVSP of 55, moderate TR blood, urine, sputum cx all negative, last sputum cx + Ada, on Fluconazole, ID follows monitor HH peripheral blood smear review revealed macrocytic anemia, no blasts goal to keep Hgb above 7, HH remains at baseline, stool OB failed swallow eval due to ALOC NG TF now, strict aspiration precautions, monitor tolerance will repeat swallow eval when more awake increase free water via NGT ( BUN 24) DVT, GI prophylaxis case discussed and evaluated by supervising physician Critical Care - Objective Last 24 Hour Vital Signs Date Time Temp Pulse Resp B/P Pulse Ox O2 Delivery O2 Flow Rate FiO2 01/17/17 09:00 76 20 124/64 100 Bi-pap 30 01/17/17 08:47 75 19 100 Bi-pap 30 01/17/17 08:37 73 15 100 Bi-pap 30 01/17/17 08:37 30 01/17/17 08:35 73 15 100 Facial 30 01/17/17 08:00 98.1 74 24 126/64 100 Bi-pap 30 01/17/17 08:00 30 01/17/17 08:00 71 01/17/17 07:19 72 17 100 Facial 35 01/17/17 07:00 76 19 118/77 100 Bi-pap 35 01/17/17 06:00 71 19 135/60 100 Bi-pap 35 01/17/17 05:34 70 132/95 01/17/17 05:00 70 17 132/95 100 Bi-pap 35 01/17/17 04:43 72 17 100 Facial 35 01/17/17 04:00 35 01/17/17 04:00 80 01/17/17 04:00 97.9 76 20 153/80 100 Bi-pap 35 01/17/17 03:02 79 15 100 Facial 35 01/17/17 03:00 74 17 113/62 100 Bi-pap 35 01/17/17 02:00 76 19 125/64 100 Bi-pap 35 01/17/17 01:30 75 19 100 Bi-pap 35 01/17/17 01:07 35 01/17/17 01:07 75 15 100 Bi-pap 35 01/17/17 01:06 75 15 100 Facial 35 01/17/17 01:00 35 01/17/17 01:00 75 19 111/65 100 Bi-pap 35 01/17/17 00:00 79 01/17/17 00:00 98.0 73 20 129/76 100 Bi-pap 35 01/16/17 23:00 74 18 113/69 100 Bi-pap 35 01/16/17 22:50 75 20 100 Facial 35 01/16/17 22:03 75 142/76 01/16/17 22:00 75 18 123/79 100 Bi-pap 45 01/16/17 21:00 75 20 142/76 100 Bi-pap 45 01/16/17 20:47 74 19 100 Facial 45 01/16/17 20:00 45 01/16/17 20:00 79 01/16/17 20:00 98.3 75 17 119/64 100 Bi-pap 45 01/16/17 19:23 76 17 100 Bi-pap 45 01/16/17 19:07 45 01/16/17 19:07 74 17 100 Bi-pap 45 01/16/17 19:05 74 17 100 45 01/16/17 19:00 76 20 118/72 99 Bi-pap 45 01/16/17 18:00 75 20 116/71 99 Bi-pap 45 01/16/17 17:20 73 13 100 Facial 45 01/16/17 17:00 98.0 76 20 129/91 99 Bi-pap 45 01/16/17 16:00 70 01/16/17 16:00 77 21 109/66 99 Bi-pap 45 01/16/17 15:20 75 13 98 Facial 45 01/16/17 15:00 73 20 109/67 99 Bi-pap 45 01/16/17 14:00 72 20 123/61 99 Bi-pap 45 01/16/17 13:38 73 140/81 01/16/17 13:25 74 17 100 Bi-pap 45 01/16/17 13:20 73 15 100 Facial 45 01/16/17 13:20 73 16 100 Bi-pap 45 01/16/17 13:00 70 21 140/81 99 Bi-pap 45 01/16/17 12:00 98.1 70 20 105/55 99 Bi-pap 45 01/16/17 12:00 71 01/16/17 11:44 45 01/16/17 11:20 73 18 100 Facial 45 01/16/17 11:00 73 20 115/53 99 Venturi Mask 45 01/16/17 10:00 72 21 127/65 99 Venturi Mask 45 Objective: Status: sedated Condition: critical on BiPAP 25/10, FiO2 30% HEENT: atraumatic, normocephalic, other - BiPAP mask on, NGT intact Neck: trachea midline Lungs: coarse BS at upper lobes Heart: HR/BP stable Abdomen: soft, non-tender, active bowel sounds Extremities: no C/C/E, atrophy BLE Accucheck: 115 Critical Care - Subjective ROS Limited/Unobtainable: Yes Interval Events: ABG better this am, hypercapnia resolved still mild leukocytosis , afebrile no signs of respiratory distress Condition: critical IV Access: peripheral EKG Rhythm: Sinus Rhythm FI02: 30 Vent Support Mode: CPAP Sputum Amount: Moderate Tube Feeding Amount: 55 I&O: Intake and Output 01/16/17 01/17/17 19:00 07:00 Intake Total 910 ml 810 ml Output Total 1190 ml 605 ml Balance -280 ml 205 ml IV Total 50 ml Tube Feeding 660 ml 660 ml Other 200 ml 150 ml Output Urine Total 1190 ml 605 ml CXR: No change from the prior day. Mild left basal atelectasis Nataliia Menon NP (Vanchtein) Jan 17, 2017 09:59
--- NOTE | 2017-01-17 11:33 | Infectious Diseases Prog Note ---
Assessment/Plan Assessment/Plan A: Pneumonia Respiratory failure Dementia Anemia P; continue Fluconazole Subjective ROS Limited/Unobtainable: Yes Allergies: Coded Allergies: No Known Allergies (Verified , 01/06/17) Objective Vital Signs Last 24 Hour Vital Signs Date Time Temp Pulse Resp B/P Pulse Ox O2 Delivery O2 Flow Rate FiO2 01/17/17 11:00 80 20 131/64 100 Venturi Mask 35 01/17/17 10:27 76 15 100 01/17/17 10:00 75 21 123/77 100 Bi-pap 30 01/17/17 09:00 76 20 124/64 100 Bi-pap 30 01/17/17 08:47 75 19 100 Bi-pap 30 01/17/17 08:37 73 15 100 Bi-pap 30 01/17/17 08:37 30 01/17/17 08:35 73 15 100 Facial 30 01/17/17 08:00 98.1 74 24 126/64 100 Bi-pap 30 01/17/17 08:00 30 01/17/17 08:00 71 01/17/17 07:19 72 17 100 Facial 35 01/17/17 07:00 76 19 118/77 100 Bi-pap 35 01/17/17 06:00 71 19 135/60 100 Bi-pap 35 01/17/17 05:34 70 132/95 01/17/17 05:00 70 17 132/95 100 Bi-pap 35 01/17/17 04:43 72 17 100 Facial 35 01/17/17 04:00 35 01/17/17 04:00 80 01/17/17 04:00 97.9 76 20 153/80 100 Bi-pap 35 01/17/17 03:02 79 15 100 Facial 35 01/17/17 03:00 74 17 113/62 100 Bi-pap 35 01/17/17 02:00 76 19 125/64 100 Bi-pap 35 01/17/17 01:30 75 19 100 Bi-pap 35 01/17/17 01:07 35 01/17/17 01:07 75 15 100 Bi-pap 35 01/17/17 01:06 75 15 100 Facial 35 01/17/17 01:00 35 01/17/17 01:00 75 19 111/65 100 Bi-pap 35 01/17/17 00:00 79 01/17/17 00:00 98.0 73 20 129/76 100 Bi-pap 35 01/16/17 23:00 74 18 113/69 100 Bi-pap 35 01/16/17 22:50 75 20 100 Facial 35 01/16/17 22:03 75 142/76 01/16/17 22:00 75 18 123/79 100 Bi-pap 45 01/16/17 21:00 75 20 142/76 100 Bi-pap 45 01/16/17 20:47 74 19 100 Facial 45 01/16/17 20:00 45 01/16/17 20:00 79 01/16/17 20:00 98.3 75 17 119/64 100 Bi-pap 45 01/16/17 19:23 76 17 100 Bi-pap 45 01/16/17 19:07 45 01/16/17 19:07 74 17 100 Bi-pap 45 01/16/17 19:05 74 17 100 45 01/16/17 19:00 76 20 118/72 99 Bi-pap 45 01/16/17 18:00 75 20 116/71 99 Bi-pap 45 01/16/17 17:20 73 13 100 Facial 45 01/16/17 17:00 98.0 76 20 129/91 99 Bi-pap 45 01/16/17 16:00 70 01/16/17 16:00 77 21 109/66 99 Bi-pap 45 01/16/17 15:20 75 13 98 Facial 45 01/16/17 15:00 73 20 109/67 99 Bi-pap 45 01/16/17 14:00 72 20 123/61 99 Bi-pap 45 01/16/17 13:38 73 140/81 01/16/17 13:25 74 17 100 Bi-pap 45 01/16/17 13:20 73 15 100 Facial 45 01/16/17 13:20 73 16 100 Bi-pap 45 01/16/17 13:00 70 21 140/81 99 Bi-pap 45 01/16/17 12:00 98.1 70 20 105/55 99 Bi-pap 45 01/16/17 12:00 71 01/16/17 11:44 45 Height (Feet): 5 Height (Inches): 5.00 Weight (Pounds): 120 HEENT: other - O2 by mask Respiratory/Chest: rhonchi - bilaterally Cardiovascular: normal rate Abdomen: soft, non tender, other - NG tube Extremities: no edema Neurologic/Psychiatric: unresponsiveness Musculoskeletal: atrophy Laboratory Tests Test 01/17/17 03:33 01/17/17 07:33 White Blood Count 11.6 K/UL (4.8-10.8) H Red Blood Count 3.06 M/UL (4.70-6.10) L Hemoglobin 10.2 G/DL (14.2-18.0) L Hematocrit 30.5 % (42.0-52.0) L Mean Corpuscular Volume 100 FL (80-99) H Mean Corpuscular Hemoglobin 33.3 PG (27.0-31.0) H Mean Corpuscular Hemoglobin Concent 33.3 G/DL (32.0-36.0) Red Cell Distribution Width 12.9 % (11.6-14.8) Platelet Count 268 K/UL (150-450) Mean Platelet Volume 5.8 FL (6.5-10.1) L Neutrophils (%) (Auto) 76.3 % (45.0-75.0) H Lymphocytes (%) (Auto) 15.2 % (20.0-45.0) L Monocytes (%) (Auto) 6.3 % (1.0-10.0) Eosinophils (%) (Auto) 1.6 % (0.0-3.0) Basophils (%) (Auto) 0.7 % (0.0-2.0) Sodium Level 141 mEQ/L (135-145) Potassium Level 3.9 mEQ/L (3.4-4.9) Chloride Level 98 mEQ/L (98-107) Carbon Dioxide Level 34 mEQ/L (20-30) H Anion Gap 9 (5-15) Blood Urea Nitrogen 24 mg/dL (7-23) H Creatinine 0.6 mg/dL (0.7-1.2) L Estimat Glomerular Filtration Rate mL/min (>60) Glucose Level 139 mg/dL (74-106) H Calcium Level 9.3 mg/dL (8.6-10.2) Arterial Blood pH 7.460 (7.350-7.450) Arterial Blood Partial Pressure CO2 45.0 mmHg (35.0-45.0) Arterial Blood Partial Pressure O2 135.0 mmHg (75.0-100.0) H Arterial Blood HCO3 31.4 mmol/L (22.0-26.0) H Arterial Blood Oxygen Saturation 98.0 % (92.0-98.0) Arterial Blood Base Excess 7 Leo Test Positive Current Medications Medications (Trade) Dose Ordered Sig/Daina Route PRN Reason Start Time Stop Time Status Last Admin Dose Admin Acetaminophen (Tylenol) 650 mg Q4H PRN ORAL fever 01/04/17 21:00 02/03/17 20:59 Albuterol/ Ipratropium (DuoNeb 0.5-3(2.5)mg/3ml) 3 ml Q6HRT HHN 01/16/17 13:00 01/21/17 12:59 01/17/17 08:37 Atropine Sulfate (Atropine Opth Analia) 1 drop Q2H PRN SL excessive secretions 01/15/17 10:15 02/14/17 10:14 01/16/17 05:15 Betamethasone/ Clotrimazole (Lotrisone) 1 applic TWICE A DAY TOPIC 01/12/17 12:30 02/11/17 12:29 01/17/17 09:26 Clonidine HCl (Catapres) 0.1 mg Q6H PRN GT SBP > 170 01/06/17 16:00 02/05/17 15:59 Dextrose (Dextrose 50%) STAT PRN IV Hypoglycemia 01/04/17 21:00 02/03/17 20:59 Diltiazem HCl (Cardizem) 60 mg EVERY 8 HOURS NG 01/14/17 14:00 02/13/17 13:59 01/17/17 05:34 Docusate Sodium (Colace) 100 mg DAILY ORAL 01/12/17 11:15 02/11/17 11:14 01/17/17 09:25 Fluconazole (Diflucan 100mg/ 50ml) 50 ml @ 50 mls/hr Q24H IV 01/15/17 12:00 01/22/17 11:59 01/16/17 12:15 Gentamicin Sulfate (Garamycin 0.3% Opth Soln) 1 drop Q4HR LEFT EYE 01/14/17 12:00 01/21/17 11:59 01/17/17 09:26 Glycopyrrolate 0.1 mg 0.1 mg Q6H PRN IV excessive secretions 01/15/17 10:15 02/14/17 10:14 01/15/17 15:02 Heparin Sodium (Porcine) (Heparin 5000 units/ml) 5,000 units EVERY 12 HOURS SUBQ 01/04/17 22:00 02/03/17 21:59 01/17/17 09:26 Lansoprazole (Prevacid) 30 mg DAILY GT 01/13/17 09:00 02/12/17 08:59 01/17/17 09:25 Lorazepam (Ativan 2mg/ml 1ml) 1 mg Q4H PRN IV For Anxiety 01/16/17 09:00 01/23/17 08:59 Nitroglycerin (Ntg) 0.4 mg Every 5 Minutes PRN SL Prn Chest Pain 01/04/17 21:00 02/03/17 20:59 Ondansetron HCl (Zofran) 4 mg Q6H PRN IVP Nausea & Vomiting 01/04/17 21:00 02/03/17 20:59 Polyethylene Glycol (Miralax) 17 gm DAILYPRN PRN GT Constipation 01/06/17 15:55 02/03/17 20:59 01/14/17 08:25 Theophylline (Theophylline) 80 mg Q6HR ORAL 01/13/17 12:00 02/12/17 11:59 01/17/17 05:34 BRAYDEN MCKINLEY Jan 17, 2017 11:33
--- NOTE | 2017-01-17 14:04 | Internal Med Progress Note ---
Subjective Physician Name Sangeteha Johnson Attending Physician Sangeetha Johnson Current Medications Medications (Trade) Dose Ordered Sig/Daina Route PRN Reason Start Time Stop Time Status Last Admin Dose Admin Acetaminophen (Tylenol) 650 mg Q4H PRN ORAL fever 01/04/17 21:00 02/03/17 20:59 Albuterol/ Ipratropium (DuoNeb 0.5-3(2.5)mg/3ml) 3 ml Q6HRT HHN 01/16/17 13:00 01/21/17 12:59 01/17/17 12:55 Atropine Sulfate (Atropine Opth Analia) 1 drop Q2H PRN SL excessive secretions 01/15/17 10:15 02/14/17 10:14 01/16/17 05:15 Betamethasone/ Clotrimazole (Lotrisone) 1 applic TWICE A DAY TOPIC 01/12/17 12:30 02/11/17 12:29 01/17/17 09:26 Clonidine HCl (Catapres) 0.1 mg Q6H PRN GT SBP > 170 01/06/17 16:00 02/05/17 15:59 Dextrose (Dextrose 50%) STAT PRN IV Hypoglycemia 01/04/17 21:00 02/03/17 20:59 Diltiazem HCl (Cardizem) 60 mg EVERY 8 HOURS NG 01/14/17 14:00 02/13/17 13:59 01/17/17 05:34 Docusate Sodium (Colace) 100 mg DAILY ORAL 01/12/17 11:15 02/11/17 11:14 01/17/17 09:25 Fluconazole (Diflucan 100mg/ 50ml) 50 ml @ 50 mls/hr Q24H IV 01/15/17 12:00 01/22/17 11:59 01/17/17 12:11 Gentamicin Sulfate (Garamycin 0.3% Opth Soln) 1 drop Q4HR LEFT EYE 01/14/17 12:00 01/21/17 11:59 01/17/17 12:10 Glycopyrrolate 0.1 mg 0.1 mg Q6H PRN IV excessive secretions 01/15/17 10:15 02/14/17 10:14 01/15/17 15:02 Heparin Sodium (Porcine) (Heparin 5000 units/ml) 5,000 units EVERY 12 HOURS SUBQ 01/04/17 22:00 02/03/17 21:59 01/17/17 09:26 Lansoprazole (Prevacid) 30 mg DAILY GT 01/13/17 09:00 02/12/17 08:59 01/17/17 09:25 Lorazepam (Ativan 2mg/ml 1ml) 1 mg Q4H PRN IV For Anxiety 01/16/17 09:00 01/23/17 08:59 Nitroglycerin (Ntg) 0.4 mg Every 5 Minutes PRN SL Prn Chest Pain 01/04/17 21:00 02/03/17 20:59 Ondansetron HCl (Zofran) 4 mg Q6H PRN IVP Nausea & Vomiting 01/04/17 21:00 02/03/17 20:59 Polyethylene Glycol (Miralax) 17 gm DAILYPRN PRN GT Constipation 01/06/17 15:55 02/03/17 20:59 01/14/17 08:25 Theophylline (Theophylline) 80 mg Q6HR ORAL 01/13/17 12:00 02/12/17 11:59 01/17/17 12:11 Allergies: Coded Allergies: No Known Allergies (Verified , 01/06/17) Subjective 76 YO M admitted with aspiration and respiratory failure. Reintubated 01/09/17; extubated 01/14/17. Back on BIPAP.. Sedated. ICU. Objective Last Vital Signs Date Time Temp Pulse Resp B/P Pulse Ox O2 Delivery O2 Flow Rate FiO2 01/17/17 13:05 86 13 100 Bi-pap 30 01/17/17 13:00 113/67 01/17/17 12:00 98.0 01/16/17 07:20 Laboratory Tests Test 01/17/17 03:33 01/17/17 07:33 White Blood Count 11.6 K/UL (4.8-10.8) H Red Blood Count 3.06 M/UL (4.70-6.10) L Hemoglobin 10.2 G/DL (14.2-18.0) L Hematocrit 30.5 % (42.0-52.0) L Mean Corpuscular Volume 100 FL (80-99) H Mean Corpuscular Hemoglobin 33.3 PG (27.0-31.0) H Mean Corpuscular Hemoglobin Concent 33.3 G/DL (32.0-36.0) Red Cell Distribution Width 12.9 % (11.6-14.8) Platelet Count 268 K/UL (150-450) Mean Platelet Volume 5.8 FL (6.5-10.1) L Neutrophils (%) (Auto) 76.3 % (45.0-75.0) H Lymphocytes (%) (Auto) 15.2 % (20.0-45.0) L Monocytes (%) (Auto) 6.3 % (1.0-10.0) Eosinophils (%) (Auto) 1.6 % (0.0-3.0) Basophils (%) (Auto) 0.7 % (0.0-2.0) Sodium Level 141 mEQ/L (135-145) Potassium Level 3.9 mEQ/L (3.4-4.9) Chloride Level 98 mEQ/L (98-107) Carbon Dioxide Level 34 mEQ/L (20-30) H Anion Gap 9 (5-15) Blood Urea Nitrogen 24 mg/dL (7-23) H Creatinine 0.6 mg/dL (0.7-1.2) L Estimat Glomerular Filtration Rate mL/min (>60) Glucose Level 139 mg/dL (74-106) H Calcium Level 9.3 mg/dL (8.6-10.2) Arterial Blood pH 7.460 (7.350-7.450) Arterial Blood Partial Pressure CO2 45.0 mmHg (35.0-45.0) Arterial Blood Partial Pressure O2 135.0 mmHg (75.0-100.0) H Arterial Blood HCO3 31.4 mmol/L (22.0-26.0) H Arterial Blood Oxygen Saturation 98.0 % (92.0-98.0) Arterial Blood Base Excess 7 Leo Test Positive Intake and Output 01/16/17 01/17/17 19:00 07:00 Intake Total 910 ml 810 ml Output Total 1190 ml 605 ml Balance -280 ml 205 ml IV Total 50 ml Tube Feeding 660 ml 660 ml Other 200 ml 150 ml Output Urine Total 1190 ml 605 ml Objective General Appearance: WD/WN, moderate distress EENT: PERRL/EOMI, normal ENT inspection Neck: non-tender, normal alignment, supple Cardiovascular: normal peripheral pulses, normal rate, regular rhythm, no gallop/murmur, no JVD Respiratory/Chest: BIPAP; respiratory distress, crackles/rales, rhonchi - bilaterally, expiratory wheezing Abdomen: normal bowel sounds, non tender, soft, no organomegaly, no mass Extremities: normal range of motion, non-tender Neurologic: food expeditor II-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 Tolerating BIPAP. See pulmonary note. (2) Hypertension Assessment & Plan: Better control-see cardiology consult. (3) Hypercholesteremia (4) BPH (benign prostatic hyperplasia) (5) Alzheimer's dementia (6) Aspiration pneumonia Assessment & Plan: Ada. Cont fluconazole. See pulmonary and ID note. (7) Hematuria Assessment & Plan: Resolved (8) Atrial fibrillation with RVR Assessment & Plan: S/P Cardizem drip; see cardiology note. Status: not improved Assessment/Plan Discussed with SANGEETHA JOHNSON Jan 17, 2017 14:04
[2017-01-18] VITALS (24 sets, daily range): BP systolic 107–158; BP diastolic 56–79
[2017-01-18] MEDS: Theophylline 80mg/15ml ORAL SCH ×4 (00:22→18:03)
[2017-01-18] MEDS: DuoNeb 0.5-3(2.5)mg/3ml neb HHN SCH ×4 (01:20→19:27)
[2017-01-18] MEDS: Gentamicin 0.3% Opth Soln 5ml LEFT EYE SCH ×6 (01:38→20:49)
[2017-01-18 06:36] LABS: ANION GAP 13 (5-15); CALCIUM 9.4 mg/dL (8.6-10.2); CARBON DIOXIDE 31 mEQ/L (20-30); CHLORIDE 99 mEQ/L (98-107); CREATININE 0.7 mg/dL (0.7-1.2); HEMOLYSIS 2; POTASSIUM 3.7 mEQ/L (3.4-4.9); SODIUM 143 mEQ/L (135-145)
[2017-01-18 06:42] LABS: BASOPHILS % (AUTO) 0.8 % (0.0-2.0); EOSINOPHILS % (AUTO) 3.1 % (0.0-3.0); LYMPHOCYTES % (AUTO) 16.5 % (20.0-45.0); MEAN CORPUSCULAR HEMOGLOBIN 32.4 PG (27.0-31.0); MEAN CORPUSCULAR VOLUME 101 FL (80-99); MEAN PLATELET VOLUME 6.8 FL (6.5-10.1); NEUTROPHILS % (AUTO) 72.5 % (45.0-75.0); PLATELET COUNT 344 K/UL (150-450); RED BLOOD COUNT 3.01 M/UL (4.70-6.10); RED CELL DISTRIBUTION WIDTH 13.1 % (11.6-14.8)
[2017-01-18 09:24] LABS: ABG ALLEN TEST POSITIVE; ABG PCO2 38.6 mmHg (35.0-45.0)
[2017-01-18] MEDS: Docusate 100mg tablet ORAL SCH (09:43)
[2017-01-18] MEDS: Lotrisone Cream 15gm TOPIC SCH ×2 (09:44→18:03)
[2017-01-18] MEDS: Heparin 5000 units/ml inj SUBQ SCH ×2 (09:44→20:55)
--- NOTE | 2017-01-18 10:32 | Diagnostic Imaging Report ---
Indications: Shortness of breath Technique: Portable AP chest Findings: Comparison: 01/16/17 Pulmonary inflation has improved. Right lung base linear density has resolved. Left retrocardiac linear density persists, unchanged. No new pulmonary parenchymal or pleural abnormality demonstrated. Cardiomediastinal silhouette stable. Nasogastric tube remains in place. IMPRESSION: Resolution of right basal subsegmental atelectasis Persistent left basal subsegmental atelectasis versus scarring No new abnormality
--- NOTE | 2017-01-18 11:39 | Pulmonolgy Critical Care Note ---
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 Renal: F/U I&O, keep IV fluid Infectious Disease: check cultures, continue antibiotics Gastrointestinal: continue feedings/current rate Endocrine: monitor blood sugar, check TSH, continue sliding scale insulin Hematologic: monitor H/H, transfuse if hgb<8.5 Neurologic: keep patient comfortable Prophylaxis: Protonix, Heparin Time Spent (Minutes): 40 Notes Reviewed: wire walker, cardio Discussed with: nurses, consultants, manager rn caseaccount development manager - Objective Last 24 Hour Vital Signs Date Time Temp Pulse Resp B/P Pulse Ox O2 Delivery O2 Flow Rate FiO2 01/18/17 11:23 Venturi Mask 6.0 35 01/18/17 11:00 86 18 138/70 100 Venturi Mask 35 01/18/17 10:00 80 20 125/70 100 Venturi Mask 35 01/18/17 09:30 100 Venturi Mask 6.0 35 01/18/17 09:00 71 20 117/71 100 Bi-pap 30 01/18/17 08:00 76 01/18/17 08:00 97.9 76 20 131/71 100 Bi-pap 30 01/18/17 08:00 30 01/18/17 07:43 78 19 100 Bi-pap 30 01/18/17 07:29 73 15 100 Facial 30 01/18/17 07:25 73 15 100 Bi-pap 30 01/18/17 07:00 74 17 116/70 100 Bi-pap 30 01/18/17 06:00 75 17 114/61 100 Bi-pap 30 01/18/17 05:31 74 132/77 01/18/17 05:06 74 23 100 Facial 30 01/18/17 05:00 98.0 74 17 132/77 100 Bi-pap 30 01/18/17 04:00 74 17 114/60 100 Bi-pap 30 01/18/17 04:00 76 01/18/17 04:00 30 01/18/17 03:30 72 16 100 Facial 30 01/18/17 03:00 71 17 107/63 100 Bi-pap 30 01/18/17 02:00 69 16 135/77 100 Bi-pap 30 01/18/17 01:32 88 14 100 Bi-pap 30 01/18/17 01:22 75 16 100 Bi-pap 30 01/18/17 01:21 75 13 100 Facial 30 01/18/17 01:00 71 18 130/71 100 Bi-pap 30 01/18/17 00:00 77 01/18/17 00:00 98.5 76 17 123/72 100 Bi-pap 30 01/18/17 00:00 30 01/17/17 23:43 75 15 100 Facial 30 01/17/17 23:00 76 18 139/66 100 Bi-pap 30 01/17/17 22:23 78 118/71 01/17/17 22:00 78 18 118/71 100 Bi-pap 30 01/17/17 21:27 76 14 100 Facial 30 01/17/17 21:00 75 18 122/75 100 Bi-pap 30 01/17/17 20:00 78 01/17/17 20:00 30 01/17/17 20:00 97.3 78 17 112/89 100 Bi-pap 30 01/17/17 19:00 79 18 123/62 100 Bi-pap 30 01/17/17 18:53 79 19 100 Facial 30 01/17/17 18:52 88 14 100 Bi-pap 30 01/17/17 18:51 80 16 100 Bi-pap 30 01/17/17 18:00 75 18 117/65 100 Bi-pap 30 01/17/17 17:00 74 17 115/62 100 Bi-pap 30 01/17/17 16:47 77 14 100 Facial 30 01/17/17 16:00 75 01/17/17 16:00 97.9 71 17 125/71 100 Bi-pap 30 01/17/17 15:03 81 17 100 Facial 30 01/17/17 15:00 74 17 115/62 100 Bi-pap 30 01/17/17 14:14 80 123/75 01/17/17 14:00 83 19 123/75 100 Bi-pap 30 01/17/17 13:05 86 13 100 Bi-pap 30 01/17/17 13:00 85 19 113/67 100 Venturi Mask 35 01/17/17 12:55 86 13 100 Bi-pap 30 01/17/17 12:55 30 01/17/17 12:50 86 13 100 Facial 30 01/17/17 12:00 90 01/17/17 12:00 98.0 89 20 128/62 95 Venturi Mask 35 Status: sedated Condition: critical HEENT: atraumatic Lungs: clear Heart: HR/BP stable, HR/BP unstable Abdomen: soft, non-tender Extremities: no C/C/E Accucheck: 115 Critical Care - Subjective ROS Limited/Unobtainable: Yes ICU Day: 14 Condition: critical EKG Rhythm: Sinus Rhythm FI02: 35 Vent Support Mode: CPAP Sputum Amount: Large Tube Feeding Amount: 55 I&O: Intake and Output 01/17/17 01/18/17 19:00 07:00 Intake Total 1010 ml 920 ml Output Total 1080 ml 755 ml Balance -70 ml 165 ml Free Water 100 ml 150 ml IV Total 50 ml Tube Feeding 660 ml 660 ml Other 200 ml 110 ml Output Urine Total 1080 ml 755 ml CXR: no change, clear Labs: Laboratory Tests Test 01/18/17 05:15 01/18/17 08:45 White Blood Count 9.0 K/UL (4.8-10.8) Red Blood Count 3.01 M/UL (4.70-6.10) L Hemoglobin 9.7 G/DL (14.2-18.0) L Hematocrit 30.4 % (42.0-52.0) L Mean Corpuscular Volume 101 FL (80-99) H Mean Corpuscular Hemoglobin 32.4 PG (27.0-31.0) H Mean Corpuscular Hemoglobin Concent 32.0 G/DL (32.0-36.0) Red Cell Distribution Width 13.1 % (11.6-14.8) Platelet Count 344 K/UL (150-450) Mean Platelet Volume 6.8 FL (6.5-10.1) Neutrophils (%) (Auto) 72.5 % (45.0-75.0) Lymphocytes (%) (Auto) 16.5 % (20.0-45.0) L Monocytes (%) (Auto) 7.0 % (1.0-10.0) Eosinophils (%) (Auto) 3.1 % (0.0-3.0) H Basophils (%) (Auto) 0.8 % (0.0-2.0) Sodium Level 143 mEQ/L (135-145) Potassium Level 3.7 mEQ/L (3.4-4.9) Chloride Level 99 mEQ/L (98-107) Carbon Dioxide Level 31 mEQ/L (20-30) H Anion Gap 13 (5-15) Blood Urea Nitrogen 28 mg/dL (7-23) H Creatinine 0.7 mg/dL (0.7-1.2) Estimat Glomerular Filtration Rate mL/min (>60) Glucose Level 130 mg/dL (74-106) H Calcium Level 9.4 mg/dL (8.6-10.2) Arterial Blood pH 7.527 (7.350-7.450) Arterial Blood Partial Pressure CO2 38.6 mmHg (35.0-45.0) Arterial Blood Partial Pressure O2 125.3 mmHg (75.0-100.0) H Arterial Blood HCO3 31.3 mmol/L (22.0-26.0) H Arterial Blood Oxygen Saturation 98.0 % (92.0-98.0) Arterial Blood Base Excess 8.0 Leo Test Positive RABIA BANGURA January 18, 2017 11:39
--- NOTE | 2017-01-18 11:48 | Internal Med Progress Note ---
Subjective Date of Service: January 18, 2017 Physician Name Sangeetha Johnson Attending Physician Sangeetha Johnson Current Medications Medications (Trade) Dose Ordered Sig/Daina Route PRN Reason Start Time Stop Time Status Last Admin Dose Admin Acetaminophen (Tylenol) 650 mg Q4H PRN ORAL fever 01/04/17 21:00 02/03/17 20:59 Albuterol/ Ipratropium (DuoNeb 0.5-3(2.5)mg/3ml) 3 ml Q6HRT HHN 01/16/17 13:00 01/21/17 12:59 01/18/17 07:31 Atropine Sulfate (Atropine Opth Analia) 1 drop Q2H PRN SL excessive secretions 01/15/17 10:15 02/14/17 10:14 01/16/17 05:15 Betamethasone/ Clotrimazole (Lotrisone) 1 applic TWICE A DAY TOPIC 01/12/17 12:30 02/11/17 12:29 01/18/17 09:44 Clonidine HCl (Catapres) 0.1 mg Q6H PRN GT SBP > 170 01/06/17 16:00 02/05/17 15:59 Dextrose (Dextrose 50%) STAT PRN IV Hypoglycemia 01/04/17 21:00 02/03/17 20:59 Diltiazem HCl (Cardizem) 60 mg EVERY 8 HOURS NG 01/14/17 14:00 02/13/17 13:59 01/18/17 05:31 Docusate Sodium (Colace) 100 mg DAILY ORAL 01/12/17 11:15 02/11/17 11:14 01/18/17 09:43 Gentamicin Sulfate (Garamycin 0.3% Opth Soln) 1 drop Q4HR LEFT EYE 01/14/17 12:00 01/21/17 11:59 01/18/17 09:44 Glycopyrrolate (Robinul) 0.1 mg Q6H PRN IV excessive secretions 01/15/17 10:15 02/14/17 10:14 01/15/17 15:02 Heparin Sodium (Porcine) (Heparin 5000 units/ml) 5,000 units EVERY 12 HOURS SUBQ 01/04/17 22:00 02/03/17 21:59 01/18/17 09:44 Lansoprazole (Prevacid) 30 mg DAILY GT 01/13/17 09:00 02/12/17 08:59 01/18/17 09:43 Lorazepam (Ativan 2mg/ml 1ml) 1 mg Q4H PRN IV For Anxiety 01/16/17 09:00 01/23/17 08:59 Nitroglycerin (Ntg) 0.4 mg Every 5 Minutes PRN SL Prn Chest Pain 01/04/17 21:00 02/03/17 20:59 Ondansetron HCl (Zofran) 4 mg Q6H PRN IVP Nausea & Vomiting 01/04/17 21:00 02/03/17 20:59 Polyethylene Glycol (Miralax) 17 gm DAILYPRN PRN GT Constipation 01/06/17 15:55 02/03/17 20:59 01/14/17 08:25 Theophylline (Theophylline) 80 mg Q6HR ORAL 01/13/17 12:00 02/12/17 11:59 01/18/17 05:31 Allergies: Coded Allergies: No Known Allergies (Verified , 01/06/17) ROS Limited/Unobtainable: Yes Subjective 76 YO M admitted with aspiration and respiratory failure. Reintubated 01/09/17; extubated 01/14/17. Tolerating venti mask.. Sedated. ICU. Objective Last Vital Signs Date Time Temp Pulse Resp B/P Pulse Ox O2 Delivery O2 Flow Rate FiO2 01/18/17 11:23 Venturi Mask 6.0 35 01/18/17 11:00 86 18 138/70 100 01/18/17 08:00 97.9 Laboratory Tests Test 01/18/17 05:15 01/18/17 08:45 White Blood Count 9.0 K/UL (4.8-10.8) Red Blood Count 3.01 M/UL (4.70-6.10) L Hemoglobin 9.7 G/DL (14.2-18.0) L Hematocrit 30.4 % (42.0-52.0) L Mean Corpuscular Volume 101 FL (80-99) H Mean Corpuscular Hemoglobin 32.4 PG (27.0-31.0) H Mean Corpuscular Hemoglobin Concent 32.0 G/DL (32.0-36.0) Red Cell Distribution Width 13.1 % (11.6-14.8) Platelet Count 344 K/UL (150-450) Mean Platelet Volume 6.8 FL (6.5-10.1) Neutrophils (%) (Auto) 72.5 % (45.0-75.0) Lymphocytes (%) (Auto) 16.5 % (20.0-45.0) L Monocytes (%) (Auto) 7.0 % (1.0-10.0) Eosinophils (%) (Auto) 3.1 % (0.0-3.0) H Basophils (%) (Auto) 0.8 % (0.0-2.0) Sodium Level 143 mEQ/L (135-145) Potassium Level 3.7 mEQ/L (3.4-4.9) Chloride Level 99 mEQ/L (98-107) Carbon Dioxide Level 31 mEQ/L (20-30) H Anion Gap 13 (5-15) Blood Urea Nitrogen 28 mg/dL (7-23) H Creatinine 0.7 mg/dL (0.7-1.2) Estimat Glomerular Filtration Rate mL/min (>60) Glucose Level 130 mg/dL (74-106) H Calcium Level 9.4 mg/dL (8.6-10.2) Arterial Blood pH 7.527 (7.350-7.450) Arterial Blood Partial Pressure CO2 38.6 mmHg (35.0-45.0) Arterial Blood Partial Pressure O2 125.3 mmHg (75.0-100.0) H Arterial Blood HCO3 31.3 mmol/L (22.0-26.0) H Arterial Blood Oxygen Saturation 98.0 % (92.0-98.0) Arterial Blood Base Excess 8.0 Leo Test Positive Intake and Output 01/17/17 01/18/17 19:00 07:00 Intake Total 1010 ml 920 ml Output Total 1080 ml 755 ml Balance -70 ml 165 ml Free Water 100 ml 150 ml IV Total 50 ml Tube Feeding 660 ml 660 ml Other 200 ml 110 ml Output Urine Total 1080 ml 755 ml Objective General Appearance: WD/WN, moderate distress EENT: PERRL/EOMI, normal ENT inspection Neck: non-tender, normal alignment, supple Cardiovascular: normal peripheral pulses, normal rate, regular rhythm, no gallop/murmur, no JVD Respiratory/Chest: BIPAP; respiratory distress, crackles/rales, rhonchi - bilaterally, expiratory wheezing Abdomen: normal bowel sounds, non tender, soft, no organomegaly, no mass Extremities: normal range of motion, non-tender 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 Tolerating BIPAP. See pulmonary note-recommends tracheostomy. (2) Hypertension Assessment & Plan: Better control-see cardiology consult. (3) Hypercholesteremia (4) BPH (benign prostatic hyperplasia) (5) Alzheimer's dementia (6) Aspiration pneumonia Assessment & Plan: Ada. Cont fluconazole. See pulmonary and ID note. (7) Hematuria Assessment & Plan: Resolved (8) Atrial fibrillation with RVR Assessment & Plan: S/P Cardizem drip; see cardiology note. Status: not improved Assessment/Plan Discussed with SANGEETHA JOHNSON January 18, 2017 11:48
--- NOTE | 2017-01-18 13:49 | Infectious Diseases Prog Note ---
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 Leukocytosis , SP SP Extubation 01/06 , reintubated 01/09 , Extubation 01/14 History of fracture of femoral neck. Dementia. Hypertension PLAN: Diflucan d# 4 ( Dced ) ( 01/14 SP Zosyn d# 10 / 10 ) ( 01/08 SP Vanco d# 4 ) Monitor CBC. Monitor BMP Monitor chest x-ray cont vent support Subjective Constitutional: Denies: anorexia, chills, drenching sweats, fatigue, fever, no symptoms, other Allergies: Coded Allergies: No Known Allergies (Verified , 01/06/17) Subjective on BiPAP Objective Vital Signs Last 24 Hour Vital Signs Date Time Temp Pulse Resp B/P Pulse Ox O2 Delivery O2 Flow Rate FiO2 01/18/17 12:40 97 20 100 Bi-pap 30 01/18/17 12:39 99 20 100 Facial 30 01/18/17 12:30 96 20 98 Bi-pap 30 01/18/17 12:00 85 01/18/17 12:00 88 20 155/79 100 Bi-pap 30 01/18/17 11:47 93 20 98 Facial 30 01/18/17 11:30 30 01/18/17 11:23 Venturi Mask 6.0 35 01/18/17 11:00 86 18 138/70 100 Venturi Mask 35 01/18/17 10:00 80 20 125/70 100 Venturi Mask 35 01/18/17 09:30 100 Venturi Mask 6.0 35 01/18/17 09:00 71 20 117/71 100 Bi-pap 30 01/18/17 08:00 76 01/18/17 08:00 97.9 76 20 131/71 100 Bi-pap 30 01/18/17 08:00 30 01/18/17 07:43 78 19 100 Bi-pap 30 01/18/17 07:29 73 15 100 Facial 30 01/18/17 07:25 73 15 100 Bi-pap 30 01/18/17 07:00 74 17 116/70 100 Bi-pap 30 01/18/17 06:00 75 17 114/61 100 Bi-pap 30 01/18/17 05:31 74 132/77 01/18/17 05:06 74 23 100 Facial 30 01/18/17 05:00 98.0 74 17 132/77 100 Bi-pap 30 01/18/17 04:00 74 17 114/60 100 Bi-pap 30 01/18/17 04:00 76 01/18/17 04:00 30 01/18/17 03:30 72 16 100 Facial 30 01/18/17 03:00 71 17 107/63 100 Bi-pap 30 01/18/17 02:00 69 16 135/77 100 Bi-pap 30 01/18/17 01:32 88 14 100 Bi-pap 30 01/18/17 01:22 75 16 100 Bi-pap 30 01/18/17 01:21 75 13 100 Facial 30 01/18/17 01:00 71 18 130/71 100 Bi-pap 30 01/18/17 00:00 77 01/18/17 00:00 98.5 76 17 123/72 100 Bi-pap 30 01/18/17 00:00 30 01/17/17 23:43 75 15 100 Facial 30 01/17/17 23:00 76 18 139/66 100 Bi-pap 30 01/17/17 22:23 78 118/71 01/17/17 22:00 78 18 118/71 100 Bi-pap 30 01/17/17 21:27 76 14 100 Facial 30 01/17/17 21:00 75 18 122/75 100 Bi-pap 30 01/17/17 20:00 78 01/17/17 20:00 30 01/17/17 20:00 97.3 78 17 112/89 100 Bi-pap 30 01/17/17 19:00 79 18 123/62 100 Bi-pap 30 01/17/17 18:53 79 19 100 Facial 30 01/17/17 18:52 88 14 100 Bi-pap 30 01/17/17 18:51 80 16 100 Bi-pap 30 01/17/17 18:00 75 18 117/65 100 Bi-pap 30 01/17/17 17:00 74 17 115/62 100 Bi-pap 30 01/17/17 16:47 77 14 100 Facial 30 01/17/17 16:00 75 01/17/17 16:00 97.9 71 17 125/71 100 Bi-pap 30 01/17/17 15:03 81 17 100 Facial 30 01/17/17 15:00 74 17 115/62 100 Bi-pap 30 01/17/17 14:14 80 123/75 01/17/17 14:00 83 19 123/75 100 Bi-pap 30 Height (Feet): 5 Height (Inches): 5.00 Weight (Pounds): 120 HEENT: atraumatic Respiratory/Chest: no respiratory distress Cardiovascular: regular rhythm Abdomen: no organomegaly Laboratory Tests Test 01/18/17 05:15 01/18/17 08:45 White Blood Count 9.0 K/UL (4.8-10.8) Red Blood Count 3.01 M/UL (4.70-6.10) L Hemoglobin 9.7 G/DL (14.2-18.0) L Hematocrit 30.4 % (42.0-52.0) L Mean Corpuscular Volume 101 FL (80-99) H Mean Corpuscular Hemoglobin 32.4 PG (27.0-31.0) H Mean Corpuscular Hemoglobin Concent 32.0 G/DL (32.0-36.0) Red Cell Distribution Width 13.1 % (11.6-14.8) Platelet Count 344 K/UL (150-450) Mean Platelet Volume 6.8 FL (6.5-10.1) Neutrophils (%) (Auto) 72.5 % (45.0-75.0) Lymphocytes (%) (Auto) 16.5 % (20.0-45.0) L Monocytes (%) (Auto) 7.0 % (1.0-10.0) Eosinophils (%) (Auto) 3.1 % (0.0-3.0) H Basophils (%) (Auto) 0.8 % (0.0-2.0) Sodium Level 143 mEQ/L (135-145) Potassium Level 3.7 mEQ/L (3.4-4.9) Chloride Level 99 mEQ/L (98-107) Carbon Dioxide Level 31 mEQ/L (20-30) H Anion Gap 13 (5-15) Blood Urea Nitrogen 28 mg/dL (7-23) H Creatinine 0.7 mg/dL (0.7-1.2) Estimat Glomerular Filtration Rate mL/min (>60) Glucose Level 130 mg/dL (74-106) H Calcium Level 9.4 mg/dL (8.6-10.2) Arterial Blood pH 7.527 (7.350-7.450) Arterial Blood Partial Pressure CO2 38.6 mmHg (35.0-45.0) Arterial Blood Partial Pressure O2 125.3 mmHg (75.0-100.0) H Arterial Blood HCO3 31.3 mmol/L (22.0-26.0) H Arterial Blood Oxygen Saturation 98.0 % (92.0-98.0) Arterial Blood Base Excess 8.0 Leo Test Positive Current Medications Medications (Trade) Dose Ordered Sig/Daina Route PRN Reason Start Time Stop Time Status Last Admin Dose Admin Acetaminophen (Tylenol) 650 mg Q4H PRN ORAL fever 01/04/17 21:00 02/03/17 20:59 Albuterol/ Ipratropium (DuoNeb 0.5-3(2.5)mg/3ml) 3 ml Q6HRT HHN 01/16/17 13:00 01/21/17 12:59 01/18/17 12:38 Atropine Sulfate (Atropine Opth Analia) 1 drop Q2H PRN SL excessive secretions 01/15/17 10:15 02/14/17 10:14 01/16/17 05:15 Betamethasone/ Clotrimazole (Lotrisone) 1 applic TWICE A DAY TOPIC 01/12/17 12:30 02/11/17 12:29 01/18/17 09:44 Clonidine HCl (Catapres) 0.1 mg Q6H PRN GT SBP > 170 01/06/17 16:00 02/05/17 15:59 Dextrose (Dextrose 50%) STAT PRN IV Hypoglycemia 01/04/17 21:00 02/03/17 20:59 Diltiazem HCl (Cardizem) 60 mg EVERY 8 HOURS NG 01/14/17 14:00 02/13/17 13:59 01/18/17 05:31 Docusate Sodium (Colace) 100 mg DAILY ORAL 01/12/17 11:15 02/11/17 11:14 01/18/17 09:43 Gentamicin Sulfate (Garamycin 0.3% Opth Soln) 1 drop Q4HR LEFT EYE 01/14/17 12:00 01/21/17 11:59 01/18/17 12:04 Glycopyrrolate (Robinul) 0.1 mg Q6H PRN IV excessive secretions 01/15/17 10:15 02/14/17 10:14 01/15/17 15:02 Heparin Sodium (Porcine) (Heparin 5000 units/ml) 5,000 units EVERY 12 HOURS SUBQ 01/04/17 22:00 02/03/17 21:59 01/18/17 09:44 Lansoprazole (Prevacid) 30 mg DAILY GT 01/13/17 09:00 02/12/17 08:59 01/18/17 09:43 Lorazepam (Ativan 2mg/ml 1ml) 1 mg Q4H PRN IV For Anxiety 01/16/17 09:00 01/23/17 08:59 Nitroglycerin (Ntg) 0.4 mg Every 5 Minutes PRN SL Prn Chest Pain 01/04/17 21:00 02/03/17 20:59 Ondansetron HCl (Zofran) 4 mg Q6H PRN IVP Nausea & Vomiting 01/04/17 21:00 02/03/17 20:59 Polyethylene Glycol (Miralax) 17 gm DAILYPRN PRN GT Constipation 01/06/17 15:55 02/03/17 20:59 01/14/17 08:25 Theophylline (Theophylline) 80 mg Q6HR ORAL 01/13/17 12:00 02/12/17 11:59 01/18/17 12:04 HORACIO JOHN M.D. January 18, 2017 13:49
--- NOTE | 2017-01-18 13:51 | Diagnostic Imaging Report ---
Indication: SOB Technique: One view of the chest Comparison: 01/17/2017 Findings: Satisfactory position of nasogastric tube. Minimal retrocardiac linear atelectasis or scarring persists. Lungs and pleural spaces remain clear otherwise. Heart size is normal. Aorta is tortuous and calcified. No significant interim change Impression: Unchanged, over one day, findings as above.
--- NOTE | 2017-01-18 15:14 | Cardiac Electrophysiology PN ---
Assessment/Plan Assessment/Plan 1. Atrial fib with RVR .Remained in SR on Cardizem 60mg NG q 8 hrs. Off anticoagulation. 2. Hypertension.Continue Cardizem. 3. Severe pulmonary hypertension, pressure 55, likely due to history of obstructive sleep apnea. 4. Recurrent Respiratory failure due to aspiration,extubated for the second time 01/14/17 ,on BIPAP again. Likely needs Tracheostomy. 5. Dementia. 6. Dysphagia.Will need PEG before DC DW and RN Subjective Subjective In ICU, still on BIPAP. Gets Sinus tach at times. at bedside. No recurrence of atrial fib. Objective Last 24 Hour Vital Signs Date Time Temp Pulse Resp B/P Pulse Ox O2 Delivery O2 Flow Rate FiO2 01/18/17 14:56 95 27 100 Facial 50 01/18/17 14:25 100 117/67 01/18/17 14:00 99 20 111/67 100 Bi-pap 30 01/18/17 13:00 98.1 88 19 138/70 100 Bi-pap 30 01/18/17 12:40 97 20 100 Bi-pap 30 01/18/17 12:39 99 20 100 Facial 30 01/18/17 12:30 96 20 98 Bi-pap 30 01/18/17 12:00 85 01/18/17 12:00 88 20 155/79 100 Bi-pap 30 01/18/17 12:00 30 01/18/17 11:47 93 20 98 Facial 30 01/18/17 11:30 30 01/18/17 11:23 Venturi Mask 6.0 35 01/18/17 11:00 86 18 138/70 100 Venturi Mask 35 01/18/17 10:00 80 20 125/70 100 Venturi Mask 35 01/18/17 09:30 100 Venturi Mask 6.0 35 01/18/17 09:00 71 20 117/71 100 Bi-pap 30 01/18/17 08:00 76 01/18/17 08:00 97.9 76 20 131/71 100 Bi-pap 30 01/18/17 08:00 30 01/18/17 07:43 78 19 100 Bi-pap 30 01/18/17 07:29 73 15 100 Facial 30 01/18/17 07:25 73 15 100 Bi-pap 30 01/18/17 07:00 74 17 116/70 100 Bi-pap 30 01/18/17 06:00 75 17 114/61 100 Bi-pap 30 01/18/17 05:31 74 132/77 01/18/17 05:06 74 23 100 Facial 30 01/18/17 05:00 98.0 74 17 132/77 100 Bi-pap 30 01/18/17 04:00 74 17 114/60 100 Bi-pap 30 01/18/17 04:00 76 01/18/17 04:00 30 01/18/17 03:30 72 16 100 Facial 30 01/18/17 03:00 71 17 107/63 100 Bi-pap 30 01/18/17 02:00 69 16 135/77 100 Bi-pap 30 01/18/17 01:32 88 14 100 Bi-pap 30 01/18/17 01:22 75 16 100 Bi-pap 30 01/18/17 01:21 75 13 100 Facial 30 01/18/17 01:00 71 18 130/71 100 Bi-pap 30 01/18/17 00:00 77 01/18/17 00:00 98.5 76 17 123/72 100 Bi-pap 30 01/18/17 00:00 30 01/17/17 23:43 75 15 100 Facial 30 01/17/17 23:00 76 18 139/66 100 Bi-pap 30 01/17/17 22:23 78 118/71 01/17/17 22:00 78 18 118/71 100 Bi-pap 30 01/17/17 21:27 76 14 100 Facial 30 01/17/17 21:00 75 18 122/75 100 Bi-pap 30 01/17/17 20:00 78 01/17/17 20:00 30 01/17/17 20:00 97.3 78 17 112/89 100 Bi-pap 30 01/17/17 19:00 79 18 123/62 100 Bi-pap 30 01/17/17 18:53 79 19 100 Facial 30 01/17/17 18:52 88 14 100 Bi-pap 30 01/17/17 18:51 80 16 100 Bi-pap 30 01/17/17 18:00 75 18 117/65 100 Bi-pap 30 01/17/17 17:00 74 17 115/62 100 Bi-pap 30 01/17/17 16:47 77 14 100 Facial 30 01/17/17 16:00 75 01/17/17 16:00 97.9 71 17 125/71 100 Bi-pap 30 Intake and Output 01/17/17 01/18/17 19:00 07:00 Intake Total 1010 ml 920 ml Output Total 1080 ml 755 ml Balance -70 ml 165 ml Free Water 100 ml 150 ml IV Total 50 ml Tube Feeding 660 ml 660 ml Other 200 ml 110 ml Output Urine Total 1080 ml 755 ml Laboratory Tests Test 01/18/17 05:15 01/18/17 08:45 White Blood Count 9.0 K/UL (4.8-10.8) Red Blood Count 3.01 M/UL (4.70-6.10) L Hemoglobin 9.7 G/DL (14.2-18.0) L Hematocrit 30.4 % (42.0-52.0) L Mean Corpuscular Volume 101 FL (80-99) H Mean Corpuscular Hemoglobin 32.4 PG (27.0-31.0) H Mean Corpuscular Hemoglobin Concent 32.0 G/DL (32.0-36.0) Red Cell Distribution Width 13.1 % (11.6-14.8) Platelet Count 344 K/UL (150-450) Mean Platelet Volume 6.8 FL (6.5-10.1) Neutrophils (%) (Auto) 72.5 % (45.0-75.0) Lymphocytes (%) (Auto) 16.5 % (20.0-45.0) L Monocytes (%) (Auto) 7.0 % (1.0-10.0) Eosinophils (%) (Auto) 3.1 % (0.0-3.0) H Basophils (%) (Auto) 0.8 % (0.0-2.0) Sodium Level 143 mEQ/L (135-145) Potassium Level 3.7 mEQ/L (3.4-4.9) Chloride Level 99 mEQ/L (98-107) Carbon Dioxide Level 31 mEQ/L (20-30) H Anion Gap 13 (5-15) Blood Urea Nitrogen 28 mg/dL (7-23) H Creatinine 0.7 mg/dL (0.7-1.2) Estimat Glomerular Filtration Rate mL/min (>60) Glucose Level 130 mg/dL (74-106) H Calcium Level 9.4 mg/dL (8.6-10.2) Arterial Blood pH 7.527 (7.350-7.450) Arterial Blood Partial Pressure CO2 38.6 mmHg (35.0-45.0) Arterial Blood Partial Pressure O2 125.3 mmHg (75.0-100.0) H Arterial Blood HCO3 31.3 mmol/L (22.0-26.0) H Arterial Blood Oxygen Saturation 98.0 % (92.0-98.0) Arterial Blood Base Excess 8.0 Leo Test Positive Objective NECK: No JVD. On BIPAP with NG tube LUNGS: Coarse rhonchi CARDIOVASCULAR: Regular S1 and S2 with no gallop or murmur. ABDOMEN: Soft. EXTREMITIES: No pitting edema. ARGELIA DUONG January 18, 2017 15:14
[2017-01-19] VITALS (24 sets, daily range): BP systolic 115–155; BP diastolic 60–85
[2017-01-19] MEDS: Theophylline 80mg/15ml ORAL SCH ×5 (00:50→23:50)
[2017-01-19] MEDS: Gentamicin 0.3% Opth Soln 5ml LEFT EYE SCH ×6 (00:51→20:48)
[2017-01-19] MEDS: DuoNeb 0.5-3(2.5)mg/3ml neb HHN SCH ×4 (01:11→20:59)
[2017-01-19 06:20] LABS: EOSINOPHILS % (AUTO) 2.5 % (0.0-3.0); MEAN CORPUSCULAR HEMOGLOBIN 32.2 PG (27.0-31.0); MEAN CORPUSCULAR HGB CONC 32.4 G/DL (32.0-36.0); MEAN CORPUSCULAR VOLUME 99 FL (80-99); MEAN PLATELET VOLUME 6.5 FL (6.5-10.1); MONOCYTES % (AUTO) 6.3 % (1.0-10.0); NEUTROPHILS % (AUTO) 76.2 % (45.0-75.0); PLATELET COUNT 346 K/UL (150-450); RED BLOOD COUNT 2.96 M/UL (4.70-6.10); RED CELL DISTRIBUTION WIDTH 13.1 % (11.6-14.8); WHITE BLOOD COUNT 10.2 K/UL (4.8-10.8)
[2017-01-19 06:31] LABS: ALANINE AMINOTRANSFERASE 16 U/L (3-41); ALBUMIN/GLOBULIN RATIO 0.9 (1.0-2.7); ANION GAP 9 (5-15); ASPARTATE AMINO TRANSFERASE 13 U/L (5-40); CALCIUM 9.4 mg/dL (8.6-10.2); CARBON DIOXIDE 34 mEQ/L (20-30); CHLORIDE 100 mEQ/L (98-107); CREATININE 0.6 mg/dL (0.7-1.2); HEMOLYSIS 0; MAGNESIUM 2.1 mg/dL (1.7-2.5); PHOSPHORUS 3.7 mg/dL (2.5-4.8); POTASSIUM 3.7 mEQ/L (3.4-4.9); SODIUM 143 mEQ/L (135-145); TOTAL PROTEIN 6.5 g/dL (6.6-8.7)
[2017-01-19] MEDS: Lotrisone Cream 15gm TOPIC SCH ×2 (08:22→18:00)
[2017-01-19] MEDS: Docusate 100mg tablet ORAL SCH (08:22)
[2017-01-19] MEDS: Heparin 5000 units/ml inj SUBQ SCH ×2 (08:26→20:51)
[2017-01-19 08:49] LABS: ABG ALLEN TEST POSITIVE; ABG BASE EXCESS 7.6; ABG PCO2 79.6 mmHg (35.0-45.0)
--- NOTE | 2017-01-19 11:10 | Diagnostic Imaging Report ---
Indication: Dyspnea Comparison: 01/18/17 A single view chest radiograph was obtained. Findings: No definite infiltrate or pulmonary vascular congestion identified. The heart is enlarged. The aorta is mildly enlarged consistent with atherosclerotic vascular disease. The bones are osteopenic. NG tube again noted unchanged. Impression: No acute disease
--- NOTE | 2017-01-19 11:42 | Infectious Diseases Prog Note ---
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 Leukocytosis , SP SP Extubation 01/06 , reintubated 01/09 , Extubation 01/14 History of fracture of femoral neck. Dementia. Hypertension PLAN: Monitor pt off of AB Rx ( 01/18 Diflucan d# 4 ) ( 01/14 SP Zosyn d# 10 / 10 ) ( 01/08 SP Vanco d# 4 ) Monitor CBC. Monitor BMP Monitor chest x-ray cont vent support Subjective Allergies: Coded Allergies: No Known Allergies (Verified , 01/06/17) Subjective afebrile Objective Vital Signs Last 24 Hour Vital Signs Date Time Temp Pulse Resp B/P Pulse Ox O2 Delivery O2 Flow Rate FiO2 01/19/17 10:05 98 33 146/82 97 Bi-pap 30 01/19/17 09:28 101 22 96 Facial 30 01/19/17 09:00 100 33 143/85 97 Bi-pap 30 01/19/17 08:09 40 01/19/17 08:08 90 01/19/17 08:05 98.3 90 33 133/74 98 Bi-pap 40 01/19/17 07:27 80 19 100 Bi-pap 30 01/19/17 07:19 110 22 100 Facial 40 01/19/17 07:16 100 25 100 Bi-pap 40 01/19/17 07:00 102 30 131/65 97 Bi-pap 50 01/19/17 06:25 100 155/72 01/19/17 06:00 102 30 155/72 97 Bi-pap 50 01/19/17 05:01 88 16 100 Facial 30 01/19/17 05:00 84 30 138/62 100 Bi-pap 50 01/19/17 04:00 30 01/19/17 04:00 98.0 88 30 125/79 100 Bi-pap 50 01/19/17 04:00 88 01/19/17 03:19 83 12 100 Facial 30 01/19/17 03:13 86 13 Bi-pap 30 01/19/17 03:00 83 30 115/67 100 Bi-pap 50 01/19/17 02:00 85 30 148/68 100 Bi-pap 50 01/19/17 01:14 80 19 100 Bi-pap 30 01/19/17 01:13 80 14 100 Bi-pap 30 01/19/17 01:11 81 16 100 Facial 30 01/19/17 01:00 87 30 141/71 100 Bi-pap 50 01/19/17 00:00 98.2 77 30 126/71 100 Bi-pap 50 01/19/17 00:00 50 01/19/17 00:00 78 01/18/17 23:30 80 20 100 Facial 30 01/18/17 23:00 80 30 125/79 100 Bi-pap 50 01/18/17 22:00 80 30 120/64 100 Bi-pap 50 01/18/17 21:12 84 22 100 Facial 30 01/18/17 21:05 89 125/79 01/18/17 21:00 82 30 128/74 100 Bi-pap 50 01/18/17 20:00 88 01/18/17 20:00 50 01/18/17 20:00 97.8 89 30 146/76 100 Bi-pap 50 01/18/17 19:37 92 21 100 Bi-pap 30 01/18/17 19:30 89 25 98 Bi-pap 30 01/18/17 19:29 89 24 100 Facial 30 01/18/17 19:29 Bi-pap 01/18/17 19:28 Bi-pap 01/18/17 19:00 90 30 140/69 100 Bi-pap 50 01/18/17 18:00 85 18 131/64 100 Bi-pap 50 01/18/17 17:00 87 30 129/56 100 Bi-pap 50 01/18/17 16:39 100 19 100 Facial 50 01/18/17 16:00 50 01/18/17 16:00 98.1 98 22 158/72 100 Bi-pap 50 01/18/17 16:00 101 01/18/17 15:00 94 30 149/66 96 Bi-pap 50 01/18/17 14:56 95 27 100 Facial 50 01/18/17 14:25 100 117/67 01/18/17 14:00 99 20 111/67 100 Bi-pap 30 01/18/17 13:00 98.1 88 19 138/70 100 Bi-pap 30 01/18/17 12:40 97 20 100 Bi-pap 30 01/18/17 12:39 99 20 100 Facial 30 01/18/17 12:30 96 20 98 Bi-pap 30 01/18/17 12:00 85 01/18/17 12:00 88 20 155/79 100 Bi-pap 30 01/18/17 12:00 30 01/18/17 11:47 93 20 98 Facial 30 Height (Feet): 5 Height (Inches): 5.00 Weight (Pounds): 120 HEENT: atraumatic Respiratory/Chest: normal breath sounds Cardiovascular: regular rhythm Abdomen: no organomegaly Laboratory Tests Test 01/19/17 05:25 01/19/17 08:15 White Blood Count 10.2 K/UL (4.8-10.8) Red Blood Count 2.96 M/UL (4.70-6.10) L Hemoglobin 9.5 G/DL (14.2-18.0) L Hematocrit 29.4 % (42.0-52.0) L Mean Corpuscular Volume 99 FL (80-99) Mean Corpuscular Hemoglobin 32.2 PG (27.0-31.0) H Mean Corpuscular Hemoglobin Concent 32.4 G/DL (32.0-36.0) Red Cell Distribution Width 13.1 % (11.6-14.8) Platelet Count 346 K/UL (150-450) Mean Platelet Volume 6.5 FL (6.5-10.1) Neutrophils (%) (Auto) 76.2 % (45.0-75.0) H Lymphocytes (%) (Auto) 14.0 % (20.0-45.0) L Monocytes (%) (Auto) 6.3 % (1.0-10.0) Eosinophils (%) (Auto) 2.5 % (0.0-3.0) Basophils (%) (Auto) 1.0 % (0.0-2.0) Sodium Level 143 mEQ/L (135-145) Potassium Level 3.7 mEQ/L (3.4-4.9) Chloride Level 100 mEQ/L (98-107) Carbon Dioxide Level 34 mEQ/L (20-30) H Anion Gap 9 (5-15) Blood Urea Nitrogen 28 mg/dL (7-23) H Creatinine 0.6 mg/dL (0.7-1.2) L Estimat Glomerular Filtration Rate mL/min (>60) Glucose Level 140 mg/dL (74-106) H Calcium Level 9.4 mg/dL (8.6-10.2) Phosphorus Level 3.7 mg/dL (2.5-4.8) Magnesium Level 2.1 mg/dL (1.7-2.5) Total Bilirubin 0.2 mg/dL (0.0-1.2) Aspartate Amino Transf (AST/SGOT) 13 U/L (5-40) Alanine Aminotransferase (ALT/SGPT) 16 U/L (3-41) Alkaline Phosphatase 80 U/L (40-129) Total Protein 6.5 g/dL (6.6-8.7) L Albumin 3.2 g/dL (3.5-5.2) L Globulin 3.3 g/dL Albumin/Globulin Ratio 0.9 (1.0-2.7) L Arterial Blood pH 7.284 (7.350-7.450) Arterial Blood Partial Pressure CO2 79.6 mmHg (35.0-45.0) *H Arterial Blood Partial Pressure O2 145.0 mmHg (75.0-100.0) H Arterial Blood HCO3 36.9 mmol/L (22.0-26.0) H Arterial Blood Oxygen Saturation 98.4 % (92.0-98.0) H Arterial Blood Base Excess 7.6 Leo Test Positive Current Medications Medications (Trade) Dose Ordered Sig/Daina Route PRN Reason Start Time Stop Time Status Last Admin Dose Admin Acetaminophen (Tylenol) 650 mg Q4H PRN ORAL fever 01/04/17 21:00 02/03/17 20:59 Albuterol/ Ipratropium (DuoNeb 0.5-3(2.5)mg/3ml) 3 ml Q6HRT HHN 01/16/17 13:00 01/21/17 12:59 01/19/17 07:18 Atropine Sulfate (Atropine Opth Analia) 1 drop Q2H PRN SL excessive secretions 01/15/17 10:15 02/14/17 10:14 01/16/17 05:15 Betamethasone/ Clotrimazole (Lotrisone) 1 applic TWICE A DAY TOPIC 01/12/17 12:30 02/11/17 12:29 01/19/17 08:22 Clonidine HCl (Catapres) 0.1 mg Q6H PRN GT SBP > 170 01/06/17 16:00 02/05/17 15:59 Dextrose (Dextrose 50%) STAT PRN IV Hypoglycemia 01/04/17 21:00 02/03/17 20:59 Diltiazem HCl (Cardizem) 60 mg EVERY 8 HOURS NG 01/14/17 14:00 02/13/17 13:59 01/19/17 06:25 Docusate Sodium (Colace) 100 mg DAILY ORAL 01/12/17 11:15 02/11/17 11:14 01/19/17 08:22 Gentamicin Sulfate (Garamycin 0.3% Opt Sol) 1 drop Q4HR LEFT EYE 01/14/17 12:00 01/21/17 11:59 01/19/17 08:22 Glycopyrrolate (Robinul) 0.1 mg Q6H PRN IV excessive secretions 01/15/17 10:15 02/14/17 10:14 01/15/17 15:02 Heparin Sodium (Porcine) (Heparin 5000 units/ml) 5,000 units EVERY 12 HOURS SUBQ 01/04/17 22:00 02/03/17 21:59 01/19/17 08:26 Lansoprazole (Prevacid) 30 mg DAILY GT 01/13/17 09:00 02/12/17 08:59 01/19/17 08:21 Lorazepam (Ativan 2mg/ml 1ml) 1 mg Q4H PRN IV For Anxiety 01/16/17 09:00 01/23/17 08:59 Nitroglycerin (Ntg) 0.4 mg Every 5 Minutes PRN SL Prn Chest Pain 01/04/17 21:00 02/03/17 20:59 Ondansetron HCl (Zofran) 4 mg Q6H PRN IVP Nausea & Vomiting 01/04/17 21:00 02/03/17 20:59 Polyethylene Glycol (Miralax) 17 gm DAILYPRN PRN GT Constipation 01/06/17 15:55 02/03/17 20:59 01/14/17 08:25 Theophylline (Theophylline) 80 mg Q6HR ORAL 01/13/17 12:00 02/12/17 11:59 01/19/17 06:25 HORACIO JOHN M.D. January 19, 2017 11:42
--- NOTE | 2017-01-19 11:51 | Pulmonolgy Critical Care Note ---
Critical Care - Asmt/Plan Problems: (1) Respiratory distress (2) Aspiration pneumonia (3) Dementia Respiratory: monitor respiratory rate, adjust FIO2, CXR, other - Dr. Plasencia informed about tracheostomy Cardiac: continue to monitor HR/BP Renal: F/U I&O, check electrolytes Infectious Disease: check cultures, continue antibiotics Gastrointestinal: continue feedings/current rate Endocrine: monitor blood sugar, continue sliding scale insulin Hematologic: monitor H/H, transfuse if hgb<8.5 Neurologic: PRN Ativan, PRN Morphine, keep patient comfortable Prophylaxis: Protonix, Heparin Notes Reviewed: core setter, cardio, renal Discussed with: nurses, rn case manager hospicequality compliance manager - Objective Last 24 Hour Vital Signs Date Time Temp Pulse Resp B/P Pulse Ox O2 Delivery O2 Flow Rate FiO2 01/19/17 10:05 98 33 146/82 97 Bi-pap 30 01/19/17 09:28 101 22 96 Facial 30 01/19/17 09:00 100 33 143/85 97 Bi-pap 30 01/19/17 08:09 40 01/19/17 08:08 90 01/19/17 08:05 98.3 90 33 133/74 98 Bi-pap 40 01/19/17 07:27 80 19 100 Bi-pap 30 01/19/17 07:19 110 22 100 Facial 40 01/19/17 07:16 100 25 100 Bi-pap 40 01/19/17 07:00 102 30 131/65 97 Bi-pap 50 01/19/17 06:25 100 155/72 01/19/17 06:00 102 30 155/72 97 Bi-pap 50 01/19/17 05:01 88 16 100 Facial 30 01/19/17 05:00 84 30 138/62 100 Bi-pap 50 01/19/17 04:00 30 01/19/17 04:00 98.0 88 30 125/79 100 Bi-pap 50 01/19/17 04:00 88 01/19/17 03:19 83 12 100 Facial 30 01/19/17 03:13 86 13 Bi-pap 30 01/19/17 03:00 83 30 115/67 100 Bi-pap 50 01/19/17 02:00 85 30 148/68 100 Bi-pap 50 01/19/17 01:14 80 19 100 Bi-pap 30 01/19/17 01:13 80 14 100 Bi-pap 30 01/19/17 01:11 81 16 100 Facial 30 01/19/17 01:00 87 30 141/71 100 Bi-pap 50 01/19/17 00:00 98.2 77 30 126/71 100 Bi-pap 50 01/19/17 00:00 50 01/19/17 00:00 78 01/18/17 23:30 80 20 100 Facial 30 01/18/17 23:00 80 30 125/79 100 Bi-pap 50 01/18/17 22:00 80 30 120/64 100 Bi-pap 50 01/18/17 21:12 84 22 100 Facial 30 01/18/17 21:05 89 125/79 01/18/17 21:00 82 30 128/74 100 Bi-pap 50 01/18/17 20:00 88 01/18/17 20:00 50 01/18/17 20:00 97.8 89 30 146/76 100 Bi-pap 50 01/18/17 19:37 92 21 100 Bi-pap 30 01/18/17 19:30 89 25 98 Bi-pap 30 01/18/17 19:29 89 24 100 Facial 30 01/18/17 19:29 Bi-pap 01/18/17 19:28 Bi-pap 01/18/17 19:00 90 30 140/69 100 Bi-pap 50 01/18/17 18:00 85 18 131/64 100 Bi-pap 50 01/18/17 17:00 87 30 129/56 100 Bi-pap 50 01/18/17 16:39 100 19 100 Facial 50 01/18/17 16:00 50 01/18/17 16:00 98.1 98 22 158/72 100 Bi-pap 50 01/18/17 16:00 101 01/18/17 15:00 94 30 149/66 96 Bi-pap 50 01/18/17 14:56 95 27 100 Facial 50 01/18/17 14:25 100 117/67 01/18/17 14:00 99 20 111/67 100 Bi-pap 30 01/18/17 13:00 98.1 88 19 138/70 100 Bi-pap 30 01/18/17 12:40 97 20 100 Bi-pap 30 01/18/17 12:39 99 20 100 Facial 30 01/18/17 12:30 96 20 98 Bi-pap 30 01/18/17 12:00 85 01/18/17 12:00 88 20 155/79 100 Bi-pap 30 01/18/17 12:00 30 Status: awake Condition: critical HEENT: atraumatic Neck: full ROM Lungs: chest wall tender Heart: HR/BP stable Abdomen: soft, non-tender Extremities: no C/C/E, edema Decubiti: location Accucheck: 115 Critical Care - Subjective ROS Limited/Unobtainable: No ICU Day: 15 Intubation Day: 15 Interval Events: worsening, on BIPAP FI02: 30 Vent Support Mode: CPAP Sputum Amount: Large Tube Feeding Amount: 55 I&O: Intake and Output 01/18/17 01/19/17 19:00 07:00 Intake Total 750 ml 810 ml Output Total 800 ml 500 ml Balance -50 ml 310 ml Free Water 150 ml Tube Feeding 660 ml 660 ml Other 90 ml Output Urine Total 800 ml 500 ml CXR: no new infiltrate Labs: Laboratory Tests Test 01/19/17 05:25 01/19/17 08:15 White Blood Count 10.2 K/UL (4.8-10.8) Red Blood Count 2.96 M/UL (4.70-6.10) L Hemoglobin 9.5 G/DL (14.2-18.0) L Hematocrit 29.4 % (42.0-52.0) L Mean Corpuscular Volume 99 FL (80-99) Mean Corpuscular Hemoglobin 32.2 PG (27.0-31.0) H Mean Corpuscular Hemoglobin Concent 32.4 G/DL (32.0-36.0) Red Cell Distribution Width 13.1 % (11.6-14.8) Platelet Count 346 K/UL (150-450) Mean Platelet Volume 6.5 FL (6.5-10.1) Neutrophils (%) (Auto) 76.2 % (45.0-75.0) H Lymphocytes (%) (Auto) 14.0 % (20.0-45.0) L Monocytes (%) (Auto) 6.3 % (1.0-10.0) Eosinophils (%) (Auto) 2.5 % (0.0-3.0) Basophils (%) (Auto) 1.0 % (0.0-2.0) Sodium Level 143 mEQ/L (135-145) Potassium Level 3.7 mEQ/L (3.4-4.9) Chloride Level 100 mEQ/L (98-107) Carbon Dioxide Level 34 mEQ/L (20-30) H Anion Gap 9 (5-15) Blood Urea Nitrogen 28 mg/dL (7-23) H Creatinine 0.6 mg/dL (0.7-1.2) L Estimat Glomerular Filtration Rate mL/min (>60) Glucose Level 140 mg/dL (74-106) H Calcium Level 9.4 mg/dL (8.6-10.2) Phosphorus Level 3.7 mg/dL (2.5-4.8) Magnesium Level 2.1 mg/dL (1.7-2.5) Total Bilirubin 0.2 mg/dL (0.0-1.2) Aspartate Amino Transf (AST/SGOT) 13 U/L (5-40) Alanine Aminotransferase (ALT/SGPT) 16 U/L (3-41) Alkaline Phosphatase 80 U/L (40-129) Total Protein 6.5 g/dL (6.6-8.7) L Albumin 3.2 g/dL (3.5-5.2) L Globulin 3.3 g/dL Albumin/Globulin Ratio 0.9 (1.0-2.7) L Arterial Blood pH 7.284 (7.350-7.450) Arterial Blood Partial Pressure CO2 79.6 mmHg (35.0-45.0) *H Arterial Blood Partial Pressure O2 145.0 mmHg (75.0-100.0) H Arterial Blood HCO3 36.9 mmol/L (22.0-26.0) H Arterial Blood Oxygen Saturation 98.4 % (92.0-98.0) H Arterial Blood Base Excess 7.6 Leo Test Positive RABIA BANGURA January 19, 2017 11:51
[2017-01-19] MEDS: Miralax 17gm pkt GT PRN (12:49)
--- NOTE | 2017-01-19 15:36 | Cardiac Electrophysiology PN ---
Assessment/Plan Assessment/Plan 1. Atrial fib with RVR.In SR on Cardizem 60mg NG q 8 hrs. Off anticoagulation. 2. Hypertension.Continue Cardizem. 3. Severe pulmonary hypertension, pressure 55, likely due to history of obstructive sleep apnea. 4. Recurrent Respiratory failure due to aspiration,extubated for the second time 01/14/17 ,on BIPAP again. Tracheostomy planning in progress. 5. Dementia. 6. Dysphagia.Will need PEG before DC DW and RN Subjective Subjective In ICU on BIPAP. at bedside. No recurrence of atrial fib.PCO2 went up to 70s on 5 BIPAP. Now back on 10 BIPAP. Objective Last 24 Hour Vital Signs Date Time Temp Pulse Resp B/P Pulse Ox O2 Delivery O2 Flow Rate FiO2 01/19/17 15:01 95 34 133/78 97 Bi-pap 30 01/19/17 14:00 98 33 137/80 97 Bi-pap 30 01/19/17 13:57 90 115/69 01/19/17 13:30 87 18 100 Bi-pap 30 01/19/17 13:29 86 15 100 Facial 30 01/19/17 13:20 86 15 100 Bi-pap 30 01/19/17 13:00 97 36 130/82 97 Bi-pap 30 01/19/17 12:05 30 01/19/17 12:00 98 01/19/17 12:00 98.5 95 32 125/75 97 Bi-pap 30 01/19/17 11:29 100 20 99 Facial 30 01/19/17 11:00 100 35 135/78 97 Bi-pap 30 01/19/17 10:05 98 33 146/82 97 Bi-pap 30 01/19/17 09:28 101 22 96 Facial 30 01/19/17 09:00 100 33 143/85 97 Bi-pap 30 01/19/17 08:09 40 01/19/17 08:08 90 01/19/17 08:05 98.3 90 33 133/74 98 Bi-pap 40 01/19/17 07:27 80 19 100 Bi-pap 30 01/19/17 07:19 110 22 100 Facial 40 01/19/17 07:16 100 25 100 Bi-pap 40 01/19/17 07:00 102 30 131/65 97 Bi-pap 50 01/19/17 06:25 100 155/72 01/19/17 06:00 102 30 155/72 97 Bi-pap 50 01/19/17 05:01 88 16 100 Facial 30 01/19/17 05:00 84 30 138/62 100 Bi-pap 50 01/19/17 04:00 30 01/19/17 04:00 98.0 88 30 125/79 100 Bi-pap 50 01/19/17 04:00 88 01/19/17 03:19 83 12 100 Facial 30 01/19/17 03:13 86 13 Bi-pap 30 01/19/17 03:00 83 30 115/67 100 Bi-pap 50 01/19/17 02:00 85 30 148/68 100 Bi-pap 50 01/19/17 01:14 80 19 100 Bi-pap 30 01/19/17 01:13 80 14 100 Bi-pap 30 01/19/17 01:11 81 16 100 Facial 30 01/19/17 01:00 87 30 141/71 100 Bi-pap 50 01/19/17 00:00 98.2 77 30 126/71 100 Bi-pap 50 01/19/17 00:00 50 01/19/17 00:00 78 01/18/17 23:30 80 20 100 Facial 30 01/18/17 23:00 80 30 125/79 100 Bi-pap 50 01/18/17 22:00 80 30 120/64 100 Bi-pap 50 01/18/17 21:12 84 22 100 Facial 30 01/18/17 21:05 89 125/79 01/18/17 21:00 82 30 128/74 100 Bi-pap 50 01/18/17 20:00 88 01/18/17 20:00 50 01/18/17 20:00 97.8 89 30 146/76 100 Bi-pap 50 01/18/17 19:37 92 21 100 Bi-pap 30 01/18/17 19:30 89 25 98 Bi-pap 30 01/18/17 19:29 89 24 100 Facial 30 01/18/17 19:29 Bi-pap 01/18/17 19:28 Bi-pap 01/18/17 19:00 90 30 140/69 100 Bi-pap 50 01/18/17 18:00 85 18 131/64 100 Bi-pap 50 01/18/17 17:00 87 30 129/56 100 Bi-pap 50 01/18/17 16:39 100 19 100 Facial 50 01/18/17 16:00 50 01/18/17 16:00 98.1 98 22 158/72 100 Bi-pap 50 01/18/17 16:00 101 Intake and Output 01/18/17 01/19/17 19:00 07:00 Intake Total 750 ml 810 ml Output Total 800 ml 500 ml Balance -50 ml 310 ml Free Water 150 ml Tube Feeding 660 ml 660 ml Other 90 ml Output Urine Total 800 ml 500 ml Laboratory Tests Test 01/19/17 05:25 01/19/17 08:15 White Blood Count 10.2 K/UL (4.8-10.8) Red Blood Count 2.96 M/UL (4.70-6.10) L Hemoglobin 9.5 G/DL (14.2-18.0) L Hematocrit 29.4 % (42.0-52.0) L Mean Corpuscular Volume 99 FL (80-99) Mean Corpuscular Hemoglobin 32.2 PG (27.0-31.0) H Mean Corpuscular Hemoglobin Concent 32.4 G/DL (32.0-36.0) Red Cell Distribution Width 13.1 % (11.6-14.8) Platelet Count 346 K/UL (150-450) Mean Platelet Volume 6.5 FL (6.5-10.1) Neutrophils (%) (Auto) 76.2 % (45.0-75.0) H Lymphocytes (%) (Auto) 14.0 % (20.0-45.0) L Monocytes (%) (Auto) 6.3 % (1.0-10.0) Eosinophils (%) (Auto) 2.5 % (0.0-3.0) Basophils (%) (Auto) 1.0 % (0.0-2.0) Sodium Level 143 mEQ/L (135-145) Potassium Level 3.7 mEQ/L (3.4-4.9) Chloride Level 100 mEQ/L (98-107) Carbon Dioxide Level 34 mEQ/L (20-30) H Anion Gap 9 (5-15) Blood Urea Nitrogen 28 mg/dL (7-23) H Creatinine 0.6 mg/dL (0.7-1.2) L Estimat Glomerular Filtration Rate mL/min (>60) Glucose Level 140 mg/dL (74-106) H Calcium Level 9.4 mg/dL (8.6-10.2) Phosphorus Level 3.7 mg/dL (2.5-4.8) Magnesium Level 2.1 mg/dL (1.7-2.5) Total Bilirubin 0.2 mg/dL (0.0-1.2) Aspartate Amino Transf (AST/SGOT) 13 U/L (5-40) Alanine Aminotransferase (ALT/SGPT) 16 U/L (3-41) Alkaline Phosphatase 80 U/L (40-129) Total Protein 6.5 g/dL (6.6-8.7) L Albumin 3.2 g/dL (3.5-5.2) L Globulin 3.3 g/dL Albumin/Globulin Ratio 0.9 (1.0-2.7) L Arterial Blood pH 7.284 (7.350-7.450) Arterial Blood Partial Pressure CO2 79.6 mmHg (35.0-45.0) *H Arterial Blood Partial Pressure O2 145.0 mmHg (75.0-100.0) H Arterial Blood HCO3 36.9 mmol/L (22.0-26.0) H Arterial Blood Oxygen Saturation 98.4 % (92.0-98.0) H Arterial Blood Base Excess 7.6 Leo Test Positive Objective NECK: No JVD. On BIPAP with NG tube LUNGS: Coarse rhonchi CARDIOVASCULAR: Regular S1 and S2 with no gallop or murmur. ABDOMEN: Soft. EXTREMITIES: No pitting edema. ARGELIA DUONG January 19, 2017 15:36
--- NOTE | 2017-01-19 18:27 | Internal Med Progress Note ---
Subjective Date of Service: January 19, 2017 Physician Name Sangeetha Johnson Attending Physician Sangeetha Johnson Current Medications Medications (Trade) Dose Ordered Sig/Daina Route PRN Reason Start Time Stop Time Status Last Admin Dose Admin Acetaminophen (Tylenol) 650 mg Q4H PRN ORAL fever 01/04/17 21:00 02/03/17 20:59 Albuterol/ Ipratropium (DuoNeb 0.5-3(2.5)mg/3ml) 3 ml Q6HRT HHN 01/16/17 13:00 01/21/17 12:59 01/19/17 13:28 Atropine Sulfate (Atropine Opth Analia) 1 drop Q2H PRN SL excessive secretions 01/15/17 10:15 02/14/17 10:14 01/16/17 05:15 Betamethasone/ Clotrimazole (Lotrisone) 1 applic TWICE A DAY TOPIC 01/12/17 12:30 02/11/17 12:29 01/19/17 08:22 Clonidine HCl (Catapres) 0.1 mg Q6H PRN GT SBP > 170 01/06/17 16:00 02/05/17 15:59 Dextrose (Dextrose 50%) STAT PRN IV Hypoglycemia 01/04/17 21:00 02/03/17 20:59 Diltiazem HCl (Cardizem) 60 mg EVERY 8 HOURS NG 01/14/17 14:00 02/13/17 13:59 01/19/17 13:57 Docusate Sodium (Colace) 100 mg DAILY ORAL 01/12/17 11:15 02/11/17 11:14 01/19/17 08:22 Gentamicin Sulfate (Garamycin 0.3% Opth Soln) 1 drop Q4HR LEFT EYE 01/14/17 12:00 01/21/17 11:59 01/19/17 12:49 Glycopyrrolate (Robinul) 0.1 mg Q6H PRN IV excessive secretions 01/15/17 10:15 02/14/17 10:14 01/15/17 15:02 Heparin Sodium (Porcine) (Heparin 5000 units/ml) 5,000 units EVERY 12 HOURS SUBQ 01/04/17 22:00 02/03/17 21:59 01/19/17 08:26 Lansoprazole (Prevacid) 30 mg DAILY GT 01/13/17 09:00 02/12/17 08:59 01/19/17 08:21 Lorazepam (Ativan 2mg/ml 1ml) 1 mg Q4H PRN IV For Anxiety 01/16/17 09:00 01/23/17 08:59 Nitroglycerin (Ntg) 0.4 mg Every 5 Minutes PRN SL Prn Chest Pain 01/04/17 21:00 02/03/17 20:59 Ondansetron HCl (Zofran) 4 mg Q6H PRN IVP Nausea & Vomiting 01/04/17 21:00 02/03/17 20:59 Polyethylene Glycol (Miralax) 17 gm DAILYPRN PRN GT Constipation 01/06/17 15:55 02/03/17 20:59 01/19/17 12:49 Theophylline (Theophylline) 80 mg Q6HR ORAL 01/13/17 12:00 02/12/17 11:59 01/19/17 12:49 Allergies: Coded Allergies: No Known Allergies (Verified , 01/06/17) ROS Limited/Unobtainable: Yes Subjective 76 YO M admitted with aspiration and respiratory failure. Reintubated 01/09/17; extubated 01/14/17. Tolerating BIPAP. Sedated. ICU. Await possible tracheostomy Objective Last Vital Signs Date Time Temp Pulse Resp B/P Pulse Ox O2 Delivery O2 Flow Rate FiO2 01/19/17 17:09 90 17 100 Facial 30 01/19/17 15:01 133/78 01/19/17 12:00 98.5 01/18/17 11:23 6.0 Laboratory Tests Test 01/19/17 05:25 01/19/17 08:15 White Blood Count 10.2 K/UL (4.8-10.8) Red Blood Count 2.96 M/UL (4.70-6.10) L Hemoglobin 9.5 G/DL (14.2-18.0) L Hematocrit 29.4 % (42.0-52.0) L Mean Corpuscular Volume 99 FL (80-99) Mean Corpuscular Hemoglobin 32.2 PG (27.0-31.0) H Mean Corpuscular Hemoglobin Concent 32.4 G/DL (32.0-36.0) Red Cell Distribution Width 13.1 % (11.6-14.8) Platelet Count 346 K/UL (150-450) Mean Platelet Volume 6.5 FL (6.5-10.1) Neutrophils (%) (Auto) 76.2 % (45.0-75.0) H Lymphocytes (%) (Auto) 14.0 % (20.0-45.0) L Monocytes (%) (Auto) 6.3 % (1.0-10.0) Eosinophils (%) (Auto) 2.5 % (0.0-3.0) Basophils (%) (Auto) 1.0 % (0.0-2.0) Sodium Level 143 mEQ/L (135-145) Potassium Level 3.7 mEQ/L (3.4-4.9) Chloride Level 100 mEQ/L (98-107) Carbon Dioxide Level 34 mEQ/L (20-30) H Anion Gap 9 (5-15) Blood Urea Nitrogen 28 mg/dL (7-23) H Creatinine 0.6 mg/dL (0.7-1.2) L Estimat Glomerular Filtration Rate mL/min (>60) Glucose Level 140 mg/dL (74-106) H Calcium Level 9.4 mg/dL (8.6-10.2) Phosphorus Level 3.7 mg/dL (2.5-4.8) Magnesium Level 2.1 mg/dL (1.7-2.5) Total Bilirubin 0.2 mg/dL (0.0-1.2) Aspartate Amino Transf (AST/SGOT) 13 U/L (5-40) Alanine Aminotransferase (ALT/SGPT) 16 U/L (3-41) Alkaline Phosphatase 80 U/L (40-129) Total Protein 6.5 g/dL (6.6-8.7) L Albumin 3.2 g/dL (3.5-5.2) L Globulin 3.3 g/dL Albumin/Globulin Ratio 0.9 (1.0-2.7) L Arterial Blood pH 7.284 (7.350-7.450) Arterial Blood Partial Pressure CO2 79.6 mmHg (35.0-45.0) *H Arterial Blood Partial Pressure O2 145.0 mmHg (75.0-100.0) H Arterial Blood HCO3 36.9 mmol/L (22.0-26.0) H Arterial Blood Oxygen Saturation 98.4 % (92.0-98.0) H Arterial Blood Base Excess 7.6 Leo Test Positive Intake and Output 01/18/17 01/19/17 19:00 07:00 Intake Total 750 ml 810 ml Output Total 800 ml 500 ml Balance -50 ml 310 ml Free Water 150 ml Tube Feeding 660 ml 660 ml Other 90 ml Output Urine Total 800 ml 500 ml Objective General Appearance: WD/WN, moderate distress EENT: PERRL/EOMI, normal ENT inspection Neck: non-tender, normal alignment, supple Cardiovascular: normal peripheral pulses, normal rate, regular rhythm, no gallop/murmur, no JVD Respiratory/Chest: BIPAP; respiratory distress, crackles/rales, rhonchi - bilaterally, expiratory wheezing Abdomen: normal bowel sounds, non tender, soft, no organomegaly, no mass Extremities: normal range of motion, non-tender 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 Tolerating BIPAP. See pulmonary note-recommends tracheostomy. (2) Hypertension Assessment & Plan: Better control-see cardiology consult. (3) Hypercholesteremia (4) BPH (benign prostatic hyperplasia) (5) Alzheimer's dementia (6) Aspiration pneumonia Assessment & Plan: Ada. Cont fluconazole. See pulmonary and ID note. (7) Hematuria Assessment & Plan: Resolved (8) Atrial fibrillation with RVR Assessment & Plan: S/P Cardizem drip; see cardiology note. Status: not improved Assessment/Plan Discussed with SANGEETHA JOHNSON January 19, 2017 18:27
[2017-01-20] VITALS (24 sets, daily range): BP systolic 109–173; BP diastolic 56–86
[2017-01-20] MEDS: Gentamicin 0.3% Opth Soln 5ml LEFT EYE SCH ×6 (00:49→20:46)
[2017-01-20] MEDS: DuoNeb 0.5-3(2.5)mg/3ml neb HHN SCH ×4 (01:17→19:13)
[2017-01-20 05:39] LABS: LYMPHOCYTES % (AUTO) 16.7 % (20.0-45.0); MEAN CORPUSCULAR HEMOGLOBIN 32.1 PG (27.0-31.0); MEAN CORPUSCULAR HGB CONC 31.9 G/DL (32.0-36.0); MEAN CORPUSCULAR VOLUME 101 FL (80-99); MONOCYTES % (AUTO) 5.2 % (1.0-10.0); NEUTROPHILS % (AUTO) 73.2 % (45.0-75.0); PLATELET COUNT 329 K/UL (150-450); RED BLOOD COUNT 3.03 M/UL (4.70-6.10); WHITE BLOOD COUNT 13.3 K/UL (4.8-10.8)
[2017-01-20] MEDS: Theophylline 80mg/15ml ORAL SCH ×4 (06:05→23:43)
[2017-01-20 06:25] LABS: ALANINE AMINOTRANSFERASE 12 U/L (3-41); ALBUMIN/GLOBULIN RATIO 0.9 (1.0-2.7); ANION GAP 9 (5-15); ASPARTATE AMINO TRANSFERASE 11 U/L (5-40); CARBON DIOXIDE 37 mEQ/L (20-30); CHLORIDE 104 mEQ/L (98-107); CREATININE 0.7 mg/dL (0.7-1.2); HEMOLYSIS 0; POTASSIUM 4.3 mEQ/L (3.4-4.9); SODIUM 150 mEQ/L (135-145); TOTAL PROTEIN 6.7 g/dL (6.6-8.7)
--- NOTE | 2017-01-20 08:13 | Anethesia Preoperative Eval ---
Anesthesia Pre-op PMH/ROS General Date of Evaluation: January 20, 2017 Time of Evaluation: 07:46 Anesthesiologist: Tg ASA Score: ASA 4 Mallampati Score Class I : Soft palate, uvula, fauces, pillars visible Class II: Soft palate, uvula, fauces visible Class III: Soft palate, base of uvula visible Class IV: Only hard plate visible Mallampati Classification: Class III Surgeon: Sharyn Diagnosis: Ventillatory Failure Surgical Procedure: Tracheostomy Family History: no anesthesia problems Allergies: Coded Allergies: No Known Allergies (Verified , 01/06/17) Medications: see eMAR Past Medical History Cardiovascular: Reports: HTN Neurologic/Psychiatric: Reports: dementia HEENT: Reports: cataract (L), cataract (R) Hematology/Immune: Reports: anemia PSxH Narrative: R Femur Fx Anesthesia Pre-op Phys. Exam Physician Exam Last Vital Signs Date Time Temp Pulse Resp B/P Pulse Ox O2 Delivery O2 Flow Rate FiO2 01/20/17 06:48 82 19 100 Bi-pap 30 01/20/17 06:05 122/68 01/20/17 04:00 98.1 01/18/17 11:23 6.0 Constitutional: NAD Neurologic: CN 2-12 intact Cardiovascular: RRR Respiratory: CTA, other - ON BIPAP Gastrointestinal: S/NT/ND Airway Exam Mallampati Score: Class III MO: limited Neck: On BIPAP ROM: limited Teeth: missing Anesthesia Pre-op A/P Labs Hematology Test 01/20/17 05:00 White Blood Count 13.3 K/UL (4.8-10.8) H Red Blood Count 3.03 M/UL (4.70-6.10) L Hemoglobin 9.7 G/DL (14.2-18.0) L Hematocrit 30.5 % (42.0-52.0) L Mean Corpuscular Volume 101 FL (80-99) H Mean Corpuscular Hemoglobin 32.1 PG (27.0-31.0) H Mean Corpuscular Hemoglobin Concent 31.9 G/DL (32.0-36.0) L Red Cell Distribution Width 13.0 % (11.6-14.8) Platelet Count 329 K/UL (150-450) Mean Platelet Volume 6.0 FL (6.5-10.1) L Neutrophils (%) (Auto) 73.2 % (45.0-75.0) Lymphocytes (%) (Auto) 16.7 % (20.0-45.0) L Monocytes (%) (Auto) 5.2 % (1.0-10.0) Eosinophils (%) (Auto) 4.0 % (0.0-3.0) H Basophils (%) (Auto) 1.0 % (0.0-2.0) Chemistry Test 01/20/17 05:00 Sodium Level 150 mEQ/L (135-145) H Potassium Level 4.3 mEQ/L (3.4-4.9) Chloride Level 104 mEQ/L (98-107) Carbon Dioxide Level 37 mEQ/L (20-30) H Anion Gap 9 (5-15) Blood Urea Nitrogen 33 mg/dL (7-23) H Creatinine 0.7 mg/dL (0.7-1.2) Estimat Glomerular Filtration Rate mL/min (>60) Glucose Level 124 mg/dL (74-106) H Calcium Level 10.0 mg/dL (8.6-10.2) Total Bilirubin 0.3 mg/dL (0.0-1.2) Aspartate Amino Transf (AST/SGOT) 11 U/L (5-40) Alanine Aminotransferase (ALT/SGPT) 12 U/L (3-41) Alkaline Phosphatase 74 U/L (40-129) Pro-B-Type Natriuretic Peptide 332 pg/mL (0-450) Total Protein 6.7 g/dL (6.6-8.7) Albumin 3.3 g/dL (3.5-5.2) L Globulin 3.4 g/dL Albumin/Globulin Ratio 0.9 (1.0-2.7) L Risk Assessment & Plan Assessment: ASA 4 Plan: GA Status Change Before Surgery: No Pre-Antibiotics Drug: Max Orr MD January 20, 2017 08:13
[2017-01-20] MEDS: Docusate 100mg tablet ORAL SCH (10:17)
[2017-01-20] MEDS: Lotrisone Cream 15gm TOPIC SCH (10:17)
[2017-01-20] MEDS: Heparin 5000 units/ml inj SUBQ SCH ×2 (10:18→17:00)
--- NOTE | 2017-01-20 10:47 | Pulmonolgy Critical Care Note ---
Critical Care - Asmt/Plan Problems: (1) Respiratory distress (2) Aspiration pneumonia (3) Dementia Respiratory: monitor respiratory rate, adjust FIO2, CXR Cardiac: continue to monitor HR/BP Renal: F/U I&O, check electrolytes, other Infectious Disease: add antibiotics - sputum for c/s, other - increase NG flush to 100 cc Gastrointestinal: continue feedings/current rate Endocrine: monitor blood sugar, check HgA1C Neurologic: PRN Ativan, PRN Morphine, other - dc atropin Notes Reviewed: laboratory technical specialist, cardio, renal Discussed with: case mgrmanager air - Objective Last 24 Hour Vital Signs Date Time Temp Pulse Resp B/P Pulse Ox O2 Delivery O2 Flow Rate FiO2 01/20/17 09:29 77 14 100 Facial 40 01/20/17 06:48 82 19 100 Bi-pap 30 01/20/17 06:45 87 26 100 Facial 30 01/20/17 06:39 84 26 100 Bi-pap 30 01/20/17 06:05 77 122/68 01/20/17 06:00 78 01/20/17 06:00 78 16 122/68 100 Bi-pap 30 01/20/17 05:30 81 19 98 Facial 30 01/20/17 05:00 77 15 173/86 100 Bi-pap 30 01/20/17 04:00 98.1 74 14 143/68 100 Bi-pap 30 01/20/17 04:00 30 01/20/17 03:30 74 16 100 Facial 30 01/20/17 03:00 76 12 129/75 100 Bi-pap 30 01/20/17 02:00 77 15 140/66 100 Bi-pap 30 01/20/17 01:19 80 17 100 Bi-pap 30 01/20/17 01:18 79 17 100 Bi-pap 30 01/20/17 01:17 79 16 100 Facial 30 01/20/17 01:00 74 14 109/75 100 Bi-pap 30 01/20/17 00:00 98.7 74 14 129/56 100 Bi-pap 30 01/20/17 00:00 74 01/20/17 00:00 30 01/19/17 23:00 75 16 125/63 100 Bi-pap 30 01/19/17 22:34 75 13 100 Facial 30 01/19/17 22:00 75 14 130/60 100 Bi-pap 30 01/19/17 21:39 77 133/73 01/19/17 21:02 79 17 100 Facial 30 01/19/17 21:00 80 14 133/73 100 Bi-pap 30 01/19/17 20:00 86 01/19/17 20:00 98.4 86 18 120/62 100 Bi-pap 30 01/19/17 20:00 30 01/19/17 19:40 81 15 100 Bi-pap 30 01/19/17 19:30 78 15 100 Facial 30 01/19/17 19:30 78 16 100 Bi-pap 30 01/19/17 19:04 95 34 142/74 97 Bi-pap 30 01/19/17 18:00 92 34 144/74 97 Bi-pap 30 01/19/17 17:09 90 17 100 Facial 30 01/19/17 17:00 89 34 147/67 97 Bi-pap 30 01/19/17 16:00 98.0 88 34 133/78 97 Bi-pap 30 01/19/17 16:00 92 01/19/17 16:00 30 01/19/17 15:29 92 16 100 Facial 30 01/19/17 15:01 95 34 133/78 97 Bi-pap 30 01/19/17 14:00 98 33 137/80 97 Bi-pap 30 01/19/17 13:57 90 115/69 01/19/17 13:30 87 18 100 Bi-pap 30 01/19/17 13:29 86 15 100 Facial 30 01/19/17 13:20 86 15 100 Bi-pap 30 01/19/17 13:00 97 36 130/82 97 Bi-pap 30 01/19/17 12:00 98 01/19/17 12:00 30 01/19/17 12:00 98.5 95 32 125/75 97 Bi-pap 30 01/19/17 11:29 100 20 99 Facial 30 01/19/17 11:00 100 35 135/78 97 Bi-pap 30 Status: sedated Condition: critical HEENT: atraumatic Neck: full ROM Lungs: rhonchi Heart: HR/BP stable Abdomen: soft, non-tender, feeding tube Extremities: no C/C/E, edema Decubiti: location Accucheck: 115 Critical Care - Subjective Interval Events: needs BIPAP all the time. ENT called for Trach. not ready for comfort care. FI02: 40 Vent Support Mode: CPAP Sputum Amount: Moderate Fluids: none Tube Feeding Amount: 55 I&O: Intake and Output 01/19/17 01/20/17 19:00 07:00 Intake Total 705 ml 865 ml Output Total 550 ml 590 ml Balance 155 ml 275 ml Free Water 100 ml 150 ml Tube Feeding 605 ml 715 ml Output Urine Total 550 ml 590 ml CXR: no change Labs: Laboratory Tests Test 01/20/17 05:00 White Blood Count 13.3 K/UL (4.8-10.8) H Red Blood Count 3.03 M/UL (4.70-6.10) L Hemoglobin 9.7 G/DL (14.2-18.0) L Hematocrit 30.5 % (42.0-52.0) L Mean Corpuscular Volume 101 FL (80-99) H Mean Corpuscular Hemoglobin 32.1 PG (27.0-31.0) H Mean Corpuscular Hemoglobin Concent 31.9 G/DL (32.0-36.0) L Red Cell Distribution Width 13.0 % (11.6-14.8) Platelet Count 329 K/UL (150-450) Mean Platelet Volume 6.0 FL (6.5-10.1) L Neutrophils (%) (Auto) 73.2 % (45.0-75.0) Lymphocytes (%) (Auto) 16.7 % (20.0-45.0) L Monocytes (%) (Auto) 5.2 % (1.0-10.0) Eosinophils (%) (Auto) 4.0 % (0.0-3.0) H Basophils (%) (Auto) 1.0 % (0.0-2.0) Sodium Level 150 mEQ/L (135-145) H Potassium Level 4.3 mEQ/L (3.4-4.9) Chloride Level 104 mEQ/L (98-107) Carbon Dioxide Level 37 mEQ/L (20-30) H Anion Gap 9 (5-15) Blood Urea Nitrogen 33 mg/dL (7-23) H Creatinine 0.7 mg/dL (0.7-1.2) Estimat Glomerular Filtration Rate mL/min (>60) Glucose Level 124 mg/dL (74-106) H Calcium Level 10.0 mg/dL (8.6-10.2) Total Bilirubin 0.3 mg/dL (0.0-1.2) Aspartate Amino Transf (AST/SGOT) 11 U/L (5-40) Alanine Aminotransferase (ALT/SGPT) 12 U/L (3-41) Alkaline Phosphatase 74 U/L (40-129) Pro-B-Type Natriuretic Peptide 332 pg/mL (0-450) Total Protein 6.7 g/dL (6.6-8.7) Albumin 3.3 g/dL (3.5-5.2) L Globulin 3.4 g/dL Albumin/Globulin Ratio 0.9 (1.0-2.7) L RABIA BANGURA January 20, 2017 10:47
[2017-01-20] MEDS ORDERED: Lotrisone Cream 15gm TOPIC PRN (11:00)
[2017-01-20 11:20] LABS: ABG BASE EXCESS 9.8; ABG PCO2 48.6 mmHg (35.0-45.0)
[2017-01-20 11:21] LABS: ABG ALLEN TEST POSITIVE
--- NOTE | 2017-01-20 12:20 | Internal Med Progress Note ---
Subjective Date of Service: January 20, 2017 Physician Name Sangeetha Johnson Attending Physician Sangeetha Johnson Current Medications Medications (Trade) Dose Ordered Sig/Daina Route PRN Reason Start Time Stop Time Status Last Admin Dose Admin Acetaminophen (Tylenol) 650 mg Q4H PRN ORAL fever 01/04/17 21:00 02/03/17 20:59 Albuterol/ Ipratropium (DuoNeb 0.5-3(2.5)mg/3ml) 3 ml Q6HRT HHN 01/16/17 13:00 01/21/17 12:59 01/20/17 06:43 Betamethasone/ Clotrimazole (Lotrisone) 1 applic TWICE A DAY PRN TOPIC Itching/Pruritis 01/20/17 11:00 02/19/17 10:59 Clonidine HCl (Catapres) 0.1 mg Q6H PRN GT SBP > 170 01/06/17 16:00 02/05/17 15:59 Dextrose (Dextrose 50%) STAT PRN IV Hypoglycemia 01/04/17 21:00 02/03/17 20:59 Diltiazem HCl (Cardizem) 60 mg EVERY 8 HOURS NG 01/14/17 14:00 02/13/17 13:59 01/20/17 06:05 Docusate Sodium (Colace) 100 mg DAILY ORAL 01/12/17 11:15 02/11/17 11:14 01/20/17 10:17 Gentamicin Sulfate (Garamycin 0.3% Opth Soln) 1 drop Q4HR LEFT EYE 01/14/17 12:00 01/21/17 11:59 01/20/17 10:16 Glycopyrrolate (Robinul) 0.1 mg Q6H PRN IV excessive secretions 01/15/17 10:15 02/14/17 10:14 01/15/17 15:02 Heparin Sodium (Porcine) (Heparin 5000 units/ml) 5,000 units EVERY 12 HOURS SUBQ 01/04/17 22:00 02/03/17 21:59 01/20/17 10:18 Lansoprazole (Prevacid) 30 mg DAILY GT 01/13/17 09:00 02/12/17 08:59 01/20/17 10:17 Lorazepam (Ativan 2mg/ml 1ml) 1 mg Q4H PRN IV For Anxiety 01/16/17 09:00 01/23/17 08:59 Nitroglycerin (Ntg) 0.4 mg Every 5 Minutes PRN SL Prn Chest Pain 01/04/17 21:00 02/03/17 20:59 Ondansetron HCl (Zofran) 4 mg Q6H PRN IVP Nausea & Vomiting 01/04/17 21:00 02/03/17 20:59 Polyethylene Glycol (Miralax) 17 gm DAILYPRN PRN GT Constipation 01/06/17 15:55 02/03/17 20:59 01/19/17 12:49 Theophylline (Theophylline) 80 mg Q6HR ORAL 01/13/17 12:00 02/12/17 11:59 01/20/17 06:05 Allergies: Coded Allergies: No Known Allergies (Verified , 01/06/17) Subjective 76 YO M admitted with aspiration and respiratory failure. Reintubated 01/09/17; extubated 01/14/17. Tolerating BIPAP. Sedated. ICU. Await tracheostomy on 01/21 Objective Last Vital Signs Date Time Temp Pulse Resp B/P Pulse Ox O2 Delivery O2 Flow Rate FiO2 01/20/17 11:29 77 14 100 Facial 40 01/20/17 06:05 122/68 01/20/17 04:00 98.1 01/18/17 11:23 6.0 Laboratory Tests Test 01/20/17 05:00 01/20/17 09:30 White Blood Count 13.3 K/UL (4.8-10.8) H Red Blood Count 3.03 M/UL (4.70-6.10) L Hemoglobin 9.7 G/DL (14.2-18.0) L Hematocrit 30.5 % (42.0-52.0) L Mean Corpuscular Volume 101 FL (80-99) H Mean Corpuscular Hemoglobin 32.1 PG (27.0-31.0) H Mean Corpuscular Hemoglobin Concent 31.9 G/DL (32.0-36.0) L Red Cell Distribution Width 13.0 % (11.6-14.8) Platelet Count 329 K/UL (150-450) Mean Platelet Volume 6.0 FL (6.5-10.1) L Neutrophils (%) (Auto) 73.2 % (45.0-75.0) Lymphocytes (%) (Auto) 16.7 % (20.0-45.0) L Monocytes (%) (Auto) 5.2 % (1.0-10.0) Eosinophils (%) (Auto) 4.0 % (0.0-3.0) H Basophils (%) (Auto) 1.0 % (0.0-2.0) Sodium Level 150 mEQ/L (135-145) H Potassium Level 4.3 mEQ/L (3.4-4.9) Chloride Level 104 mEQ/L (98-107) Carbon Dioxide Level 37 mEQ/L (20-30) H Anion Gap 9 (5-15) Blood Urea Nitrogen 33 mg/dL (7-23) H Creatinine 0.7 mg/dL (0.7-1.2) Estimat Glomerular Filtration Rate mL/min (>60) Glucose Level 124 mg/dL (74-106) H Calcium Level 10.0 mg/dL (8.6-10.2) Total Bilirubin 0.3 mg/dL (0.0-1.2) Aspartate Amino Transf (AST/SGOT) 11 U/L (5-40) Alanine Aminotransferase (ALT/SGPT) 12 U/L (3-41) Alkaline Phosphatase 74 U/L (40-129) Pro-B-Type Natriuretic Peptide 332 pg/mL (0-450) Total Protein 6.7 g/dL (6.6-8.7) Albumin 3.3 g/dL (3.5-5.2) L Globulin 3.4 g/dL Albumin/Globulin Ratio 0.9 (1.0-2.7) L Arterial Blood pH 7.471 (7.350-7.450) Arterial Blood Partial Pressure CO2 48.6 mmHg (35.0-45.0) H Arterial Blood Partial Pressure O2 165.7 mmHg (75.0-100.0) H Arterial Blood HCO3 34.7 mmol/L (22.0-26.0) H Arterial Blood Oxygen Saturation 98.9 % (92.0-98.0) H Arterial Blood Base Excess 9.8 Leo Test Positive Intake and Output 01/19/17 01/20/17 19:00 07:00 Intake Total 705 ml 865 ml Output Total 550 ml 590 ml Balance 155 ml 275 ml Free Water 100 ml 150 ml Tube Feeding 605 ml 715 ml Output Urine Total 550 ml 590 ml Objective General Appearance: WD/WN, moderate distress EENT: PERRL/EOMI, normal ENT inspection Neck: non-tender, normal alignment, supple Cardiovascular: normal peripheral pulses, normal rate, regular rhythm, no gallop/murmur, no JVD Respiratory/Chest: BIPAP; respiratory distress, crackles/rales, rhonchi - bilaterally, expiratory wheezing Abdomen: normal bowel sounds, non tender, soft, no organomegaly, no mass Extremities: normal range of motion, non-tender 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 Tolerating BIPAP. Tracheostomy scheduled 01/21/17 (2) Hypertension Assessment & Plan: Better control-see cardiology consult. (3) Hypercholesteremia (4) BPH (benign prostatic hyperplasia) (5) Alzheimer's dementia (6) Aspiration pneumonia Assessment & Plan: Ada. D/C fluconazole. See pulmonary and ID note. (7) Hematuria Assessment & Plan: Resolved (8) Atrial fibrillation with RVR Assessment & Plan: Rate controlled - see cardiology note. Status: progressing Assessment/Plan Discussed with SANGEETHA JOHNSON January 20, 2017 12:20
--- NOTE | 2017-01-20 12:49 | Pre-Procedure Note/Attestation ---
Pre-Procedure Note/Attestation Complete Prior to Procedure Planned Procedure: not applicable Procedure Narrative: Tracheostomy Indications for Procedure Pre-Operative Diagnosis: Resp. failure Attestation I attest that I discussed the nature of the procedure; its benefits; risks and complications; and alternatives (and the risks and benefits of such alternatives ), prior to the procedure, with the patient (or the patient's legal event marketing representative). I attest that, if there was a reasonable possibility of needing a blood transfusion, the patient (or the patient's legal event marketing representative) was given the [facility] standardized written summary, pursuant to the [place] Blood Safety Act ([place] Health and Safety Code # 1645, as amended). I attest that I re-evaluated the patient just prior to the surgery and that there has been no change in the patient's H&P. ASHLEY CAMPOS January 20, 2017 12:49
--- NOTE | 2017-01-20 14:20 | Diagnostic Imaging Report ---
Indication: DYSPNEA Technique: One view of the chest Comparison: 01/19/2017 Findings: Lungs and pleural spaces are clear. Heart size is normal. An endotracheal tube tip is barely beyond the gastroesophageal junction, and proximal port is above the gastroesophageal junction. Impression: Malposition of nasogastric tube. This was phoned to patient's nurse at the time of interpretation Otherwise stable, over one day, as described
--- NOTE | 2017-01-20 15:44 | Cardiac Electrophysiology PN ---
Assessment/Plan Assessment/Plan 1. Atrial fib with RVR.In SR on Cardizem 60mg NG q 8 hrs. Off anticoagulation. 2. Hypertension.Continue Cardizem. 3. Severe pulmonary hypertension, pressure 55, likely due to history of obstructive sleep apnea. 4. Recurrent Respiratory failure due to aspiration,extubated for the second time 01/14/17 ,on BIPAP again. Tracheostomy in am. 5. Dementia. 6. Dysphagia. PEG after Tracheostomy DW Subjective Subjective In ICU still on BIPAP. at bedside. No recurrence of atrial fib.Scheduled for Tracheostomy tomorrow. Objective Last 24 Hour Vital Signs Date Time Temp Pulse Resp B/P Pulse Ox O2 Delivery O2 Flow Rate FiO2 01/20/17 15:26 80 15 100 Facial 40 01/20/17 14:13 91 109/61 01/20/17 14:00 79 19 122/68 100 Bi-pap 40 01/20/17 13:19 89 16 100 Venturi Mask 6.0 35 01/20/17 13:10 89 17 100 Venturi Mask 6.0 35 01/20/17 13:00 91 19 122/68 100 Bi-pap 40 01/20/17 13:00 40 01/20/17 12:00 50 01/20/17 12:00 70 01/20/17 12:00 98.5 86 14 122/68 100 Bi-pap 50 01/20/17 11:29 77 14 100 Facial 40 01/20/17 11:00 77 14 122/68 100 Bi-pap 30 01/20/17 10:00 77 13 122/ 100 Bi-pap 30 01/20/17 09:29 77 14 100 Facial 40 01/20/17 09:00 78 16 122/68 100 Bi-pap 30 01/20/17 09:00 100 01/20/17 08:00 98.0 92 24 122/68 100 Bi-pap 100 01/20/17 08:00 40 01/20/17 08:00 78 01/20/17 07:00 94 16 122/68 100 Bi-pap 40 01/20/17 06:48 82 19 100 Bi-pap 30 01/20/17 06:45 87 26 100 Facial 30 01/20/17 06:39 84 26 100 Bi-pap 30 01/20/17 06:05 77 122/68 01/20/17 06:00 78 01/20/17 06:00 78 16 122/68 100 Bi-pap 30 01/20/17 05:30 81 19 98 Facial 30 01/20/17 05:00 77 15 173/86 100 Bi-pap 30 01/20/17 04:00 98.1 74 14 143/68 100 Bi-pap 30 01/20/17 04:00 30 01/20/17 03:30 74 16 100 Facial 30 01/20/17 03:00 76 12 129/75 100 Bi-pap 30 01/20/17 02:00 77 15 140/66 100 Bi-pap 30 01/20/17 01:19 80 17 100 Bi-pap 30 01/20/17 01:18 79 17 100 Bi-pap 30 01/20/17 01:17 79 16 100 Facial 30 01/20/17 01:00 74 14 109/75 100 Bi-pap 30 01/20/17 00:00 98.7 74 14 129/56 100 Bi-pap 30 01/20/17 00:00 74 01/20/17 00:00 30 01/19/17 23:00 75 16 125/63 100 Bi-pap 30 01/19/17 22:34 75 13 100 Facial 30 01/19/17 22:00 75 14 130/60 100 Bi-pap 30 01/19/17 21:39 77 133/73 01/19/17 21:02 79 17 100 Facial 30 01/19/17 21:00 80 14 133/73 100 Bi-pap 30 01/19/17 20:00 86 01/19/17 20:00 98.4 86 18 120/62 100 Bi-pap 30 01/19/17 20:00 30 01/19/17 19:40 81 15 100 Bi-pap 30 01/19/17 19:30 78 15 100 Facial 30 01/19/17 19:30 78 16 100 Bi-pap 30 01/19/17 19:04 95 34 142/74 97 Bi-pap 30 01/19/17 18:00 92 34 144/74 97 Bi-pap 30 01/19/17 17:09 90 17 100 Facial 30 01/19/17 17:00 89 34 147/67 97 Bi-pap 30 01/19/17 16:00 98.0 88 34 133/78 97 Bi-pap 30 01/19/17 16:00 92 01/19/17 16:00 30 Intake and Output 01/19/17 01/20/17 19:00 07:00 Intake Total 705 ml 865 ml Output Total 550 ml 590 ml Balance 155 ml 275 ml Free Water 100 ml 150 ml Tube Feeding 605 ml 715 ml Output Urine Total 550 ml 590 ml Laboratory Tests Test 01/20/17 05:00 01/20/17 09:30 White Blood Count 13.3 K/UL (4.8-10.8) H Red Blood Count 3.03 M/UL (4.70-6.10) L Hemoglobin 9.7 G/DL (14.2-18.0) L Hematocrit 30.5 % (42.0-52.0) L Mean Corpuscular Volume 101 FL (80-99) H Mean Corpuscular Hemoglobin 32.1 PG (27.0-31.0) H Mean Corpuscular Hemoglobin Concent 31.9 G/DL (32.0-36.0) L Red Cell Distribution Width 13.0 % (11.6-14.8) Platelet Count 329 K/UL (150-450) Mean Platelet Volume 6.0 FL (6.5-10.1) L Neutrophils (%) (Auto) 73.2 % (45.0-75.0) Lymphocytes (%) (Auto) 16.7 % (20.0-45.0) L Monocytes (%) (Auto) 5.2 % (1.0-10.0) Eosinophils (%) (Auto) 4.0 % (0.0-3.0) H Basophils (%) (Auto) 1.0 % (0.0-2.0) Sodium Level 150 mEQ/L (135-145) H Potassium Level 4.3 mEQ/L (3.4-4.9) Chloride Level 104 mEQ/L (98-107) Carbon Dioxide Level 37 mEQ/L (20-30) H Anion Gap 9 (5-15) Blood Urea Nitrogen 33 mg/dL (7-23) H Creatinine 0.7 mg/dL (0.7-1.2) Estimat Glomerular Filtration Rate mL/min (>60) Glucose Level 124 mg/dL (74-106) H Calcium Level 10.0 mg/dL (8.6-10.2) Total Bilirubin 0.3 mg/dL (0.0-1.2) Aspartate Amino Transf (AST/SGOT) 11 U/L (5-40) Alanine Aminotransferase (ALT/SGPT) 12 U/L (3-41) Alkaline Phosphatase 74 U/L (40-129) Pro-B-Type Natriuretic Peptide 332 pg/mL (0-450) Total Protein 6.7 g/dL (6.6-8.7) Albumin 3.3 g/dL (3.5-5.2) L Globulin 3.4 g/dL Albumin/Globulin Ratio 0.9 (1.0-2.7) L Arterial Blood pH 7.471 (7.350-7.450) Arterial Blood Partial Pressure CO2 48.6 mmHg (35.0-45.0) H Arterial Blood Partial Pressure O2 165.7 mmHg (75.0-100.0) H Arterial Blood HCO3 34.7 mmol/L (22.0-26.0) H Arterial Blood Oxygen Saturation 98.9 % (92.0-98.0) H Arterial Blood Base Excess 9.8 Leo Test Positive Objective NECK: No JVD. On BIPAP with NG tube LUNGS: Coarse rhonchi CARDIOVASCULAR: Regular S1 and S2 with no gallop or murmur. ABDOMEN: Soft. EXTREMITIES: No pitting edema. ARGELIA DUONG January 20, 2017 15:44
--- NOTE | 2017-01-20 17:08 | Consultation ---
DATE OF CONSULTATION: 01/20/2017 HEAD AND NECK SURGERY/ENT CONSULTATION CONSULTING PHYSICIAN: Won Coles M.D. REQUESTING PHYSICIAN: Harriet Carballo M.D. INDICATION FOR SURGERY: This is a 76-year-old male who has been intubated three times in the last few weeks even while on BiPAP. He has sleep apnea, advanced Alzheimer's, aspiration pneumonia. He was admitted with a hip fracture. He has had long history of respiratory distress, hypertension, atrial fibrillation. I did speak with his who actually is a nurse in the intensive care unit. I have been asked to put a trach in him for ease of carrying for him and to protect him from further aspiration. MEDICATIONS: Include Lotrisone, DuoNeb, Ativan, Robinul , Cardizem, theophylline, Prevacid, Colace, Catapres, MiraLAX, Tylenol, Zofran, nitroglycerin. PHYSICAL EXAMINATION: VITAL SIGNS: The patient is 165.1 centimeters, 54.431 kilogram, and body mass index 20. NECK: Stable with good landmarks for the trach. He is not conversive. ASSESSMENT: He is a candidate for trach care. I would recommend he get a another INR level, last one was done over a week ago. I have spoken with the regarding doing a trach and she is consented verbally and will sign the consent. We also discussed the risks, benefits, alternatives, she is well aware of these as she works in the intensive care unit and has consented many of trach in the past. Won Coles M.D. DR: Jens JOB#: [id number] CC:
--- NOTE | 2017-01-20 18:47 | Infectious Diseases Prog Note ---
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 Leukocytosis , ? if worsen need AB Rx coverage for Asp Pna SP Extubation 01/06 , reintubated 01/09 , Extubation 01/14 History of fracture of femoral neck. Dementia. Hypertension PLAN: Monitor pt off of AB Rx ( 01/18 Diflucan d# 4 ) ( 01/14 SP Zosyn d# 10 / 10 ) ( 01/08 SP Vanco d# 4 ) Monitor CBC. Monitor BMP Monitor chest x-ray cont vent support trach tomorrow Foster culture was ordered Subjective Constitutional: Denies: anorexia, chills, drenching sweats, fatigue, fever, no symptoms, other Allergies: Coded Allergies: No Known Allergies (Verified , 01/06/17) Subjective afebrile Objective Vital Signs Last 24 Hour Vital Signs Date Time Temp Pulse Resp B/P Pulse Ox O2 Delivery O2 Flow Rate FiO2 01/20/17 17:00 80 20 117/58 100 Bi-pap 40 01/20/17 16:46 82 16 100 Facial 40 01/20/17 16:00 78 01/20/17 16:00 98.4 91 30 134/67 100 Bi-pap 40 01/20/17 16:00 40 01/20/17 15:26 80 15 100 Facial 40 01/20/17 15:00 91 20 129/56 100 Bi-pap 40 01/20/17 14:13 91 109/61 01/20/17 14:00 79 19 122/68 100 Bi-pap 40 01/20/17 13:19 89 16 100 Venturi Mask 6.0 35 01/20/17 13:10 89 17 100 Venturi Mask 6.0 35 01/20/17 13:00 91 19 122/68 100 Bi-pap 40 01/20/17 13:00 40 01/20/17 12:00 50 01/20/17 12:00 70 01/20/17 12:00 98.5 86 14 122/68 100 Bi-pap 50 01/20/17 11:29 77 14 100 Facial 40 01/20/17 11:00 77 14 122/68 100 Bi-pap 30 01/20/17 10:00 77 13 122/68 100 Bi-pap 30 01/20/17 09:29 77 14 100 Facial 40 01/20/17 09:00 78 16 122/68 100 Bi-pap 30 01/20/17 09:00 100 01/20/17 08:00 98.0 92 24 122/68 100 Bi-pap 100 01/20/17 08:00 40 01/20/17 08:00 78 01/20/17 07:00 94 16 122/68 100 Bi-pap 40 01/20/17 06:48 82 19 100 Bi-pap 30 01/20/17 06:45 87 26 100 Facial 30 01/20/17 06:39 84 26 100 Bi-pap 30 01/20/17 06:05 77 122/68 01/20/17 06:00 78 01/20/17 06:00 78 16 122/68 100 Bi-pap 30 01/20/17 05:30 81 19 98 Facial 30 01/20/17 05:00 77 15 173/86 100 Bi-pap 30 01/20/17 04:00 98.1 74 14 143/68 100 Bi-pap 30 01/20/17 04:00 30 01/20/17 03:30 74 16 100 Facial 30 01/20/17 03:00 76 12 129/75 100 Bi-pap 30 01/20/17 02:00 77 15 140/66 100 Bi-pap 30 01/20/17 01:19 80 17 100 Bi-pap 30 01/20/17 01:18 79 17 100 Bi-pap 30 01/20/17 01:17 79 16 100 Facial 30 01/20/17 01:00 74 14 109/75 100 Bi-pap 30 01/20/17 00:00 98.7 74 14 129/56 100 Bi-pap 30 01/20/17 00:00 74 01/20/17 00:00 30 01/19/17 23:00 75 16 125/63 100 Bi-pap 30 01/19/17 22:34 75 13 100 Facial 30 01/19/17 22:00 75 14 130/60 100 Bi-pap 30 01/19/17 21:39 77 133/73 01/19/17 21:02 79 17 100 Facial 30 01/19/17 21:00 80 14 133/73 100 Bi-pap 30 01/19/17 20:00 86 01/19/17 20:00 98.4 86 18 120/62 100 Bi-pap 30 01/19/17 20:00 30 01/19/17 19:40 81 15 100 Bi-pap 30 01/19/17 19:30 78 15 100 Facial 30 01/19/17 19:30 78 16 100 Bi-pap 30 01/19/17 19:04 95 34 142/74 97 Bi-pap 30 Height (Feet): 5 Height (Inches): 5.00 Weight (Pounds): 120 HEENT: mucous membranes moist Respiratory/Chest: no respiratory distress Abdomen: normal bowel sounds Laboratory Tests Test 01/20/17 05:00 01/20/17 09:30 White Blood Count 13.3 K/UL (4.8-10.8) H Red Blood Count 3.03 M/UL (4.70-6.10) L Hemoglobin 9.7 G/DL (14.2-18.0) L Hematocrit 30.5 % (42.0-52.0) L Mean Corpuscular Volume 101 FL (80-99) H Mean Corpuscular Hemoglobin 32.1 PG (27.0-31.0) H Mean Corpuscular Hemoglobin Concent 31.9 G/DL (32.0-36.0) L Red Cell Distribution Width 13.0 % (11.6-14.8) Platelet Count 329 K/UL (150-450) Mean Platelet Volume 6.0 FL (6.5-10.1) L Neutrophils (%) (Auto) 73.2 % (45.0-75.0) Lymphocytes (%) (Auto) 16.7 % (20.0-45.0) L Monocytes (%) (Auto) 5.2 % (1.0-10.0) Eosinophils (%) (Auto) 4.0 % (0.0-3.0) H Basophils (%) (Auto) 1.0 % (0.0-2.0) Sodium Level 150 mEQ/L (135-145) H Potassium Level 4.3 mEQ/L (3.4-4.9) Chloride Level 104 mEQ/L (98-107) Carbon Dioxide Level 37 mEQ/L (20-30) H Anion Gap 9 (5-15) Blood Urea Nitrogen 33 mg/dL (7-23) H Creatinine 0.7 mg/dL (0.7-1.2) Estimat Glomerular Filtration Rate mL/min (>60) Glucose Level 124 mg/dL (74-106) H Calcium Level 10.0 mg/dL (8.6-10.2) Total Bilirubin 0.3 mg/dL (0.0-1.2) Aspartate Amino Transf (AST/SGOT) 11 U/L (5-40) Alanine Aminotransferase (ALT/SGPT) 12 U/L (3-41) Alkaline Phosphatase 74 U/L (40-129) Pro-B-Type Natriuretic Peptide 332 pg/mL (0-450) Total Protein 6.7 g/dL (6.6-8.7) Albumin 3.3 g/dL (3.5-5.2) L Globulin 3.4 g/dL Albumin/Globulin Ratio 0.9 (1.0-2.7) L Arterial Blood pH 7.471 (7.350-7.450) Arterial Blood Partial Pressure CO2 48.6 mmHg (35.0-45.0) H Arterial Blood Partial Pressure O2 165.7 mmHg (75.0-100.0) H Arterial Blood HCO3 34.7 mmol/L (22.0-26.0) H Arterial Blood Oxygen Saturation 98.9 % (92.0-98.0) H Arterial Blood Base Excess 9.8 Leo Test Positive Current Medications Medications (Trade) Dose Ordered Sig/Daina Route PRN Reason Start Time Stop Time Status Last Admin Dose Admin Acetaminophen (Tylenol) 650 mg Q4H PRN ORAL fever 01/04/17 21:00 02/03/17 20:59 Albuterol/ Ipratropium (DuoNeb 0.5-3(2.5)mg/3ml) 3 ml Q6HRT HHN 01/16/17 13:00 01/21/17 12:59 01/20/17 13:17 Betamethasone/ Clotrimazole 1 applic 1 applic TWICE A DAY PRN TOPIC Itching/Pruritis 01/20/17 11:00 02/19/17 10:59 Cefazolin Sodium/ Dextrose (Ancef/D5W) 55 ml @ 110 mls/hr ONCE ONCE IV 01/21/17 06:00 01/21/17 06:29 Clonidine HCl (Catapres) 0.1 mg Q6H PRN GT SBP > 170 01/06/17 16:00 02/05/17 15:59 Dexamethasone Sodium Phosphate (Decadron 4mg/ml vial) 8 mg ONCE ONCE IVP 01/21/17 06:00 01/21/17 06:01 Dextrose (Dextrose 50%) STAT PRN IV Hypoglycemia 01/04/17 21:00 02/03/17 20:59 Diltiazem HCl (Cardizem) 60 mg EVERY 8 HOURS NG 01/14/17 14:00 02/13/17 13:59 01/20/17 14:13 Docusate Sodium (Colace) 100 mg DAILY ORAL 01/12/17 11:15 02/11/17 11:14 01/20/17 10:17 Gentamicin Sulfate (Garamycin 0.3% Opt Soln) 1 drop Q4HR LEFT EYE 01/14/17 12:00 01/21/17 11:59 01/20/17 18:37 Glycopyrrolate (Robinul) 0.1 mg Q6H PRN IV excessive secretions 01/15/17 10:15 02/14/17 10:14 01/15/17 15:02 Heparin Sodium (Porcine) (Heparin 5000 units/ml) 5,000 units EVERY 12 HOURS SUBQ 01/04/17 22:00 02/03/17 21:59 01/20/17 10:18 Lansoprazole (Prevacid) 30 mg DAILY GT 01/13/17 09:00 02/12/17 08:59 01/20/17 10:17 Lorazepam (Ativan 2mg/ml 1ml) 1 mg Q4H PRN IV For Anxiety 01/16/17 09:00 01/23/17 08:59 Nitroglycerin (Ntg) 0.4 mg Every 5 Minutes PRN SL Prn Chest Pain 01/04/17 21:00 02/03/17 20:59 Ondansetron HCl (Zofran) 4 mg Q6H PRN IVP Nausea & Vomiting 01/04/17 21:00 02/03/17 20:59 Polyethylene Glycol (Miralax) 17 gm DAILYPRN PRN GT Constipation 01/06/17 15:55 02/03/17 20:59 01/19/17 12:49 Theophylline (Theophylline) 80 mg Q6HR ORAL 01/13/17 12:00 02/12/17 11:59 01/20/17 18:37 HORACIO JOHN M.D. January 20, 2017 18:47
[2017-01-21] VITALS (24 sets, daily range): BP systolic 99–158; BP diastolic 49–85
[2017-01-21] MEDS: Gentamicin 0.3% Opth Soln 5ml LEFT EYE SCH ×3 (00:51→09:00)
[2017-01-21] MEDS: DuoNeb 0.5-3(2.5)mg/3ml neb HHN SCH ×4 (01:03→19:28)
[2017-01-21] MEDS: Theophylline 80mg/15ml ORAL SCH (05:46)
[2017-01-21 05:58] LABS: EOSINOPHILS % (AUTO) 5.3 % (0.0-3.0); LYMPHOCYTES % (AUTO) 18.5 % (20.0-45.0); MEAN CORPUSCULAR HEMOGLOBIN 32.2 PG (27.0-31.0); MEAN CORPUSCULAR HGB CONC 31.8 G/DL (32.0-36.0); MEAN CORPUSCULAR VOLUME 101 FL (80-99); MEAN PLATELET VOLUME 5.8 FL (6.5-10.1); MONOCYTES % (AUTO) 4.6 % (1.0-10.0); NEUTROPHILS % (AUTO) 70.6 % (45.0-75.0); PLATELET COUNT 382 K/UL (150-450); RED BLOOD COUNT 3.24 M/UL (4.70-6.10); RED CELL DISTRIBUTION WIDTH 13.3 % (11.6-14.8)
[2017-01-21] MEDS ORDERED: ceFAZolin sod 1 GM in D5W 55 ML IV ONE (06:00)
[2017-01-21] MEDS ORDERED: Dexamethasone 4mg/ml vial IVP ONE (06:00)
[2017-01-21 06:17] LABS: PROTHROMBIN TIME 10.3 SEC (9.30-11.50)
[2017-01-21 06:34] LABS: ALANINE AMINOTRANSFERASE 10 U/L (3-41); ANION GAP 9 (5-15); ASPARTATE AMINO TRANSFERASE 11 U/L (5-40); CALCIUM 9.8 mg/dL (8.6-10.2); CARBON DIOXIDE 37 mEQ/L (20-30); CHLORIDE 100 mEQ/L (98-107); CREATININE 0.7 mg/dL (0.7-1.2); HEMOLYSIS 1; MAGNESIUM 2.2 mg/dL (1.7-2.5); POTASSIUM 3.8 mEQ/L (3.4-4.9); SODIUM 146 mEQ/L (135-145); TOTAL PROTEIN 6.8 g/dL (6.6-8.7)
[2017-01-21] MEDS: Heparin 5000 units/ml inj SUBQ SCH ×2 (09:00→21:15)
[2017-01-21] MEDS: Docusate 100mg tablet ORAL SCH (09:00)
[2017-01-21] MEDS ORDERED: Lidocaine 1% 10mg/ml/Epi 0.005mg/ml 30ml vial INJ ONE (09:07)
[2017-01-21] MEDS ORDERED: Lidocaine 1% MPF 10mg/ml 5ml ONE (09:45)
[2017-01-21] MEDS ORDERED: fentaNYL 100 mcg/2 mL IV ONE (09:45)
[2017-01-21] MEDS ORDERED: NS Irrig 1000ml ONE (09:45)
[2017-01-21] MEDS ORDERED: Propofol 10mg/ml 20ml IV ONE (09:45)
--- NOTE | 2017-01-21 10:30 | Brief Operative Note ---
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 failure Procedure: Tracheostomy Post-op Diagnosis: same as pre-op Surgeon: T[facility] General Manager: none Additional Surgeons: none Anesthesiologist: [place] Anesthesia: general Specimen: none Complications: none Condition: stable Estimated Blood Loss: volume - 2cc Drains: [facility] non fenestrated with cuff trach tube Packing: Iodoform ASHLEY Watson January 21, 2017 10:30
--- NOTE | 2017-01-21 10:40 | Infectious Diseases Prog Note ---
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 Leukocytosis , ? if worsen need AB Rx coverage for Asp Pna trach 01/21 SP Extubation 01/06 , reintubated 01/09 , Extubation 01/14 History of fracture of femoral neck. Dementia. Hypertension PLAN: Monitor pt off of AB Rx ( 01/18 Diflucan d# 4 ) ( 01/14 SP Zosyn d# 10 / 10 ) ( 01/08 SP Vanco d# 4 ) Monitor CBC. Monitor BMP Monitor chest x-ray cont vent support Foster culture : P Subjective Allergies: Coded Allergies: No Known Allergies (Verified , 01/06/17) Subjective SP trach Objective Vital Signs Last 24 Hour Vital Signs Date Time Temp Pulse Resp B/P Pulse Ox O2 Delivery O2 Flow Rate FiO2 01/21/17 09:53 80 17 120/56 100 Non-Rebreather 10.0 01/21/17 09:00 71 17 115/68 100 Bi-pap 40 01/21/17 08:49 80 12 100 Facial 40 01/21/17 08:00 80 01/21/17 08:00 40 01/21/17 08:00 98.5 71 19 119/71 100 Bi-pap 40 01/21/17 07:02 76 14 100 Bi-pap 40 01/21/17 07:00 71 17 107/71 100 Bi-pap 40 01/21/17 06:52 100 Bi-pap 01/21/17 06:52 Bi-pap 40 01/21/17 06:52 76 14 100 Bi-pap 40 01/21/17 06:52 76 14 100 Facial 40 01/21/17 06:00 79 16 130/73 100 Bi-pap 40 01/21/17 05:45 82 125/75 01/21/17 05:20 77 14 100 Facial 40 01/21/17 05:00 84 13 125/75 100 Bi-pap 40 01/21/17 04:00 84 01/21/17 04:00 40 01/21/17 04:00 98.6 84 19 156/79 100 Bi-pap 40 01/21/17 03:30 90 27 100 Facial 40 01/21/17 03:00 90 23 158/85 100 Bi-pap 40 01/21/17 02:00 96 16 157/74 100 Bi-pap 40 01/21/17 01:10 96 20 100 Bi-pap 40 01/21/17 01:02 92 12 100 Bi-pap 40 01/21/17 01:02 92 12 100 Facial 40 01/21/17 01:00 91 13 140/81 100 Bi-pap 40 01/21/17 00:00 98.5 83 19 127/58 100 Bi-pap 40 01/21/17 00:00 40 01/21/17 00:00 83 01/20/17 23:43 89 120/64 01/20/17 23:25 74 15 100 Facial 40 01/20/17 23:00 84 14 120/64 100 Bi-pap 40 01/20/17 22:00 89 17 143/65 100 Bi-pap 40 01/20/17 21:00 94 17 141/85 100 Bi-pap 40 01/20/17 20:50 97 17 100 Facial 40 01/20/17 20:00 40 01/20/17 20:00 98.2 97 17 132/74 100 Bi-pap 40 01/20/17 20:00 97 01/20/17 19:22 99 23 100 Bi-pap 40 01/20/17 19:14 98 30 100 Bi-pap 40 01/20/17 19:13 98 30 100 Facial 40 01/20/17 19:00 78 19 121/61 100 Bi-pap 40 01/20/17 18:00 80 20 115/58 100 Bi-pap 40 01/20/17 17:00 80 20 117/58 100 Bi-pap 40 01/20/17 16:46 82 16 100 Facial 40 01/20/17 16:00 78 01/20/17 16:00 98.4 91 30 134/67 100 Bi-pap 40 01/20/17 16:00 40 01/20/17 15:26 80 15 100 Facial 40 01/20/17 15:00 91 20 129/56 100 Bi-pap 40 01/20/17 14:13 91 109/61 01/20/17 14:00 79 19 122/68 100 Bi-pap 40 01/20/17 13:19 89 16 100 Venturi Mask 6.0 35 01/20/17 13:10 89 17 100 Venturi Mask 6.0 35 01/20/17 13:00 91 19 122/68 100 Bi-pap 40 01/20/17 13:00 40 01/20/17 12:00 50 01/20/17 12:00 70 01/20/17 12:00 98.5 86 14 122/68 100 Bi-pap 50 01/20/17 11:29 77 14 100 Facial 40 01/20/17 11:00 77 14 122/68 100 Bi-pap 30 Height (Feet): 5 Height (Inches): 4.00 Weight (Pounds): 118 HEENT: anicteric Respiratory/Chest: no respiratory distress Cardiovascular: regular rhythm Abdomen: non distended Microbiology Date/Time Source Procedure Growth Status 01/20/17 11:00 Indwelling Cath Urine Culture - Preliminary NO GROWTH Resulted Laboratory Tests Test 01/21/17 05:00 White Blood Count 10.0 K/UL (4.8-10.8) Red Blood Count 3.24 M/UL (4.70-6.10) L Hemoglobin 10.4 G/DL (14.2-18.0) L Hematocrit 32.8 % (42.0-52.0) L Mean Corpuscular Volume 101 FL (80-99) H Mean Corpuscular Hemoglobin 32.2 PG (27.0-31.0) H Mean Corpuscular Hemoglobin Concent 31.8 G/DL (32.0-36.0) L Red Cell Distribution Width 13.3 % (11.6-14.8) Platelet Count 382 K/UL (150-450) Mean Platelet Volume 5.8 FL (6.5-10.1) L Neutrophils (%) (Auto) 70.6 % (45.0-75.0) Lymphocytes (%) (Auto) 18.5 % (20.0-45.0) L Monocytes (%) (Auto) 4.6 % (1.0-10.0) Eosinophils (%) (Auto) 5.3 % (0.0-3.0) H Basophils (%) (Auto) 1.0 % (0.0-2.0) Prothrombin Time 10.3 SEC (9.30-11.50) Prothromb Time International Ratio 1.0 (0.9-1.1) Activated Partial Thromboplast Time 34 SEC (23-33) H Sodium Level 146 mEQ/L (135-145) H Potassium Level 3.8 mEQ/L (3.4-4.9) Chloride Level 100 mEQ/L (98-107) Carbon Dioxide Level 37 mEQ/L (20-30) H Anion Gap 9 (5-15) Blood Urea Nitrogen 31 mg/dL (7-23) H Creatinine 0.7 mg/dL (0.7-1.2) Estimat Glomerular Filtration Rate mL/min (>60) Glucose Level 137 mg/dL (74-106) H Calcium Level 9.8 mg/dL (8.6-10.2) Phosphorus Level 4.0 mg/dL (2.5-4.8) Magnesium Level 2.2 mg/dL (1.7-2.5) Total Bilirubin 0.3 mg/dL (0.0-1.2) Aspartate Amino Transf (AST/SGOT) 11 U/L (5-40) Alanine Aminotransferase (ALT/SGPT) 10 U/L (3-41) Alkaline Phosphatase 71 U/L (40-129) Total Protein 6.8 g/dL (6.6-8.7) Albumin 3.4 g/dL (3.5-5.2) L Globulin 3.4 g/dL Albumin/Globulin Ratio 1.0 (1.0-2.7) Current Medications Medications (Trade) Dose Ordered Sig/Daina Route PRN Reason Start Time Stop Time Status Last Admin Dose Admin Acetaminophen (Tylenol) 650 mg Q4H PRN ORAL fever 01/04/17 21:00 02/03/17 20:59 Albuterol/ Ipratropium (DuoNeb 0.5-3(2.5)mg/3ml) 3 ml Q6HRT HHN 01/16/17 13:00 01/21/17 12:59 01/21/17 06:52 Betamethasone/ Clotrimazole 1 applic 1 applic TWICE A DAY PRN TOPIC Itching/Pruritis 01/20/17 11:00 02/19/17 10:59 Clonidine HCl (Catapres) 0.1 mg Q6H PRN GT SBP > 170 01/06/17 16:00 02/05/17 15:59 Dextrose (D5W 1000ml) 1,000 ml @ 75 mls/hr [id number] IV 01/20/17 20:00 02/19/17 19:59 01/20/17 20:46 Dextrose (Dextrose 50%) STAT PRN IV Hypoglycemia 01/04/17 21:00 02/03/17 20:59 Diltiazem HCl (Cardizem) 60 mg EVERY 8 HOURS NG 01/14/17 14:00 02/13/17 13:59 01/20/17 23:43 Docusate Sodium (Colace) 100 mg DAILY ORAL 01/12/17 11:15 02/11/17 11:14 01/20/17 10:17 Gentamicin Sulfate (Garamycin 0.3% Opt Soln) 1 drop Q4HR LEFT EYE 01/14/17 12:00 01/21/17 11:59 01/21/17 05:43 Glycopyrrolate (Robinul) 0.1 mg Q6H PRN IV excessive secretions 01/15/17 10:15 02/14/17 10:14 01/15/17 15:02 Heparin Sodium (Porcine) (Heparin 5000 units/ml) 5,000 units EVERY 12 HOURS SUBQ 01/04/17 22:00 02/03/17 21:59 01/20/17 10:18 Lansoprazole (Prevacid) 30 mg DAILY GT 01/13/17 09:00 02/12/17 08:59 01/20/17 10:17 Lorazepam (Ativan 2mg/ml 1ml) 1 mg Q4H PRN IV For Anxiety 01/16/17 09:00 01/23/17 08:59 Nitroglycerin (Ntg) 0.4 mg Every 5 Minutes PRN SL Prn Chest Pain 01/04/17 21:00 02/03/17 20:59 Ondansetron HCl (Zofran) 4 mg Q6H PRN IVP Nausea & Vomiting 01/04/17 21:00 02/03/17 20:59 Polyethylene Glycol (Miralax) 17 gm DAILYPRN PRN GT Constipation 01/06/17 15:55 02/03/17 20:59 01/19/17 12:49 Theophylline (Theophylline) 80 mg Q6HR ORAL 01/13/17 12:00 02/12/17 11:59 01/20/17 23:43 HORACIO JOHN M.D. January 21, 2017 10:40
--- NOTE | 2017-01-21 10:44 | Immediate Post-Op Evaluation ---
Immediate Post-Op Evalulation Immediate Post-Op Evalulation Procedure: Tracheostomy Date of Evaluation: January 21, 2017 Time of Evaluation: 10:46 IV Fluids: 300 Blood Products: 0 Estimated Blood Loss: 2 Urinary Output: 0 Blood Pressure Systolic: 126 Blood Pressure Diastolic: 77 Pulse Rate: 73 Respiratory Rate: 16 O2 Sat by Pulse Oximetry: 99 Temperature (Fahrenheit): 98.2 Pain Score (1-10): 0 Nausea: No Vomiting: No Complications 0 Patient Status: no response, ventilated, none Hydration Status: adequate Drug: Ancef 1g Given Within 1 Hr of Incision: Yes Time Given: 09:49 MARY SHAH M.D. January 21, 2017 10:44
--- NOTE | 2017-01-21 11:20 | Pulmonolgy Critical Care Note ---
Critical Care - Asmt/Plan Problems: (1) Respiratory distress (2) Aspiration pneumonia (3) Dementia Respiratory: monitor respiratory rate, adjust FIO2, CXR Cardiac: continue to monitor HR/BP Renal: F/U I&O, keep IV fluid, check electrolytes Infectious Disease: check cultures, continue antibiotics Gastrointestinal: continue feedings/current rate Endocrine: monitor blood sugar, check HgA1C, continue sliding scale insulin Hematologic: monitor H/H, transfuse if hgb<8.5 Neurologic: PRN Ativan, PRN Morphine, keep patient comfortable Affect: PRN ativan Disposition: keep in ICU Time Spent (Minutes): 40 Notes Reviewed: bilingual secretary, cardio, renal Discussed with: nurses, consultants, caser upschedule manager - Objective Last 24 Hour Vital Signs Date Time Temp Pulse Resp B/P Pulse Ox O2 Delivery O2 Flow Rate FiO2 01/21/17 10:44 73 16 99 01/21/17 09:53 80 17 120/56 100 Non-Rebreather 10.0 01/21/17 09:00 71 17 115/68 100 Bi-pap 40 01/21/17 08:49 80 12 100 Facial 40 01/21/17 08:00 80 01/21/17 08:00 40 01/21/17 08:00 98.5 71 19 119/71 100 Bi-pap 40 01/21/17 07:02 76 14 100 Bi-pap 40 01/21/17 07:00 71 17 107/71 100 Bi-pap 40 01/21/17 06:52 100 Bi-pap 01/21/17 06:52 Bi-pap 40 01/21/17 06:52 76 14 100 Bi-pap 40 01/21/17 06:52 76 14 100 Facial 40 01/21/17 06:00 79 16 130/73 100 Bi-pap 40 01/21/17 05:45 82 125/75 01/21/17 05:20 77 14 100 Facial 40 01/21/17 05:00 84 13 125/75 100 Bi-pap 40 01/21/17 04:00 84 01/21/17 04:00 40 01/21/17 04:00 98.6 84 19 156/79 100 Bi-pap 40 01/21/17 03:30 90 27 100 Facial 40 01/21/17 03:00 90 23 158/85 100 Bi-pap 40 01/21/17 02:00 96 16 157/74 100 Bi-pap 40 01/21/17 01:10 96 20 100 Bi-pap 40 01/21/17 01:02 92 12 100 Bi-pap 40 01/21/17 01:02 92 12 100 Facial 40 01/21/17 01:00 91 13 140/81 100 Bi-pap 40 01/21/17 00:00 98.5 83 19 127/58 100 Bi-pap 40 01/21/17 00:00 40 01/21/17 00:00 83 01/20/17 23:43 89 120/64 01/20/17 23:25 74 15 100 Facial 40 01/20/17 23:00 84 14 120/64 100 Bi-pap 40 01/20/17 22:00 89 17 143/65 100 Bi-pap 40 01/20/17 21:00 94 17 141/85 100 Bi-pap 40 01/20/17 20:50 97 17 100 Facial 40 01/20/17 20:00 40 01/20/17 20:00 98.2 97 17 132/74 100 Bi-pap 40 01/20/17 20:00 97 01/20/17 19:22 99 23 100 Bi-pap 40 01/20/17 19:14 98 30 100 Bi-pap 40 01/20/17 19:13 98 30 100 Facial 40 01/20/17 19:00 78 19 121/61 100 Bi-pap 40 01/20/17 18:00 80 20 115/58 100 Bi-pap 40 01/20/17 17:00 80 20 117/58 100 Bi-pap 40 01/20/17 16:46 82 16 100 Facial 40 01/20/17 16:00 78 01/20/17 16:00 98.4 91 30 134/67 100 Bi-pap 40 01/20/17 16:00 40 01/20/17 15:26 80 15 100 Facial 40 01/20/17 15:00 91 20 129/56 100 Bi-pap 40 01/20/17 14:13 91 109/61 01/20/17 14:00 79 19 122/68 100 Bi-pap 40 01/20/17 13:19 89 16 100 Venturi Mask 6.0 35 01/20/17 13:10 89 17 100 Venturi Mask 6.0 35 01/20/17 13:00 91 19 122/68 100 Bi-pap 40 01/20/17 13:00 40 01/20/17 12:00 50 01/20/17 12:00 70 01/20/17 12:00 98.5 86 14 122/68 100 Bi-pap 50 01/20/17 11:29 77 14 100 Facial 40 Status: sedated Condition: critical Lungs: chest wall tender Heart: HR/BP stable, HR/BP unstable Abdomen: soft, non-tender, feeding tube Extremities: no C/C/E, edema Decubiti: location, stage Micro: Microbiology Date/Time Source Procedure Growth Status 01/20/17 11:00 Indwelling Cath Urine Culture - Preliminary NO GROWTH Resulted Accucheck: 115 Critical Care - Subjective ROS Limited/Unobtainable: No ICU Day: 17 Intubation Day: 17 Interval Events: for tracheostomy today FI02: 50 Vent Support Mode: CPAP Sputum Amount: Small Fluids: 1/2 NS 75 cc.hour Tube Feeding Amount: 00 I&O: Intake and Output 01/20/17 01/21/17 19:00 07:00 Intake Total 960 ml 880 ml Output Total 730 ml 760 ml Balance 230 ml 120 ml Free Water 300 ml IV Total 825 ml Tube Feeding 660 ml 55 ml Output Urine Total 730 ml 760 ml CXR: no change Labs: Laboratory Tests Test 01/21/17 05:00 White Blood Count 10.0 K/UL (4.8-10.8) Red Blood Count 3.24 M/UL (4.70-6.10) L Hemoglobin 10.4 G/DL (14.2-18.0) L Hematocrit 32.8 % (42.0-52.0) L Mean Corpuscular Volume 101 FL (80-99) H Mean Corpuscular Hemoglobin 32.2 PG (27.0-31.0) H Mean Corpuscular Hemoglobin Concent 31.8 G/DL (32.0-36.0) L Red Cell Distribution Width 13.3 % (11.6-14.8) Platelet Count 382 K/UL (150-450) Mean Platelet Volume 5.8 FL (6.5-10.1) L Neutrophils (%) (Auto) 70.6 % (45.0-75.0) Lymphocytes (%) (Auto) 18.5 % (20.0-45.0) L Monocytes (%) (Auto) 4.6 % (1.0-10.0) Eosinophils (%) (Auto) 5.3 % (0.0-3.0) H Basophils (%) (Auto) 1.0 % (0.0-2.0) Prothrombin Time 10.3 SEC (9.30-11.50) Prothromb Time International Ratio 1.0 (0.9-1.1) Activated Partial Thromboplast Time 34 SEC (23-33) H Sodium Level 146 mEQ/L (135-145) H Potassium Level 3.8 mEQ/L (3.4-4.9) Chloride Level 100 mEQ/L (98-107) Carbon Dioxide Level 37 mEQ/L (20-30) H Anion Gap 9 (5-15) Blood Urea Nitrogen 31 mg/dL (7-23) H Creatinine 0.7 mg/dL (0.7-1.2) Estimat Glomerular Filtration Rate mL/min (>60) Glucose Level 137 mg/dL (74-106) H Calcium Level 9.8 mg/dL (8.6-10.2) Phosphorus Level 4.0 mg/dL (2.5-4.8) Magnesium Level 2.2 mg/dL (1.7-2.5) Total Bilirubin 0.3 mg/dL (0.0-1.2) Aspartate Amino Transf (AST/SGOT) 11 U/L (5-40) Alanine Aminotransferase (ALT/SGPT) 10 U/L (3-41) Alkaline Phosphatase 71 U/L (40-129) Total Protein 6.8 g/dL (6.6-8.7) Albumin 3.4 g/dL (3.5-5.2) L Globulin 3.4 g/dL Albumin/Globulin Ratio 1.0 (1.0-2.7) RABIA BANGURA January 21, 2017 11:20
--- NOTE | 2017-01-21 11:53 | Diagnostic Imaging Report ---
Indications: Dyspnea Technique: Portable AP chest Findings: Comparison: None Cardiac silhouette remains normal in size. Pulmonary vasculature remains within normal limits. Curvilinear density interface is now overlie the upper and mid lateral left lung. Lung markings are demonstrated peripherally. Small calcified nodule again noted in right upper lobe. Lungs and pleura remain otherwise clear. Mild calcification of the aortic arch, presence of nasogastric tube again noted IMPRESSION: Appearance of curvilinear density interface is over left lung most likely skinfolds, no pneumothorax. Short interval followup recommended. Otherwise no evidence of acute cardiopulmonary disease, unchanged. Stable chronic changes as described
--- NOTE | 2017-01-21 12:05 | General Progress Note ---
Assessment/Plan Assessment/Plan GI CONSULT Dictated PEG at 0700 Thank you Gurinder Richardson MD Subjective Allergies: Coded Allergies: No Known Allergies (Verified , 01/06/17) Objective Last 24 Hour Vital Signs Date Time Temp Pulse Resp B/P Pulse Ox O2 Delivery O2 Flow Rate FiO2 01/21/17 11:00 93 20 117/63 100 Mechanical Ventilator 50 01/21/17 10:47 74 12 50 01/21/17 10:44 73 16 99 01/21/17 09:53 80 17 120/56 100 Non-Rebreather 10.0 01/21/17 09:00 71 17 115/68 100 Bi-pap 40 01/21/17 08:49 80 12 100 Facial 40 01/21/17 08:00 80 01/21/17 08:00 40 01/21/17 08:00 98.5 71 19 119/71 100 Bi-pap 40 01/21/17 07:02 76 14 100 Bi-pap 40 01/21/17 07:00 71 17 107/71 100 Bi-pap 40 01/21/17 06:52 100 Bi-pap 01/21/17 06:52 Bi-pap 40 01/21/17 06:52 76 14 100 Bi-pap 40 01/21/17 06:52 76 14 100 Facial 40 01/21/17 06:00 79 16 130/73 100 Bi-pap 40 01/21/17 05:45 82 125/75 01/21/17 05:20 77 14 100 Facial 40 01/21/17 05:00 84 13 125/75 100 Bi-pap 40 01/21/17 04:00 84 01/21/17 04:00 40 01/21/17 04:00 98.6 84 19 156/79 100 Bi-pap 40 01/21/17 03:30 90 27 100 Facial 40 01/21/17 03:00 90 23 158/85 100 Bi-pap 40 01/21/17 02:00 96 16 157/74 100 Bi-pap 40 01/21/17 01:10 96 20 100 Bi-pap 40 01/21/17 01:02 92 12 100 Bi-pap 40 01/21/17 01:02 92 12 100 Facial 40 01/21/17 01:00 91 13 140/81 100 Bi-pap 40 01/21/17 00:00 98.5 83 19 127/58 100 Bi-pap 40 01/21/17 00:00 40 01/21/17 00:00 83 01/20/17 23:43 89 120/64 01/20/17 23:25 74 15 100 Facial 40 01/20/17 23:00 84 14 120/64 100 Bi-pap 40 01/20/17 22:00 89 17 143/65 100 Bi-pap 40 01/20/17 21:00 94 17 141/85 100 Bi-pap 40 01/20/17 20:50 97 17 100 Facial 40 01/20/17 20:00 40 01/20/17 20:00 98.2 97 17 132/74 100 Bi-pap 40 01/20/17 20:00 97 01/20/17 19:22 99 23 100 Bi-pap 40 01/20/17 19:14 98 30 100 Bi-pap 40 01/20/17 19:13 98 30 100 Facial 40 01/20/17 19:00 78 19 121/61 100 Bi-pap 40 01/20/17 18:00 80 20 115/58 100 Bi-pap 40 01/20/17 17:00 80 20 117/58 100 Bi-pap 40 01/20/17 16:46 82 16 100 Facial 40 01/20/17 16:00 78 01/20/17 16:00 98.4 91 30 134/67 100 Bi-pap 40 01/20/17 16:00 40 01/20/17 15:26 80 15 100 Facial 40 01/20/17 15:00 91 20 129/56 100 Bi-pap 40 01/20/17 14:13 91 109/61 01/20/17 14:00 79 19 122/68 100 Bi-pap 40 01/20/17 13:19 89 16 100 Venturi Mask 6.0 35 01/20/17 13:10 89 17 100 Venturi Mask 6.0 35 01/20/17 13:00 91 19 122/68 100 Bi-pap 40 01/20/17 13:00 40 Intake and Output 01/20/17 01/21/17 19:00 07:00 Intake Total 960 ml 880 ml Output Total 730 ml 760 ml Balance 230 ml 120 ml Free Water 300 ml IV Total 825 ml Tube Feeding 660 ml 55 ml Output Urine Total 730 ml 760 ml Laboratory Tests 5/4/17 05:00: White Blood Count 10.0, Red Blood Count 3.24L, Hemoglobin 10.4L, Hematocrit 32.8L, Mean Corpuscular Volume 101H, Mean Corpuscular Hemoglobin 32.2H, Mean Corpuscular Hemoglobin Concent 31.8L, Red Cell Distribution Width 13.3, Platelet Count 382, Mean Platelet Volume 5.8L, Neutrophils (%) (Auto) 70.6, Lymphocytes (%) (Auto) 18.5L, Monocytes (%) (Auto) 4.6, Eosinophils (%) (Auto) 5.3H, Basophils (%) (Auto) 1.0, Prothrombin Time 10.3, Prothromb Time International Ratio 1.0, Activated Partial Thromboplast Time 34H, Sodium Level 146H, Potassium Level 3.8, Chloride Level 100, Carbon Dioxide Level 37H, Anion Gap 9, Blood Urea Nitrogen 31H, Creatinine 0.7, Estimat Glomerular Filtration Rate , Glucose Level 137H, Calcium Level 9.8, Phosphorus Level 4.0, Magnesium Level 2.2, Total Bilirubin 0.3, Aspartate Amino Transf (AST/SGOT) 11, Alanine Aminotransferase (ALT/SGPT) 10, Alkaline Phosphatase 71, Total Protein 6.8, Albumin 3.4L, Globulin 3.4, Albumin/Globulin Ratio 1.0 Height (Feet): 5 Height (Inches): 4.00 Weight (Pounds): 118 SHADEGURINDER GRECO January 21, 2017 12:04
[2017-01-21 13:03] LABS: ABG BASE EXCESS 11
[2017-01-21] MEDS ORDERED: Tubing IV Secondary IV ONE (15:22)
--- NOTE | 2017-01-21 16:04 | Cardiac Electrophysiology PN ---
Assessment/Plan Assessment/Plan 1. Atrial fib with RVR.Continue Cardizem 60mg NG q 8 hrs. Off anticoagulation. 2. Hypertension.Continue Cardizem. 3. Severe pulmonary hypertension, pressure 55, likely due to history of obstructive sleep apnea. 4. Recurrent Respiratory failure due to aspiration,extubated for the second time 01/14/17. S/P Tracheostomy today 5. Dementia. 6. Dysphagia. PEG tomorrow DW RN and Subjective Subjective In ICU had tracheostomy today. at bedside. No recurrence of atrial fib.Scheduled for PEG tomorrow. Objective Last 24 Hour Vital Signs Date Time Temp Pulse Resp B/P Pulse Ox O2 Delivery O2 Flow Rate FiO2 01/21/17 14:57 60 20 115/51 100 Mechanical Ventilator 50 01/21/17 14:41 75 12 50 01/21/17 14:13 74 12 100 Mechanical Ventilator 50 01/21/17 14:04 69 13 100 Mechanical Ventilator 50 01/21/17 14:00 64 135/54 01/21/17 14:00 65 18 107/53 100 Mechanical Ventilator 50 01/21/17 13:00 70 18 103/53 100 Mechanical Ventilator 50 01/21/17 12:34 72 12 50 01/21/17 12:34 72 12 Mechanical Ventilator 50 01/21/17 12:00 50.0 01/21/17 12:00 98.4 71 20 117/63 100 Mechanical Ventilator 50 01/21/17 12:00 72 01/21/17 11:00 93 20 117/63 100 Mechanical Ventilator 50 01/21/17 10:47 74 12 50 01/21/17 10:44 73 16 99 01/21/17 09:53 80 17 120/56 100 Non-Rebreather 10.0 01/21/17 09:00 71 17 115/68 100 Bi-pap 40 01/21/17 08:49 80 12 100 Facial 40 01/21/17 08:00 80 01/21/17 08:00 40 01/21/17 08:00 98.5 71 19 119/71 100 Bi-pap 40 01/21/17 07:02 76 14 100 Bi-pap 40 01/21/17 07:00 71 17 107/71 100 Bi-pap 40 01/21/17 06:52 100 Bi-pap 01/21/17 06:52 Bi-pap 40 01/21/17 06:52 76 14 100 Bi-pap 40 01/21/17 06:52 76 14 100 Facial 40 01/21/17 06:00 79 16 130/73 100 Bi-pap 40 01/21/17 05:45 82 125/75 01/21/17 05:20 77 14 100 Facial 40 01/21/17 05:00 84 13 125/75 100 Bi-pap 40 01/21/17 04:00 84 01/21/17 04:00 40 01/21/17 04:00 98.6 84 19 156/79 100 Bi-pap 40 01/21/17 03:30 90 27 100 Facial 40 01/21/17 03:00 90 23 158/85 100 Bi-pap 40 01/21/17 02:00 96 16 157/74 100 Bi-pap 40 01/21/17 01:10 96 20 100 Bi-pap 40 01/21/17 01:02 92 12 100 Bi-pap 40 01/21/17 01:02 92 12 100 Facial 40 01/21/17 01:00 91 13 140/81 100 Bi-pap 40 01/21/17 00:00 98.5 83 19 127/58 100 Bi-pap 40 01/21/17 00:00 40 01/21/17 00:00 83 01/20/17 23:43 89 120/64 01/20/17 23:25 74 15 100 Facial 40 01/20/17 23:00 84 14 120/64 100 Bi-pap 40 01/20/17 22:00 89 17 143/65 100 Bi-pap 40 01/20/17 21:00 94 17 141/85 100 Bi-pap 40 01/20/17 20:50 97 17 100 Facial 40 01/20/17 20:00 40 01/20/17 20:00 98.2 97 17 132/74 100 Bi-pap 40 01/20/17 20:00 97 01/20/17 19:22 99 23 100 Bi-pap 40 01/20/17 19:14 98 30 100 Bi-pap 40 01/20/17 19:13 98 30 100 Facial 40 01/20/17 19:00 78 19 121/61 100 Bi-pap 40 01/20/17 18:00 80 20 115/58 100 Bi-pap 40 01/20/17 17:00 80 20 117/58 100 Bi-pap 40 01/20/17 16:46 82 16 100 Facial 40 Intake and Output 01/20/17 01/21/17 19:00 07:00 Intake Total 960 ml 880 ml Output Total 730 ml 760 ml Balance 230 ml 120 ml Free Water 300 ml IV Total 825 ml Tube Feeding 660 ml 55 ml Output Urine Total 730 ml 760 ml Laboratory Tests Test 01/21/17 05:00 01/21/17 12:32 White Blood Count 10.0 K/UL (4.8-10.8) Red Blood Count 3.24 M/UL (4.70-6.10) L Hemoglobin 10.4 G/DL (14.2-18.0) L Hematocrit 32.8 % (42.0-52.0) L Mean Corpuscular Volume 101 FL (80-99) H Mean Corpuscular Hemoglobin 32.2 PG (27.0-31.0) H Mean Corpuscular Hemoglobin Concent 31.8 G/DL (32.0-36.0) L Red Cell Distribution Width 13.3 % (11.6-14.8) Platelet Count 382 K/UL (150-450) Mean Platelet Volume 5.8 FL (6.5-10.1) L Neutrophils (%) (Auto) 70.6 % (45.0-75.0) Lymphocytes (%) (Auto) 18.5 % (20.0-45.0) L Monocytes (%) (Auto) 4.6 % (1.0-10.0) Eosinophils (%) (Auto) 5.3 % (0.0-3.0) H Basophils (%) (Auto) 1.0 % (0.0-2.0) Prothrombin Time 10.3 SEC (9.30-11.50) Prothromb Time International Ratio 1.0 (0.9-1.1) Activated Partial Thromboplast Time 34 SEC (23-33) H Sodium Level 146 mEQ/L (135-145) H Potassium Level 3.8 mEQ/L (3.4-4.9) Chloride Level 100 mEQ/L (98-107) Carbon Dioxide Level 37 mEQ/L (20-30) H Anion Gap 9 (5-15) Blood Urea Nitrogen 31 mg/dL (7-23) H Creatinine 0.7 mg/dL (0.7-1.2) Estimat Glomerular Filtration Rate mL/min (>60) Glucose Level 137 mg/dL (74-106) H Calcium Level 9.8 mg/dL (8.6-10.2) Phosphorus Level 4.0 mg/dL (2.5-4.8) Magnesium Level 2.2 mg/dL (1.7-2.5) Total Bilirubin 0.3 mg/dL (0.0-1.2) Aspartate Amino Transf (AST/SGOT) 11 U/L (5-40) Alanine Aminotransferase (ALT/SGPT) 10 U/L (3-41) Alkaline Phosphatase 71 U/L (40-129) Total Protein 6.8 g/dL (6.6-8.7) Albumin 3.4 g/dL (3.5-5.2) L Globulin 3.4 g/dL Albumin/Globulin Ratio 1.0 (1.0-2.7) Arterial Blood pH 7.470 (7.350-7.450) Arterial Blood Partial Pressure CO2 50.0 mmHg (35.0-45.0) H Arterial Blood Partial Pressure O2 73.0 mmHg (75.0-100.0) L Arterial Blood HCO3 36.0 mmol/L (22.0-26.0) H Arterial Blood Oxygen Saturation 94.0 % (92.0-98.0) Arterial Blood Base Excess 11 Leo Test Microbiology Date/Time Source Procedure Growth Status 01/20/17 11:00 Sputum Induced Gram Stain - Final Resulted 01/20/17 11:00 Sputum Induced Sputum Culture Pending Resulted 01/20/17 11:00 Indwelling Cath Urine Culture - Preliminary NO GROWTH Resulted Objective NECK: No JVD. S/P Tracheostomy. NG in place. LUNGS: Coarse rhonchi CARDIOVASCULAR: Regular S1 and S2 with no gallop or murmur. ABDOMEN: Soft. EXTREMITIES: No pitting edema. ARGELIA DUONG January 21, 2017 16:04
--- NOTE | 2017-01-21 16:39 | Operative Note - Dictated ---
DATE OF OPERATION: 01/21/2017 SURGEON: Won Coles M.D. QUALITY ASSURANCE ANALYST: None. ANESTHESIOLOGIST: Orlando. Anesthesia: Oral endotracheal anesthesia as well as 10 mL of 1% lidocaine with 1:100,000 epinephrine injected two fingerbreadths between the sternal notch and superiorly down to the trachea. INDICATION FOR PROCEDURE: The patient with Alzheimer and sleep apnea was intubated off and on many times and more frequently. He has been difficult to manage and the acid cutter and the discussed this at length and decided they would like to put a trach and to stabilize at least that part of his care. PREOPERATIVE DIAGNOSIS: Respiratory failure. POSTOPERATIVE DIAGNOSIS: Respiratory failure. FINDINGS: With landmarks for tracheostomy procedure, tracheostomy technique, the patient prepped and draped in the usual manner. Time-out was performed. I injected 10 mL of 1% lidocaine with 1:100,000 epinephrine into the area between the sternal notch two fingerbreadths superiorly in the midline of the neck to the trachea. I then proceeded to make an incision two fingerbreadths above the sternal notch with a 15 blade approximately an inch and half. This was taken down to the strap muscles with electrocautery after a 15 blade was then used to open the skin. At the strap muscle, I was able to dissect midline with a forceps. I then pulled strap muscles to the side with [place]. At this point, I could visualize the thyroid, which was cut down in the middle with electrocautery at a setting of 14 and 16. This was pushed to the side with a 4 x 4 laterally on either end and of the trachea was identified and wiped off with a 4 x 4. I then used a trach hook to grab the cricoid lifting up the trachea through the surface. Between the second and third cartilaginous rings, an incision was made and a small cut in the anterior third laterally on either side of the third tracheal ring. This created an inferiorly based flap, which was tied with a 3-0 silk to the inferior epithelial edge of the new incision. In concert with the anesthesiologist, the endotracheal tube was pulled where the tip was just above the new stoma. An #8 Shiley nonfenestrated with cuff was placed without difficulty. It was tied on the left side two fingerbreadths loose in a knot. Iodoform gauze was placed. Telfa protector was placed between the flange and the trach without difficulty. This was done to protect the skin of the patient. COUNT: Sponge and needle count was correct. ESTIMATED BLOOD LOSS: 0. COMPLICATIONS: None. DRAINS: None although a trach was placed, not a drain Marniekeely #8 nonfenestrated with cuff. I did speak with the post procedure. Won Coles M.D. DR: BOLIVAR JOB#: [id number] CC:
--- NOTE | 2017-01-21 18:54 | Internal Med Progress Note ---
Subjective Date of Service: January 21, 2017 Physician Name Sangeetha Johnson Attending Physician Sangeetha Johnson Current Medications Medications (Trade) Dose Ordered Sig/Daina Route PRN Reason Start Time Stop Time Status Last Admin Dose Admin Acetaminophen (Tylenol) 650 mg Q4H PRN ORAL fever 01/04/17 21:00 02/03/17 20:59 Albuterol/ Ipratropium (DuoNeb 0.5-3(2.5)mg/3ml) 3 ml Q6HRT HHN 01/21/17 14:00 01/26/17 13:59 01/21/17 14:03 Betamethasone/ Clotrimazole 1 applic 1 applic TWICE A DAY PRN TOPIC Itching/Pruritis 01/20/17 11:00 02/19/17 10:59 Cefazolin Sodium/ Dextrose (Ancef/D5W) 55 ml @ 110 mls/hr ONCE ONCE IVPB 01/22/17 06:00 01/22/17 06:29 Clonidine HCl (Catapres) 0.1 mg Q6H PRN GT SBP > 170 01/06/17 16:00 02/05/17 15:59 Dextrose 1,000 ml @ 75 mls/hr [id number] IV 01/20/17 20:00 02/19/17 19:59 01/20/17 20:46 Dextrose (Dextrose 50%) STAT PRN IV Hypoglycemia 01/04/17 21:00 02/03/17 20:59 Diltiazem HCl (Cardizem) 60 mg EVERY 8 HOURS NG 01/14/17 14:00 02/13/17 13:59 01/20/17 23:43 Docusate Sodium (Colace) 100 mg DAILY ORAL 01/12/17 11:15 02/11/17 11:14 01/20/17 10:17 Heparin Sodium (Porcine) (Heparin 5000 units/ml) 5,000 units EVERY 12 HOURS SUBQ 01/04/17 22:00 02/03/17 21:59 01/20/17 10:18 Lansoprazole (Prevacid) 30 mg DAILY GT 01/13/17 09:00 02/12/17 08:59 01/20/17 10:17 Lorazepam (Ativan 2mg/ml 1ml) 1 mg Q4H PRN IV For Anxiety 01/16/17 09:00 01/23/17 08:59 Ondansetron HCl (Zofran) 4 mg Q6H PRN IVP Nausea & Vomiting 01/04/17 21:00 02/03/17 20:59 Polyethylene Glycol (Miralax) 17 gm DAILYPRN PRN GT Constipation 01/06/17 15:55 02/03/17 20:59 01/19/17 12:49 Allergies: Coded Allergies: No Known Allergies (Verified , 01/06/17) Subjective 76 YO M admitted with aspiration and respiratory failure. Reintubated 01/09/17; extubated 01/14/17. Reintubated and Sedated. ICU. Await tracheostomy today Objective Last Vital Signs Date Time Temp Pulse Resp B/P Pulse Ox O2 Delivery O2 Flow Rate FiO2 01/21/17 18:00 70 20 118/57 100 Mechanical Ventilator 50 01/21/17 16:00 98.4 01/21/17 16:00 45.0 Laboratory Tests Test 01/21/17 05:00 01/21/17 12:32 White Blood Count 10.0 K/UL (4.8-10.8) Red Blood Count 3.24 M/UL (4.70-6.10) L Hemoglobin 10.4 G/DL (14.2-18.0) L Hematocrit 32.8 % (42.0-52.0) L Mean Corpuscular Volume 101 FL (80-99) H Mean Corpuscular Hemoglobin 32.2 PG (27.0-31.0) H Mean Corpuscular Hemoglobin Concent 31.8 G/DL (32.0-36.0) L Red Cell Distribution Width 13.3 % (11.6-14.8) Platelet Count 382 K/UL (150-450) Mean Platelet Volume 5.8 FL (6.5-10.1) L Neutrophils (%) (Auto) 70.6 % (45.0-75.0) Lymphocytes (%) (Auto) 18.5 % (20.0-45.0) L Monocytes (%) (Auto) 4.6 % (1.0-10.0) Eosinophils (%) (Auto) 5.3 % (0.0-3.0) H Basophils (%) (Auto) 1.0 % (0.0-2.0) Prothrombin Time 10.3 SEC (9.30-11.50) Prothromb Time International Ratio 1.0 (0.9-1.1) Activated Partial Thromboplast Time 34 SEC (23-33) H Sodium Level 146 mEQ/L (135-145) H Potassium Level 3.8 mEQ/L (3.4-4.9) Chloride Level 100 mEQ/L (98-107) Carbon Dioxide Level 37 mEQ/L (20-30) H Anion Gap 9 (5-15) Blood Urea Nitrogen 31 mg/dL (7-23) H Creatinine 0.7 mg/dL (0.7-1.2) Estimat Glomerular Filtration Rate mL/min (>60) Glucose Level 137 mg/dL (74-106) H Calcium Level 9.8 mg/dL (8.6-10.2) Phosphorus Level 4.0 mg/dL (2.5-4.8) Magnesium Level 2.2 mg/dL (1.7-2.5) Total Bilirubin 0.3 mg/dL (0.0-1.2) Aspartate Amino Transf (AST/SGOT) 11 U/L (5-40) Alanine Aminotransferase (ALT/SGPT) 10 U/L (3-41) Alkaline Phosphatase 71 U/L (40-129) Total Protein 6.8 g/dL (6.6-8.7) Albumin 3.4 g/dL (3.5-5.2) L Globulin 3.4 g/dL Albumin/Globulin Ratio 1.0 (1.0-2.7) Arterial Blood pH 7.470 (7.350-7.450) Arterial Blood Partial Pressure CO2 50.0 mmHg (35.0-45.0) H Arterial Blood Partial Pressure O2 73.0 mmHg (75.0-100.0) L Arterial Blood HCO3 36.0 mmol/L (22.0-26.0) H Arterial Blood Oxygen Saturation 94.0 % (92.0-98.0) Arterial Blood Base Excess 11 Leo Test Microbiology Date/Time Source Procedure Growth Status 01/20/17 11:00 Sputum Induced Gram Stain - Final Resulted 01/20/17 11:00 Sputum Induced Sputum Culture Pending Resulted 01/20/17 11:00 Indwelling Cath Urine Culture - Preliminary NO GROWTH Resulted Intake and Output 01/20/17 01/21/17 19:00 07:00 Intake Total 960 ml 880 ml Output Total 730 ml 760 ml Balance 230 ml 120 ml Free Water 300 ml IV Total 825 ml Tube Feeding 660 ml 55 ml Output Urine Total 730 ml 760 ml Objective General Appearance: WD/WN, moderate distress EENT: PERRL/EOMI, normal ENT inspection Neck: non-tender, normal alignment, supple Cardiovascular: normal peripheral pulses, normal rate, regular rhythm, no gallop/murmur, no JVD Respiratory/Chest: Mech vent; respiratory distress, crackles/rales, rhonchi - bilaterally, expiratory wheezing Abdomen: normal bowel sounds, non tender, soft, no organomegaly, no mass Extremities: normal range of motion, non-tender 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 (3) Hypercholesteremia (4) BPH (benign prostatic hyperplasia) (5) Alzheimer's dementia (6) Aspiration pneumonia Assessment & Plan: Ada. D/C fluconazole. See pulmonary and ID note. (7) Hematuria Assessment & Plan: Resolved (8) Atrial fibrillation with RVR Assessment & Plan: Rate controlled - see cardiology note. (9) Dysphagia Assessment & Plan: Await possible PEG placement-see GI note. Status: not improved Assessment/Plan Discussed with SANGEETHA JOHNSON January 21, 2017 18:54
--- NOTE | 2017-01-21 20:38 | Consultation ---
DATE OF CONSULTATION: 01/21/2017 CONSULTING PHYSICIAN: Gurinder Richardson M.D. REFERRING PHYSICIAN: Harriet Carballo M.D. CHIEF COMPLAINT: I was asked to see this patient by Dr. Harriet Carballo for evaluation of dysphagia. HISTORY PRESENT ILLNESS: The patient is an unfortunate 76-year-old [place] man who has had respiratory failure and has failed extubation on multiple occasions. He has multiple factors, which could have contributed to this including sleep apnea, dementia, and aspiration pneumonia. He finally underwent tracheostomy placement yesterday. A gastrostomy tube placement was requested to be coupled with that procedure. The patient himself was unable to provide any history, but the who is a nurse here at [facility] provides all the details. PAST MEDICAL HISTORY: History of advanced Alzheimer disease, aspiration pneumonia, respiratory failure/tracheostomy tube placement, sleep apnea, hypertension, atrial fibrillation, and constipation. FAMILY HISTORY: Noncontributory. SOCIAL HISTORY: The patient previously lived at home with his and a fire fighter. His is a nurse at [facility]. REVIEW OF SYSTEMS: Otherwise negative. PHYSICAL EXAMINATION: GENERAL: Debilitated man, seen in his room in the ICU HEENT: Normocephalic and atraumatic. Tracheostomy is in place. Oropharynx was clear as much as could be examined. CHEST: Coarse breath sounds and rhonchi. CARDIOVASCULAR: Revealed a regular rate. ABDOMEN: Soft and flat with good bowel sounds. EXTREMITIES: Revealed no edema. NEUROLOGICAL: Notable for obtundation. LABORATORY DATA: Noted. ASSESSMENT: This patient has respiratory failure requiring a tracheostomy tube placement. The patient will require a gastrostomy tube placement for long-term enteral access and nutrition. The is aware of the procedure, its indications, and risks and has agreed to proceed with a gastrostomy tube placement. RECOMMENDATIONS: 1. Continue with current management. 2. . 3. Gastrostomy tube placement tomorrow. Thank you for asking me to participate in the care of this patient. Gurinder Richardson M.D. DR: NARESH JOB#: [id number] CC:
[2017-01-22] VITALS (24 sets, daily range): BP systolic 106–136; BP diastolic 51–82
--- NOTE | 2017-01-22 01:08 | Consultation ---
DATE OF CONSULTATION: 01/21/2017 CHIEF COMPLAINT: I was asked to see this patient by Dr. Carballo for evaluation of tube feeding intolerance. HISTORY OF PRESENT ILLNESS: The patient is an unfortunate 76-year-old French man. DICTATION ABRUPTLY ENDED Gurinder Richardson M.D. DR: MERE JOB#: [id number] CC:
[2017-01-22] MEDS: DuoNeb 0.5-3(2.5)mg/3ml neb HHN SCH ×4 (01:13→19:10)
[2017-01-22 05:24] LABS: BASOPHILS % (AUTO) 0.7 % (0.0-2.0); EOSINOPHILS % (AUTO) 1.6 % (0.0-3.0); LYMPHOCYTES % (AUTO) 21.2 % (20.0-45.0); MEAN CORPUSCULAR HEMOGLOBIN 31.9 PG (27.0-31.0); MEAN CORPUSCULAR HGB CONC 32.7 G/DL (32.0-36.0); MEAN CORPUSCULAR VOLUME 98 FL (80-99); MEAN PLATELET VOLUME 6.5 FL (6.5-10.1); NEUTROPHILS % (AUTO) 71.6 % (45.0-75.0); PLATELET COUNT 337 K/UL (150-450); RED BLOOD COUNT 2.79 M/UL (4.70-6.10); RED CELL DISTRIBUTION WIDTH 12.8 % (11.6-14.8); WHITE BLOOD COUNT 11.1 K/UL (4.8-10.8)
[2017-01-22 05:45] LABS: ALANINE AMINOTRANSFERASE 8 U/L (3-41); ANION GAP 10 (5-15); ASPARTATE AMINO TRANSFERASE 9 U/L (5-40); CALCIUM 9.1 mg/dL (8.6-10.2); CARBON DIOXIDE 34 mEQ/L (20-30); CHLORIDE 98 mEQ/L (98-107); CREATININE 0.6 mg/dL (0.7-1.2); HEMOLYSIS 0; MAGNESIUM 1.9 mg/dL (1.7-2.5); PHOSPHORUS 2.8 mg/dL (2.5-4.8); POTASSIUM 3.4 mEQ/L (3.4-4.9); SODIUM 142 mEQ/L (135-145); TOTAL PROTEIN 5.8 g/dL (6.6-8.7)
[2017-01-22] MEDS ORDERED: ceFAZolin sod 1 GM in D5W 55 ML IVPB ONE (06:00)
--- NOTE | 2017-01-22 06:49 | Anethesia Preoperative Eval ---
Anesthesia Pre-op PMH/ROS General Date of Evaluation: January 22, 2017 Anesthesiologist: Orlando ASA Score: ASA 4 Mallampati Score Class I : Soft palate, uvula, fauces, pillars visible Class II: Soft palate, uvula, fauces visible Class III: Soft palate, base of uvula visible Class IV: Only hard plate visible Mallampati Classification: Class III Surgeon: Dylan Diagnosis: Failure to thrive Surgical Procedure: EGD and PEG Anesthesia History: none Family History: no anesthesia problems Allergies: Coded Allergies: No Known Allergies (Verified , 01/06/17) Medications: see eMAR Past Medical History Cardiovascular: Reports: HTN Pulmonary: Reports: EMILY, Denies: COPD, asthma, other Gastrointestinal/Genitourinary: Denies: CRI, ESRD, GERD, other Neurologic/Psychiatric: Reports: dementia, Denies: CVA, TIA, depression/anxiety, other Endocrine: Denies: DM, hypothyroidism, other, steroids HEENT: Denies: [place] (L), [place] (R), cataract (L), cataract (R), glaucoma, other Hematology/Immune: Reports: anemia, Denies: DVT, bleeding disorder, other Musculoskeletal/Integumentary: Denies: DDD, DJD, OA, RA, edema, other PSxH Narrative: Trach, right femur ORIF Anesthesia Pre-op Phys. Exam Physician Exam Last Vital Signs Date Time Temp Pulse Resp B/P Pulse Ox O2 Delivery O2 Flow Rate FiO2 01/22/17 06:00 72 15 117/58 100 Mechanical Ventilator 45 01/22/17 04:00 45.0 01/22/17 04:00 98.4 Constitutional: NAD Cardiovascular: RRR Respiratory: CTA Airway Exam Mallampati Score: Class III MO: full ROM: limited Anesthesia Pre-op A/P Labs Hematology Test 01/22/17 04:30 White Blood Count 11.1 K/UL (4.8-10.8) H Red Blood Count 2.79 M/UL (4.70-6.10) L Hemoglobin 8.9 G/DL (14.2-18.0) L Hematocrit 27.3 % (42.0-52.0) L Mean Corpuscular Volume 98 FL (80-99) Mean Corpuscular Hemoglobin 31.9 PG (27.0-31.0) H Mean Corpuscular Hemoglobin Concent 32.7 G/DL (32.0-36.0) Red Cell Distribution Width 12.8 % (11.6-14.8) Platelet Count 337 K/UL (150-450) Mean Platelet Volume 6.5 FL (6.5-10.1) Neutrophils (%) (Auto) 71.6 % (45.0-75.0) Lymphocytes (%) (Auto) 21.2 % (20.0-45.0) Monocytes (%) (Auto) 5.0 % (1.0-10.0) Eosinophils (%) (Auto) 1.6 % (0.0-3.0) Basophils (%) (Auto) 0.7 % (0.0-2.0) Chemistry Test 01/22/17 04:30 Sodium Level 142 mEQ/L (135-145) Potassium Level 3.4 mEQ/L (3.4-4.9) Chloride Level 98 mEQ/L (98-107) Carbon Dioxide Level 34 mEQ/L (20-30) H Anion Gap 10 (5-15) Blood Urea Nitrogen 31 mg/dL (7-23) H Creatinine 0.6 mg/dL (0.7-1.2) L Estimat Glomerular Filtration Rate mL/min (>60) Glucose Level 113 mg/dL (74-106) H Calcium Level 9.1 mg/dL (8.6-10.2) Phosphorus Level 2.8 mg/dL (2.5-4.8) Magnesium Level 1.9 mg/dL (1.7-2.5) Total Bilirubin 0.2 mg/dL (0.0-1.2) Aspartate Amino Transf (AST/SGOT) 9 U/L (5-40) Alanine Aminotransferase (ALT/SGPT) 8 U/L (3-41) Alkaline Phosphatase 54 U/L (40-129) Total Protein 5.8 g/dL (6.6-8.7) L Albumin 2.9 g/dL (3.5-5.2) L Globulin 2.9 g/dL Albumin/Globulin Ratio 1.0 (1.0-2.7) Risk Assessment & Plan Assessment: ASA IV Plan: MAC Status Change Before Surgery: No Pre-Antibiotics Drug: N/A MARY SHAH M.D. January 22, 2017 06:49
[2017-01-22] MEDS ORDERED: Propofol 10mg/ml 20ml IV ONE (07:00)
[2017-01-22] MEDS ORDERED: NS 550ML IV ONE (07:00)
[2017-01-22] MEDS ORDERED: LR 1000ml ONE (07:00)
--- NOTE | 2017-01-22 07:49 | Immediate Post-Op Evaluation ---
Immediate Post-Op Evalulation Immediate Post-Op Evalulation Procedure: Tracheostomy Date of Evaluation: January 22, 2017 Time of Evaluation: 07:39 IV Fluids: 150 Blood Products: 0 Estimated Blood Loss: 0 Urinary Output: 0 Blood Pressure Systolic: 117 Blood Pressure Diastolic: 81 Pulse Rate: 81 Respiratory Rate: 12 O2 Sat by Pulse Oximetry: 100 Temperature (Fahrenheit): 98.2 Pain Score (1-10): 0 Nausea: No Vomiting: No Complications 0 Patient Status: awake, ventilated, none Hydration Status: adequate Drug: Ancef 1g Given Within 1 Hr of Incision: Yes Time Given: 07:05 MARY SHAH M.D. January 22, 2017 07:49
[2017-01-22] MEDS: Docusate 100mg tablet ORAL SCH (08:47)
[2017-01-22] MEDS: Heparin 5000 units/ml inj SUBQ SCH ×2 (08:47→21:00)
[2017-01-22 08:58] LABS: ABG ALLEN TEST POSITIVE; ABG BASE EXCESS 8.9; ABG PCO2 36.9 mmHg (35.0-45.0)
--- NOTE | 2017-01-22 09:19 | 48 Hour Post Anesthesia Eval ---
Post Anesthesia Evaluation Procedure: Tracheostomy Date of Evaluation: January 22, 2017 Time of Evaluation: 06:50 Blood Pressure Systolic: 117 0: 58 Pulse Rate: 72 Respiratory Rate: 12 O2 Sat by Pulse Oximetry: 100 Airway: other - trach Nausea: No Vomiting: No Pain Intensity: 0 Hydration Status: adequate Cardiopulmonary Status: at [place] Mental Status/LOC: patient returned to baseline Post-Anesthesia Complications: 0 Follow-up care needed: N/A - further care as per primary team MARY SHAH M.D. January 22, 2017 09:19
--- NOTE | 2017-01-22 09:21 | 48 Hour Post Anesthesia Eval ---
Post Anesthesia Evaluation Procedure: EGD and PEG Date of Evaluation: January 22, 2017 Time of Evaluation: 09:00 Blood Pressure Systolic: 113 0: 55 Pulse Rate: 65 Respiratory Rate: 17 Temperature (Fahrenheit): 98.2 O2 Sat by Pulse Oximetry: 100 Airway: other - trach in place, on ventilator Nausea: No Vomiting: No Pain Intensity: 0 Hydration Status: adequate Cardiopulmonary Status: at baseline Mental Status/LOC: patient returned to baseline Post-Anesthesia Complications: 0 Follow-up care needed: N/A - further car as per primary team MARY SHAH M.D. January 22, 2017 09:21
--- NOTE | 2017-01-22 10:57 | Diagnostic Imaging Report ---
Indication: Dyspnea Comparison: 01/21/17 A single view chest radiograph was obtained. Findings: Interval tracheostomy noted. There is no pneumothorax or other complications demonstrated radiographically. Bones are osteopenic. Lungs remain clear. Heart size is stable. Impression: Tracheostomy placement. Good position noted. No pneumothorax or other complication
--- NOTE | 2017-01-22 11:13 | Pulmonolgy Critical Care Note ---
Critical Care - Asmt/Plan Problems: (1) Respiratory distress (2) Aspiration pneumonia (3) Dementia Respiratory: monitor respiratory rate, adjust FIO2 Renal: F/U I&O, keep IV fluid, check electrolytes Infectious Disease: check cultures Gastrointestinal: continue feedings/current rate Endocrine: monitor blood sugar, check HgA1C, continue sliding scale insulin Hematologic: monitor H/H, transfuse if hgb<8.5 Neurologic: PRN Ativan, PRN Morphine, keep patient comfortable Affect: PRN ativan Prophylaxis: Protonix, Heparin Notes Reviewed: dolphin trainer, renal Discussed with: nurses, consultants, case reviewersports centre manager - Objective Last 24 Hour Vital Signs Date Time Temp Pulse Resp B/P Pulse Ox O2 Delivery O2 Flow Rate FiO2 01/22/17 10:58 68 14 40 01/22/17 10:00 68 18 130/59 100 Mechanical Ventilator 40 01/22/17 09:21 65 17 100 01/22/17 09:19 72 12 100 01/22/17 09:14 71 14 45 01/22/17 09:00 65 17 113/55 100 Mechanical Ventilator 45 01/22/17 08:00 45 01/22/17 08:00 70 01/22/17 08:00 98.2 64 17 121/55 100 Mechanical Ventilator 01/22/17 07:49 81 12 100 01/22/17 07:08 75 14 100 Mechanical Ventilator 45 01/22/17 07:00 70 16 121/55 100 Mechanical Ventilator 45 01/22/17 06:59 71 14 100 Mechanical Ventilator 45 01/22/17 06:59 45 01/22/17 06:58 71 14 45 01/22/17 06:00 72 15 117/58 100 Mechanical Ventilator 45 01/22/17 05:20 76 13 45 01/22/17 05:00 72 14 110/54 100 Mechanical Ventilator 45 01/22/17 04:00 45.0 01/22/17 04:00 79 01/22/17 04:00 98.4 79 15 109/54 100 Mechanical Ventilator 45 01/22/17 03:17 80 18 45 01/22/17 03:00 78 15 116/63 100 Mechanical Ventilator 45 01/22/17 02:00 81 17 130/63 100 Mechanical Ventilator 45 01/22/17 01:25 82 13 100 Mechanical Ventilator 45 01/22/17 01:12 45 01/22/17 01:12 74 16 100 Mechanical Ventilator 45 5/17 01:11 74 16 45 17 01:00 74 16 119/65 100 Mechanical Ventilator 45 17 00:00 98.5 75 17 111/56 100 Mechanical Ventilator 45 01/22/ 00:00 75 01/22/17 00:00 45.0 01/21/ 23:27 75 17 45 01/21/17 23:00 75 17 116/59 100 Mechanical Ventilator 45 01/21/17 22:08 75 118/62 01/21/17 22:00 75 18 118/62 100 Mechanical Ventilator 45 01/21/17 21:00 79 15 121/59 100 Mechanical Ventilator 45 01/21/17 20:58 86 16 45 01/21/17 20:00 98.4 77 13 108/49 100 Mechanical Ventilator 45 01/21/17 20:00 77 01/21/17 20:00 45.0 01/21/17 19:35 81 14 100 Mechanical Ventilator 45 01/21/17 19:27 45 01/21/17 19:26 74 14 100 Mechanical Ventilator 45 01/21/17 19:23 74 14 45 01/21/17 19:00 74 19 115/65 100 Mechanical Ventilator 45 01/21/17 18:00 70 20 118/57 100 Mechanical Ventilator 50 01/21/17 17:06 74 14 45 01/21/17 17:00 75 20 127/54 100 Mechanical Ventilator 50 01/21/17 16:00 70 01/21/17 16:00 98.4 71 20 99/52 99 Mechanical Ventilator 50 01/21/17 16:00 45.0 01/21/17 14:57 60 20 115/51 100 Mechanical Ventilator 50 01/21/ 14:41 75 12 50 // 14:13 74 12 100 Mechanical Ventilator 50 01/21/17 14:04 69 13 100 Mechanical Ventilator 50 01/21/17 14:00 64 135/54 01/21/17 14:00 65 18 107/53 100 Mechanical Ventilator 50 01/21/17 13:00 70 18 103/53 100 Mechanical Ventilator 50 //17 12:34 72 12 50 01/21/17 12:34 72 12 Mechanical Ventilator 50 01/21/ 12:00 50.0 01/21/17 12:00 98.4 71 20 117/63 100 Mechanical Ventilator 50 01/21/17 12:00 72 Status: awake Condition: critical, improving HEENT: atraumatic, normocephalic Lungs: clear Heart: HR/BP stable Abdomen: active bowel sounds Extremities: no C/C/E Decubiti: location Micro: Microbiology Date/Time Source Procedure Growth Status 01/20/17 11:15 Blood Blood Culture - Preliminary NO GROWTH AFTER 24 HOURS Resulted 01/20/17 11:00 Blood Blood Culture - Preliminary NO GROWTH AFTER 24 HOURS Resulted 01/20/17 11:00 Sputum Induced Gram Stain - Final Complete 01/20/17 11:00 Sputum Induced Sputum Culture - Final NORMAL UPPER RESPIRATORY MINAL PRESENT Complete 01/20/17 11:00 Indwelling Cath Urine Culture - Preliminary NO GROWTH AFTER 24 HOURS Resulted Accucheck: 115 Critical Care - Subjective ROS Limited/Unobtainable: Yes - 18 ICU Day: 18 Condition: critical FI02: 40 Vent Support Breath Rate: 12 Vent Support Mode: IMV/SIMV Vent Tidal Volume: 550 Sputum Amount: Moderate PEEP: 5.0 PIP: 17 Tube Feeding Amount: 55 I&O: Intake and Output 01/21/17 01/22/17 19:00 07:00 Intake Total 1605 ml 1120 ml Output Total 740 ml 530 ml Balance 865 ml 590 ml Free Water 420 ml IV Total 900 ml 900 ml Tube Feeding 285 ml 220 ml Output Urine Total 740 ml 530 ml Labs: Laboratory Tests Test 01/21/17 12:32 01/22/17 04:00 01/22/17 04:30 Arterial Blood pH 7.470 (7.350-7.450) 7.550 (7.350-7.450) Arterial Blood Partial Pressure CO2 50.0 mmHg (35.0-45.0) H 36.9 mmHg (35.0-45.0) Arterial Blood Partial Pressure O2 73.0 mmHg (75.0-100.0) L 85.5 mmHg (75.0-100.0) Arterial Blood HCO3 36.0 mmol/L (22.0-26.0) H 31.6 mmol/L (22.0-26.0) H Arterial Blood Oxygen Saturation 94.0 % (92.0-98.0) 98.0 % (92.0-98.0) Arterial Blood Base Excess 11 8.9 Leo Test Positive White Blood Count 11.1 K/UL (4.8-10.8) H Red Blood Count 2.79 M/UL (4.70-6.10) L Hemoglobin 8.9 G/DL (14.2-18.0) L Hematocrit 27.3 % (42.0-52.0) L Mean Corpuscular Volume 98 FL (80-99) Mean Corpuscular Hemoglobin 31.9 PG (27.0-31.0) H Mean Corpuscular Hemoglobin Concent 32.7 G/DL (32.0-36.0) Red Cell Distribution Width 12.8 % (11.6-14.8) Platelet Count 337 K/UL (150-450) Mean Platelet Volume 6.5 FL (6.5-10.1) Neutrophils (%) (Auto) 71.6 % (45.0-75.0) Lymphocytes (%) (Auto) 21.2 % (20.0-45.0) Monocytes (%) (Auto) 5.0 % (1.0-10.0) Eosinophils (%) (Auto) 1.6 % (0.0-3.0) Basophils (%) (Auto) 0.7 % (0.0-2.0) Sodium Level 142 mEQ/L (135-145) Potassium Level 3.4 mEQ/L (3.4-4.9) Chloride Level 98 mEQ/L (98-107) Carbon Dioxide Level 34 mEQ/L (20-30) H Anion Gap 10 (5-15) Blood Urea Nitrogen 31 mg/dL (7-23) H Creatinine 0.6 mg/dL (0.7-1.2) L Estimat Glomerular Filtration Rate mL/min (>60) Glucose Level 113 mg/dL (74-106) H Calcium Level 9.1 mg/dL (8.6-10.2) Phosphorus Level 2.8 mg/dL (2.5-4.8) Magnesium Level 1.9 mg/dL (1.7-2.5) Total Bilirubin 0.2 mg/dL (0.0-1.2) Aspartate Amino Transf (AST/SGOT) 9 U/L (5-40) Alanine Aminotransferase (ALT/SGPT) 8 U/L (3-41) Alkaline Phosphatase 54 U/L (40-129) Total Protein 5.8 g/dL (6.6-8.7) L Albumin 2.9 g/dL (3.5-5.2) L Globulin 2.9 g/dL Albumin/Globulin Ratio 1.0 (1.0-2.7) RABIA BANGURA January 22, 2017 11:13
--- NOTE | 2017-01-22 14:34 | Cardiac Electrophysiology PN ---
Assessment/Plan Assessment/Plan 1. Atrial fib with RVR.Continue Cardizem 60mg NG q 8 hrs. Keep off anticoagulation as had only one episode of atrial fib. 2. Hypertension. Continue Cardizem. 3. Severe pulmonary hypertension, pressure 55, likely due to history of obstructive sleep apnea. 4. Recurrent Respiratory failure due to aspiration,extubated for the second time 01/14/17. S/P Tracheostomy today 5. Dementia. 6. Dysphagia.S/P PEG today DW RN and Subjective Subjective In ICU had tracheostomy yesterday and PEG placement today. No recurrence of atrial fib. RN at bedside. Objective Last 24 Hour Vital Signs Date Time Temp Pulse Resp B/P Pulse Ox O2 Delivery O2 Flow Rate FiO2 01/22/17 13:43 70 128/57 01/22/17 13:11 65 12 40 01/22/17 13:10 65 14 100 Mechanical Ventilator 30 01/22/17 13:00 67 18 126/57 100 Mechanical Ventilator 30 01/22/17 13:00 67 14 100 Mechanical Ventilator 15.0 40 01/22/17 13:00 30 01/22/17 13:00 45 01/22/17 12:56 71 14 40 01/22/17 12:00 68 01/22/17 12:00 98.7 68 17 106/55 100 Mechanical Ventilator 40 01/22/17 11:00 67 18 108/63 100 Mechanical Ventilator 40 01/22/17 11:00 40 01/22/17 10:58 68 14 40 01/22/17 10:00 68 18 130/59 100 Mechanical Ventilator 40 01/22/17 09:21 65 17 100 01/22/17 09:19 72 12 100 01/22/17 09:14 71 14 45 01/22/17 09:00 65 17 113/55 100 Mechanical Ventilator 45 01/22/17 08:00 45 01/22/17 08:00 70 01/22/17 08:00 98.2 64 17 121/55 100 Mechanical Ventilator 45 01/22/17 07:49 81 12 100 01/22/17 07:08 75 14 100 Mechanical Ventilator 45 01/22/17 07:00 70 16 121/55 100 Mechanical Ventilator 45 01/22/17 06:59 71 14 100 Mechanical Ventilator 45 01/22/17 06:59 45 01/22/17 06:58 71 14 45 5/5/17 06:00 72 15 117/58 100 Mechanical Ventilator 45 5/5/17 05:20 76 13 45 5/5/17 05:00 72 14 110/54 100 Mechanical Ventilator 45 5/5/17 04:00 45.0 5/5/17 04:00 79 5/5/17 04:00 98.4 79 15 109/54 100 Mechanical Ventilator 45 5/5/17 03:17 80 18 45 5/5/17 03:00 78 15 116/63 100 Mechanical Ventilator 45 5/5/17 02:00 81 17 130/63 100 Mechanical Ventilator 45 5/5/17 01:25 82 13 100 Mechanical Ventilator 45 5/5/17 01:12 45 5/5/17 01:12 74 16 100 Mechanical Ventilator 45 5/5/17 01:11 74 16 45 5//17 01:00 74 16 119/65 100 Mechanical Ventilator 45 5/5/17 00:00 98.5 75 17 111/56 100 Mechanical Ventilator 45 5/ 00:00 75 5/ 00:00 45.0 01/21/ 23:27 75 17 45 5//17 23:00 75 17 116/59 100 Mechanical Ventilator 45 5/4/17 22:08 75 118/62 5/17 22:00 75 18 118/62 100 Mechanical Ventilator 45 5/17 21:00 79 15 121/59 100 Mechanical Ventilator 45 5//17 20:58 86 16 45 5//17 20:00 98.4 77 13 108/49 100 Mechanical Ventilator 45 5//17 20:00 77 5/17 20:00 45.0 01/21/17 19:35 81 14 100 Mechanical Ventilator 45 5/4/17 19:27 45 5/4/17 19:26 74 14 100 Mechanical Ventilator 45 5/4/17 19:23 74 14 45 5/4/17 19:00 74 19 115/65 100 Mechanical Ventilator 45 5/4/17 18:00 70 20 118/57 100 Mechanical Ventilator 50 5/4/17 17:06 74 14 45 5/4/17 17:00 75 20 127/54 100 Mechanical Ventilator 50 5/4/17 16:00 70 5/4/17 16:00 98.4 71 20 99/52 99 Mechanical Ventilator 50 5/4/17 16:00 45.0 01/21/17 14:57 60 20 115/51 100 Mechanical Ventilator 50 01/21/17 14:41 75 12 50 Intake and Output 01/21/17 01/22/17 19:00 07:00 Intake Total 1605 ml 1120 ml Output Total 740 ml 530 ml Balance 865 ml 590 ml Free Water 420 ml IV Total 900 ml 900 ml Tube Feeding 285 ml 220 ml Output Urine Total 740 ml 530 ml Laboratory Tests Test 01/22/17 04:00 01/22/17 04:30 Arterial Blood pH 7.550 (7.350-7.450) Arterial Blood Partial Pressure CO2 36.9 mmHg (35.0-45.0) Arterial Blood Partial Pressure O2 85.5 mmHg (75.0-100.0) Arterial Blood HCO3 31.6 mmol/L (22.0-26.0) H Arterial Blood Oxygen Saturation 98.0 % (92.0-98.0) Arterial Blood Base Excess 8.9 Leo Test Positive White Blood Count 11.1 K/UL (4.8-10.8) H Red Blood Count 2.79 M/UL (4.70-6.10) L Hemoglobin 8.9 G/DL (14.2-18.0) L Hematocrit 27.3 % (42.0-52.0) L Mean Corpuscular Volume 98 FL (80-99) Mean Corpuscular Hemoglobin 31.9 PG (27.0-31.0) H Mean Corpuscular Hemoglobin Concent 32.7 G/DL (32.0-36.0) Red Cell Distribution Width 12.8 % (11.6-14.8) Platelet Count 337 K/UL (150-450) Mean Platelet Volume 6.5 FL (6.5-10.1) Neutrophils (%) (Auto) 71.6 % (45.0-75.0) Lymphocytes (%) (Auto) 21.2 % (20.0-45.0) Monocytes (%) (Auto) 5.0 % (1.0-10.0) Eosinophils (%) (Auto) 1.6 % (0.0-3.0) Basophils (%) (Auto) 0.7 % (0.0-2.0) Sodium Level 142 mEQ/L (135-145) Potassium Level 3.4 mEQ/L (3.4-4.9) Chloride Level 98 mEQ/L (98-107) Carbon Dioxide Level 34 mEQ/L (20-30) H Anion Gap 10 (5-15) Blood Urea Nitrogen 31 mg/dL (7-23) H Creatinine 0.6 mg/dL (0.7-1.2) L Estimat Glomerular Filtration Rate mL/min (>60) Glucose Level 113 mg/dL (74-106) H Calcium Level 9.1 mg/dL (8.6-10.2) Phosphorus Level 2.8 mg/dL (2.5-4.8) Magnesium Level 1.9 mg/dL (1.7-2.5) Total Bilirubin 0.2 mg/dL (0.0-1.2) Aspartate Amino Transf (AST/SGOT) 9 U/L (5-40) Alanine Aminotransferase (ALT/SGPT) 8 U/L (3-41) Alkaline Phosphatase 54 U/L (40-129) Total Protein 5.8 g/dL (6.6-8.7) L Albumin 2.9 g/dL (3.5-5.2) L Globulin 2.9 g/dL Albumin/Globulin Ratio 1.0 (1.0-2.7) Microbiology Date/Time Source Procedure Growth Status 01/20/17 11:15 Blood Blood Culture - Preliminary NO GROWTH AFTER 24 HOURS Resulted 01/20/17 11:00 Blood Blood Culture - Preliminary NO GROWTH AFTER 24 HOURS Resulted 01/20/17 11:00 Sputum Induced Gram Stain - Final Complete 01/20/17 11:00 Sputum Induced Sputum Culture - Final NORMAL UPPER RESPIRATORY MINAL PRESENT Complete 01/20/17 11:00 Indwelling Cath Urine Culture - Preliminary NO GROWTH AFTER 24 HOURS Resulted Objective NECK: No JVD. S/P Tracheostomy. LUNGS: Coarse rhonchi CARDIOVASCULAR: Regular S1 and S2 with no gallop or murmur. ABDOMEN: Soft.PEG in place EXTREMITIES: No pitting edema. ARGELIA DUONG January 22, 2017 14:34
[2017-01-22 15:28] LABS: ABG ALLEN TEST POSITIVE; ABG BASE EXCESS 11.7; ABG PCO2 40.4 mmHg (35.0-45.0)
[2017-01-22] MEDS ORDERED: Tubing IV Secondary IV ONE (15:44)
--- NOTE | 2017-01-22 18:32 | Internal Med Progress Note ---
Subjective Date of Service: January 22, 2017 Physician Name Sangeetha Johnson Attending Physician Sangeetha Johnson Current Medications Medications (Trade) Dose Ordered Sig/Daina Route PRN Reason Start Time Stop Time Status Last Admin Dose Admin Acetaminophen (Tylenol) 650 mg Q4H PRN ORAL fever 01/04/17 21:00 02/03/17 20:59 Albuterol/ Ipratropium (DuoNeb 0.5-3(2.5)mg/3ml) 3 ml Q6HRT HHN 01/21/17 14:00 01/26/17 13:59 01/22/17 13:00 Betamethasone/ Clotrimazole 1 applic 1 applic TWICE A DAY PRN TOPIC Itching/Pruritis 01/20/17 11:00 02/19/17 10:59 Clonidine HCl (Catapres) 0.1 mg Q6H PRN GT SBP > 170 01/06/17 16:00 02/05/17 15:59 Dextrose (D5W 1000ml) 1,000 ml @ 75 mls/hr [id number] IV 01/20/17 20:00 02/19/17 19:59 01/22/17 13:43 Dextrose (Dextrose 50%) STAT PRN IV Hypoglycemia 01/04/17 21:00 02/03/17 20:59 Diltiazem HCl (Cardizem) 60 mg EVERY 8 HOURS NG 01/14/17 14:00 02/13/17 13:59 01/22/17 13:43 Docusate Sodium (Colace) 100 mg DAILY ORAL 01/12/17 11:15 02/11/17 11:14 01/22/17 08:47 Heparin Sodium (Porcine) (Heparin 5000 units/ml) 5,000 units EVERY 12 HOURS SUBQ 01/04/17 22:00 02/03/17 21:59 01/22/17 08:47 Lansoprazole (Prevacid) 30 mg DAILY GT 01/13/17 09:00 02/12/17 08:59 01/22/17 08:47 Lorazepam (Ativan 2mg/ml 1ml) 1 mg Q4H PRN IV For Anxiety 01/16/17 09:00 01/23/17 08:59 Ondansetron HCl (Zofran) 4 mg Q6H PRN IVP Nausea & Vomiting 01/04/17 21:00 02/03/17 20:59 Polyethylene Glycol (Miralax) 17 gm DAILYPRN PRN GT Constipation 01/06/17 15:55 02/03/17 20:59 01/19/17 12:49 Allergies: Coded Allergies: No Known Allergies (Verified , 01/06/17) ROS Limited/Unobtainable: Yes Subjective 76 YO M admitted with aspiration and respiratory failure. Reintubated 01/09/17; extubated 01/14/17. Reintubated and Sedated. ICU. S/P tracheostomy 01/21/17. S/ P PEG 01/22/17. Await transfer to sub acute [facility] Objective Last Vital Signs Date Time Temp Pulse Resp B/P Pulse Ox O2 Delivery O2 Flow Rate FiO2 01/22/17 18:00 65 18 110/63 100 Mechanical Ventilator 30 01/22/17 16:00 98.5 01/22/17 13:00 15.0 Laboratory Tests Test 01/22/17 04:00 01/22/17 04:30 01/22/17 15:00 Arterial Blood pH 7.550 (7.350-7.450) 7.555 (7.350-7.450) Arterial Blood Partial Pressure CO2 36.9 mmHg (35.0-45.0) 40.4 mmHg (35.0-45.0) Arterial Blood Partial Pressure O2 85.5 mmHg (75.0-100.0) 77.7 mmHg (75.0-100.0) Arterial Blood HCO3 31.6 mmol/L (22.0-26.0) H 35.0 mmol/L (22.0-26.0) H Arterial Blood Oxygen Saturation 98.0 % (92.0-98.0) 96.1 % (92.0-98.0) Arterial Blood Base Excess 8.9 11.7 Leo Test Positive Positive White Blood Count 11.1 K/UL (4.8-10.8) H Red Blood Count 2.79 M/UL (4.70-6.10) L Hemoglobin 8.9 G/DL (14.2-18.0) L Hematocrit 27.3 % (42.0-52.0) L Mean Corpuscular Volume 98 FL (80-99) Mean Corpuscular Hemoglobin 31.9 PG (27.0-31.0) H Mean Corpuscular Hemoglobin Concent 32.7 G/DL (32.0-36.0) Red Cell Distribution Width 12.8 % (11.6-14.8) Platelet Count 337 K/UL (150-450) Mean Platelet Volume 6.5 FL (6.5-10.1) Neutrophils (%) (Auto) 71.6 % (45.0-75.0) Lymphocytes (%) (Auto) 21.2 % (20.0-45.0) Monocytes (%) (Auto) 5.0 % (1.0-10.0) Eosinophils (%) (Auto) 1.6 % (0.0-3.0) Basophils (%) (Auto) 0.7 % (0.0-2.0) Sodium Level 142 mEQ/L (135-145) Potassium Level 3.4 mEQ/L (3.4-4.9) Chloride Level 98 mEQ/L (98-107) Carbon Dioxide Level 34 mEQ/L (20-30) H Anion Gap 10 (5-15) Blood Urea Nitrogen 31 mg/dL (7-23) H Creatinine 0.6 mg/dL (0.7-1.2) L Estimat Glomerular Filtration Rate mL/min (>60) Glucose Level 113 mg/dL (74-106) H Calcium Level 9.1 mg/dL (8.6-10.2) Phosphorus Level 2.8 mg/dL (2.5-4.8) Magnesium Level 1.9 mg/dL (1.7-2.5) Total Bilirubin 0.2 mg/dL (0.0-1.2) Aspartate Amino Transf (AST/SGOT) 9 U/L (5-40) Alanine Aminotransferase (ALT/SGPT) 8 U/L (3-41) Alkaline Phosphatase 54 U/L (40-129) Total Protein 5.8 g/dL (6.6-8.7) L Albumin 2.9 g/dL (3.5-5.2) L Globulin 2.9 g/dL Albumin/Globulin Ratio 1.0 (1.0-2.7) Microbiology Date/Time Source Procedure Growth Status 01/20/17 11:15 Blood Blood Culture - Preliminary NO GROWTH AFTER 24 HOURS Resulted 01/20/17 11:00 Blood Blood Culture - Preliminary NO GROWTH AFTER 24 HOURS Resulted 01/20/17 11:00 Sputum Induced Gram Stain - Final Complete 01/20/17 11:00 Sputum Induced Sputum Culture - Final NORMAL UPPER RESPIRATORY MINAL PRESENT Complete 01/20/17 11:00 Indwelling Cath Urine Culture - Preliminary NO GROWTH AFTER 24 HOURS Resulted Intake and Output 01/21/17 01/22/17 19:00 07:00 Intake Total 1605 ml 1120 ml Output Total 740 ml 530 ml Balance 865 ml 590 ml Free Water 420 ml IV Total 900 ml 900 ml Tube Feeding 285 ml 220 ml Output Urine Total 740 ml 530 ml Objective General Appearance: WD/WN, moderate distress EENT: PERRL/EOMI, normal ENT inspection Neck: non-tender, normal alignment, supple Cardiovascular: normal peripheral pulses, normal rate, regular rhythm, no gallop/murmur, no JVD Respiratory/Chest: Mech vent; trach; respiratory distress, crackles/rales, rhonchi - bilaterally, expiratory wheezing Abdomen: PEG; normal bowel sounds, non tender, soft, no organomegaly, no mass Extremities: normal range of motion, non-tender Neurologic: pediatric social worker II-XII grossly normal, no motor/sensory deficits Assessment/Plan Problem List: (1) Respiratory failure Assessment & Plan: Tracheostomy scheduled 01/21/17 (2) Hypertension Assessment & Plan: Better control-see cardiology consult. (3) Hypercholesteremia (4) BPH (benign prostatic hyperplasia) (5) Alzheimer's dementia (6) Aspiration pneumonia Assessment & Plan: Ada. D/C fluconazole. See pulmonary and ID note. (7) Hematuria Assessment & Plan: Resolved (8) Atrial fibrillation with RVR Assessment & Plan: Rate controlled - see cardiology note. (9) Dysphagia Assessment & Plan: S/P PEG placement 01/22/17-see GI note. Assessment/Plan Await transfer to [facility] sub acute fac. Discussed with SANGEETHA JOHNSON January 22, 2017 18:32
--- NOTE | 2017-01-22 18:47 | Pre-Procedure Note/Attestation ---
Pre-Procedure Note/Attestation Complete Prior to Procedure Planned Procedure: not applicable Procedure Narrative: peg Indications for Procedure Pre-Operative Diagnosis: dysphagia Attestation I attest that I discussed the nature of the procedure; its benefits; risks and complications; and alternatives (and the risks and benefits of such alternatives ), prior to the procedure, with the patient (or the patient's legal sales representative uniforms). I attest that, if there was a reasonable possibility of needing a blood transfusion, the patient (or the patient's legal sales representative uniforms) was given the [facility] standardized written summary, pursuant to the [place] Blood Safety Act ([place] Health and Safety Code # 1645, as amended). I attest that I re-evaluated the patient just prior to the surgery and that there has been no change in the patient's H&P, except as documented below: HUMBLE ALLRED January 22, 2017 18:47
--- NOTE | 2017-01-22 18:47 | General Progress Note ---
Assessment/Plan Assessment/Plan GI CONSULT Dictated PEG at 0700 Thank you Gurinder Richardson MD Subjective Allergies: Coded Allergies: No Known Allergies (Verified , 01/06/17) Objective Last 24 Hour Vital Signs Date Time Temp Pulse Resp B/P Pulse Ox O2 Delivery O2 Flow Rate FiO2 01/22/17 18:00 65 18 110/63 100 Mechanical Ventilator 30 01/22/17 17:00 68 18 126/60 100 Mechanical Ventilator 30 01/22/17 16:48 81 14 30 01/22/17 16:00 98.5 70 17 118/61 100 Mechanical Ventilator 30 01/22/17 16:00 71 01/22/17 15:03 72 13 30 01/22/17 15:00 71 18 123/61 100 Mechanical Ventilator 30 01/22/17 14:00 70 18 116/51 100 Mechanical Ventilator 30 01/22/17 13:43 70 128/57 01/22/17 13:11 65 12 40 01/22/17 13:10 65 14 100 Mechanical Ventilator 30 01/22/17 13:00 67 18 126/57 100 Mechanical Ventilator 30 01/22/17 13:00 67 14 100 Mechanical Ventilator 15.0 40 01/22/17 13:00 30 01/22/17 13:00 45 01/22/17 12:56 71 14 40 01/22/17 12:00 68 01/22/17 12:00 98.7 68 17 106/55 100 Mechanical Ventilator 40 01/22/17 11:00 67 18 108/63 100 Mechanical Ventilator 40 01/22/17 11:00 40 01/22/17 10:58 68 14 40 01/22/17 10:00 68 18 130/59 100 Mechanical Ventilator 40 01/22/17 09:21 65 17 100 01/22/17 09:19 72 12 100 01/22/17 09:14 71 14 45 01/22/17 09:00 65 17 113/55 100 Mechanical Ventilator 45 01/22/17 08:00 45 01/22/17 08:00 70 01/22/17 08:00 98.2 64 17 121/55 100 Mechanical Ventilator 45 01/22/17 07:49 81 12 100 01/22/17 07:08 75 14 100 Mechanical Ventilator 45 01/22/17 07:00 70 16 121/55 100 Mechanical Ventilator 45 01/22/17 06:59 71 14 100 Mechanical Ventilator 45 01/22/17 06:59 45 01/22/17 06:58 71 14 45 01/22/17 06:00 72 15 117/58 100 Mechanical Ventilator 45 01/22/17 05:20 76 13 45 01/22/17 05:00 72 14 110/54 100 Mechanical Ventilator 45 01/22/17 04:00 45.0 01/22/17 04:00 79 01/22/17 04:00 98.4 79 15 109/54 100 Mechanical Ventilator 45 01/22/17 03:17 80 18 45 01/22/17 03:00 78 15 116/63 100 Mechanical Ventilator 45 01/22/17 02:00 81 17 130/63 100 Mechanical Ventilator 45 01/22/17 01:25 82 13 100 Mechanical Ventilator 45 01/22/17 01:12 45 01/22/17 01:12 74 16 100 Mechanical Ventilator 45 01/22/17 01:11 74 16 45 01/22/17 01:00 74 16 119/65 100 Mechanical Ventilator 45 01/22/17 00:00 98.5 75 17 111/56 100 Mechanical Ventilator 45 01/22/17 00:00 75 01/22/17 00:00 45.0 01/21/17 23:27 75 17 45 01/21/17 23:00 75 17 116/59 100 Mechanical Ventilator 45 01/21/17 22:08 75 118/62 01/21/17 22:00 75 18 118/62 100 Mechanical Ventilator 45 01/21/17 21:00 79 15 121/59 100 Mechanical Ventilator 45 01/21/17 20:58 86 16 45 01/21/17 20:00 98.4 77 13 108/49 100 Mechanical Ventilator 45 01/21/17 20:00 77 01/21/17 20:00 45.0 01/21/17 19:35 81 14 100 Mechanical Ventilator 45 01/21/17 19:27 45 01/21/17 19:26 74 14 100 Mechanical Ventilator 45 01/21/17 19:23 74 14 45 01/21/17 19:00 74 19 115/65 100 Mechanical Ventilator 45 Intake and Output 17 01/22/17 19:00 07:00 Intake Total 1605 ml 1120 ml Output Total 740 ml 530 ml Balance 865 ml 590 ml Free Water 420 ml IV Total 900 ml 900 ml Tube Feeding 285 ml 220 ml Output Urine Total 740 ml 530 ml Laboratory Tests 01/22/17 04:00: Arterial Blood pH 7.550*H, Arterial Blood Partial Pressure CO2 36.9, Arterial Blood Partial Pressure O2 85.5, Arterial Blood HCO3 31.6H, Arterial Blood Oxygen Saturation 98.0, Arterial Blood Base Excess 8.9, Leo Test Positive 01/22/17 04:30: White Blood Count 11.1H, Red Blood Count 2.79L, Hemoglobin 8.9L, Hematocrit 27.3L, Mean Corpuscular Volume 98, Mean Corpuscular Hemoglobin 31.9H, Mean Corpuscular Hemoglobin Concent 32.7, Red Cell Distribution Width 12.8, Platelet Count 337, Mean Platelet Volume 6.5, Neutrophils (%) (Auto) 71.6, Lymphocytes (% ) (Auto) 21.2, Monocytes (%) (Auto) 5.0, Eosinophils (%) (Auto) 1.6, Basophils ( %) (Auto) 0.7, Sodium Level 142, Potassium Level 3.4, Chloride Level 98, Carbon Dioxide Level 34H, Anion Gap 10, Blood Urea Nitrogen 31H, Creatinine 0.6L, Estimat Glomerular Filtration Rate , Glucose Level 113H, Calcium Level 9.1, Phosphorus Level 2.8, Magnesium Level 1.9, Total Bilirubin 0.2, Aspartate Amino Transf (AST/SGOT) 9, Alanine Aminotransferase (ALT/SGPT) 8, Alkaline Phosphatase 54, Total Protein 5.8L, Albumin 2.9L, Globulin 2.9, Albumin/ Globulin Ratio 1.0 01/22/17 15:00: Arterial Blood pH 7.555*H, Arterial Blood Partial Pressure CO2 40.4, Arterial Blood Partial Pressure O2 77.7, Arterial Blood HCO3 35.0H, Arterial Blood Oxygen Saturation 96.1, Arterial Blood Base Excess 11.7, Leo Test Positive Height (Feet): 5 Height (Inches): 4.00 Weight (Pounds): 117 GLENN RICHARDSONDANTE January 22, 2017 18:47
--- NOTE | 2017-01-22 18:49 | Brief Operative Note ---
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
--- NOTE | 2017-01-22 19:40 | Infectious Diseases Prog Note ---
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 Leukocytosis , ? if worsen need AB Rx coverage for Asp Pna trach 01/21 SP Extubation 01/06 , reintubated 01/09 , Extubation 01/14 History of fracture of femoral neck. Dementia. Hypertension PLAN: Monitor pt off of AB Rx ( 01/18 Diflucan d# 4 ) ( 01/14 SP Zosyn d# 10 / 10 ) ( 01/08 SP Vanco d# 4 ) Monitor CBC. Monitor BMP Monitor chest x-ray cont vent support Foster culture : P Subjective Constitutional: Denies: anorexia, chills, drenching sweats, fatigue, fever, no symptoms, other Allergies: Coded Allergies: No Known Allergies (Verified , 01/06/17) Subjective SP trach Objective Vital Signs Last 24 Hour Vital Signs Date Time Temp Pulse Resp B/P Pulse Ox O2 Delivery O2 Flow Rate FiO2 01/22/17 19:20 66 14 100 Mechanical Ventilator 30 01/22/17 19:20 30 01/22/17 19:10 63 15 30 01/22/17 19:10 64 12 100 Mechanical Ventilator 30 01/22/17 19:00 68 19 111/62 100 Mechanical Ventilator 30 01/22/17 18:00 65 18 110/63 100 Mechanical Ventilator 30 01/22/17 17:00 68 18 126/60 100 Mechanical Ventilator 30 01/22/17 16:48 81 14 30 01/22/17 16:00 98.5 70 17 118/61 100 Mechanical Ventilator 30 01/22/17 16:00 71 01/22/17 15:03 72 13 30 01/22/17 15:00 71 18 123/61 100 Mechanical Ventilator 30 01/22/17 14:00 70 18 116/51 100 Mechanical Ventilator 30 01/22/17 13:43 70 128/57 01/22/17 13:11 65 12 40 01/22/17 13:10 65 14 100 Mechanical Ventilator 30 01/22/17 13:00 67 18 126/57 100 Mechanical Ventilator 30 01/22/17 13:00 67 14 100 Mechanical Ventilator 15.0 40 01/22/17 13:00 30 01/22/17 13:00 45 01/22/17 12:56 71 14 40 01/22/17 12:00 68 01/22/17 12:00 98.7 68 17 106/55 100 Mechanical Ventilator 40 01/22/17 11:00 67 18 108/63 100 Mechanical Ventilator 40 01/22/17 11:00 40 01/22/17 10:58 68 14 40 01/22/17 10:00 68 18 130/59 100 Mechanical Ventilator 40 01/22/17 09:21 65 17 100 01/22/17 09:19 72 12 100 01/22/17 09:14 71 14 45 01/22/17 09:00 65 17 113/55 100 Mechanical Ventilator 45 01/22/17 08:00 45 01/22/17 08:00 70 01/22/17 08:00 98.2 64 17 121/55 100 Mechanical Ventilator 45 01/22/17 07:49 81 12 100 01/22/17 07:08 75 14 100 Mechanical Ventilator 45 01/22/17 07:00 70 16 121/55 100 Mechanical Ventilator 45 01/22/17 06:59 71 14 100 Mechanical Ventilator 45 01/22/17 06:59 45 01/22/17 06:58 71 14 45 01/22/17 06:00 72 15 117/58 100 Mechanical Ventilator 45 01/22/17 05:20 76 13 45 01/22/17 05:00 72 14 110/54 100 Mechanical Ventilator 45 01/22/17 04:00 45.0 01/22/17 04:00 79 01/22/17 04:00 98.4 79 15 109/54 100 Mechanical Ventilator 45 01/22/17 03:17 80 18 45 01/22/17 03:00 78 15 116/63 100 Mechanical Ventilator 45 01/22/17 02:00 81 17 130/63 100 Mechanical Ventilator 45 01/22/17 01:25 82 13 100 Mechanical Ventilator 45 01/22/17 01:12 45 01/22/17 01:12 74 16 100 Mechanical Ventilator 45 01/22/17 01:11 74 16 45 01/22/17 01:00 74 16 119/65 100 Mechanical Ventilator 45 01/22/17 00:00 98.5 75 17 111/56 100 Mechanical Ventilator 45 01/22/17 00:00 75 01/22/17 00:00 45.0 5/17 23:27 75 17 45 01/21/17 23:00 75 17 116/59 100 Mechanical Ventilator 45 01/21/17 22:08 75 118/62 01/21/17 22:00 75 18 118/62 100 Mechanical Ventilator 45 01/21/17 21:00 79 15 121/59 100 Mechanical Ventilator 45 01/21/17 20:58 86 16 45 01/21/17 20:00 98.4 77 13 108/49 100 Mechanical Ventilator 45 01/21/17 20:00 77 01/21/17 20:00 45.0 Height (Feet): 5 Height (Inches): 4.00 Weight (Pounds): 117 HEENT: atraumatic Respiratory/Chest: normal breath sounds Cardiovascular: regular rhythm Abdomen: non distended Microbiology Date/Time Source Procedure Growth Status 01/20/17 11:15 Blood Blood Culture - Preliminary NO GROWTH AFTER 24 HOURS Resulted 01/20/17 11:00 Blood Blood Culture - Preliminary NO GROWTH AFTER 24 HOURS Resulted 01/20/17 11:00 Sputum Induced Gram Stain - Final Complete 01/20/17 11:00 Sputum Induced Sputum Culture - Final NORMAL UPPER RESPIRATORY MINAL PRESENT Complete 01/20/17 11:00 Indwelling Cath Urine Culture - Preliminary NO GROWTH AFTER 24 HOURS Resulted Laboratory Tests Test 01/22/17 04:00 01/22/17 04:30 01/22/17 15:00 Arterial Blood pH 7.550 (7.350-7.450) 7.555 (7.350-7.450) Arterial Blood Partial Pressure CO2 36.9 mmHg (35.0-45.0) 40.4 mmHg (35.0-45.0) Arterial Blood Partial Pressure O2 85.5 mmHg (75.0-100.0) 77.7 mmHg (75.0-100.0) Arterial Blood HCO3 31.6 mmol/L (22.0-26.0) H 35.0 mmol/L (22.0-26.0) H Arterial Blood Oxygen Saturation 98.0 % (92.0-98.0) 96.1 % (92.0-98.0) Arterial Blood Base Excess 8.9 11.7 Leo Test Positive Positive White Blood Count 11.1 K/UL (4.8-10.8) H Red Blood Count 2.79 M/UL (4.70-6.10) L Hemoglobin 8.9 G/DL (14.2-18.0) L Hematocrit 27.3 % (42.0-52.0) L Mean Corpuscular Volume 98 FL (80-99) Mean Corpuscular Hemoglobin 31.9 PG (27.0-31.0) H Mean Corpuscular Hemoglobin Concent 32.7 G/DL (32.0-36.0) Red Cell Distribution Width 12.8 % (11.6-14.8) Platelet Count 337 K/UL (150-450) Mean Platelet Volume 6.5 FL (6.5-10.1) Neutrophils (%) (Auto) 71.6 % (45.0-75.0) Lymphocytes (%) (Auto) 21.2 % (20.0-45.0) Monocytes (%) (Auto) 5.0 % (1.0-10.0) Eosinophils (%) (Auto) 1.6 % (0.0-3.0) Basophils (%) (Auto) 0.7 % (0.0-2.0) Sodium Level 142 mEQ/L (135-145) Potassium Level 3.4 mEQ/L (3.4-4.9) Chloride Level 98 mEQ/L (98-107) Carbon Dioxide Level 34 mEQ/L (20-30) H Anion Gap 10 (5-15) Blood Urea Nitrogen 31 mg/dL (7-23) H Creatinine 0.6 mg/dL (0.7-1.2) L Estimat Glomerular Filtration Rate mL/min (>60) Glucose Level 113 mg/dL (74-106) H Calcium Level 9.1 mg/dL (8.6-10.2) Phosphorus Level 2.8 mg/dL (2.5-4.8) Magnesium Level 1.9 mg/dL (1.7-2.5) Total Bilirubin 0.2 mg/dL (0.0-1.2) Aspartate Amino Transf (AST/SGOT) 9 U/L (5-40) Alanine Aminotransferase (ALT/SGPT) 8 U/L (3-41) Alkaline Phosphatase 54 U/L (40-129) Total Protein 5.8 g/dL (6.6-8.7) L Albumin 2.9 g/dL (3.5-5.2) L Globulin 2.9 g/dL Albumin/Globulin Ratio 1.0 (1.0-2.7) Current Medications Medications (Trade) Dose Ordered Sig/Daina Route PRN Reason Start Time Stop Time Status Last Admin Dose Admin Acetaminophen (Tylenol) 650 mg Q4H PRN ORAL fever 01/04/17 21:00 02/03/17 20:59 Albuterol/ Ipratropium (DuoNeb 0.5-3(2.5)mg/3ml) 3 ml Q6HRT HHN 01/21/17 14:00 01/26/17 13:59 01/22/17 19:10 Betamethasone/ Clotrimazole 1 applic 1 applic TWICE A DAY PRN TOPIC Itching/Pruritis 01/20/17 11:00 02/19/17 10:59 Clonidine HCl (Catapres) 0.1 mg Q6H PRN GT SBP > 170 01/06/17 16:00 02/05/17 15:59 Dextrose (D5W 1000ml) 1,000 ml @ 75 mls/hr [id number] IV 01/20/17 20:00 02/19/17 19:59 01/22/17 13:43 Dextrose (Dextrose 50%) STAT PRN IV Hypoglycemia 01/04/17 21:00 02/03/17 20:59 Diltiazem HCl (Cardizem) 60 mg EVERY 8 HOURS NG 01/14/17 14:00 02/13/17 13:59 01/22/17 13:43 Docusate Sodium (Colace) 100 mg DAILY ORAL 01/12/17 11:15 02/11/17 11:14 01/22/17 08:47 Heparin Sodium (Porcine) (Heparin 5000 units/ml) 5,000 units EVERY 12 HOURS SUBQ 01/04/17 22:00 02/03/17 21:59 01/22/17 08:47 Lansoprazole (Prevacid) 30 mg DAILY GT 01/13/17 09:00 02/12/17 08:59 01/22/17 08:47 Lorazepam (Ativan 2mg/ml 1ml) 1 mg Q4H PRN IV For Anxiety 01/16/17 09:00 01/23/17 08:59 Ondansetron HCl (Zofran) 4 mg Q6H PRN IVP Nausea & Vomiting 01/04/17 21:00 02/03/17 20:59 Polyethylene Glycol (Miralax) 17 gm DAILYPRN PRN GT Constipation 01/06/17 15:55 02/03/17 20:59 01/19/17 12:49 HORACIO JOHN M.D. January 22, 2017 19:40
[2017-01-23] VITALS (24 sets, daily range): BP systolic 93–129; BP diastolic 49–74
[2017-01-23] MEDS: DuoNeb 0.5-3(2.5)mg/3ml neb HHN SCH ×4 (01:11→18:42)
--- NOTE | 2017-01-23 02:08 | Procedure Note ---
PROCEDURE PERFORMED: Gastroendoscopy. SURGEON: Gurinder Richardson M.D. REFERRING PHYSICIAN: Rosas Morris M.D. ANESTHESIA: Please see the separate anesthesiologist notes for details. PRE-ENDOSCOPIC DIAGNOSIS: Dysphagia. POST-ENDOSCOPIC DIAGNOSES: 1. Status post gastrostomy tube placement. 2. Status post . DESCRIPTION OF PROCEDURE: The procedure, its risks, indications, alternatives, and complications were explained to the patient's . Informed consent was obtained. The patient was then sedated in supine position and a diagnostic upper endoscope was introduced through the oropharynx and advanced to the duodenum. The endoscope was then gradually withdrawn and the mucosa was examined carefully. Examination of the upper gastric mucosa revealed some degree of tortuosity, derangement, possible Zenker's diverticulum. The location for placement of gastrostomy tube was identified by palpation and transillumination techniques. The outside skin was sterilely prepared, anesthetizing the site, and then the trocar needle was used to place the gastrostomy tube using the standard pull technique. The patient was left to recovery in good condition. COMPLICATIONS: None. RECOMMENDATIONS: 1. Observe overnight. 2. Begin tube feedings tomorrow. Gurinder Richardson M.D. DR: Freddy JOB#: [id number] CC:
[2017-01-23 06:18] LABS: INR 1.1 (0.9-1.1); PROTHROMBIN TIME 10.8 SEC (9.30-11.50)
[2017-01-23 06:22] LABS: BASOPHILS % (AUTO) 0.7 % (0.0-2.0); LYMPHOCYTES % (AUTO) 18.9 % (20.0-45.0); MEAN CORPUSCULAR HEMOGLOBIN 32.2 PG (27.0-31.0); MEAN CORPUSCULAR HGB CONC 33.1 G/DL (32.0-36.0); MEAN CORPUSCULAR VOLUME 97 FL (80-99); MEAN PLATELET VOLUME 6.8 FL (6.5-10.1); MONOCYTES % (AUTO) 7.5 % (1.0-10.0); PLATELET COUNT 283 K/UL (150-450); RED BLOOD COUNT 2.75 M/UL (4.70-6.10); RED CELL DISTRIBUTION WIDTH 12.3 % (11.6-14.8); WHITE BLOOD COUNT 7.6 K/UL (4.8-10.8)
[2017-01-23 06:39] LABS: ALANINE AMINOTRANSFERASE 7 U/L (3-41); ALBUMIN/GLOBULIN RATIO 0.9 (1.0-2.7); ANION GAP 12 (5-15); ASPARTATE AMINO TRANSFERASE 10 U/L (5-40); CALCIUM 8.8 mg/dL (8.6-10.2); CARBON DIOXIDE 30 mEQ/L (20-30); CHLORIDE 96 mEQ/L (98-107); CREATININE 0.5 mg/dL (0.7-1.2); HEMOLYSIS 4; MAGNESIUM 1.8 mg/dL (1.7-2.5); PHOSPHORUS 3.3 mg/dL (2.5-4.8); POTASSIUM 3.3 mEQ/L (3.4-4.9); SODIUM 138 mEQ/L (135-145); TOTAL PROTEIN 5.5 g/dL (6.6-8.7)
[2017-01-23] MEDS: Docusate 100mg tablet ORAL SCH (08:59)
[2017-01-23] MEDS: Heparin 5000 units/ml inj SUBQ SCH ×2 (09:03→21:31)
--- NOTE | 2017-01-23 09:15 | Pulmonolgy Critical Care Note ---
Critical Care - Asmt/Plan Problems: (1) Respiratory distress (2) Aspiration pneumonia (3) Dementia Respiratory: monitor respiratory rate, adjust FIO2, CXR Cardiac: continue pressors, continue to monitor HR/BP Renal: F/U I&O, keep IV fluid, check electrolytes Infectious Disease: check cultures Gastrointestinal: hold feedings Endocrine: monitor blood sugar, check TSH, continue sliding scale insulin Hematologic: monitor H/H, transfuse if hgb<8.5 Neurologic: PRN Ativan, PRN Morphine, keep patient comfortable Affect: PRN ativan Notes Reviewed: cardio, renal Discussed with: nurses, consultants, case liner, family member Critical Care - Objective Last 24 Hour Vital Signs Date Time Temp Pulse Resp B/P Pulse Ox O2 Delivery O2 Flow Rate FiO2 01/23/17 08:00 98.1 61 16 106/52 100 Mechanical Ventilator 30 01/23/17 08:00 30 01/23/17 08:00 68 01/23/17 07:25 61 15 100 Mechanical Ventilator 30 01/23/17 07:20 30 01/23/17 07:20 62 13 30 01/23/17 07:20 62 17 100 Mechanical Ventilator 30 01/23/17 07:00 63 14 93/53 100 Mechanical Ventilator 30 01/23/17 06:00 64 12 100/52 100 Mechanical Ventilator 30 01/23/17 05:31 70 101/53 01/23/17 05:12 70 11 30 01/23/17 05:00 70 16 101/53 100 Mechanical Ventilator 30 01/23/17 04:00 71 01/23/17 04:00 30 01/23/17 04:00 97.8 68 17 114/49 100 Mechanical Ventilator 30 01/23/17 03:07 66 10 30 01/23/17 03:00 77 12 112/56 100 Mechanical Ventilator 30 01/23/17 02:00 67 16 119/55 100 Mechanical Ventilator 30 01/23/17 01:30 30 01/23/17 01:30 67 14 100 Mechanical Ventilator 30 01/23/17 01:12 66 14 100 Mechanical Ventilator 30 01/23/17 01:12 66 15 30 01/23/17 01:00 66 17 121/70 100 Mechanical Ventilator 30 01/23/17 00:00 30 01/23/17 00:00 68 01/23/17 00:00 98.0 68 18 122/66 100 Mechanical Ventilator 30 01/22/17 23:08 68 12 30 01/22/17 23:00 67 18 123/68 100 Mechanical Ventilator 30 01/22/17 22:00 66 136/77 01/22/17 22:00 67 18 127/82 100 Mechanical Ventilator 30 01/22/17 21:03 75 12 30 01/22/17 21:00 67 19 136/77 100 Mechanical Ventilator 30 01/22/17 20:00 30 01/22/17 20:00 98.3 74 17 126/56 100 Mechanical Ventilator 30 01/22/17 20:00 74 01/22/17 19:20 66 14 100 Mechanical Ventilator 30 01/22/17 19:20 30 01/22/17 19:10 63 15 30 01/22/17 19:10 64 12 100 Mechanical Ventilator 30 01/22/17 19:00 68 19 111/62 100 Mechanical Ventilator 30 01/22/17 18:00 65 18 110/63 100 Mechanical Ventilator 30 01/22/17 17:00 68 18 126/60 100 Mechanical Ventilator 30 01/22/17 16:48 81 14 30 01/22/17 16:00 98.5 70 17 118/61 100 Mechanical Ventilator 30 01/22/17 16:00 71 01/22/17 15:03 72 13 30 01/22/17 15:00 71 18 123/61 100 Mechanical Ventilator 30 01/22/17 14:00 70 18 116/51 100 Mechanical Ventilator 30 01/22/17 13:43 70 128/57 01/22/17 13:11 65 12 40 01/22/17 13:10 65 14 100 Mechanical Ventilator 30 01/22/17 13:00 67 18 126/57 100 Mechanical Ventilator 30 01/22/17 13:00 67 14 100 Mechanical Ventilator 15.0 40 01/22/17 13:00 30 01/22/17 13:00 45 01/22/17 12:56 71 14 40 01/22/17 12:00 68 01/22/17 12:00 98.7 68 17 106/55 100 Mechanical Ventilator 40 01/22/17 11:00 67 18 108/63 100 Mechanical Ventilator 40 01/22/ 11:00 40 01/22/17 10:58 68 14 40 01/22/17 10:00 68 18 130/59 100 Mechanical Ventilator 40 01/22/17 09:21 65 17 100 01/22/17 09:19 72 12 100 Status: awake Condition: critical HEENT: atraumatic, normocephalic Neck: full ROM Lungs: clear Heart: HR/BP stable, HR/BP unstable Abdomen: soft, non-tender, active bowel sounds Extremities: no C/C/E, edema Decubiti: location Micro: Microbiology Date/Time Source Procedure Growth Status 01/20/17 11:15 Blood Blood Culture - Preliminary NO GROWTH AFTER 48 HOURS Resulted 01/20/17 11:00 Blood Blood Culture - Preliminary NO GROWTH AFTER 48 HOURS Resulted 01/20/17 11:00 Sputum Induced Gram Stain - Final Complete 01/20/17 11:00 Sputum Induced Sputum Culture - Final NORMAL UPPER RESPIRATORY MINAL PRESENT Complete 01/20/17 11:00 Indwelling Cath Urine Culture - Final NO GROWTH AFTER 48 HOURS Complete Accucheck: 115 Critical Care - Subjective ROS Limited/Unobtainable: Yes ICU Day: 19 Intubation Day: s/p trach Interval Events: tolerated PEG yesterday FI02: 30 Vent Support Breath Rate: 10 Vent Support Mode: IMV/SIMV Vent Tidal Volume: 550 Sputum Amount: Moderate PEEP: 5.0 PIP: 17 Secretions: small Tube Feeding Amount: 55 I&O: Intake and Output 01/22/17 01/23/17 18:59 06:59 Intake Total 900 ml 930 ml Output Total 540 ml 710 ml Balance 360 ml 220 ml IV Total 900 ml 900 ml Other 30 ml Output Urine Total 540 ml 710 ml CXR: no new infiltrate, trach intact Labs: Laboratory Tests Test 01/22/17 15:00 01/23/17 05:25 Arterial Blood pH 7.555 (7.350-7.450) Arterial Blood Partial Pressure CO2 40.4 mmHg (35.0-45.0) Arterial Blood Partial Pressure O2 77.7 mmHg (75.0-100.0) Arterial Blood HCO3 35.0 mmol/L (22.0-26.0) H Arterial Blood Oxygen Saturation 96.1 % (92.0-98.0) Arterial Blood Base Excess 11.7 Leo Test Positive White Blood Count 7.6 K/UL (4.8-10.8) Red Blood Count 2.75 M/UL (4.70-6.10) L Hemoglobin 8.9 G/DL (14.2-18.0) L Hematocrit 26.8 % (42.0-52.0) L Mean Corpuscular Volume 97 FL (80-99) Mean Corpuscular Hemoglobin 32.2 PG (27.0-31.0) H Mean Corpuscular Hemoglobin Concent 33.1 G/DL (32.0-36.0) Red Cell Distribution Width 12.3 % (11.6-14.8) Platelet Count 283 K/UL (150-450) Mean Platelet Volume 6.8 FL (6.5-10.1) Neutrophils (%) (Auto) 68.0 % (45.0-75.0) Lymphocytes (%) (Auto) 18.9 % (20.0-45.0) L Monocytes (%) (Auto) 7.5 % (1.0-10.0) Eosinophils (%) (Auto) 5.0 % (0.0-3.0) H Basophils (%) (Auto) 0.7 % (0.0-2.0) Prothrombin Time 10.8 SEC (9.30-11.50) Prothromb Time International Ratio 1.1 (0.9-1.1) Activated Partial Thromboplast Time 35 SEC (23-33) H Sodium Level 138 mEQ/L (135-145) Potassium Level 3.3 mEQ/L (3.4-4.9) L Chloride Level 96 mEQ/L (98-107) L Carbon Dioxide Level 30 mEQ/L (20-30) Anion Gap 12 (5-15) Blood Urea Nitrogen 19 mg/dL (7-23) Creatinine 0.5 mg/dL (0.7-1.2) L Estimat Glomerular Filtration Rate mL/min (>60) Glucose Level 132 mg/dL (74-106) H Calcium Level 8.8 mg/dL (8.6-10.2) Phosphorus Level 3.3 mg/dL (2.5-4.8) Magnesium Level 1.8 mg/dL (1.7-2.5) Total Bilirubin 0.5 mg/dL (0.0-1.2) Aspartate Amino Transf (AST/SGOT) 10 U/L (5-40) Alanine Aminotransferase (ALT/SGPT) 7 U/L (3-41) Alkaline Phosphatase 53 U/L (40-129) Total Protein 5.5 g/dL (6.6-8.7) L Albumin 2.7 g/dL (3.5-5.2) L Globulin 2.8 g/dL Albumin/Globulin Ratio 0.9 (1.0-2.7) L RABIA BANGURA January 23, 2017 09:15
[2017-01-23] MEDS ORDERED: Abreva 10% cream 2gm TP PRN (09:45)
[2017-01-23] MEDS: acetaZOLAMIDE 500mg Inj IVP SCH ×2 (09:51→21:30)
[2017-01-23] MEDS ORDERED: Miralax 17gm pkt ORAL PRN (10:00)
[2017-01-23] MEDS ORDERED: KCl 10% 40mEq/30ml liquid GT ONE (10:30)
[2017-01-23] MEDS ORDERED: Fleet's Enema 133ml RECTAL ONE (10:30)
--- NOTE | 2017-01-23 14:58 | Internal Med Progress Note ---
Subjective Date of Service: January 23, 2017 Physician Name Sangeetha Johnson Attending Physician Sangeetha Johnson Current Medications Medications (Trade) Dose Ordered Sig/Daina Route PRN Reason Start Time Stop Time Status Last Admin Dose Admin Acetaminophen (Tylenol) 650 mg Q4H PRN ORAL fever 01/04/17 21:00 02/03/17 20:59 Acetazolamide (Diamox 500mg Inj) 250 mg EVERY 12 HOURS IVP 01/23/17 09:00 02/22/17 08:59 01/23/17 09:51 Albuterol/ Ipratropium (DuoNeb 0.5-3(2.5)mg/3ml) 3 ml Q6HRT HHN 01/21/17 14:00 01/26/17 13:59 01/23/17 13:15 Betamethasone/ Clotrimazole (Lotrisone) 1 applic TWICE A DAY PRN TOPIC Itching/Pruritis 01/20/17 11:00 02/19/17 10:59 Clonidine HCl (Catapres) 0.1 mg Q6H PRN GT SBP > 170 01/06/17 16:00 02/05/17 15:59 Dextrose (Dextrose 50%) STAT PRN IV Hypoglycemia 01/04/17 21:00 02/03/17 20:59 Diltiazem HCl (Cardizem) 60 mg EVERY 8 HOURS NG 01/14/17 14:00 02/13/17 13:59 01/23/17 13:36 Docosanol (Abreva) 0.25 gm QIDPRN PRN TP PRN UP TO 4X DAILY TO CHIN 01/23/17 09:45 02/22/17 09:44 Heparin Sodium (Porcine) (Heparin 5000 units/ml) 5,000 units EVERY 12 HOURS SUBQ 01/04/17 22:00 02/03/17 21:59 01/23/17 09:03 Lansoprazole (Prevacid) 30 mg DAILY GT 01/13/17 09:00 02/12/17 08:59 01/23/17 08:59 Ondansetron HCl (Zofran) 4 mg Q6H PRN IVP Nausea & Vomiting 01/04/17 21:00 02/03/17 20:59 Polyethylene Glycol (Miralax) 17 gm DAILY ORAL 01/24/17 09:00 02/23/17 08:59 Allergies: Coded Allergies: No Known Allergies (Verified , 01/06/17) ROS Limited/Unobtainable: Yes Subjective 76 YO M admitted with aspiration and respiratory failure. Intubaated on CPAP. ICU. S/P tracheostomy 01/21/17. S/P PEG 01/22/17. Await transfer to sub acute [facility]. Sitting up at edge of bed. Objective Last Vital Signs Date Time Temp Pulse Resp B/P Pulse Ox O2 Delivery O2 Flow Rate FiO2 01/23/17 14:00 68 17 111/74 100 Mechanical Ventilator 30 01/23/17 12:00 98.7 01/22/17 13:00 15.0 Laboratory Tests Test 01/22/17 15:00 01/23/17 05:25 Arterial Blood pH 7.555 (7.350-7.450) Arterial Blood Partial Pressure CO2 40.4 mmHg (35.0-45.0) Arterial Blood Partial Pressure O2 77.7 mmHg (75.0-100.0) Arterial Blood HCO3 35.0 mmol/L (22.0-26.0) H Arterial Blood Oxygen Saturation 96.1 % (92.0-98.0) Arterial Blood Base Excess 11.7 Leo Test Positive White Blood Count 7.6 K/UL (4.8-10.8) Red Blood Count 2.75 M/UL (4.70-6.10) L Hemoglobin 8.9 G/DL (14.2-18.0) L Hematocrit 26.8 % (42.0-52.0) L Mean Corpuscular Volume 97 FL (80-99) Mean Corpuscular Hemoglobin 32.2 PG (27.0-31.0) H Mean Corpuscular Hemoglobin Concent 33.1 G/DL (32.0-36.0) Red Cell Distribution Width 12.3 % (11.6-14.8) Platelet Count 283 K/UL (150-450) Mean Platelet Volume 6.8 FL (6.5-10.1) Neutrophils (%) (Auto) 68.0 % (45.0-75.0) Lymphocytes (%) (Auto) 18.9 % (20.0-45.0) L Monocytes (%) (Auto) 7.5 % (1.0-10.0) Eosinophils (%) (Auto) 5.0 % (0.0-3.0) H Basophils (%) (Auto) 0.7 % (0.0-2.0) Prothrombin Time 10.8 SEC (9.30-11.50) Prothromb Time International Ratio 1.1 (0.9-1.1) Activated Partial Thromboplast Time 35 SEC (23-33) H Sodium Level 138 mEQ/L (135-145) Potassium Level 3.3 mEQ/L (3.4-4.9) L Chloride Level 96 mEQ/L (98-107) L Carbon Dioxide Level 30 mEQ/L (20-30) Anion Gap 12 (5-15) Blood Urea Nitrogen 19 mg/dL (7-23) Creatinine 0.5 mg/dL (0.7-1.2) L Estimat Glomerular Filtration Rate mL/min (>60) Glucose Level 132 mg/dL (74-106) H Calcium Level 8.8 mg/dL (8.6-10.2) Phosphorus Level 3.3 mg/dL (2.5-4.8) Magnesium Level 1.8 mg/dL (1.7-2.5) Total Bilirubin 0.5 mg/dL (0.0-1.2) Aspartate Amino Transf (AST/SGOT) 10 U/L (5-40) Alanine Aminotransferase (ALT/SGPT) 7 U/L (3-41) Alkaline Phosphatase 53 U/L (40-129) Total Protein 5.5 g/dL (6.6-8.7) L Albumin 2.7 g/dL (3.5-5.2) L Globulin 2.8 g/dL Albumin/Globulin Ratio 0.9 (1.0-2.7) L Intake and Output 01/22/17 01/23/17 19:00 07:00 Intake Total 900 ml 930 ml Output Total 530 ml 700 ml Balance 370 ml 230 ml IV Total 900 ml 900 ml Other 30 ml Output Urine Total 530 ml 700 ml Objective General Appearance: WD/WN, moderate distress EENT: PERRL/EOMI, normal ENT inspection Neck: non-tender, normal alignment, supple Cardiovascular: normal peripheral pulses, normal rate, regular rhythm, no gallop/murmur, no JVD Respiratory/Chest: Mech vent; trach; respiratory distress, crackles/rales, rhonchi - bilaterally, expiratory wheezing Abdomen: PEG; normal bowel sounds, non tender, soft, no organomegaly, no mass Extremities: normal range of motion, non-tender Neurologic: host II-XII grossly normal, no motor/sensory deficits Assessment/Plan Problem List: (1) Respiratory failure Assessment & Plan: Tracheostomy scheduled 01/21/17 (2) Hypertension Assessment & Plan: Better control-see cardiology consult. (3) Hypercholesteremia (4) BPH (benign prostatic hyperplasia) (5) Alzheimer's dementia (6) Aspiration pneumonia Assessment & Plan: Ada. D/C fluconazole. See pulmonary and ID note. (7) Hematuria Assessment & Plan: Resolved (8) Atrial fibrillation with RVR Assessment & Plan: Rate controlled - see cardiology note. (9) Dysphagia Assessment & Plan: S/P PEG placement 01/22/17-see GI note. Assessment/Plan Await transfer to [facility] sub acute fac. Discussed with SANGEETHA JOHNSON January 23, 2017 14:58
[2017-01-23] MEDS ORDERED: Tubing IV Secondary IV ONE (15:40)
[2017-01-23 16:27] LABS: ABG ALLEN TEST POSITIVE; ABG BASE EXCESS 4.7; ABG PCO2 39.6 mmHg (35.0-45.0)
--- NOTE | 2017-01-23 17:19 | General Progress Note ---
Assessment/Plan Assessment/Plan Assessment - Resp failure - trach - dysphagai - PEG - OBS Recommendations - restart TF - Elevate HOB - GT site care - follow labs Subjective Allergies: Coded Allergies: No Known Allergies (Verified , 01/06/17) Subjective non verbal POD #1 after PEG d/w at bedside Objective Last 24 Hour Vital Signs Date Time Temp Pulse Resp B/P Pulse Ox O2 Delivery O2 Flow Rate FiO2 01/23/17 17:00 68 17 111/60 100 Mechanical Ventilator 30 01/23/17 16:00 30 01/23/17 16:00 98.2 70 18 126/60 100 Mechanical Ventilator 30 01/23/17 16:00 69 01/23/17 15:15 69 18 30 01/23/17 15:00 68 17 120/60 100 Mechanical Ventilator 30 01/23/17 14:00 68 17 111/74 100 Mechanical Ventilator 30 01/23/17 13:36 69 118/52 01/23/17 13:15 67 18 100 Mechanical Ventilator 30 01/23/17 13:10 30 01/23/17 13:10 66 16 30 01/23/17 13:10 66 16 100 Mechanical Ventilator 30 01/23/17 13:00 69 18 118/52 98 Mechanical Ventilator 30 01/23/17 12:00 30 01/23/17 12:00 98.7 65 18 120/52 100 Mechanical Ventilator 30 01/23/17 12:00 67 01/23/17 11:20 69 18 30 01/23/17 11:00 69 18 101/54 100 Mechanical Ventilator 30 01/23/17 11:00 30 01/23/17 10:00 70 17 129/55 100 Mechanical Ventilator 30 01/23/17 09:20 100 01/23/17 09:20 74 14 30 01/23/17 09:00 70 17 105/57 100 Mechanical Ventilator 30 01/23/17 08:00 98.1 61 16 106/52 100 Mechanical Ventilator 30 01/23/17 08:00 30 01/23/17 08:00 68 01/23/17 07:25 61 15 100 Mechanical Ventilator 30 01/23/17 07:20 30 01/23/17 07:20 62 13 30 01/23/17 07:20 62 17 100 Mechanical Ventilator 30 01/23/17 07:00 63 14 93/53 100 Mechanical Ventilator 30 01/23/17 06:00 64 12 100/52 100 Mechanical Ventilator 30 01/23/17 05:31 70 101/53 01/23/17 05:12 70 11 30 01/23/17 05:00 70 16 101/53 100 Mechanical Ventilator 30 01/23/17 04:00 71 01/23/17 04:00 30 01/23/17 04:00 97.8 68 17 114/49 100 Mechanical Ventilator 30 01/23/17 03:07 66 10 30 01/23/17 03:00 77 12 112/56 100 Mechanical Ventilator 30 01/23/17 02:00 67 16 119/55 100 Mechanical Ventilator 30 01/23/17 01:30 30 01/23/17 01:30 67 14 100 Mechanical Ventilator 30 01/23/17 01:12 66 14 100 Mechanical Ventilator 30 01/23/17 01:12 66 15 30 01/23/17 01:00 66 17 121/70 100 Mechanical Ventilator 30 01/23/17 00:00 30 01/23/17 00:00 68 01/23/17 00:00 98.0 68 18 122/66 100 Mechanical Ventilator 30 01/22/17 23:08 68 12 30 01/22/17 23:00 67 18 123/68 100 Mechanical Ventilator 30 01/22/17 22:00 66 136/77 01/22/17 22:00 67 18 127/82 100 Mechanical Ventilator 30 01/22/17 21:03 75 12 30 01/22/17 21:00 67 19 136/77 100 Mechanical Ventilator 30 01/22/17 20:00 30 01/22/17 20:00 98.3 74 17 126/56 100 Mechanical Ventilator 30 01/22/17 20:00 74 01/22/17 19:20 66 14 100 Mechanical Ventilator 30 01/22/17 19:20 30 01/22/17 19:10 63 15 30 01/22/17 19:10 64 12 100 Mechanical Ventilator 30 01/22/17 19:00 68 19 111/62 100 Mechanical Ventilator 30 01/22/17 18:00 65 18 110/63 100 Mechanical Ventilator 30 Intake and Output 01/22/17 01/23/17 19:00 07:00 Intake Total 900 ml 930 ml Output Total 530 ml 700 ml Balance 370 ml 230 ml IV Total 900 ml 900 ml Other 30 ml Output Urine Total 530 ml 700 ml Laboratory Tests 01/23/17 05:25: White Blood Count 7.6, Red Blood Count 2.75L, Hemoglobin 8.9L, Hematocrit 26.8L , Mean Corpuscular Volume 97, Mean Corpuscular Hemoglobin 32.2H, Mean Corpuscular Hemoglobin Concent 33.1, Red Cell Distribution Width 12.3, Platelet Count 283, Mean Platelet Volume 6.8, Neutrophils (%) (Auto) 68.0, Lymphocytes (% ) (Auto) 18.9L, Monocytes (%) (Auto) 7.5, Eosinophils (%) (Auto) 5.0H, Basophils (%) (Auto) 0.7, Prothrombin Time 10.8, Prothromb Time International Ratio 1.1, Activated Partial Thromboplast Time 35H, Sodium Level 138, Potassium Level 3.3L, Chloride Level 96L, Carbon Dioxide Level 30, Anion Gap 12, Blood Urea Nitrogen 19, Creatinine 0.5L, Estimat Glomerular Filtration Rate , Glucose Level 132H, Calcium Level 8.8, Phosphorus Level 3.3, Magnesium Level 1.8, Total Bilirubin 0.5, Aspartate Amino Transf (AST/SGOT) 10, Alanine Aminotransferase ( ALT/SGPT) 7, Alkaline Phosphatase 53, Total Protein 5.5L, Albumin 2.7L, Globulin 2.8, Albumin/Globulin Ratio 0.9L 01/23/17 16:19: Arterial Blood pH 7.476H, Arterial Blood Partial Pressure CO2 39.6, Arterial Blood Partial Pressure O2 116.5H, Arterial Blood HCO3 28.6H, Arterial Blood Oxygen Saturation 97.8, Arterial Blood Base Excess 4.7, Leo Test Positive Height (Feet): 5 Height (Inches): 4.00 Weight (Pounds): 117 Objective obtunded NCAT, temporal wasting neck - tacheostomy CTA RRR soft flat, (+) GT no edema OBS HUMBLE ALLRED January 23, 2017 17:19
--- NOTE | 2017-01-23 17:33 | Cardiac Electrophysiology PN ---
Assessment/Plan Assessment/Plan 1. Atrial fib with RVR.No recurrence on Cardizem 60mg NG q 8 hrs. Keep off anticoagulation as had only one episode of atrial fib. 2. Hypertension. Continue Cardizem. 3. Severe pulmonary hypertension, pressure 55, likely due to history of obstructive sleep apnea. 4. Recurrent Respiratory failure due to aspiration. S/P Tracheostomy 01/21/17 5. Dementia. 6. Dysphagia.S/P PEG 01/22/17 DW RN and Subjective Subjective In ICU on vent via tracheostomy on CPAP. No recurrence of atrial fib. at bedside. Objective Last 24 Hour Vital Signs Date Time Temp Pulse Resp B/P Pulse Ox O2 Delivery O2 Flow Rate FiO2 01/23/17 17:00 68 17 111/60 100 Mechanical Ventilator 30 01/23/17 17:00 68 18 30 01/23/17 16:00 30 01/23/17 16:00 98.2 70 18 126/60 100 Mechanical Ventilator 30 01/23/17 16:00 69 01/23/17 15:15 69 18 30 01/23/17 15:00 68 17 120/60 100 Mechanical Ventilator 30 01/23/17 14:00 68 17 111/74 100 Mechanical Ventilator 30 01/23/17 13:36 69 118/52 01/23/17 13:15 67 18 100 Mechanical Ventilator 30 01/23/17 13:10 30 01/23/17 13:10 66 16 30 01/23/17 13:10 66 16 100 Mechanical Ventilator 30 01/23/17 13:00 69 18 118/52 98 Mechanical Ventilator 30 01/23/17 12:00 30 01/23/17 12:00 98.7 65 18 120/52 100 Mechanical Ventilator 30 01/23/17 12:00 67 01/23/17 11:20 69 18 30 01/23/17 11:00 69 18 101/54 100 Mechanical Ventilator 30 01/23/17 11:00 30 01/23/17 10:00 70 17 129/55 100 Mechanical Ventilator 30 01/23/17 09:20 100 01/23/17 09:20 74 14 30 01/23/17 09:00 70 17 105/57 100 Mechanical Ventilator 30 01/23/17 08:00 98.1 61 16 106/52 100 Mechanical Ventilator 30 01/23/17 08:00 30 01/23/17 08:00 68 01/23/17 07:25 61 15 100 Mechanical Ventilator 30 01/23/17 07:20 30 56 07:20 62 13 30 56/ 07:20 62 17 100 Mechanical Ventilator 30 01/23/17 07:00 63 14 93/53 100 Mechanical Ventilator 30 01/23/17 06:00 64 12 100/52 100 Mechanical Ventilator 30 01/23/17 05:31 70 101/53 5 05:12 70 11 30 01/23/17 05:00 70 16 101/53 100 Mechanical Ventilator 30 01/23/17 04:00 71 01/23/17 04:00 30 01/23/17 04:00 97.8 68 17 114/49 100 Mechanical Ventilator 30 01/23/17 03:07 66 10 30 01/23/17 03:00 77 12 112/56 100 Mechanical Ventilator 30 01/23/17 02:00 67 16 119/55 100 Mechanical Ventilator 30 01/23/17 01:30 30 01/23/17 01:30 67 14 100 Mechanical Ventilator 30 01/23/17 01:12 66 14 100 Mechanical Ventilator 30 01/23/17 01:12 66 15 30 01/23/17 01:00 66 17 121/70 100 Mechanical Ventilator 30 01/23/17 00:00 30 01/23/17 00:00 68 01/23/17 00:00 98.0 68 18 122/66 100 Mechanical Ventilator 30 01/22/17 23:08 68 12 30 01/22/17 23:00 67 18 123/68 100 Mechanical Ventilator 30 01/22/17 22:00 66 136/77 01/22/17 22:00 67 18 127/82 100 Mechanical Ventilator 30 01/22/17 21:03 75 12 30 01/22/17 21:00 67 19 136/77 100 Mechanical Ventilator 30 01/22/17 20:00 30 01/22/17 20:00 98.3 74 17 126/56 100 Mechanical Ventilator 30 01/22/17 20:00 74 01/22/17 19:20 66 14 100 Mechanical Ventilator 30 01/22/17 19:20 30 01/22/ 19:10 63 15 30 01/22/17 19:10 64 12 100 Mechanical Ventilator 30 01/22/17 19:00 68 19 111/62 100 Mechanical Ventilator 30 01/22/17 18:00 65 18 110/63 100 Mechanical Ventilator 30 Intake and Output 01/22/17 01/23/17 19:00 07:00 Intake Total 900 ml 930 ml Output Total 530 ml 700 ml Balance 370 ml 230 ml IV Total 900 ml 900 ml Other 30 ml Output Urine Total 530 ml 700 ml Laboratory Tests Test 01/23/17 05:25 01/23/17 16:19 White Blood Count 7.6 K/UL (4.8-10.8) Red Blood Count 2.75 M/UL (4.70-6.10) L Hemoglobin 8.9 G/DL (14.2-18.0) L Hematocrit 26.8 % (42.0-52.0) L Mean Corpuscular Volume 97 FL (80-99) Mean Corpuscular Hemoglobin 32.2 PG (27.0-31.0) H Mean Corpuscular Hemoglobin Concent 33.1 G/DL (32.0-36.0) Red Cell Distribution Width 12.3 % (11.6-14.8) Platelet Count 283 K/UL (150-450) Mean Platelet Volume 6.8 FL (6.5-10.1) Neutrophils (%) (Auto) 68.0 % (45.0-75.0) Lymphocytes (%) (Auto) 18.9 % (20.0-45.0) L Monocytes (%) (Auto) 7.5 % (1.0-10.0) Eosinophils (%) (Auto) 5.0 % (0.0-3.0) H Basophils (%) (Auto) 0.7 % (0.0-2.0) Prothrombin Time 10.8 SEC (9.30-11.50) Prothromb Time International Ratio 1.1 (0.9-1.1) Activated Partial Thromboplast Time 35 SEC (23-33) H Sodium Level 138 mEQ/L (135-145) Potassium Level 3.3 mEQ/L (3.4-4.9) L Chloride Level 96 mEQ/L (98-107) L Carbon Dioxide Level 30 mEQ/L (20-30) Anion Gap 12 (5-15) Blood Urea Nitrogen 19 mg/dL (7-23) Creatinine 0.5 mg/dL (0.7-1.2) L Estimat Glomerular Filtration Rate mL/min (>60) Glucose Level 132 mg/dL (74-106) H Calcium Level 8.8 mg/dL (8.6-10.2) Phosphorus Level 3.3 mg/dL (2.5-4.8) Magnesium Level 1.8 mg/dL (1.7-2.5) Total Bilirubin 0.5 mg/dL (0.0-1.2) Aspartate Amino Transf (AST/SGOT) 10 U/L (5-40) Alanine Aminotransferase (ALT/SGPT) 7 U/L (3-41) Alkaline Phosphatase 53 U/L (40-129) Total Protein 5.5 g/dL (6.6-8.7) L Albumin 2.7 g/dL (3.5-5.2) L Globulin 2.8 g/dL Albumin/Globulin Ratio 0.9 (1.0-2.7) L Arterial Blood pH 7.476 (7.350-7.450) Arterial Blood Partial Pressure CO2 39.6 mmHg (35.0-45.0) Arterial Blood Partial Pressure O2 116.5 mmHg (75.0-100.0) H Arterial Blood HCO3 28.6 mmol/L (22.0-26.0) H Arterial Blood Oxygen Saturation 97.8 % (92.0-98.0) Arterial Blood Base Excess 4.7 Leo Test Positive Objective NECK: No JVD. S/P Tracheostomy. LUNGS: Coarse rhonchi CARDIOVASCULAR: Regular S1 and S2 with no gallop or murmur. ABDOMEN: Soft.PEG in place EXTREMITIES: No pitting edema. ARGELIA DUONG January 23, 2017 17:33
[2017-01-23] MEDS: Memantine 10mg tab ORAL SCH (17:42)
--- NOTE | 2017-01-23 17:45 | Cardiology Report ---
APPROVED REPORT EKG Measurement Heart [id number] Sinus rhythm with premature atrial complexes Otherwise normal ECG
--- NOTE | 2017-01-23 18:41 | Infectious Diseases Prog Note ---
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 Leukocytosis , SP trach 01/21 SP Extubation 01/06 , reintubated 01/09 , Extubation 01/14 History of fracture of femoral neck. Dementia. Hypertension PLAN: Monitor pt off of AB Rx ( 01/18 Diflucan d# 4 ) ( 01/14 SP Zosyn d# 10 / 10 ) ( 01/08 SP Vanco d# 4 ) Monitor CBC. Monitor BMP Monitor chest x-ray cont vent support Subjective Allergies: Coded Allergies: No Known Allergies (Verified , 01/06/17) Subjective awake Objective Vital Signs Last 24 Hour Vital Signs Date Time Temp Pulse Resp B/P Pulse Ox O2 Delivery O2 Flow Rate FiO2 01/23/17 18:00 67 16 113/63 100 Mechanical Ventilator 30 01/23/17 17:00 68 17 111/60 100 Mechanical Ventilator 30 01/23/17 17:00 68 18 30 01/23/17 16:00 30 01/23/17 16:00 98.2 70 18 126/60 100 Mechanical Ventilator 30 01/23/17 16:00 69 01/23/17 15:15 69 18 30 01/23/17 15:00 68 17 120/60 100 Mechanical Ventilator 30 01/23/17 14:00 68 17 111/74 100 Mechanical Ventilator 30 01/23/17 13:36 69 118/52 01/23/17 13:15 67 18 100 Mechanical Ventilator 30 01/23/17 13:10 30 01/23/17 13:10 66 16 30 01/23/17 13:10 66 16 100 Mechanical Ventilator 30 01/23/17 13:00 69 18 118/52 98 Mechanical Ventilator 30 01/23/17 12:00 30 01/23/17 12:00 98.7 65 18 120/52 100 Mechanical Ventilator 30 01/23/17 12:00 67 01/23/17 11:20 69 18 30 01/23/17 11:00 69 18 101/54 100 Mechanical Ventilator 30 01/23/17 11:00 30 01/23/17 10:00 70 17 129/55 100 Mechanical Ventilator 30 5/6/17 09:20 100 56 09:20 74 14 30 5/6/ 09:00 70 17 105/57 100 Mechanical Ventilator 30 01/23/17 08:00 98.1 61 16 106/52 100 Mechanical Ventilator 30 01/23/17 08:00 30 6 08:00 68 6 07:25 61 15 100 Mechanical Ventilator 30 6/ 07:20 30 5/6/ 07:20 62 13 30 56/ 07:20 62 17 100 Mechanical Ventilator 30 01/23/17 07:00 63 14 93/53 100 Mechanical Ventilator 30 01/23/17 06:00 64 12 100/52 100 Mechanical Ventilator 30 01/23/17 05:31 70 101/53 5 05:12 70 11 30 01/23/17 05:00 70 16 101/53 100 Mechanical Ventilator 30 01/23/17 04:00 71 01/23/17 04:00 30 01/23/17 04:00 97.8 68 17 114/49 100 Mechanical Ventilator 30 01/23/17 03:07 66 10 30 01/23/17 03:00 77 12 112/56 100 Mechanical Ventilator 30 01/23/17 02:00 67 16 119/55 100 Mechanical Ventilator 30 01/23/17 01:30 30 01/23/17 01:30 67 14 100 Mechanical Ventilator 30 01/23/17 01:12 66 14 100 Mechanical Ventilator 30 01/23/17 01:12 66 15 30 6/ 01:00 66 17 121/70 100 Mechanical Ventilator 30 01/23/17 00:00 30 6 00:00 68 01/23/17 00:00 98.0 68 18 122/66 100 Mechanical Ventilator 30 01/22/17 23:08 68 12 30 01/22/17 23:00 67 18 123/68 100 Mechanical Ventilator 30 01/22/17 22:00 66 136/77 01/22/17 22:00 67 18 127/82 100 Mechanical Ventilator 30 01/22/17 21:03 75 12 30 01/22/ 21:00 67 19 136/77 100 Mechanical Ventilator 30 01/22/ 20:00 30 01/22/17 20:00 98.3 74 17 126/56 100 Mechanical Ventilator 30 5 20:00 74 5 19:20 66 14 100 Mechanical Ventilator 30 01/22/17 19:20 30 01/22/17 19:10 63 15 30 01/22/17 19:10 64 12 100 Mechanical Ventilator 30 01/22/17 19:00 68 19 111/62 100 Mechanical Ventilator 30 Height (Feet): 5 Height (Inches): 4.00 Weight (Pounds): 117 HEENT: anicteric Respiratory/Chest: no respiratory distress Cardiovascular: no JVD Abdomen: non distended Laboratory Tests Test 01/23/17 05:25 01/23/17 16:19 White Blood Count 7.6 K/UL (4.8-10.8) Red Blood Count 2.75 M/UL (4.70-6.10) L Hemoglobin 8.9 G/DL (14.2-18.0) L Hematocrit 26.8 % (42.0-52.0) L Mean Corpuscular Volume 97 FL (80-99) Mean Corpuscular Hemoglobin 32.2 PG (27.0-31.0) H Mean Corpuscular Hemoglobin Concent 33.1 G/DL (32.0-36.0) Red Cell Distribution Width 12.3 % (11.6-14.8) Platelet Count 283 K/UL (150-450) Mean Platelet Volume 6.8 FL (6.5-10.1) Neutrophils (%) (Auto) 68.0 % (45.0-75.0) Lymphocytes (%) (Auto) 18.9 % (20.0-45.0) L Monocytes (%) (Auto) 7.5 % (1.0-10.0) Eosinophils (%) (Auto) 5.0 % (0.0-3.0) H Basophils (%) (Auto) 0.7 % (0.0-2.0) Prothrombin Time 10.8 SEC (9.30-11.50) Prothromb Time International Ratio 1.1 (0.9-1.1) Activated Partial Thromboplast Time 35 SEC (23-33) H Sodium Level 138 mEQ/L (135-145) Potassium Level 3.3 mEQ/L (3.4-4.9) L Chloride Level 96 mEQ/L (98-107) L Carbon Dioxide Level 30 mEQ/L (20-30) Anion Gap 12 (5-15) Blood Urea Nitrogen 19 mg/dL (7-23) Creatinine 0.5 mg/dL (0.7-1.2) L Estimat Glomerular Filtration Rate mL/min (>60) Glucose Level 132 mg/dL (74-106) H Calcium Level 8.8 mg/dL (8.6-10.2) Phosphorus Level 3.3 mg/dL (2.5-4.8) Magnesium Level 1.8 mg/dL (1.7-2.5) Total Bilirubin 0.5 mg/dL (0.0-1.2) Aspartate Amino Transf (AST/SGOT) 10 U/L (5-40) Alanine Aminotransferase (ALT/SGPT) 7 U/L (3-41) Alkaline Phosphatase 53 U/L (40-129) Total Protein 5.5 g/dL (6.6-8.7) L Albumin 2.7 g/dL (3.5-5.2) L Globulin 2.8 g/dL Albumin/Globulin Ratio 0.9 (1.0-2.7) L Arterial Blood pH 7.476 (7.350-7.450) Arterial Blood Partial Pressure CO2 39.6 mmHg (35.0-45.0) Arterial Blood Partial Pressure O2 116.5 mmHg (75.0-100.0) H Arterial Blood HCO3 28.6 mmol/L (22.0-26.0) H Arterial Blood Oxygen Saturation 97.8 % (92.0-98.0) Arterial Blood Base Excess 4.7 Leo Test Positive Current Medications Medications (Trade) Dose Ordered Sig/Daina Route PRN Reason Start Time Stop Time Status Last Admin Dose Admin Acetaminophen (Tylenol) 650 mg Q4H PRN ORAL fever 01/04/17 21:00 02/03/17 20:59 Acetazolamide (Diamox 500mg Inj) 250 mg EVERY 12 HOURS IVP 01/23/17 09:00 02/22/17 08:59 01/23/17 09:51 Albuterol/ Ipratropium (DuoNeb 0.5-3(2.5)mg/3ml) 3 ml Q6HRT HHN 01/21/17 14:00 01/26/17 13:59 01/23/17 13:15 Betamethasone/ Clotrimazole (Lotrisone) 1 applic TWICE A DAY PRN TOPIC Itching/Pruritis 01/20/17 11:00 02/19/17 10:59 Clonidine HCl (Catapres) 0.1 mg Q6H PRN GT SBP > 170 01/06/17 16:00 02/05/17 15:59 Dextrose (Dextrose 50%) STAT PRN IV Hypoglycemia 01/04/17 21:00 02/03/17 20:59 Diltiazem HCl (Cardizem) 60 mg EVERY 8 HOURS NG 01/14/17 14:00 02/13/17 13:59 01/23/17 13:36 Docosanol (Abreva) 0.25 gm QIDPRN PRN TP PRN UP TO 4X DAILY TO CHIN 01/23/17 09:45 02/22/17 09:44 Donepezil HCl (Aricept) 10 mg QHS ORAL 01/23/17 21:00 02/22/17 20:59 Heparin Sodium (Porcine) (Heparin 5000 units/ml) 5,000 units EVERY 12 HOURS SUBQ 01/04/17 22:00 02/03/17 21:59 01/23/17 09:03 Lansoprazole (Prevacid) 30 mg DAILY GT 01/13/17 09:00 02/12/17 08:59 01/23/17 08:59 Memantine (Namenda) 10 mg BID ORAL 01/23/17 18:00 02/22/17 17:59 01/23/17 17:42 Ondansetron HCl (Zofran) 4 mg Q6H PRN IVP Nausea & Vomiting 01/04/17 21:00 02/03/17 20:59 Polyethylene Glycol (Miralax) 17 gm DAILY ORAL 01/24/17 09:00 02/23/17 08:59 HORACIO JOHN M.D. January 23, 2017 18:40
[2017-01-23] MEDS: Donepezil 10mg tab ORAL SCH (21:30)
[2017-01-24] VITALS (23 sets, daily range): BP systolic 99–135; BP diastolic 41–68
[2017-01-24] MEDS: DuoNeb 0.5-3(2.5)mg/3ml neb HHN SCH ×4 (00:37→20:30)
[2017-01-24 06:44] LABS: EOSINOPHILS % (AUTO) 5.4 % (0.0-3.0); LYMPHOCYTES % (AUTO) 15.4 % (20.0-45.0); MEAN CORPUSCULAR HEMOGLOBIN 31.6 PG (27.0-31.0); MEAN CORPUSCULAR HGB CONC 32.2 G/DL (32.0-36.0); MEAN CORPUSCULAR VOLUME 98 FL (80-99); MEAN PLATELET VOLUME 6.5 FL (6.5-10.1); MONOCYTES % (AUTO) 7.5 % (1.0-10.0); NEUTROPHILS % (AUTO) 70.8 % (45.0-75.0); PLATELET COUNT 273 K/UL (150-450); RED BLOOD COUNT 2.79 M/UL (4.70-6.10); RED CELL DISTRIBUTION WIDTH 12.3 % (11.6-14.8); WHITE BLOOD COUNT 7.8 K/UL (4.8-10.8)
[2017-01-24 07:32] LABS: ALANINE AMINOTRANSFERASE 6 U/L (3-41); ALBUMIN/GLOBULIN RATIO 0.8 (1.0-2.7); ANION GAP 13 (5-15); ASPARTATE AMINO TRANSFERASE 7 U/L (5-40); CALCIUM 8.9 mg/dL (8.6-10.2); CARBON DIOXIDE 27 mEQ/L (20-30); CHLORIDE 98 mEQ/L (98-107); CREATININE 0.7 mg/dL (0.7-1.2); HEMOLYSIS 2; PHOSPHORUS 3.6 mg/dL (2.5-4.8); POTASSIUM 3.3 mEQ/L (3.4-4.9); SODIUM 138 mEQ/L (135-145); TOTAL PROTEIN 5.8 g/dL (6.6-8.7)
[2017-01-24] MEDS: Memantine 10mg tab ORAL SCH ×2 (08:58→17:28)
[2017-01-24] MEDS: Miralax 17gm pkt ORAL SCH (08:58)
[2017-01-24] MEDS: Heparin 5000 units/ml inj SUBQ SCH ×2 (08:59→21:25)
[2017-01-24] MEDS: acetaZOLAMIDE 500mg Inj IVP SCH ×2 (09:15→21:23)
--- NOTE | 2017-01-24 09:59 | Infectious Diseases Prog Note ---
Assessment/Plan Assessment/Plan A: Pneumonia s/p Rx Respiratory failure Dementia Anemia P; observe off antibiotic Subjective ROS Limited/Unobtainable: Yes Allergies: Coded Allergies: No Known Allergies (Verified , 01/06/17) Objective Vital Signs Last 24 Hour Vital Signs Date Time Temp Pulse Resp B/P Pulse Ox O2 Delivery O2 Flow Rate FiO2 01/24/17 09:20 100 01/24/17 09:20 73 19 30 01/24/17 09:00 69 21 119/68 100 Mechanical Ventilator 30 01/24/17 08:00 98.3 78 20 108/48 100 Mechanical Ventilator 30 01/24/17 08:00 30 01/24/17 08:00 75 01/24/17 07:00 72 21 105/51 100 Mechanical Ventilator 30 01/24/17 06:45 61 17 100 Mechanical Ventilator 30 01/24/17 06:40 30 01/24/17 06:40 58 17 30 01/24/17 06:40 58 17 100 Mechanical Ventilator 30 01/24/17 06:00 63 21 108/50 100 Mechanical Ventilator 30 01/24/17 05:52 74 112/58 01/24/17 05:18 61 17 30 01/24/17 05:00 61 17 112/58 100 Mechanical Ventilator 30 01/24/17 04:00 30 01/24/17 04:00 98.1 65 18 110/54 100 Mechanical Ventilator 30 01/24/17 04:00 65 01/24/17 03:15 64 17 30 01/24/17 03:00 64 16 106/55 100 Mechanical Ventilator 30 01/24/17 02:00 63 18 108/55 100 Mechanical Ventilator 30 01/24/17 01:15 65 15 100 Mechanical Ventilator 30 01/24/17 01:15 30 01/24/17 01:00 65 18 113/60 100 Mechanical Ventilator 30 01/24/17 00:37 68 18 100 Mechanical Ventilator 01/24/17 00:35 60 17 30 01/24/17 00:00 30 01/24/17 00:00 61 01/24/17 00:00 97.9 61 16 110/57 100 Mechanical Ventilator 30 01/23/17 23:00 63 17 106/52 100 Mechanical Ventilator 30 01/23/17 22:55 65 17 30 01/23/17 22:10 65 114/68 01/23/17 22:00 66 17 114/61 100 Mechanical Ventilator 30 01/23/17 21:00 65 17 114/61 100 Mechanical Ventilator 30 01/23/17 20:49 65 18 30 01/23/17 20:00 98.5 65 16 110/57 100 Mechanical Ventilator 30 01/23/17 20:00 65 01/23/17 20:00 30 01/23/17 19:10 66 13 100 Mechanical Ventilator 30 01/23/17 19:09 30 01/23/17 19:00 69 16 105/68 100 Mechanical Ventilator 30 01/23/17 18:43 69 14 100 Mechanical Ventilator 30 01/23/17 18:41 70 16 30 01/23/17 18:00 67 16 113/63 100 Mechanical Ventilator 30 01/23/17 17:00 68 17 111/60 100 Mechanical Ventilator 30 01/23/17 17:00 68 18 30 01/23/17 16:00 30 01/23/17 16:00 98.2 70 18 126/60 100 Mechanical Ventilator 30 01/23/17 16:00 69 01/23/17 15:15 69 18 30 01/23/17 15:00 68 17 120/60 100 Mechanical Ventilator 30 01/23/17 14:00 68 17 111/74 100 Mechanical Ventilator 30 01/23/17 13:36 69 118/52 01/23/17 13:15 67 18 100 Mechanical Ventilator 30 01/23/17 13:10 30 01/23/17 13:10 66 16 30 01/23/17 13:10 66 16 100 Mechanical Ventilator 30 01/23/17 13:00 69 18 118/52 98 Mechanical Ventilator 30 01/23/17 12:00 30 01/23/17 12:00 98.7 65 18 120/52 100 Mechanical Ventilator 30 01/23/17 12:00 67 01/23/17 11:20 69 18 30 01/23/17 11:00 69 18 101/54 100 Mechanical Ventilator 30 01/23/17 11:00 30 01/23/17 10:00 70 17 129/55 100 Mechanical Ventilator 30 Height (Feet): 5 Height (Inches): 4.00 Weight (Pounds): 117 General Appearance: no acute distress HEENT: status post trach Respiratory/Chest: decreased breath sounds, other - on ventilator Cardiovascular: normal rate Abdomen: soft, non tender, other - tube feeding Extremities: no edema Neurologic/Psychiatric: unresponsiveness Laboratory Tests Test 01/23/17 16:19 01/24/17 05:45 Arterial Blood pH 7.476 (7.350-7.450) Arterial Blood Partial Pressure CO2 39.6 mmHg (35.0-45.0) Arterial Blood Partial Pressure O2 116.5 mmHg (75.0-100.0) H Arterial Blood HCO3 28.6 mmol/L (22.0-26.0) H Arterial Blood Oxygen Saturation 97.8 % (92.0-98.0) Arterial Blood Base Excess 4.7 Leo Test Positive White Blood Count 7.8 K/UL (4.8-10.8) Red Blood Count 2.79 M/UL (4.70-6.10) L Hemoglobin 8.8 G/DL (14.2-18.0) L Hematocrit 27.5 % (42.0-52.0) L Mean Corpuscular Volume 98 FL (80-99) Mean Corpuscular Hemoglobin 31.6 PG (27.0-31.0) H Mean Corpuscular Hemoglobin Concent 32.2 G/DL (32.0-36.0) Red Cell Distribution Width 12.3 % (11.6-14.8) Platelet Count 273 K/UL (150-450) Mean Platelet Volume 6.5 FL (6.5-10.1) Neutrophils (%) (Auto) 70.8 % (45.0-75.0) Lymphocytes (%) (Auto) 15.4 % (20.0-45.0) L Monocytes (%) (Auto) 7.5 % (1.0-10.0) Eosinophils (%) (Auto) 5.4 % (0.0-3.0) H Basophils (%) (Auto) 1.0 % (0.0-2.0) Sodium Level 138 mEQ/L (135-145) Potassium Level 3.3 mEQ/L (3.4-4.9) L Chloride Level 98 mEQ/L (98-107) Carbon Dioxide Level 27 mEQ/L (20-30) Anion Gap 13 (5-15) Blood Urea Nitrogen 21 mg/dL (7-23) Creatinine 0.7 mg/dL (0.7-1.2) Estimat Glomerular Filtration Rate mL/min (>60) Glucose Level 160 mg/dL (74-106) H Calcium Level 8.9 mg/dL (8.6-10.2) Phosphorus Level 3.6 mg/dL (2.5-4.8) Magnesium Level 2.0 mg/dL (1.7-2.5) Total Bilirubin 0.3 mg/dL (0.0-1.2) Aspartate Amino Transf (AST/SGOT) 7 U/L (5-40) Alanine Aminotransferase (ALT/SGPT) 6 U/L (3-41) Alkaline Phosphatase 67 U/L (40-129) Total Protein 5.8 g/dL (6.6-8.7) L Albumin 2.7 g/dL (3.5-5.2) L Globulin 3.1 g/dL Albumin/Globulin Ratio 0.8 (1.0-2.7) L Current Medications Medications (Trade) Dose Ordered Sig/Daina Route PRN Reason Start Time Stop Time Status Last Admin Dose Admin Acetaminophen (Tylenol) 650 mg Q4H PRN ORAL fever 01/04/17 21:00 02/03/17 20:59 Acetazolamide (Diamox 500mg Inj) 250 mg EVERY 12 HOURS IVP 01/23/17 09:00 02/22/17 08:59 01/24/17 09:15 Albuterol/ Ipratropium (DuoNeb 0.5-3(2.5)mg/3ml) 3 ml Q6HRT HHN 01/21/17 14:00 01/26/17 13:59 01/24/17 07:01 Betamethasone/ Clotrimazole (Lotrisone) 1 applic TWICE A DAY PRN TOPIC Itching/Pruritis 01/20/17 11:00 02/19/17 10:59 Clonidine HCl (Catapres) 0.1 mg Q6H PRN GT SBP > 170 01/06/17 16:00 02/05/17 15:59 Dextrose (Dextrose 50%) STAT PRN IV Hypoglycemia 01/04/17 21:00 02/03/17 20:59 Diltiazem HCl (Cardizem) 60 mg EVERY 8 HOURS NG 01/14/17 14:00 02/13/17 13:59 01/24/17 05:52 Docosanol (Abreva) 0.25 gm QIDPRN PRN TP PRN UP TO 4X DAILY TO CHIN 01/23/17 09:45 02/22/17 09:44 01/23/17 23:56 Donepezil HCl (Aricept) 10 mg QHS ORAL 01/23/17 21:00 02/22/17 20:59 01/23/17 21:30 Heparin Sodium (Porcine) (Heparin 5000 units/ml) 5,000 units EVERY 12 HOURS SUBQ 01/04/17 22:00 02/03/17 21:59 01/24/17 08:59 Lansoprazole (Prevacid) 30 mg DAILY GT 01/13/17 09:00 02/12/17 08:59 01/24/17 08:58 Memantine (Namenda) 10 mg BID ORAL 01/23/17 18:00 02/22/17 17:59 01/24/17 08:58 Ondansetron HCl (Zofran) 4 mg Q6H PRN IVP Nausea & Vomiting 01/04/17 21:00 02/03/17 20:59 Polyethylene Glycol (Miralax) 17 gm DAILY ORAL 01/24/17 09:00 02/23/17 08:59 01/24/17 08:58 Potassium Chloride (KCl 10% 40mEq Oral solution) 40 meq ONCE ONCE GT 01/24/17 10:30 01/24/17 10:31 BRAYDEN MCKINLEY January 24, 2017 09:59
[2017-01-24] MEDS ORDERED: NS 275ml ONE (10:01)
[2017-01-24] MEDS ORDERED: KCl 10% 40mEq/30ml liquid GT ONE (10:30)
--- NOTE | 2017-01-24 10:53 | Diagnostic Imaging Report ---
Indication: DYSPNEA Technique: One view of the chest Comparison: 01/15/2017 Findings: Interim development of atelectasis at the right lung base. There is some linear vertically oriented atelectasis or scarring again demonstrated in the retrocardiac region. The lungs and pleural spaces are otherwise clear. There is the nasogastric tube again demonstrated. The heart size is upper limits of normal. Impression: New right basilar atelectasis. Otherwise essentially unchanged over one day, findings as described
[2017-01-24] MEDS: Cephalexin 500mg cap GT SCH ×2 (12:04→21:22)
--- NOTE | 2017-01-24 15:12 | General Progress Note ---
Assessment/Plan Assessment/Plan Assessment - Resp failure - trach - dysphagai - PEG - OBS Recommendations - continue TF - Elevate HOB - GT site care - follow labs Subjective Allergies: Coded Allergies: No Known Allergies (Verified , 01/06/17) Subjective non verbal POD #2 after PEG d/w at bedside Objective Last 24 Hour Vital Signs Date Time Temp Pulse Resp B/P Pulse Ox O2 Delivery O2 Flow Rate FiO2 01/24/17 15:00 68 18 108/50 100 Mechanical Ventilator 30 01/24/17 14:00 70 18 126/59 100 Mechanical Ventilator 30 01/24/17 13:28 69 112/57 01/24/17 13:12 66 17 100 Mechanical Ventilator 30 01/24/17 13:10 66 17 30 01/24/17 13:10 66 17 100 Mechanical Ventilator 30 01/24/17 13:10 30 01/24/17 13:00 65 18 112/57 100 Mechanical Ventilator 30 01/24/17 12:00 98.5 65 17 111/57 100 Mechanical Ventilator 30 01/24/17 12:00 69 01/24/17 12:00 30 01/24/17 11:17 66 18 30 01/24/17 10:00 64 18 109/53 100 Mechanical Ventilator 30 01/24/17 09:20 100 01/24/17 09:20 73 19 30 01/24/17 09:00 69 21 119/68 100 Mechanical Ventilator 30 01/24/17 08:00 98.3 78 20 108/48 100 Mechanical Ventilator 30 01/24/17 08:00 30 01/24/17 08:00 75 01/24/17 07:00 72 21 105/51 100 Mechanical Ventilator 30 01/24/17 06:45 61 17 100 Mechanical Ventilator 30 01/24/17 06:40 30 01/24/17 06:40 58 17 30 01/24/17 06:40 58 17 100 Mechanical Ventilator 30 01/24/17 06:00 63 21 108/50 100 Mechanical Ventilator 30 01/24/17 05:52 74 112/58 01/24/17 05:18 61 17 30 01/24/17 05:00 61 17 112/58 100 Mechanical Ventilator 30 01/24/17 04:00 30 01/24/17 04:00 98.1 65 18 110/54 100 Mechanical Ventilator 30 01/24/17 04:00 65 01/24/17 03:15 64 17 30 01/24/17 03:00 64 16 106/55 100 Mechanical Ventilator 30 01/24/17 02:00 63 18 108/55 100 Mechanical Ventilator 30 01/24/17 01:15 65 15 100 Mechanical Ventilator 30 01/24/17 01:15 30 01/24/17 01:00 65 18 113/60 100 Mechanical Ventilator 30 01/24/17 00:37 68 18 100 Mechanical Ventilator 30 01/24/17 00:35 60 17 30 01/24/17 00:00 30 01/24/17 00:00 61 01/24/17 00:00 97.9 61 16 110/57 100 Mechanical Ventilator 30 01/23/17 23:00 63 17 106/52 100 Mechanical Ventilator 30 01/23/17 22:55 65 17 30 01/23/17 22:10 65 114/68 01/23/17 22:00 66 17 114/61 100 Mechanical Ventilator 30 01/23/17 21:00 65 17 114/61 100 Mechanical Ventilator 30 01/23/17 20:49 65 18 30 01/23/17 20:00 98.5 65 16 110/57 100 Mechanical Ventilator 30 01/23/17 20:00 65 01/23/17 20:00 30 01/23/17 19:10 66 13 100 Mechanical Ventilator 30 01/23/17 19:09 30 01/23/17 19:00 69 16 105/68 100 Mechanical Ventilator 30 01/23/17 18:43 69 14 100 Mechanical Ventilator 30 01/23/17 18:41 70 16 30 01/23/17 18:00 67 16 113/63 100 Mechanical Ventilator 30 01/23/17 17:00 68 17 111/60 100 Mechanical Ventilator 30 01/23/17 17:00 68 18 30 01/23/17 16:00 30 01/23/17 16:00 98.2 70 18 126/60 100 Mechanical Ventilator 30 01/23/17 16:00 69 01/23/17 15:15 69 18 30 Intake and Output 01/23/17 01/24/17 19:00 07:00 Intake Total 640 ml 740 ml Output Total 665 ml 700 ml Balance -25 ml 40 ml Free Water 100 ml IV Total 150 ml Tube Feeding 360 ml 660 ml Other 30 ml 80 ml Output Urine Total 665 ml 700 ml # Bowel Movements 2 Laboratory Tests 01/23/17 16:19: Arterial Blood pH 7.476H, Arterial Blood Partial Pressure CO2 39.6, Arterial Blood Partial Pressure O2 116.5H, Arterial Blood HCO3 28.6H, Arterial Blood Oxygen Saturation 97.8, Arterial Blood Base Excess 4.7, Leo Test Positive 01/24/17 05:45: White Blood Count 7.8, Red Blood Count 2.79L, Hemoglobin 8.8L, Hematocrit 27.5L , Mean Corpuscular Volume 98, Mean Corpuscular Hemoglobin 31.6H, Mean Corpuscular Hemoglobin Concent 32.2, Red Cell Distribution Width 12.3, Platelet Count 273, Mean Platelet Volume 6.5, Neutrophils (%) (Auto) 70.8, Lymphocytes (% ) (Auto) 15.4L, Monocytes (%) (Auto) 7.5, Eosinophils (%) (Auto) 5.4H, Basophils (%) (Auto) 1.0, Sodium Level 138, Potassium Level 3.3L, Chloride Level 98, Carbon Dioxide Level 27, Anion Gap 13, Blood Urea Nitrogen 21, Creatinine 0.7, Estimat Glomerular Filtration Rate , Glucose Level 160H, Calcium Level 8.9, Phosphorus Level 3.6, Magnesium Level 2.0, Total Bilirubin 0.3, Aspartate Amino Transf (AST/SGOT) 7, Alanine Aminotransferase (ALT/SGPT) 6 , Alkaline Phosphatase 67, Total Protein 5.8L, Albumin 2.7L, Globulin 3.1, Albumin/Globulin Ratio 0.8L Height (Feet): 5 Height (Inches): 4.00 Weight (Pounds): 117 Objective obtunded NCAT, temporal wasting neck - tacheostomy CTA RRR soft flat, (+) GT no edema OBS HUMBLE ALLRED January 24, 2017 15:12
--- NOTE | 2017-01-24 17:52 | Internal Med Progress Note ---
Subjective Date of Service: January 24, 2017 Physician Name Rosas Johnson Attending Physician Rosas Johnson Current Medications Medications (Trade) Dose Ordered Sig/Daina Route PRN Reason Start Time Stop Time Status Last Admin Dose Admin Acetaminophen (Tylenol) 650 mg Q4H PRN ORAL fever 01/04/17 21:00 02/03/17 20:59 Acetazolamide (Diamox 500mg Inj) 250 mg EVERY 12 HOURS IVP 01/23/17 09:00 02/22/17 08:59 01/24/17 09:15 Albuterol/ Ipratropium (DuoNeb 0.5-3(2.5)mg/3ml) 3 ml Q6HRT HHN 01/21/17 14:00 01/26/17 13:59 01/24/17 13:18 Betamethasone/ Clotrimazole (Lotrisone) 1 applic TWICE A DAY PRN TOPIC Itching/Pruritis 01/20/17 11:00 02/19/17 10:59 Cephalexin (Keflex) 500 mg BID GT 01/24/17 11:00 01/28/17 18:01 01/24/17 12:04 Clonidine HCl (Catapres) 0.1 mg Q6H PRN GT SBP > 170 01/06/17 16:00 02/05/17 15:59 Dextrose (Dextrose 50%) STAT PRN IV Hypoglycemia 01/04/17 21:00 02/03/17 20:59 Diltiazem HCl (Cardizem) 60 mg EVERY 8 HOURS NG 01/14/17 14:00 02/13/17 13:59 01/24/17 13:28 Docosanol (Abreva) 0.25 gm QIDPRN PRN TP PRN UP TO 4X DAILY TO CHIN 01/23/17 09:45 02/22/17 09:44 01/23/17 23:56 Donepezil HCl (Aricept) 10 mg QHS ORAL 01/23/17 21:00 02/22/17 20:59 01/23/17 21:30 Heparin Sodium (Porcine) (Heparin 5000 units/ml) 5,000 units EVERY 12 HOURS SUBQ 01/04/17 22:00 02/03/17 21:59 01/24/17 08:59 Lansoprazole (Prevacid) 30 mg DAILY GT 01/13/17 09:00 02/12/17 08:59 01/24/17 08:58 Memantine (Namenda) 10 mg BID ORAL 01/23/17 18:00 02/22/17 17:59 01/24/17 17:28 Ondansetron HCl (Zofran) 4 mg Q6H PRN IVP Nausea & Vomiting 01/04/17 21:00 02/03/17 20:59 Polyethylene Glycol (Miralax) 17 gm DAILY ORAL 01/24/17 09:00 02/23/17 08:59 01/24/17 08:58 Allergies: Coded Allergies: No Known Allergies (Verified , 01/06/17) ROS Limited/Unobtainable: Yes Subjective 76 YO M admitted with aspiration and respiratory failure. Intubaated on CPAP. ICU. S/P tracheostomy 01/21/17. S/P PEG 01/22/17. Await transfer to sub acute [facility]. Objective Last Vital Signs Date Time Temp Pulse Resp B/P Pulse Ox O2 Delivery O2 Flow Rate FiO2 01/24/17 17:00 62 18 117/50 100 Trach Collar 30 01/24/17 16:00 98.7 01/22/17 13:00 15.0 Laboratory Tests Test 01/24/17 05:45 White Blood Count 7.8 K/UL (4.8-10.8) Red Blood Count 2.79 M/UL (4.70-6.10) L Hemoglobin 8.8 G/DL (14.2-18.0) L Hematocrit 27.5 % (42.0-52.0) L Mean Corpuscular Volume 98 FL (80-99) Mean Corpuscular Hemoglobin 31.6 PG (27.0-31.0) H Mean Corpuscular Hemoglobin Concent 32.2 G/DL (32.0-36.0) Red Cell Distribution Width 12.3 % (11.6-14.8) Platelet Count 273 K/UL (150-450) Mean Platelet Volume 6.5 FL (6.5-10.1) Neutrophils (%) (Auto) 70.8 % (45.0-75.0) Lymphocytes (%) (Auto) 15.4 % (20.0-45.0) L Monocytes (%) (Auto) 7.5 % (1.0-10.0) Eosinophils (%) (Auto) 5.4 % (0.0-3.0) H Basophils (%) (Auto) 1.0 % (0.0-2.0) Sodium Level 138 mEQ/L (135-145) Potassium Level 3.3 mEQ/L (3.4-4.9) L Chloride Level 98 mEQ/L (98-107) Carbon Dioxide Level 27 mEQ/L (20-30) Anion Gap 13 (5-15) Blood Urea Nitrogen 21 mg/dL (7-23) Creatinine 0.7 mg/dL (0.7-1.2) Estimat Glomerular Filtration Rate mL/min (>60) Glucose Level 160 mg/dL (74-106) H Calcium Level 8.9 mg/dL (8.6-10.2) Phosphorus Level 3.6 mg/dL (2.5-4.8) Magnesium Level 2.0 mg/dL (1.7-2.5) Total Bilirubin 0.3 mg/dL (0.0-1.2) Aspartate Amino Transf (AST/SGOT) 7 U/L (5-40) Alanine Aminotransferase (ALT/SGPT) 6 U/L (3-41) Alkaline Phosphatase 67 U/L (40-129) Total Protein 5.8 g/dL (6.6-8.7) L Albumin 2.7 g/dL (3.5-5.2) L Globulin 3.1 g/dL Albumin/Globulin Ratio 0.8 (1.0-2.7) L Intake and Output 01/23/17 01/24/17 19:00 07:00 Intake Total 640 ml 740 ml Output Total 665 ml 700 ml Balance -25 ml 40 ml Free Water 100 ml IV Total 150 ml Tube Feeding 360 ml 660 ml Other 30 ml 80 ml Output Urine Total 665 ml 700 ml # Bowel Movements 2 Objective General Appearance: WD/WN, moderate distress EENT: PERRL/EOMI, normal ENT inspection Neck: non-tender, normal alignment, supple Cardiovascular: normal peripheral pulses, normal rate, regular rhythm, no gallop/murmur, no JVD Respiratory/Chest: Mech vent; trach; respiratory distress, crackles/rales, rhonchi - bilaterally, expiratory wheezing Abdomen: PEG; normal bowel sounds, non tender, soft, no organomegaly, no mass Extremities: normal range of motion, non-tender 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 (3) Hypercholesteremia (4) BPH (benign prostatic hyperplasia) (5) Alzheimer's dementia (6) Aspiration pneumonia Assessment & Plan: Ada. D/C fluconazole. See pulmonary and ID note. (7) Hematuria Assessment & Plan: Resolved (8) Atrial fibrillation with RVR Assessment & Plan: Rate controlled - see cardiology note. (9) Dysphagia Assessment & Plan: S/P PEG placement 01/22/17-see GI note. Status: progressing Assessment/Plan Await transfer to [facility] Hosp sub acute fac. Discussed with ROSAS JOHNSON January 24, 2017 17:52
[2017-01-24] MEDS: Donepezil 10mg tab ORAL SCH (21:23)
--- NOTE | 2017-01-24 23:05 | Pulmonolgy Critical Care Note ---
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 Discussed with: nurses, consultants, watch casermanager traffic - Objective Last 24 Hour Vital Signs Date Time Temp Pulse Resp B/P Pulse Ox O2 Delivery O2 Flow Rate FiO2 01/24/17 21:00 61 15 135/55 100 Trach Collar 30 01/24/17 20:00 98.3 60 16 115/48 100 Trach Collar 30 01/24/17 20:00 60 01/24/17 19:40 64 20 100 Trach Collar 8.0 30 01/24/17 19:30 60 20 100 Trach Collar 8.0 30 01/24/17 19:30 100 Trach Collar 8.0 30 01/24/17 19:30 Trach Collar 8.0 30 01/24/17 19:30 30 01/24/17 19:00 61 16 99/45 100 Trach Collar 30 01/24/17 18:00 67 18 99/41 100 Trach Collar 30 01/24/17 17:00 62 18 117/50 100 Trach Collar 30 01/24/17 17:00 30 01/24/17 16:00 98.7 69 17 105/50 99 Mechanical Ventilator 30 01/24/17 16:00 30 01/24/17 16:00 65 01/24/17 15:00 67 16 30 01/24/17 15:00 68 18 108/50 100 Mechanical Ventilator 30 01/24/17 14:00 70 18 126/59 100 Mechanical Ventilator 30 01/24/17 13:28 69 112/57 01/24/17 13:12 66 17 100 Mechanical Ventilator 30 01/24/17 13:10 66 17 30 01/24/17 13:10 66 17 100 Mechanical Ventilator 30 01/24/17 13:10 30 01/24/17 13:00 65 18 112/57 100 Mechanical Ventilator 30 01/24/17 12:00 98.5 65 17 111/57 100 Mechanical Ventilator 30 01/24/17 12:00 69 01/24/17 12:00 30 01/24/17 11:17 66 18 30 01/24/17 10:00 64 18 109/53 100 Mechanical Ventilator 30 01/24/17 09:20 100 01/24/17 09:20 73 19 30 01/24/17 09:00 69 21 119/68 100 Mechanical Ventilator 30 01/24/17 08:00 98.3 78 20 108/48 100 Mechanical Ventilator 30 01/24/17 08:00 30 01/24/17 08:00 75 01/24/17 07:00 72 21 105/51 100 Mechanical Ventilator 01/24/17 06:45 61 17 100 Mechanical Ventilator 30 01/24/17 06:40 30 01/24/17 06:40 58 17 30 01/24/17 06:40 58 17 100 Mechanical Ventilator 30 01/24/17 06:00 63 21 108/50 100 Mechanical Ventilator 30 01/24/17 05:52 74 112/58 01/24/17 05:18 61 17 30 01/24/17 05:00 61 17 112/58 100 Mechanical Ventilator 30 01/24/17 04:00 30 01/24/17 04:00 98.1 65 18 110/54 100 Mechanical Ventilator 30 01/24/17 04:00 65 01/24/17 03:15 64 17 30 01/24/17 03:00 64 16 106/55 100 Mechanical Ventilator 30 01/24/17 02:00 63 18 108/55 100 Mechanical Ventilator 30 01/24/17 01:15 65 15 100 Mechanical Ventilator 30 01/24/17 01:15 30 01/24/17 01:00 65 18 113/60 100 Mechanical Ventilator 30 01/24/17 00:37 68 18 100 Mechanical Ventilator 30 01/24/17 00:35 60 17 30 01/24/17 00:00 30 01/24/17 00:00 61 01/24/17 00:00 97.9 61 16 110/57 100 Mechanical Ventilator 30 Status: sedated Condition: critical Neck: full ROM Lungs: chest wall tender Heart: HR/BP stable, regular Abdomen: soft, non-tender, feeding tube Extremities: no C/C/E, edema Accucheck: 115 Critical Care - Subjective ROS Limited/Unobtainable: Yes Condition: improving EKG Rhythm: Sinus Rhythm FI02: 30 Vent Support Breath Rate: 6 Vent Support Mode: CPAP Vent Tidal Volume: 550 Sputum Amount: Small PEEP: 5.0 PIP: 11 Tube Feeding Amount: 0 I&O: Intake and Output 01/23/17 01/24/17 19:00 07:00 Intake Total 640 ml 740 ml Output Total 665 ml 700 ml Balance -25 ml 40 ml Free Water 100 ml IV Total 150 ml Tube Feeding 360 ml 660 ml Other 30 ml 80 ml Output Urine Total 665 ml 700 ml # Bowel Movements 2 RABIA BANGURA January 24, 2017 23:05
[2017-01-25] VITALS (24 sets, daily range): BP systolic 101–143; BP diastolic 46–71
[2017-01-25] MEDS: DuoNeb 0.5-3(2.5)mg/3ml neb HHN SCH ×3 (03:15→14:18)
[2017-01-25 06:10] LABS: BASOPHILS % (AUTO) 0.7 % (0.0-2.0); EOSINOPHILS % (AUTO) 4.4 % (0.0-3.0); LYMPHOCYTES % (AUTO) 16.7 % (20.0-45.0); MEAN CORPUSCULAR HEMOGLOBIN 32.2 PG (27.0-31.0); MEAN CORPUSCULAR HGB CONC 32.6 G/DL (32.0-36.0); MEAN CORPUSCULAR VOLUME 99 FL (80-99); MEAN PLATELET VOLUME 7.3 FL (6.5-10.1); MONOCYTES % (AUTO) 5.5 % (1.0-10.0); NEUTROPHILS % (AUTO) 72.7 % (45.0-75.0); PLATELET COUNT 307 K/UL (150-450); RED CELL DISTRIBUTION WIDTH 12.5 % (11.6-14.8)
[2017-01-25 06:24] LABS: ANION GAP 14 (5-15); CARBON DIOXIDE 25 mEQ/L (20-30); CHLORIDE 101 mEQ/L (98-107); CREATININE 0.6 mg/dL (0.7-1.2); HEMOLYSIS 0; POTASSIUM 3.3 mEQ/L (3.4-4.9); SODIUM 140 mEQ/L (135-145)
[2017-01-25] MEDS: Cephalexin 500mg cap GT SCH ×2 (08:19→17:56)
[2017-01-25] MEDS: Memantine 10mg tab ORAL SCH (08:20)
[2017-01-25] MEDS: acetaZOLAMIDE 500mg Inj IVP SCH ×2 (08:20→21:05)
[2017-01-25] MEDS: Miralax 17gm pkt ORAL SCH (08:20)
[2017-01-25] MEDS: Heparin 5000 units/ml inj SUBQ SCH ×2 (08:23→21:07)
[2017-01-25 10:37] LABS: ABG PCO2 36.1 mmHg (35.0-45.0)
[2017-01-25 10:38] LABS: ABG ALLEN TEST POSITIVE; ABG BASE EXCESS -0.1
--- NOTE | 2017-01-25 11:37 | Pulmonolgy Critical Care Note ---
Critical Care - Asmt/Plan Problems: (1) Respiratory distress (2) Aspiration pneumonia (3) Dementia Respiratory: monitor respiratory rate, adjust FIO2, CXR Cardiac: continue to monitor HR/BP Renal: F/U I&O, check electrolytes Infectious Disease: check cultures, continue antibiotics Gastrointestinal: continue feedings/current rate Endocrine: monitor blood sugar, continue sliding scale insulin Hematologic: monitor H/H, transfuse if hgb<8.5 Neurologic: PRN Ativan, keep patient comfortable Affect: PRN ativan Time Spent (Minutes): 40 Notes Reviewed: catcher helper, cardio, renal Discussed with: consultants, case coordinatorhuman relations manager - Objective Last 24 Hour Vital Signs Date Time Temp Pulse Resp B/P Pulse Ox O2 Delivery O2 Flow Rate FiO2 01/25/17 11:00 59 18 138/61 100 Trach Collar 30 01/25/17 10:00 58 17 125/53 100 Trach Collar 30 01/25/17 09:00 57 16 134/55 100 Trach Collar 30 01/25/17 08:00 61 01/25/17 08:00 98.2 61 16 116/54 100 Trach Collar 30 01/25/17 07:58 60 18 100 Trach Collar 8.0 30 01/25/17 07:58 60 18 100 Trach Collar 8.0 30 01/25/17 07:43 58 16 100 Trach Collar 8.0 30 01/25/17 07:43 30 01/25/17 07:42 100 Trach Collar 8.0 30 01/25/17 07:42 Trach Collar 8.0 30 01/25/17 07:00 65 18 101/46 100 Trach Collar 30 01/25/17 06:00 61 14 117/59 100 Trach Collar 30 01/25/17 05:54 71 113/51 01/25/17 05:00 71 18 113/51 98 Trach Collar 30 01/25/17 04:00 63 01/25/17 04:00 98.4 66 14 125/61 100 Trach Collar 30 01/25/17 03:00 65 17 115/54 100 Trach Collar 30 01/25/17 02:00 65 16 123/56 100 Trach Collar 30 01/25/17 01:45 30 01/25/17 01:45 62 20 100 Trach Collar 8.0 30 01/25/17 01:30 100 Trach Collar 8.0 30 01/25/17 01:30 62 20 100 Trach Collar 8.0 30 01/25/17 01:30 Trach Collar 8.0 30 01/25/17 01:00 62 18 126/56 100 Trach Collar 30 01/25/17 00:00 57 01/25/17 00:00 98.6 57 14 132/71 100 Trach Collar 30 01/24/17 23:00 59 16 114/48 100 Trach Collar 30 01/24/17 22:00 58 18 131/49 100 Trach Collar 30 01/24/17 22:00 58 131/49 01/24/17 21:00 61 15 135/55 100 Trach Collar 30 01/24/17 20:00 98.3 60 16 115/48 100 Trach Collar 30 01/24/17 20:00 60 01/24/17 19:40 64 20 100 Trach Collar 8.0 30 01/24/17 19:30 60 20 100 Trach Collar 8.0 30 01/24/17 19:30 100 Trach Collar 8.0 30 01/24/17 19:30 Trach Collar 8.0 30 01/24/17 19:30 30 01/24/17 19:00 61 16 99/45 100 Trach Collar 30 01/24/17 18:00 67 18 99/41 100 Trach Collar 30 01/24/17 17:00 62 18 117/50 100 Trach Collar 30 01/24/17 17:00 30 01/24/17 16:00 98.7 69 17 105/50 99 Mechanical Ventilator 30 01/24/17 16:00 30 01/24/17 16:00 65 01/24/17 15:00 67 16 30 01/24/17 15:00 68 18 108/50 100 Mechanical Ventilator 30 01/24/17 14:00 70 18 126/59 100 Mechanical Ventilator 30 01/24/17 13:28 69 112/57 01/24/17 13:12 66 17 100 Mechanical Ventilator 30 01/24/17 13:10 66 17 30 01/24/17 13:10 66 17 100 Mechanical Ventilator 30 01/24/17 13:10 30 01/24/17 13:00 65 18 112/57 100 Mechanical Ventilator 30 01/24/17 12:00 98.5 65 17 111/57 100 Mechanical Ventilator 30 01/24/17 12:00 69 01/24/17 12:00 30 Status: awake Condition: critical HEENT: atraumatic Lungs: chest wall tender Heart: HR/BP stable, HR/BP unstable Abdomen: soft, non-tender, feeding tube Extremities: no C/C/E, edema Decubiti: location, stage Accucheck: 115 Critical Care - Subjective ROS Limited/Unobtainable: No ICU Day: 21 Intubation Day: s/p trach Condition: critical EKG Rhythm: Sinus Rhythm FI02: 30 Vent Support Breath Rate: 6 Vent Support Mode: CPAP Vent Tidal Volume: 550 Sputum Amount: Small PEEP: 5.0 PIP: 11 Tube Feeding Amount: 55 I&O: Intake and Output 01/24/17 01/25/17 19:00 07:00 Intake Total 790 ml 700 ml Output Total 660 ml 885 ml Balance 130 ml -185 ml Free Water 130 ml 150 ml Tube Feeding 660 ml 550 ml Output Urine Total 660 ml 885 ml CXR: no change Labs: Laboratory Tests Test 01/25/17 03:50 01/25/17 10:25 White Blood Count 9.0 K/UL (4.8-10.8) Red Blood Count 2.90 M/UL (4.70-6.10) L Hemoglobin 9.4 G/DL (14.2-18.0) L Hematocrit 28.7 % (42.0-52.0) L Mean Corpuscular Volume 99 FL (80-99) Mean Corpuscular Hemoglobin 32.2 PG (27.0-31.0) H Mean Corpuscular Hemoglobin Concent 32.6 G/DL (32.0-36.0) Red Cell Distribution Width 12.5 % (11.6-14.8) Platelet Count 307 K/UL (150-450) Mean Platelet Volume 7.3 FL (6.5-10.1) Neutrophils (%) (Auto) 72.7 % (45.0-75.0) Lymphocytes (%) (Auto) 16.7 % (20.0-45.0) L Monocytes (%) (Auto) 5.5 % (1.0-10.0) Eosinophils (%) (Auto) 4.4 % (0.0-3.0) H Basophils (%) (Auto) 0.7 % (0.0-2.0) Sodium Level 140 mEQ/L (135-145) Potassium Level 3.3 mEQ/L (3.4-4.9) L Chloride Level 101 mEQ/L (98-107) Carbon Dioxide Level 25 mEQ/L (20-30) Anion Gap 14 (5-15) Blood Urea Nitrogen 20 mg/dL (7-23) Creatinine 0.6 mg/dL (0.7-1.2) L Estimat Glomerular Filtration Rate mL/min (>60) Glucose Level 159 mg/dL (74-106) H Calcium Level 9.0 mg/dL (8.6-10.2) Arterial Blood pH 7.437 (7.350-7.450) Arterial Blood Partial Pressure CO2 36.1 mmHg (35.0-45.0) Arterial Blood Partial Pressure O2 108.8 mmHg (75.0-100.0) H Arterial Blood HCO3 23.8 mmol/L (22.0-26.0) Arterial Blood Oxygen Saturation 97.2 % (92.0-98.0) Arterial Blood Base Excess -0.1 Leo Test Positive RABIA BANGURA January 25, 2017 11:37
--- NOTE | 2017-01-25 11:39 | Internal Med Progress Note ---
Subjective Date of Service: January 25, 2017 Physician Name Sangeetha Johnson Attending Physician Sangeetha Johnson Current Medications Medications (Trade) Dose Ordered Sig/Daina Route PRN Reason Start Time Stop Time Status Last Admin Dose Admin Acetaminophen (Tylenol) 650 mg Q4H PRN ORAL fever 01/04/17 21:00 02/03/17 20:59 Acetazolamide (Diamox 500mg Inj) 250 mg EVERY 12 HOURS IVP 01/23/17 09:00 02/22/17 08:59 01/25/17 08:20 Albuterol/ Ipratropium (DuoNeb 0.5-3(2.5)mg/3ml) 3 ml Q6HRT HHN 01/21/17 14:00 01/26/17 13:59 01/25/17 07:42 Betamethasone/ Clotrimazole (Lotrisone) 1 applic TWICE A DAY PRN TOPIC Itching/Pruritis 01/20/17 11:00 02/19/17 10:59 Cephalexin (Keflex) 500 mg BID GT 01/24/17 11:00 01/28/17 18:01 01/25/17 08:19 Clonidine HCl (Catapres) 0.1 mg Q6H PRN GT SBP > 170 01/06/17 16:00 02/05/17 15:59 Dextrose (Dextrose 50%) STAT PRN IV Hypoglycemia 01/04/17 21:00 02/03/17 20:59 Diltiazem HCl (Cardizem) 60 mg EVERY 8 HOURS NG 01/14/17 14:00 02/13/17 13:59 01/25/17 05:54 Docosanol (Abreva) 0.25 gm QIDPRN PRN TP PRN UP TO 4X DAILY TO CHIN 01/23/17 09:45 02/22/17 09:44 01/23/17 23:56 Donepezil HCl (Aricept) 10 mg QHS ORAL 01/23/17 21:00 02/22/17 20:59 01/24/17 21:23 Heparin Sodium (Porcine) (Heparin 5000 units/ml) 5,000 units EVERY 12 HOURS SUBQ 01/04/17 22:00 02/03/17 21:59 01/25/17 08:23 Lansoprazole (Prevacid) 30 mg DAILY GT 01/13/17 09:00 02/12/17 08:59 01/25/17 08:19 Memantine (Namenda) 10 mg BID ORAL 01/23/17 18:00 02/22/17 17:59 01/25/17 08:20 Ondansetron HCl (Zofran) 4 mg Q6H PRN IVP Nausea & Vomiting 01/04/17 21:00 02/03/17 20:59 Polyethylene Glycol (Miralax) 17 gm DAILY ORAL 01/24/17 09:00 02/23/17 08:59 01/25/17 08:20 Allergies: Coded Allergies: No Known Allergies (Verified , 01/06/17) ROS Limited/Unobtainable: Yes Subjective 76 YO M admitted with aspiration and respiratory failure. Intubaated on CPAP. ICU. S/P tracheostomy 01/21/17. S/P PEG 01/22/17. Await transfer to [facility] sub acute fac today when bed available.. Objective Last Vital Signs Date Time Temp Pulse Resp B/P Pulse Ox O2 Delivery O2 Flow Rate FiO2 01/25/17 10:00 58 17 125/53 100 Trach Collar 30 01/25/17 08:00 98.2 01/25/17 07:58 8.0 Laboratory Tests Test 01/25/17 03:50 01/25/17 10:25 White Blood Count 9.0 K/UL (4.8-10.8) Red Blood Count 2.90 M/UL (4.70-6.10) L Hemoglobin 9.4 G/DL (14.2-18.0) L Hematocrit 28.7 % (42.0-52.0) L Mean Corpuscular Volume 99 FL (80-99) Mean Corpuscular Hemoglobin 32.2 PG (27.0-31.0) H Mean Corpuscular Hemoglobin Concent 32.6 G/DL (32.0-36.0) Red Cell Distribution Width 12.5 % (11.6-14.8) Platelet Count 307 K/UL (150-450) Mean Platelet Volume 7.3 FL (6.5-10.1) Neutrophils (%) (Auto) 72.7 % (45.0-75.0) Lymphocytes (%) (Auto) 16.7 % (20.0-45.0) L Monocytes (%) (Auto) 5.5 % (1.0-10.0) Eosinophils (%) (Auto) 4.4 % (0.0-3.0) H Basophils (%) (Auto) 0.7 % (0.0-2.0) Sodium Level 140 mEQ/L (135-145) Potassium Level 3.3 mEQ/L (3.4-4.9) L Chloride Level 101 mEQ/L (98-107) Carbon Dioxide Level 25 mEQ/L (20-30) Anion Gap 14 (5-15) Blood Urea Nitrogen 20 mg/dL (7-23) Creatinine 0.6 mg/dL (0.7-1.2) L Estimat Glomerular Filtration Rate mL/min (>60) Glucose Level 159 mg/dL (74-106) H Calcium Level 9.0 mg/dL (8.6-10.2) Arterial Blood pH 7.437 (7.350-7.450) Arterial Blood Partial Pressure CO2 36.1 mmHg (35.0-45.0) Arterial Blood Partial Pressure O2 108.8 mmHg (75.0-100.0) H Arterial Blood HCO3 23.8 mmol/L (22.0-26.0) Arterial Blood Oxygen Saturation 97.2 % (92.0-98.0) Arterial Blood Base Excess -0.1 Leo Test Positive Intake and Output 01/24/17 01/25/17 19:00 07:00 Intake Total 790 ml 700 ml Output Total 660 ml 885 ml Balance 130 ml -185 ml Free Water 130 ml 150 ml Tube Feeding 660 ml 550 ml Output Urine Total 660 ml 885 ml Objective General Appearance: WD/WN, moderate distress EENT: PERRL/EOMI, normal ENT inspection Neck: non-tender, normal alignment, supple Cardiovascular: normal peripheral pulses, normal rate, regular rhythm, no gallop/murmur, no JVD Respiratory/Chest: Mech vent; trach; respiratory distress, crackles/rales, rhonchi - bilaterally, expiratory wheezing Abdomen: PEG; normal bowel sounds, non tender, soft, no organomegaly, no mass Extremities: normal range of motion, non-tender 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 (3) Hypercholesteremia (4) BPH (benign prostatic hyperplasia) (5) Alzheimer's dementia Assessment & Plan: Restart namenda and aricept qhs (6) Aspiration pneumonia Assessment & Plan: Ada. D/C fluconazole. See pulmonary and ID note. (7) Hematuria Assessment & Plan: Resolved (8) Atrial fibrillation with RVR Assessment & Plan: Rate controlled - see cardiology note. (9) Dysphagia Assessment & Plan: S/P PEG placement 01/22/17-see GI note. Status: stable Assessment/Plan Transfer to . [facility] sub acute fac today when bed available. Discussed with and Kristen, case liner. SANGEETHA JOHNSON January 25, 2017 11:39
--- NOTE | 2017-01-25 11:42 | Infectious Diseases Prog Note ---
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 Leukocytosis , SP trach 01/21 SP Extubation 01/06 , reintubated 01/09 , Extubation 01/14 History of fracture of femoral neck. Dementia. Hypertension PLAN: Keflex ( as per ENT ) for possible neck cellulitis ( post trach, improved ) ( 01/18 Diflucan d# 4 ) ( 01/14 SP Zosyn d# 10 / 10 ) ( 01/08 SP Vanco d# 4 ) Monitor CBC. Monitor BMP Monitor chest x-ray cont vent support Subjective Constitutional: Denies: anorexia, chills, drenching sweats, fatigue, fever, no symptoms, other Allergies: Coded Allergies: No Known Allergies (Verified , 01/06/17) Subjective awake Objective Vital Signs Last 24 Hour Vital Signs Date Time Temp Pulse Resp B/P Pulse Ox O2 Delivery O2 Flow Rate FiO2 01/25/17 11:00 59 18 138/61 100 Trach Collar 30 01/25/17 10:00 58 17 125/53 100 Trach Collar 30 01/25/17 09:00 57 16 134/55 100 Trach Collar 30 01/25/17 08:00 61 01/25/17 08:00 98.2 61 16 116/54 100 Trach Collar 30 01/25/17 07:58 60 18 100 Trach Collar 8.0 30 01/25/17 07:58 60 18 100 Trach Collar 8.0 30 01/25/17 07:43 58 16 100 Trach Collar 8.0 30 01/25/17 07:43 30 01/25/17 07:42 100 Trach Collar 8.0 30 01/25/17 07:42 Trach Collar 8.0 30 01/25/17 07:00 65 18 101/46 100 Trach Collar 30 01/25/17 06:00 61 14 117/59 100 Trach Collar 30 01/25/17 05:54 71 113/51 01/25/17 05:00 71 18 113/51 98 Trach Collar 30 01/25/17 04:00 63 01/25/17 04:00 98.4 66 14 125/61 100 Trach Collar 30 01/25/17 03:00 65 17 115/54 100 Trach Collar 30 01/25/17 02:00 65 16 123/56 100 Trach Collar 30 01/25/17 01:45 30 01/25/17 01:45 62 20 100 Trach Collar 8.0 30 01/25/17 01:30 100 Trach Collar 8.0 30 01/25/17 01:30 62 20 100 Trach Collar 8.0 30 01/25/17 01:30 Trach Collar 8.0 30 01/25/17 01:00 62 18 126/56 100 Trach Collar 30 01/25/17 00:00 57 01/25/17 00:00 98.6 57 14 132/71 100 Trach Collar 30 01/24/17 23:00 59 16 114/48 100 Trach Collar 30 01/24/17 22:00 58 18 131/49 100 Trach Collar 30 01/24/17 22:00 58 131/49 01/24/17 21:00 61 15 135/55 100 Trach Collar 30 01/24/17 20:00 98.3 60 16 115/48 100 Trach Collar 30 01/24/17 20:00 60 01/24/17 19:40 64 20 100 Trach Collar 8.0 30 01/24/17 19:30 60 20 100 Trach Collar 8.0 30 01/24/17 19:30 100 Trach Collar 8.0 30 01/24/17 19:30 Trach Collar 8.0 30 01/24/17 19:30 30 01/24/17 19:00 61 16 99/45 100 Trach Collar 30 01/24/17 18:00 67 18 99/41 100 Trach Collar 30 01/24/17 17:00 62 18 117/50 100 Trach Collar 30 01/24/17 17:00 30 01/24/17 16:00 98.7 69 17 105/50 99 Mechanical Ventilator 30 01/24/17 16:00 30 01/24/17 16:00 65 01/24/17 15:00 67 16 30 01/24/17 15:00 68 18 108/50 100 Mechanical Ventilator 30 01/24/17 14:00 70 18 126/59 100 Mechanical Ventilator 30 01/24/17 13:28 69 112/57 01/24/17 13:12 66 17 100 Mechanical Ventilator 30 01/24/17 13:10 66 17 30 01/24/17 13:10 66 17 100 Mechanical Ventilator 30 01/24/17 13:10 30 01/24/17 13:00 65 18 112/57 100 Mechanical Ventilator 30 01/24/17 12:00 98.5 65 17 111/57 100 Mechanical Ventilator 30 01/24/17 12:00 69 01/24/17 12:00 30 Height (Feet): 5 Height (Inches): 4.00 Weight (Pounds): 117 HEENT: anicteric Respiratory/Chest: normal breath sounds Cardiovascular: regular rhythm Abdomen: non distended Laboratory Tests Test 01/25/17 03:50 01/25/17 10:25 White Blood Count 9.0 K/UL (4.8-10.8) Red Blood Count 2.90 M/UL (4.70-6.10) L Hemoglobin 9.4 G/DL (14.2-18.0) L Hematocrit 28.7 % (42.0-52.0) L Mean Corpuscular Volume 99 FL (80-99) Mean Corpuscular Hemoglobin 32.2 PG (27.0-31.0) H Mean Corpuscular Hemoglobin Concent 32.6 G/DL (32.0-36.0) Red Cell Distribution Width 12.5 % (11.6-14.8) Platelet Count 307 K/UL (150-450) Mean Platelet Volume 7.3 FL (6.5-10.1) Neutrophils (%) (Auto) 72.7 % (45.0-75.0) Lymphocytes (%) (Auto) 16.7 % (20.0-45.0) L Monocytes (%) (Auto) 5.5 % (1.0-10.0) Eosinophils (%) (Auto) 4.4 % (0.0-3.0) H Basophils (%) (Auto) 0.7 % (0.0-2.0) Sodium Level 140 mEQ/L (135-145) Potassium Level 3.3 mEQ/L (3.4-4.9) L Chloride Level 101 mEQ/L (98-107) Carbon Dioxide Level 25 mEQ/L (20-30) Anion Gap 14 (5-15) Blood Urea Nitrogen 20 mg/dL (7-23) Creatinine 0.6 mg/dL (0.7-1.2) L Estimat Glomerular Filtration Rate mL/min (>60) Glucose Level 159 mg/dL (74-106) H Calcium Level 9.0 mg/dL (8.6-10.2) Arterial Blood pH 7.437 (7.350-7.450) Arterial Blood Partial Pressure CO2 36.1 mmHg (35.0-45.0) Arterial Blood Partial Pressure O2 108.8 mmHg (75.0-100.0) H Arterial Blood HCO3 23.8 mmol/L (22.0-26.0) Arterial Blood Oxygen Saturation 97.2 % (92.0-98.0) Arterial Blood Base Excess -0.1 Leo Test Positive Current Medications Medications (Trade) Dose Ordered Sig/Daina Route PRN Reason Start Time Stop Time Status Last Admin Dose Admin Acetaminophen (Tylenol) 650 mg Q4H PRN ORAL fever 01/04/17 21:00 02/03/17 20:59 Acetazolamide (Diamox 500mg Inj) 250 mg EVERY 12 HOURS IVP 01/23/17 09:00 02/22/17 08:59 01/25/17 08:20 Albuterol/ Ipratropium (DuoNeb 0.5-3(2.5)mg/3ml) 3 ml Q6HRT HHN 01/21/17 14:00 01/26/17 13:59 01/25/17 07:42 Betamethasone/ Clotrimazole (Lotrisone) 1 applic TWICE A DAY PRN TOPIC Itching/Pruritis 01/20/17 11:00 02/19/17 10:59 Cephalexin (Keflex) 500 mg BID GT 01/24/17 11:00 01/28/17 18:01 01/25/17 08:19 Clonidine HCl (Catapres) 0.1 mg Q6H PRN GT SBP > 170 01/06/17 16:00 02/05/17 15:59 Dextrose (Dextrose 50%) STAT PRN IV Hypoglycemia 01/04/17 21:00 02/03/17 20:59 Diltiazem HCl (Cardizem) 60 mg EVERY 8 HOURS NG 01/14/17 14:00 02/13/17 13:59 01/25/17 05:54 Docosanol (Abreva) 0.25 gm QIDPRN PRN TP PRN UP TO 4X DAILY TO CHIN 01/23/17 09:45 02/22/17 09:44 01/23/17 23:56 Donepezil HCl (Aricept) 10 mg QHS ORAL 01/23/17 21:00 02/22/17 20:59 01/24/17 21:23 Heparin Sodium (Porcine) (Heparin 5000 units/ml) 5,000 units EVERY 12 HOURS SUBQ 01/04/17 22:00 02/03/17 21:59 01/25/17 08:23 Lansoprazole (Prevacid) 30 mg DAILY GT 01/13/17 09:00 02/12/17 08:59 01/25/17 08:19 Memantine (Namenda) 10 mg QHS ORAL 01/25/17 21:00 02/24/17 20:59 Ondansetron HCl (Zofran) 4 mg Q6H PRN IVP Nausea & Vomiting 01/04/17 21:00 02/03/17 20:59 Polyethylene Glycol (Miralax) 17 gm DAILY ORAL 01/24/17 09:00 02/23/17 08:59 01/25/17 08:20 HORACIO JOHN M.D. January 25, 2017 11:42
[2017-01-25] MEDS ORDERED: KCl 10% 40mEq/30ml liquid NG ONE (12:30)
--- NOTE | 2017-01-25 13:23 | Cardiac Electrophysiology PN ---
Assessment/Plan Assessment/Plan 1. Atrial fib with RVR.No recurrence. Decrease Cardizem to 30mg NG q 8 hrs in view of bradycardia. Keep off anticoagulation as had only one episode of atrial fib. 2. Hypertension. Continue Cardizem and PRN Clonidine. 3. Severe pulmonary hypertension, pressure 55, likely due to history of obstructive sleep apnea. 4. Recurrent Respiratory failure due to aspiration. S/P Tracheostomy 01/21/17 5. Dementia. 6. Dysphagia.S/P PEG 01/22/17 DW RN and Subjective Subjective In ICU on vent via tracheostomy. No recurrence of atrial fib but getting more bradycardic with HR 50s.RN and at bedside. Objective Last 24 Hour Vital Signs Date Time Temp Pulse Resp B/P Pulse Ox O2 Delivery O2 Flow Rate FiO2 01/25/17 12:00 60 17 143/66 100 Trach Collar 30 01/25/17 12:00 60 01/25/17 11:00 59 18 138/61 100 Trach Collar 30 01/25/17 10:00 58 17 125/53 100 Trach Collar 30 01/25/17 09:00 57 16 134/55 100 Trach Collar 30 01/25/17 08:00 61 01/25/17 08:00 98.2 61 16 116/54 100 Trach Collar 30 01/25/17 07:58 60 18 100 Trach Collar 8.0 30 01/25/17 07:58 60 18 100 Trach Collar 8.0 30 01/25/17 07:43 58 16 100 Trach Collar 8.0 30 01/25/17 07:43 30 01/25/17 07:42 100 Trach Collar 8.0 30 01/25/17 07:42 Trach Collar 8.0 30 01/25/17 07:00 65 18 101/46 100 Trach Collar 30 01/25/17 06:00 61 14 117/59 100 Trach Collar 30 01/25/17 05:54 71 113/51 01/25/17 05:00 71 18 113/51 98 Trach Collar 30 01/25/17 04:00 63 01/25/17 04:00 98.4 66 14 125/61 100 Trach Collar 30 01/25/17 03:00 65 17 115/54 100 Trach Collar 30 01/25/17 02:00 65 16 123/56 100 Trach Collar 30 01/25/17 01:45 30 01/25/17 01:45 62 20 100 Trach Collar 8.0 30 01/25/17 01:30 100 Trach Collar 8.0 30 01/25/17 01:30 62 20 100 Trach Collar 8.0 30 01/25/17 01:30 Trach Collar 8.0 30 01/25/17 01:00 62 18 126/56 100 Trach Collar 30 01/25/17 00:00 57 01/25/17 00:00 98.6 57 14 132/71 100 Trach Collar 30 01/24/17 23:00 59 16 114/48 100 Trach Collar 30 01/24/17 22:00 58 18 131/49 100 Trach Collar 30 01/24/17 22:00 58 131/49 01/24/17 21:00 61 15 135/55 100 Trach Collar 30 01/24/17 20:00 98.3 60 16 115/48 100 Trach Collar 30 01/24/17 20:00 60 01/24/17 19:40 64 20 100 Trach Collar 8.0 30 01/24/17 19:30 60 20 100 Trach Collar 8.0 30 01/24/17 19:30 100 Trach Collar 8.0 30 01/24/17 19:30 Trach Collar 8.0 30 01/24/17 19:30 30 01/24/17 19:00 61 16 99/45 100 Trach Collar 30 01/24/17 18:00 67 18 99/41 100 Trach Collar 30 01/24/17 17:00 62 18 117/50 100 Trach Collar 30 01/24/17 17:00 30 01/24/17 16:00 98.7 69 17 105/50 99 Mechanical Ventilator 30 01/24/17 16:00 30 01/24/17 16:00 65 01/24/17 15:00 67 16 30 01/24/17 15:00 68 18 108/50 100 Mechanical Ventilator 30 01/24/17 14:00 70 18 126/59 100 Mechanical Ventilator 30 01/24/17 13:28 69 112/57 Intake and Output 01/24/17 01/25/17 19:00 07:00 Intake Total 790 ml 700 ml Output Total 660 ml 885 ml Balance 130 ml -185 ml Free Water 130 ml 150 ml Tube Feeding 660 ml 550 ml Output Urine Total 660 ml 885 ml Laboratory Tests Test 01/25/17 03:50 01/25/17 10:25 White Blood Count 9.0 K/UL (4.8-10.8) Red Blood Count 2.90 M/UL (4.70-6.10) L Hemoglobin 9.4 G/DL (14.2-18.0) L Hematocrit 28.7 % (42.0-52.0) L Mean Corpuscular Volume 99 FL (80-99) Mean Corpuscular Hemoglobin 32.2 PG (27.0-31.0) H Mean Corpuscular Hemoglobin Concent 32.6 G/DL (32.0-36.0) Red Cell Distribution Width 12.5 % (11.6-14.8) Platelet Count 307 K/UL (150-450) Mean Platelet Volume 7.3 FL (6.5-10.1) Neutrophils (%) (Auto) 72.7 % (45.0-75.0) Lymphocytes (%) (Auto) 16.7 % (20.0-45.0) L Monocytes (%) (Auto) 5.5 % (1.0-10.0) Eosinophils (%) (Auto) 4.4 % (0.0-3.0) H Basophils (%) (Auto) 0.7 % (0.0-2.0) Sodium Level 140 mEQ/L (135-145) Potassium Level 3.3 mEQ/L (3.4-4.9) L Chloride Level 101 mEQ/L (98-107) Carbon Dioxide Level 25 mEQ/L (20-30) Anion Gap 14 (5-15) Blood Urea Nitrogen 20 mg/dL (7-23) Creatinine 0.6 mg/dL (0.7-1.2) L Estimat Glomerular Filtration Rate mL/min (>60) Glucose Level 159 mg/dL (74-106) H Calcium Level 9.0 mg/dL (8.6-10.2) Arterial Blood pH 7.437 (7.350-7.450) Arterial Blood Partial Pressure CO2 36.1 mmHg (35.0-45.0) Arterial Blood Partial Pressure O2 108.8 mmHg (75.0-100.0) H Arterial Blood HCO3 23.8 mmol/L (22.0-26.0) Arterial Blood Oxygen Saturation 97.2 % (92.0-98.0) Arterial Blood Base Excess -0.1 Leo Test Positive Objective NECK: No JVD. Tracheostomy intact. LUNGS: Coarse rhonchi CARDIOVASCULAR: Regular S1 and S2 with no gallop or murmur. ABDOMEN: Soft.PEG in place EXTREMITIES: No pitting edema. ARGELIA DUONG January 25, 2017 13:23
[2017-01-25] MEDS ORDERED: Memantine 10mg tab ORAL SCH (21:00)
[2017-01-25] MEDS: Donepezil 10mg tab ORAL SCH (21:06)
--- NOTE | 2017-01-25 22:23 | General Progress Note ---
Assessment/Plan Assessment/Plan Assessment - Resp failure - trach - dysphagai - PEG - OBS Recommendations - continue TF - Elevate HOB - GT site care - follow labs - will see intermittently / PRN Subjective Allergies: Coded Allergies: No Known Allergies (Verified , 01/06/17) Subjective non verbal POD #3 after PEG d/w at bedside Objective Last 24 Hour Vital Signs Date Time Temp Pulse Resp B/P Pulse Ox O2 Delivery O2 Flow Rate FiO2 01/25/17 20:00 98.3 62 16 116/54 100 Trach Collar 30 01/25/17 20:00 62 01/25/17 19:45 64 20 100 Trach Collar 8.0 30 01/25/17 19:45 30 01/25/17 19:30 100 Trach Collar 8.0 30 01/25/17 19:30 62 20 100 Trach Collar 8.0 30 01/25/17 19:30 Trach Collar 8.0 30 01/25/17 19:00 98.0 64 18 126/57 100 Trach Collar 30 01/25/17 18:00 62 17 134/58 100 Trach Collar 30 01/25/17 17:00 61 16 134/56 100 Trach Collar 30 01/25/17 16:00 62 01/25/17 16:00 60 15 115/51 100 Trach Collar 30 01/25/17 15:00 63 19 104/50 100 Trach Collar 30 01/25/17 14:30 68 18 100 Trach Collar 8.0 30 01/25/17 14:18 30 01/25/17 14:18 100 Trach Collar 8.0 30 01/25/17 14:18 Trach Collar 8.0 30 01/25/17 14:18 68 18 100 Trach Collar 8.0 30 01/25/17 14:00 98.1 66 17 120/50 100 Trach Collar 30 01/25/17 13:50 64 133/60 01/25/17 13:00 60 18 133/60 100 Trach Collar 30 01/25/17 12:00 60 17 143/66 100 Trach Collar 30 01/25/17 12:00 60 01/25/17 11:00 59 18 138/61 100 Trach Collar 30 01/25/17 10:00 58 17 125/53 100 Trach Collar 30 01/25/17 09:00 57 16 134/55 100 Trach Collar 30 01/25/17 08:00 61 01/25/17 08:00 98.2 61 16 116/54 100 Trach Collar 30 01/25/17 07:58 60 18 100 Trach Collar 8.0 30 01/25/17 07:58 60 18 100 Trach Collar 8.0 30 01/25/17 07:43 58 16 100 Trach Collar 8.0 30 01/25/17 07:43 30 01/25/17 07:42 100 Trach Collar 8.0 30 01/25/17 07:42 Trach Collar 8.0 30 01/25/17 07:00 65 18 101/46 100 Trach Collar 30 01/25/17 06:00 61 14 117/59 100 Trach Collar 30 01/25/17 05:54 71 113/51 01/25/17 05:00 71 18 113/51 98 Trach Collar 30 01/25/17 04:00 63 01/25/17 04:00 98.4 66 14 125/61 100 Trach Collar 30 01/25/17 03:00 65 17 115/54 100 Trach Collar 30 01/25/17 02:00 65 16 123/56 100 Trach Collar 30 01/25/17 01:45 30 01/25/17 01:45 62 20 100 Trach Collar 8.0 30 01/25/17 01:30 100 Trach Collar 8.0 30 01/25/17 01:30 62 20 100 Trach Collar 8.0 30 01/25/17 01:30 Trach Collar 8.0 30 01/25/17 01:00 62 18 126/56 100 Trach Collar 30 01/25/17 00:00 57 01/25/17 00:00 98.6 57 14 132/71 100 Trach Collar 30 01/24/17 23:00 59 16 114/48 100 Trach Collar 30 Intake and Output 01/24/17 01/25/17 19:00 07:00 Intake Total 790 ml 700 ml Output Total 660 ml 885 ml Balance 130 ml -185 ml Free Water 130 ml 150 ml Tube Feeding 660 ml 550 ml Output Urine Total 660 ml 885 ml Laboratory Tests 01/25/17 03:50: White Blood Count 9.0, Red Blood Count 2.90L, Hemoglobin 9.4L, Hematocrit 28.7L , Mean Corpuscular Volume 99, Mean Corpuscular Hemoglobin 32.2H, Mean Corpuscular Hemoglobin Concent 32.6, Red Cell Distribution Width 12.5, Platelet Count 307, Mean Platelet Volume 7.3, Neutrophils (%) (Auto) 72.7, Lymphocytes (% ) (Auto) 16.7L, Monocytes (%) (Auto) 5.5, Eosinophils (%) (Auto) 4.4H, Basophils (%) (Auto) 0.7, Sodium Level 140, Potassium Level 3.3L, Chloride Level 101, Carbon Dioxide Level 25, Anion Gap 14, Blood Urea Nitrogen 20, Creatinine 0.6L, Estimat Glomerular Filtration Rate , Glucose Level 159H, Calcium Level 9.0 01/25/17 10:25: Arterial Blood pH 7.437, Arterial Blood Partial Pressure CO2 36.1, Arterial Blood Partial Pressure O2 108.8H, Arterial Blood HCO3 23.8, Arterial Blood Oxygen Saturation 97.2, Arterial Blood Base Excess -0.1, Leo Test Positive Height (Feet): 5 Height (Inches): 4.00 Weight (Pounds): 117 Objective obtunded NCAT, temporal wasting neck - tacheostomy CTA RRR soft flat, (+) GT no edema OBS HUMBLE ALLRED January 25, 2017 22:23
[2017-01-26] VITALS (19 sets, daily range): BP systolic 101–159; BP diastolic 47–76
[2017-01-26] MEDS: DuoNeb 0.5-3(2.5)mg/3ml neb HHN SCH ×4 (01:52→13:25)
[2017-01-26 06:07] LABS: BASOPHILS % (AUTO) 0.8 % (0.0-2.0); EOSINOPHILS % (AUTO) 7.8 % (0.0-3.0); LYMPHOCYTES % (AUTO) 20.1 % (20.0-45.0); MEAN CORPUSCULAR HEMOGLOBIN 32.1 PG (27.0-31.0); MEAN CORPUSCULAR HGB CONC 31.9 G/DL (32.0-36.0); MEAN CORPUSCULAR VOLUME 101 FL (80-99); MEAN PLATELET VOLUME 6.8 FL (6.5-10.1); MONOCYTES % (AUTO) 6.7 % (1.0-10.0); NEUTROPHILS % (AUTO) 64.7 % (45.0-75.0); PLATELET COUNT 309 K/UL (150-450); RED BLOOD COUNT 3.26 M/UL (4.70-6.10); RED CELL DISTRIBUTION WIDTH 12.7 % (11.6-14.8); WHITE BLOOD COUNT 6.9 K/UL (4.8-10.8)
[2017-01-26 06:30] LABS: ANION GAP 14 (5-15); CALCIUM 9.3 mg/dL (8.6-10.2); CARBON DIOXIDE 24 mEQ/L (20-30); CHLORIDE 102 mEQ/L (98-107); CREATININE 0.6 mg/dL (0.7-1.2); HEMOLYSIS 7; POTASSIUM 3.9 mEQ/L (3.4-4.9); SODIUM 140 mEQ/L (135-145)
[2017-01-26] MEDS: Heparin 5000 units/ml inj SUBQ SCH (08:39)
[2017-01-26] MEDS: Cephalexin 500mg cap GT SCH (08:40)
[2017-01-26] MEDS: Miralax 17gm pkt ORAL SCH (08:40)
[2017-01-26] MEDS: acetaZOLAMIDE 500mg Inj IVP SCH (09:17)
--- NOTE | 2017-01-26 09:50 | General Progress Note ---
Progress Note Progress Note ENT POD 5 Pt [facility] site is now stable Did have some redness POD 3, I spoke with nurse-she zachary line around it and pt was started on Kelfex. Today on exam-redness and swelling resolved. Iodoform gauze had been removed. Pt is being transferred to [facility] (old [facility]) -pt understands I am not on staff He is stable for transfer per ENT perspective. ASHLEY CAMOPS January 26, 2017 09:50
--- NOTE | 2017-01-26 11:17 | Pulmonolgy Critical Care Note ---
Critical Care - Asmt/Plan Problems: (1) Respiratory distress (2) Aspiration pneumonia (3) Dementia Respiratory: monitor respiratory rate, adjust FIO2 Cardiac: continue to monitor HR/BP Renal: F/U I&O, keep IV fluid Infectious Disease: check cultures Gastrointestinal: continue feedings/current rate Endocrine: check TSH Neurologic: PRN Ativan, PRN Morphine Prophylaxis: Protonix Notes Reviewed: egg crater, renal Discussed with: nurses, consultants, rn field case managermanager mechanical - Objective Last 24 Hour Vital Signs Date Time Temp Pulse Resp B/P Pulse Ox O2 Delivery O2 Flow Rate FiO2 01/26/17 11:00 60 17 123/53 100 Trach Collar 30 01/26/17 10:00 61 18 151/70 100 Trach Collar 30 01/26/17 09:00 60 16 141/58 100 Trach Collar 30 01/26/17 08:00 70 01/26/17 08:00 97.5 63 17 141/56 100 Trach Collar 30 01/26/17 07:04 60 20 100 Trach Collar 8.0 30 01/26/17 07:00 69 16 144/71 100 Trach Collar 30 01/26/17 06:54 30 01/26/17 06:54 94 Trach Collar 8.0 30 01/26/17 06:54 Trach Collar 8.0 30 01/26/17 06:54 60 20 94 Trach Collar 8.0 30 01/26/17 06:08 65 159/76 01/26/17 06:00 61 15 159/76 100 Trach Collar 30 01/26/17 05:00 63 17 155/72 100 Trach Collar 30 01/26/17 04:00 62 01/26/17 04:00 98.3 62 17 111/56 100 Trach Collar 30 01/26/17 03:00 62 16 131/59 100 Trach Collar 30 01/26/17 02:00 64 18 110/50 100 Trach Collar 30 01/26/17 01:45 30 01/26/17 01:45 69 20 100 Trach Collar 8.0 30 01/26/17 01:30 Trach Collar 8.0 30 01/26/17 01:30 65 20 99 Trach Collar 8.0 30 01/26/17 01:30 99 Trach Collar 8.0 30 01/26/17 01:00 59 18 108/53 98 Trach Collar 30 01/26/17 00:00 98.2 60 17 111/51 100 Trach Collar 30 01/26/17 00:00 60 01/25/17 23:00 62 16 111/53 100 Trach Collar 30 01/25/17 22:00 63 106/50 01/25/17 22:00 65 16 119/55 100 Trach Collar 30 01/25/17 21:00 64 15 106/50 100 Trach Collar 30 01/25/17 20:00 98.3 62 16 116/54 100 Trach Collar 30 01/25/17 20:00 62 01/25/17 19:45 64 20 100 Trach Collar 8.0 30 01/25/17 19:45 30 01/25/17 19:30 100 Trach Collar 8.0 30 01/25/17 19:30 62 20 100 Trach Collar 8.0 30 01/25/17 19:30 Trach Collar 8.0 30 01/25/17 19:00 98.0 64 18 126/57 100 Trach Collar 30 01/25/17 18:00 62 17 134/58 100 Trach Collar 30 01/25/17 17:00 61 16 134/56 100 Trach Collar 30 01/25/17 16:00 62 01/25/17 16:00 60 15 115/51 100 Trach Collar 30 01/25/17 15:00 63 19 104/50 100 Trach Collar 30 01/25/17 14:30 68 18 100 Trach Collar 8.0 30 01/25/17 14:18 30 01/25/17 14:18 100 Trach Collar 8.0 30 01/25/17 14:18 Trach Collar 8.0 30 01/25/17 14:18 68 18 100 Trach Collar 8.0 30 01/25/17 14:00 98.1 66 17 120/50 100 Trach Collar 30 01/25/17 13:50 64 133/60 01/25/17 13:00 60 18 133/60 100 Trach Collar 30 01/25/17 12:00 60 17 143/66 100 Trach Collar 30 01/25/17 12:00 60 Status: awake Condition: critical HEENT: atraumatic Neck: full ROM Lungs: clear Heart: HR/BP stable, HR/BP unstable Abdomen: soft, non-tender Extremities: no C/C/E Decubiti: location Accucheck: 115 Critical Care - Subjective ROS Limited/Unobtainable: Yes ICU Day: 22 Condition: critical EKG Rhythm: Sinus Rhythm FI02: 30 Vent Support Breath Rate: 6 Vent Support Mode: CPAP Vent Tidal Volume: 550 Sputum Amount: Small PEEP: 5.0 PIP: 11 Tube Feeding Amount: 60 I&O: Intake and Output 01/25/17 01/26/17 19:00 07:00 Intake Total 810 ml 720 ml Output Total 1045 ml 600 ml Balance -235 ml 120 ml Free Water 150 ml 60 ml Tube Feeding 660 ml 660 ml Output Urine Total 1045 ml 600 ml # Voids 30 # Bowel Movements 1 CXR: no change Labs: Laboratory Tests Test 01/26/17 05:00 White Blood Count 6.9 K/UL (4.8-10.8) Red Blood Count 3.26 M/UL (4.70-6.10) L Hemoglobin 10.5 G/DL (14.2-18.0) L Hematocrit 32.8 % (42.0-52.0) L Mean Corpuscular Volume 101 FL (80-99) H Mean Corpuscular Hemoglobin 32.1 PG (27.0-31.0) H Mean Corpuscular Hemoglobin Concent 31.9 G/DL (32.0-36.0) L Red Cell Distribution Width 12.7 % (11.6-14.8) Platelet Count 309 K/UL (150-450) Mean Platelet Volume 6.8 FL (6.5-10.1) Neutrophils (%) (Auto) 64.7 % (45.0-75.0) Lymphocytes (%) (Auto) 20.1 % (20.0-45.0) Monocytes (%) (Auto) 6.7 % (1.0-10.0) Eosinophils (%) (Auto) 7.8 % (0.0-3.0) H Basophils (%) (Auto) 0.8 % (0.0-2.0) Sodium Level 140 mEQ/L (135-145) Potassium Level 3.9 mEQ/L (3.4-4.9) Chloride Level 102 mEQ/L (98-107) Carbon Dioxide Level 24 mEQ/L (20-30) Anion Gap 14 (5-15) Blood Urea Nitrogen 21 mg/dL (7-23) Creatinine 0.6 mg/dL (0.7-1.2) L Estimat Glomerular Filtration Rate mL/min (>60) Glucose Level 150 mg/dL (74-106) H Calcium Level 9.3 mg/dL (8.6-10.2) RABIA BANGURA January 26, 2017 11:17
--- NOTE | 2017-01-26 11:25 | Infectious Diseases Prog Note ---
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 Leukocytosis , SP trach 01/21 SP Extubation 01/06 , reintubated 01/09 , Extubation 01/14 History of fracture of femoral neck. Dementia. Hypertension PLAN: 01/26 SP Keflex for neck cellulitis ( post trach, improved ) ( 01/18 Diflucan d# 4 ) ( 01/14 SP Zosyn d# 10 / 10 ) ( 01/08 SP Vanco d# 4 ) Monitor CBC. Monitor BMP Monitor chest x-ray cont vent support Subjective Constitutional: Denies: anorexia, chills, drenching sweats, fatigue, fever, no symptoms, other Allergies: Coded Allergies: No Known Allergies (Verified , 01/06/17) Subjective awake Objective Vital Signs Last 24 Hour Vital Signs Date Time Temp Pulse Resp B/P Pulse Ox O2 Delivery O2 Flow Rate FiO2 01/26/17 11:00 60 17 123/53 100 Trach Collar 30 01/26/17 10:00 61 18 151/70 100 Trach Collar 30 01/26/17 09:00 60 16 141/58 100 Trach Collar 30 01/26/17 08:00 70 01/26/17 08:00 97.5 63 17 141/56 100 Trach Collar 30 01/26/17 07:04 60 20 100 Trach Collar 8.0 30 01/26/17 07:00 69 16 144/71 100 Trach Collar 30 01/26/17 06:54 30 01/26/17 06:54 94 Trach Collar 8.0 30 01/26/17 06:54 Trach Collar 8.0 30 01/26/17 06:54 60 20 94 Trach Collar 8.0 30 01/26/17 06:08 65 159/76 01/26/17 06:00 61 15 159/76 100 Trach Collar 30 01/26/17 05:00 63 17 155/72 100 Trach Collar 30 01/26/17 04:00 62 01/26/17 04:00 98.3 62 17 111/56 100 Trach Collar 30 01/26/17 03:00 62 16 131/59 100 Trach Collar 30 01/26/17 02:00 64 18 110/50 100 Trach Collar 30 01/26/17 01:45 30 01/26/17 01:45 69 20 100 Trach Collar 8.0 30 01/26/17 01:30 Trach Collar 8.0 30 01/26/17 01:30 65 20 99 Trach Collar 8.0 30 01/26/17 01:30 99 Trach Collar 8.0 30 01/26/17 01:00 59 18 108/53 98 Trach Collar 30 01/26/17 00:00 98.2 60 17 111/51 100 Trach Collar 30 01/26/17 00:00 60 01/25/17 23:00 62 16 111/53 100 Trach Collar 30 01/25/17 22:00 63 106/50 01/25/17 22:00 65 16 119/55 100 Trach Collar 30 01/25/17 21:00 64 15 106/50 100 Trach Collar 30 01/25/17 20:00 98.3 62 16 116/54 100 Trach Collar 30 01/25/17 20:00 62 01/25/17 19:45 64 20 100 Trach Collar 8.0 30 01/25/17 19:45 30 01/25/17 19:30 100 Trach Collar 8.0 30 01/25/17 19:30 62 20 100 Trach Collar 8.0 30 01/25/17 19:30 Trach Collar 8.0 30 01/25/17 19:00 98.0 64 18 126/57 100 Trach Collar 30 01/25/17 18:00 62 17 134/58 100 Trach Collar 30 01/25/17 17:00 61 16 134/56 100 Trach Collar 30 01/25/17 16:00 62 01/25/17 16:00 60 15 115/51 100 Trach Collar 30 01/25/17 15:00 63 19 104/50 100 Trach Collar 30 01/25/17 14:30 68 18 100 Trach Collar 8.0 30 01/25/17 14:18 30 01/25/17 14:18 100 Trach Collar 8.0 30 01/25/17 14:18 Trach Collar 8.0 30 01/25/17 14:18 68 18 100 Trach Collar 8.0 30 01/25/17 14:00 98.1 66 17 120/50 100 Trach Collar 30 01/25/17 13:50 64 133/60 01/25/17 13:00 60 18 133/60 100 Trach Collar 30 01/25/17 12:00 60 17 143/66 100 Trach Collar 30 01/25/17 12:00 60 Height (Feet): 5 Height (Inches): 4.00 Weight (Pounds): 117 HEENT: atraumatic Respiratory/Chest: lungs clear Cardiovascular: regular rhythm Abdomen: no organomegaly Laboratory Tests Test 01/26/17 05:00 White Blood Count 6.9 K/UL (4.8-10.8) Red Blood Count 3.26 M/UL (4.70-6.10) L Hemoglobin 10.5 G/DL (14.2-18.0) L Hematocrit 32.8 % (42.0-52.0) L Mean Corpuscular Volume 101 FL (80-99) H Mean Corpuscular Hemoglobin 32.1 PG (27.0-31.0) H Mean Corpuscular Hemoglobin Concent 31.9 G/DL (32.0-36.0) L Red Cell Distribution Width 12.7 % (11.6-14.8) Platelet Count 309 K/UL (150-450) Mean Platelet Volume 6.8 FL (6.5-10.1) Neutrophils (%) (Auto) 64.7 % (45.0-75.0) Lymphocytes (%) (Auto) 20.1 % (20.0-45.0) Monocytes (%) (Auto) 6.7 % (1.0-10.0) Eosinophils (%) (Auto) 7.8 % (0.0-3.0) H Basophils (%) (Auto) 0.8 % (0.0-2.0) Sodium Level 140 mEQ/L (135-145) Potassium Level 3.9 mEQ/L (3.4-4.9) Chloride Level 102 mEQ/L (98-107) Carbon Dioxide Level 24 mEQ/L (20-30) Anion Gap 14 (5-15) Blood Urea Nitrogen 21 mg/dL (7-23) Creatinine 0.6 mg/dL (0.7-1.2) L Estimat Glomerular Filtration Rate mL/min (>60) Glucose Level 150 mg/dL (74-106) H Calcium Level 9.3 mg/dL (8.6-10.2) Current Medications Medications (Trade) Dose Ordered Sig/Daina Route PRN Reason Start Time Stop Time Status Last Admin Dose Admin Acetaminophen (Tylenol) 650 mg Q4H PRN ORAL fever 01/04/17 21:00 02/03/17 20:59 Albuterol/ Ipratropium (DuoNeb 0.5-3(2.5)mg/3ml) 3 ml Q6HRT HHN 01/21/17 14:00 01/26/17 13:59 01/26/17 06:54 Betamethasone/ Clotrimazole (Lotrisone) 1 applic TWICE A DAY PRN TOPIC Itching/Pruritis 01/20/17 11:00 02/19/17 10:59 Clonidine HCl (Catapres) 0.1 mg Q6H PRN GT SBP > 170 01/06/17 16:00 02/05/17 15:59 Dextrose (Dextrose 50%) STAT PRN IV Hypoglycemia 01/04/17 21:00 02/03/17 20:59 Diltiazem HCl (Cardizem) 30 mg EVERY 8 HOURS NG 01/25/17 14:00 02/24/17 13:59 01/26/17 06:08 Docosanol (Abreva) 0.25 gm QIDPRN PRN TP PRN UP TO 4X DAILY TO CHIN 01/23/17 09:45 02/22/17 09:44 01/23/17 23:56 Donepezil HCl (Aricept) 10 mg QHS ORAL 01/23/17 21:00 02/22/17 20:59 01/25/17 21:06 Heparin Sodium (Porcine) (Heparin 5000 units/ml) 5,000 units EVERY 12 HOURS SUBQ 01/04/17 22:00 02/03/17 21:59 01/26/17 08:39 Lansoprazole (Prevacid) 30 mg DAILY GT 01/13/17 09:00 02/12/17 08:59 01/26/17 08:40 Memantine (Namenda) 10 mg QHS ORAL 01/25/17 21:00 02/24/17 20:59 01/25/17 21:06 Ondansetron HCl (Zofran) 4 mg Q6H PRN IVP Nausea & Vomiting 01/04/17 21:00 02/03/17 20:59 Polyethylene Glycol (Miralax) 17 gm DAILY ORAL 01/24/17 09:00 02/23/17 08:59 01/26/17 08:40 HORACIO JOHN M.D. January 26, 2017 11:25
--- NOTE | 2017-01-26 15:54 | Cardiac Electrophysiology PN ---
Assessment/Plan Assessment/Plan 1. Atrial fib with RVR.No recurrence.On Cardizem 30mg NG q 8 hrs. Keep off anticoagulation as had only one episode of atrial fib. 2. Hypertension. Continue Cardizem and PRN Clonidine. 3. Severe pulmonary hypertension, pressure 55, likely due to history of obstructive sleep apnea. 4. Recurrent Respiratory failure due to aspiration. S/P Tracheostomy 01/21/17 5. Dementia. 6. Dysphagia.S/P PEG 01/22/17 DW RN Subjective Subjective In ICU on trach collar tracheostomy. RN at bedside. Objective Last 24 Hour Vital Signs Date Time Temp Pulse Resp B/P Pulse Ox O2 Delivery O2 Flow Rate FiO2 01/26/17 15:00 64 16 103/47 100 Trach Collar 30 01/26/17 14:35 73 12 Mechanical Ventilator 30 01/26/17 14:00 98.0 67 17 121/53 100 Trach Collar 30 01/26/17 13:35 62 14 100 Trach Collar 8.0 30 01/26/17 13:25 Trach Collar 8.0 30 01/26/17 13:25 30 01/26/17 13:25 100 Trach Collar 8.0 30 01/26/17 13:25 62 14 100 Trach Collar 8.0 30 01/26/17 13:11 61 120/53 01/26/17 13:00 61 16 120/53 100 Trach Collar 30 01/26/17 12:00 63 01/26/17 12:00 64 17 124/49 100 Trach Collar 30 01/26/17 11:00 60 17 123/53 100 Trach Collar 30 01/26/17 10:00 61 18 151/70 100 Trach Collar 30 01/26/17 09:00 60 16 141/58 100 Trach Collar 30 01/26/17 08:00 70 01/26/17 08:00 97.5 63 17 141/56 100 Trach Collar 30 01/26/17 07:04 60 20 100 Trach Collar 8.0 30 01/26/17 07:00 69 16 144/71 100 Trach Collar 30 01/26/17 06:54 30 01/26/17 06:54 94 Trach Collar 8.0 30 01/26/17 06:54 Trach Collar 8.0 30 01/26/17 06:54 60 20 94 Trach Collar 8.0 30 01/26/17 06:08 65 159/76 01/26/17 06:00 61 15 159/76 100 Trach Collar 30 01/26/17 05:00 63 17 155/72 100 Trach Collar 30 01/26/17 04:00 62 01/26/17 04:00 98.3 62 17 111/56 100 Trach Collar 30 01/26/17 03:00 62 16 131/59 100 Trach Collar 30 01/26/17 02:00 64 18 110/50 100 Trach Collar 30 01/26/17 01:45 30 01/26/17 01:45 69 20 100 Trach Collar 8.0 30 01/26/17 01:30 Trach Collar 8.0 30 01/26/17 01:30 65 20 99 Trach Collar 8.0 30 01/26/17 01:30 99 Trach Collar 8.0 30 01/26/17 01:00 59 18 108/53 98 Trach Collar 30 01/26/17 00:00 98.2 60 17 111/51 100 Trach Collar 30 01/26/17 00:00 60 01/25/17 23:00 62 16 111/53 100 Trach Collar 30 01/25/17 22:00 63 106/50 01/25/17 22:00 65 16 119/55 100 Trach Collar 30 01/25/17 21:00 64 15 106/50 100 Trach Collar 30 01/25/17 20:00 98.3 62 16 116/54 100 Trach Collar 30 01/25/17 20:00 62 01/25/17 19:45 64 20 100 Trach Collar 8.0 30 01/25/17 19:45 30 01/25/17 19:30 100 Trach Collar 8.0 30 01/25/17 19:30 62 20 100 Trach Collar 8.0 30 01/25/17 19:30 Trach Collar 8.0 30 01/25/17 19:00 98.0 64 18 126/57 100 Trach Collar 30 01/25/17 18:00 62 17 134/58 100 Trach Collar 30 01/25/17 17:00 61 16 134/56 100 Trach Collar 30 01/25/17 16:00 62 01/25/17 16:00 60 15 115/51 100 Trach Collar 30 Intake and Output 01/25/17 01/26/17 19:00 07:00 Intake Total 810 ml 720 ml Output Total 1045 ml 600 ml Balance -235 ml 120 ml Free Water 150 ml 60 ml Tube Feeding 660 ml 660 ml Output Urine Total 1045 ml 600 ml # Voids 30 # Bowel Movements 1 Laboratory Tests Test 01/26/17 05:00 White Blood Count 6.9 K/UL (4.8-10.8) Red Blood Count 3.26 M/UL (4.70-6.10) L Hemoglobin 10.5 G/DL (14.2-18.0) L Hematocrit 32.8 % (42.0-52.0) L Mean Corpuscular Volume 101 FL (80-99) H Mean Corpuscular Hemoglobin 32.1 PG (27.0-31.0) H Mean Corpuscular Hemoglobin Concent 31.9 G/DL (32.0-36.0) L Red Cell Distribution Width 12.7 % (11.6-14.8) Platelet Count 309 K/UL (150-450) Mean Platelet Volume 6.8 FL (6.5-10.1) Neutrophils (%) (Auto) 64.7 % (45.0-75.0) Lymphocytes (%) (Auto) 20.1 % (20.0-45.0) Monocytes (%) (Auto) 6.7 % (1.0-10.0) Eosinophils (%) (Auto) 7.8 % (0.0-3.0) H Basophils (%) (Auto) 0.8 % (0.0-2.0) Sodium Level 140 mEQ/L (135-145) Potassium Level 3.9 mEQ/L (3.4-4.9) Chloride Level 102 mEQ/L (98-107) Carbon Dioxide Level 24 mEQ/L (20-30) Anion Gap 14 (5-15) Blood Urea Nitrogen 21 mg/dL (7-23) Creatinine 0.6 mg/dL (0.7-1.2) L Estimat Glomerular Filtration Rate mL/min (>60) Glucose Level 150 mg/dL (74-106) H Calcium Level 9.3 mg/dL (8.6-10.2) Objective NECK: No JVD. Tracheostomy intact. Off Vent LUNGS: Coarse rhonchi CARDIOVASCULAR: Regular S1 and S2 with no gallop or murmur. ABDOMEN: Soft.PEG in place EXTREMITIES: No pitting edema. ARGELIA DUONG January 26, 2017 15:54
--- NOTE | 2017-01-26 16:19 | Cardiology Report ---
APPROVED REPORT EKG Measurement Heart [id number] Atrial fibrillation with rapid ventricular response Nonspecific T wave abnormality Abnormal ECG
--- NOTE | 2017-01-26 17:17 | Internal Med Progress Note ---
Subjective Date of Service: January 26, 2017 Physician Name Sangeetha Johnson Attending Physician Sangeetha Johnson Current Medications Medications (Trade) Dose Ordered Sig/Daina Route PRN Reason Start Time Stop Time Status Last Admin Dose Admin Acetaminophen (Tylenol) 650 mg Q4H PRN ORAL fever 01/04/17 21:00 02/03/17 20:59 Betamethasone/ Clotrimazole (Lotrisone) 1 applic TWICE A DAY PRN TOPIC Itching/Pruritis 01/20/17 11:00 02/19/17 10:59 Clonidine HCl (Catapres) 0.1 mg Q6H PRN GT SBP > 170 01/06/17 16:00 02/05/17 15:59 Dextrose (Dextrose 50%) STAT PRN IV Hypoglycemia 01/04/17 21:00 02/03/17 20:59 Diltiazem HCl (Cardizem) 30 mg EVERY 8 HOURS NG 01/25/17 14:00 02/24/17 13:59 01/26/17 13:11 Docosanol (Abreva) 0.25 gm QIDPRN PRN TP PRN UP TO 4X DAILY TO CHIN 01/23/17 09:45 02/22/17 09:44 01/23/17 23:56 Donepezil HCl (Aricept) 10 mg QHS ORAL 01/23/17 21:00 02/22/17 20:59 01/25/17 21:06 Heparin Sodium (Porcine) (Heparin 5000 units/ml) 5,000 units EVERY 12 HOURS SUBQ 01/04/17 22:00 02/03/17 21:59 01/26/17 08:39 Lansoprazole (Prevacid) 30 mg DAILY GT 01/13/17 09:00 02/12/17 08:59 01/26/17 08:40 Memantine (Namenda) 10 mg QHS ORAL 01/25/17 21:00 02/24/17 20:59 01/25/17 21:06 Ondansetron HCl (Zofran) 4 mg Q6H PRN IVP Nausea & Vomiting 01/04/17 21:00 02/03/17 20:59 Polyethylene Glycol (Miralax) 17 gm DAILY ORAL 01/24/17 09:00 02/23/17 08:59 01/26/17 08:40 Allergies: Coded Allergies: No Known Allergies (Verified , 01/06/17) ROS Limited/Unobtainable: Yes Subjective 76 YO M admitted with aspiration and respiratory failure. Intubaated on CPAP. ICU. S/P tracheostomy 01/21/17. S/P PEG 01/22/17. Await transfer to [facility] today when bed available.. Objective Last Vital Signs Date Time Temp Pulse Resp B/P Pulse Ox O2 Delivery O2 Flow Rate FiO2 01/26/17 17:00 67 16 101/50 100 Trach Collar 30 01/26/17 16:00 97.9 01/26/17 13:35 8.0 Laboratory Tests Test 01/26/17 05:00 White Blood Count 6.9 K/UL (4.8-10.8) Red Blood Count 3.26 M/UL (4.70-6.10) L Hemoglobin 10.5 G/DL (14.2-18.0) L Hematocrit 32.8 % (42.0-52.0) L Mean Corpuscular Volume 101 FL (80-99) H Mean Corpuscular Hemoglobin 32.1 PG (27.0-31.0) H Mean Corpuscular Hemoglobin Concent 31.9 G/DL (32.0-36.0) L Red Cell Distribution Width 12.7 % (11.6-14.8) Platelet Count 309 K/UL (150-450) Mean Platelet Volume 6.8 FL (6.5-10.1) Neutrophils (%) (Auto) 64.7 % (45.0-75.0) Lymphocytes (%) (Auto) 20.1 % (20.0-45.0) Monocytes (%) (Auto) 6.7 % (1.0-10.0) Eosinophils (%) (Auto) 7.8 % (0.0-3.0) H Basophils (%) (Auto) 0.8 % (0.0-2.0) Sodium Level 140 mEQ/L (135-145) Potassium Level 3.9 mEQ/L (3.4-4.9) Chloride Level 102 mEQ/L (98-107) Carbon Dioxide Level 24 mEQ/L (20-30) Anion Gap 14 (5-15) Blood Urea Nitrogen 21 mg/dL (7-23) Creatinine 0.6 mg/dL (0.7-1.2) L Estimat Glomerular Filtration Rate mL/min (>60) Glucose Level 150 mg/dL (74-106) H Calcium Level 9.3 mg/dL (8.6-10.2) Intake and Output 01/25/17 01/26/17 19:00 07:00 Intake Total 810 ml 720 ml Output Total 1045 ml 600 ml Balance -235 ml 120 ml Free Water 150 ml 60 ml Tube Feeding 660 ml 660 ml Output Urine Total 1045 ml 600 ml # Voids 30 # Bowel Movements 1 Objective General Appearance: WD/WN, moderate distress EENT: PERRL/EOMI, normal ENT inspection Neck: non-tender, normal alignment, supple Cardiovascular: normal peripheral pulses, normal rate, regular rhythm, no gallop/murmur, no JVD Respiratory/Chest: Mech vent; trach; respiratory distress, crackles/rales, rhonchi - bilaterally, expiratory wheezing Abdomen: PEG; normal bowel sounds, non tender, soft, no organomegaly, no mass Extremities: normal range of motion, non-tender 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 (3) Hypercholesteremia (4) BPH (benign prostatic hyperplasia) (5) Alzheimer's dementia Assessment & Plan: Restart namenda and aricept qhs (6) Aspiration pneumonia Assessment & Plan: Ada. D/C fluconazole. See pulmonary and ID note. (7) Hematuria Assessment & Plan: Resolved (8) Atrial fibrillation with RVR Assessment & Plan: Rate controlled - see cardiology note. (9) Dysphagia Assessment & Plan: S/P PEG placement 01/22/17-see GI note. Assessment/Plan Transfer to [facility] sub acute fac today when bed available. Discussed with and Kristen, case sealer. SANGEETHA JOHNSON January 26, 2017 17:17
--- NOTE | 2017-01-28 17:08 | Discharge Summary ---
Discharge Summary Hospital Course Date of Admission Jan 04, 2017 at 18:40 Date of Discharge January 26, 2017 at 18:50 Admitting Diagnosis resp distress. aspiration HPI Home Tamayo is a 76 year old male who was admitted on Jan 04, 2017 at 18:40 for Respiratory Distress/Aspiration Hospital Course [id number] Discharge Discharge Disposition Patient was discharged Acute hosp Discharge Diagnoses: Kelli Escalante NP January 28, 2017 17:08
== END 2017-01-26 18:50 | DRG 4 ==
LOC: ENRESERVTM → ENRESERVDT → EDBD 17:59 → EMR 18:20 → EEVIPCON 18:20 → ICU 18:40 → EDBEDREQSVC 18:57 → EDBEDREQ 21:32
PROC: 5A1945Z Respiratory Ventilation, 24-96 Consecutive Hours (ICD-10-PCS; 2017-01-04)
PROC: 0BH17EZ Insertion of Endotracheal Airway into Trachea, Via Natural or Artificial Opening (ICD-10-PCS; 2017-01-04)
PROC: 0BH17EZ Insertion of Endotracheal Airway into Trachea, Via Natural or Artificial Opening (ICD-10-PCS; 2017-01-09)
PROC: 5A1955Z Respiratory Ventilation, Greater than 96 Consecutive Hours (ICD-10-PCS; 2017-01-09)
PROC: 5A09557 Assistance with Respiratory Ventilation, Greater than 96 Consecutive Hours, Continuous Positive Airway Pressure (ICD-10-PCS; 2017-01-15)
PROC: 5A1945Z Respiratory Ventilation, 24-96 Consecutive Hours (ICD-10-PCS; 2017-01-21)
PROC: 0BH17EZ Insertion of Endotracheal Airway into Trachea, Via Natural or Artificial Opening (ICD-10-PCS; 2017-01-21)
PROC: 0DH63UZ Insertion of Feeding Device into Stomach, Percutaneous Approach (ICD-10-PCS; principal; 2017-01-22 07:15)
PROC: 0B110F4 Bypass Trachea to Cutaneous with Tracheostomy Device, Open Approach (ICD-10-PCS; principal; 2017-01-22 07:15)
DX: J96.01 Acute respiratory failure with hypoxia (principal); J69.0 Pneumonitis due to inhalation of food and vomit; E87.2 Acidosis; R13.10 Dysphagia, unspecified; I27.2 Other secondary pulmonary hypertension; I48.91 Unspecified atrial fibrillation; I07.1 Rheumatic tricuspid insufficiency; G30.9 Alzheimer's disease, unspecified; F02.80 Dementia in other diseases classified elsewhere, unspecified severity, without behavioral disturbance, psychotic disturbance, mood disturbance, and anxiety; J96.02 Acute respiratory failure with hypercapnia; N40.0 Benign prostatic hyperplasia without lower urinary tract symptoms; I10 Essential (primary) hypertension; E78.00 Pure hypercholesterolemia, unspecified; R31.9 Hematuria, unspecified; G47.33 Obstructive sleep apnea (adult) (pediatric); D64.9 Anemia, unspecified
CPT/HCPCS: 31500; 36415; 36600; 71010; 74000; 80048; 80053; 80202; 81001; 81003; 82378; 82550; 82553; 82607; 82746; 82803; 82962; 83540; 83550; 83605; 83615; 83735; 83880; 84100; 84484; 85007; 85025; 85044; 85060; 85610; 85651; 85730; 87040; 87070; 87081; 87086; 87205; 93005; 93306; 94002; 94003; 94150; 94640; 94660; 94664; 94760; 96372; 99283; J1815; J7620